=== PATIENT | male | born 1950 | race Caucasian/White ===

== ENCOUNTER 2017-04-30 02:33 | Inpatient (IN) | payer MEDICAID ==
[~2017-04-30] VITALS: Ht 175.3 cm; Wt 77.1 kg
--- NOTE | 2017-04-30 02:59 | Emergency Room Report ---
History of Present Illness General Chief Complaint: Chest Pain Source: Patient, Medical Record, EMS Present Illness HPI This is a 67-year-old male residing in shelter. He present with chief complaint of chest pain which was of breath. He has a history of cirrhosis and liver nodule concerning for neoplasm. He also had a CT confirming enlarged pituitary tumor and was arty seen by neurosurgery. He was just admitted to the hospital 2 days ago discharged back to shelter. He said that he had chest pain twice a month. Usually get better with breathing treatment. EMS gave him aspirin and nitroglycerin which is pain-free now. unless admission, he required thoracentesis for large right pleural effusion. Denies any other complaint. Patient is mildly confused. Allergies: Coded Allergies: No Known Allergies (Unverified , 04/30/17) Patient History Past Medical History: see triage record, old chart reviewed, HTN, CHF Past Surgical History: other Pertinent Family History: none Immunizations: other Reviewed Nursing Documentation: PMH: Agreed, PSxH: Agreed Review of Systems Eye: Denies: blurred vision, eye pain ENT: Denies: ear pain, nose congestion, throat swelling Respiratory: Denies: cough, shortness of breath Cardiovascular: Reports: chest pain, Denies: palpitations Gastrointestinal: Denies: abdominal pain, diarrhea, nausea, vomiting Musculoskeletal: Denies: back pain, joint pain Skin: Denies: rash Neurological: Denies: headache, numbness Endocrine: Denies: increased thirst, increased urine Hematologic/Lymphatic: Denies: easy bruising All Other Systems: negative except mentioned in HPI Physical Exam Vital Signs Date Time Temp Pulse Resp B/P Pulse Ox O2 Delivery O2 Flow Rate FiO2 04/30/17 02:34 98.2 74 19 117/75 93 Room Air vitals with mild hypoxia Sp02 EP Interpretation: reviewed, abnormal General Appearance: no apparent distress, alert, obese, Chronically Ill Head: normocephalic, atraumatic Eyes: bilateral eye EOMI, bilateral eye PERRL ENT: hearing grossly normal, normal pharynx Neck: full range of motion, supple, no meningismus Respiratory: chest non-tender, decreased breath sounds - Mostly on right Cardiovascular #1: regular rate, rhythm, no murmur Gastrointestinal: normal bowel sounds, non tender, no mass, no organomegaly, no bruit, non-distended Genitourinary: other - Aiken with reddish fluid Musculoskeletal: back normal, normal range of motion, swelling - 1+ Neurologic: alert Psychiatric: mood/affect normal Skin: warm/dry Medical Decision Making Diagnostic Impression: Primary Impression: Chest pain Qualified Codes: R07.9 - Chest pain, unspecified Additional Impression: Pleural effusion on right ER Course Patient presents with chest pain intermittent breath. He does have recurrent pleural effusion. Most likely malignant. First set of troponin negative. No evidence of PE or dissection or pneumonia. We'll get for further workup. He may need another thoracentesis. Lab Results Impression labs with elevated BNP EKG Diagnostic Results EKG Time: 02:59 Rate: normal Rhythm: NSR ST Segments: no acute changes Rhythm Strip Diag. Results Rhythm Strip Time: 02:59 EP Interpretation: yes Rate: 72 Rhythm: NSR Chest X-Ray Diagnostic Results Chest X-Ray Diagnostic Results : Chest X-Ray Ordered: Yes # of Views/Limited/Complete: 1 View Indication: Chest Pain EP Interpretation: Yes Interpretation: no pneumothorax, other - Large right pleural effusion Impression: Other - Right pleural effusion Interpreting ER Provider: Electronically signed by Mika Shell M.D. Last Vital Signs Date Time Temp Pulse Resp B/P Pulse Ox O2 Delivery O2 Flow Rate FiO2 04/30/17 02:34 98.2 74 19 117/75 93 Room Air Status: improved Disposition: ADMITTED INPATIENT Condition: Serious MIKA SHELL M.D. Apr 30, 2017 02:59
[2017-04-30 03:14] LABS: MEAN CORPUSCULAR HEMOGLOBIN 30.1 PG (27.0-31.0); MEAN CORPUSCULAR HGB CONC 31.6 G/DL (32.0-36.0); MEAN CORPUSCULAR VOLUME 95 FL (80-99); MEAN PLATELET VOLUME 7.1 FL (6.5-10.1); PLATELET COUNT 98 K/UL (150-450); RED BLOOD COUNT 4.59 M/UL (4.70-6.10); RED CELL DISTRIBUTION WIDTH 15.4 % (11.6-14.8); WHITE BLOOD COUNT 6.6 K/UL (4.8-10.8)
[2017-04-30 03:15] LABS: INR 1.3 (0.9-1.1); PROTHROMBIN TIME 13.4 SEC (9.30-11.50)
[2017-04-30] MEDS ORDERED: ACETAMINOPHEN500 M7 PO (03:30)
[2017-04-30] MEDS ORDERED: VENTOLIN HFA18 GM INH (03:30)
[2017-04-30] MEDS ORDERED: HALOPERIDOL1 MG ORAL (03:30)
[2017-04-30] MEDS ORDERED: FUROSEMIDE40 MG ORAL (03:30)
[2017-04-30] MEDS ORDERED: CLONIDINE HCL0.1 MG PO (03:30)
[2017-04-30] MEDS ORDERED: FAMOTIDINE20 MG ORAL (03:30)
[2017-04-30] MEDS ORDERED: LACTULOSE20 GM/301 ORAL ×2 (03:30→03:33)
[2017-04-30] MEDS ORDERED: LOPRESSOR25 M1 ORAL (03:33)
[2017-04-30] MEDS ORDERED: LOSARTAN POTAS100 MG ORAL (03:33)
[2017-04-30] MEDS ORDERED: LEVOTHYROXINE200 MCG IV (03:33)
[2017-04-30 03:35] LABS: ALANINE AMINOTRANSFERASE 101 U/L (3-41); ANION GAP 8 (5-15); ASPARTATE AMINO TRANSFERASE 138 U/L (5-40); CALCIUM 7.6 mg/dL (8.6-10.2); CARBON DIOXIDE 31 mEQ/L (20-30); CHLORIDE 93 mEQ/L (98-107); CREATININE 0.9 mg/dL (0.7-1.2); GLOMERULAR FILTRATION RATE > 60 mL/min (>60); HEMOLYSIS 7; POTASSIUM 4.3 mEQ/L (3.4-4.9); SODIUM 132 mEQ/L (135-145); TOTAL PROTEIN 6.3 g/dL (6.6-8.7)
[2017-04-30 03:37] LABS: TROPONIN I < 0.30 ng/mL (<=0.30)
[2017-04-30 03:46] LABS: CKMB 4.5 ng/mL (< 6.7)
[2017-04-30 04:40] VITALS: BP 118/70
[2017-04-30] MEDS ORDERED: LEVOTHYROXINE50 MCG ORAL (05:59)
[2017-04-30 08:15] VITALS: BP 136/81
[2017-04-30 12:13] VITALS: BP 115/72
[2017-04-30] MEDS ORDERED: Lactulose 20gm/30ml UDC ORAL SCH (13:45)
[2017-04-30] MEDS ORDERED: Albuterol 90mcg Inhaler 8gm INH PRN (14:00)
[2017-04-30] MEDS: Lactulose 20gm/30ml UDC ORAL SCH (14:33)
[2017-04-30] MEDS: Potassium Chloride 10 MEQ in D5 1/2NS 1,000 ML IV SCH (15:25)
--- NOTE | 2017-04-30 16:18 | Cardiology Report ---
APPROVED REPORT EKG Measurement Heart [id number] Sinus rhythm with 1st degree AV block Otherwise normal ECG
--- NOTE | 2017-04-30 17:17 | Infectious Diseases Prog Note ---
Assessment/Plan Problems: (1) HCAP (healthcare-associated pneumonia) Assessment & Plan: will start vancomycin and cefepime, send sputum for culture (2) Pleural effusion on right Assessment & Plan: recommend thoracentesis, and fluids to be sent for culture gram stain, fungal , AFB, and cytology (3) Chest pain Assessment & Plan: rule out ACS, recommend cardiac eval , troponin monitor Subjective Allergies: Coded Allergies: No Known Allergies (Unverified , 04/30/17) Objective Vital Signs Last 24 Hour Vital Signs Date Time Temp Pulse Resp B/P Pulse Ox O2 Delivery O2 Flow Rate FiO2 04/30/17 14:33 115/72 04/30/17 12:13 97.0 63 20 115/72 90 Nasal Cannula 3.0 04/30/17 12:00 69 04/30/17 08:15 97.0 68 19 136/81 Room Air 04/30/17 08:00 67 04/30/17 05:21 98.2 73 28 118/70 93 Nasal Cannula 5.0 04/30/17 04:40 98.2 73 28 118/70 93 Nasal Cannula 5.0 04/30/17 02:53 71 28 Nasal Cannula 5.0 04/30/17 02:34 98.2 74 19 117/75 93 Room Air Height (Feet): 5 Height (Inches): 9.00 Weight (Pounds): 150 Laboratory Tests Test 04/30/17 02:00 White Blood Count 6.6 K/UL (4.8-10.8) Red Blood Count 4.59 M/UL (4.70-6.10) L Hemoglobin 13.8 G/DL (14.2-18.0) L Hematocrit 43.7 % (42.0-52.0) Mean Corpuscular Volume 95 FL (80-99) Mean Corpuscular Hemoglobin 30.1 PG (27.0-31.0) Mean Corpuscular Hemoglobin Concent 31.6 G/DL (32.0-36.0) L Red Cell Distribution Width 15.4 % (11.6-14.8) H Platelet Count 98 K/UL (150-450) L Mean Platelet Volume 7.1 FL (6.5-10.1) Neutrophils (%) (Auto) % (45.0-75.0) Lymphocytes (%) (Auto) % (20.0-45.0) Monocytes (%) (Auto) % (1.0-10.0) Eosinophils (%) (Auto) % (0.0-3.0) Basophils (%) (Auto) % (0.0-2.0) Prothrombin Time 13.4 SEC (9.30-11.50) H Prothromb Time International Ratio 1.3 (0.9-1.1) H Activated Partial Thromboplast Time 27 SEC (23-33) Sodium Level 132 mEQ/L (135-145) L Potassium Level 4.3 mEQ/L (3.4-4.9) Chloride Level 93 mEQ/L (98-107) L Carbon Dioxide Level 31 mEQ/L (20-30) H Anion Gap 8 (5-15) Blood Urea Nitrogen 17 mg/dL (7-23) Creatinine 0.9 mg/dL (0.7-1.2) Estimat Glomerular Filtration Rate > 60 mL/min (>60) Glucose Level 103 mg/dL (74-106) Calcium Level 7.6 mg/dL (8.6-10.2) L Total Bilirubin 0.4 mg/dL (0.0-1.2) Aspartate Amino Transf (AST/SGOT) 138 U/L (5-40) H Alanine Aminotransferase (ALT/SGPT) 101 U/L (3-41) H Alkaline Phosphatase 159 U/L (40-129) H Total Creatine Kinase 92 U/L (38-174) Creatine Kinase MB 4.5 ng/mL (< 6.7) Creatine Kinase MB Relative Index 4.8 Troponin I < 0.30 ng/mL (<=0.30) Pro-B-Type Natriuretic Peptide 46 pg/mL (0-125) Total Protein 6.3 g/dL (6.6-8.7) L Albumin 3.2 g/dL (3.5-5.2) L Globulin 3.1 g/dL Albumin/Globulin Ratio 1.0 (1.0-2.7) Current Medications Medications (Trade) Dose Ordered Sig/Tj Route PRN Reason Start Time Stop Time Status Last Admin Dose Admin Albuterol Sulfate (Proventil MDI) 1 puff Q6H PRN INH Shortness of Breath 04/30/17 14:00 05/30/17 13:59 Clonidine HCl (Catapres) 0.1 mg Q12HR ORAL 04/30/17 14:00 05/30/17 13:59 04/30/17 14:33 Furosemide (Lasix) 40 mg TWICE A DAY ORAL 04/30/17 18:00 05/30/17 17:59 Haloperidol (Haldol) 1 mg EVERY 6 HOURS ORAL 04/30/17 18:00 05/30/17 17:59 UNV Lactulose (Cephulac) 40 gm DAILY ORAL 04/30/17 14:00 05/30/17 13:59 04/30/17 14:33 Levothyroxine Sodium (Synthroid) 50 mcg ACBREAKFAST ORAL 05/01/17 06:30 05/31/17 06:29 Losartan Potassium (Cozaar) 50 mg DAILY ORAL 05/01/17 09:00 05/31/17 08:59 Metoprolol Tartrate (Lopressor) 25 mg EVERY 12 HOURS ORAL 04/30/17 21:00 05/30/17 20:59 Morphine Sulfate (Morphine Sulfate) 0.5 mg Q4H PRN IV For Pain 04/30/17 16:30 05/07/17 16:29 Potassium Chloride/Dextrose/ Sodium Chloride (KCl/D5 0.45% NS) 1,005 ml @ 100 mls/hr Q10H3M IV 04/30/17 15:00 05/01/17 10:59 04/30/17 15:25 Ranitidine HCl 150 mg 150 mg TWICE A DAY ORAL 04/30/17 18:00 05/30/17 17:59 Edda Gil M.D. Apr 30, 2017 17:17
[2017-04-30] MEDS: Furosemide 40mg tab ORAL SCH (19:08)
[2017-04-30 19:55] VITALS: BP 140/76
[2017-04-30] MEDS ORDERED: Vancomycin 1250mg/D5W 250ml IVPB ONE ×2 (20:00→20:30)
--- NOTE | 2017-04-30 20:31 | History and Physical ---
History of Present Illness General Reason for Hospitalization: Chest Pain Present Illness HPI Coverage for [employer]. Allergies: Coded Allergies: No Known Allergies (Unverified , 04/30/17) Medication History Scheduled Albuterol Sulfate (Ventolin Hfa), 2 PUFFS INH EVERY 6 HOURS, (Reported) Famotidine (Famotidine), 20 MG ORAL TWICE A DAY, (Reported) Furosemide* (Lasix*), 40 MG ORAL TWICE A DAY, (Reported) Haloperidol* (Haldol*), 1 MG ORAL EVERY 6 HOURS, (Reported) Levothyroxine Sodium* (Levothyroxine Sodium*), 50 MCG ORAL DAILY, (Reported) Losartan Potassium (Losartan Potassium), 50 MG ORAL DAILY, (Reported) Metoprolol Tartrate (Metoprolol Tartrate), 25 MG ORAL EVERY 12 HOURS, (Reported) Miscellaneous Medications Clonidine Hcl (Clonidine Hcl), 0.1 MG PO, (Reported) Lactulose (Lactulose*), 60 ML ORAL, (Reported) Lactulose (Lactulose*), 60 ML ORAL, (Reported) Discontinued Medications Acetaminophen (Acetaminophen), 650 MG PO, (Reported) Discontinued Reason: MD discontinued med Levothyroxine Sodium* (Levothyroxine Sodium), 50 MCG IV DAILY, (Reported) Discontinued Reason: Prescription changed Patient History Healthcare decision maker Resuscitation status Full Code Advanced Directive on File Physical Exam Last 24 Hour Vital Signs Date Time Temp Pulse Resp B/P Pulse Ox O2 Delivery O2 Flow Rate FiO2 04/30/17 19:55 97.2 77 20 140/76 94 Nasal Cannula 2.0 04/30/17 16:00 68 04/30/17 14:33 115/72 04/30/17 12:13 97.0 63 20 115/72 90 Nasal Cannula 3.0 04/30/17 12:00 69 04/30/17 08:15 97.0 68 19 136/81 Room Air 04/30/17 08:00 67 04/30/17 05:21 98.2 73 28 118/70 93 Nasal Cannula 5.0 04/30/17 04:40 98.2 73 28 118/70 93 Nasal Cannula 5.0 04/30/17 02:53 71 28 Nasal Cannula 5.0 04/30/17 02:34 98.2 74 19 117/75 93 Room Air Intake and Output 04/29/17 04/30/17 19:00 07:00 Intake Total 0 ml Output Total 300 ml Balance -300 ml Intake Oral 0 ml Output Urine Total 300 ml Laboratory Tests Test 04/30/17 02:00 White Blood Count 6.6 K/UL (4.8-10.8) Red Blood Count 4.59 M/UL (4.70-6.10) L Hemoglobin 13.8 G/DL (14.2-18.0) L Hematocrit 43.7 % (42.0-52.0) Mean Corpuscular Volume 95 FL (80-99) Mean Corpuscular Hemoglobin 30.1 PG (27.0-31.0) Mean Corpuscular Hemoglobin Concent 31.6 G/DL (32.0-36.0) L Red Cell Distribution Width 15.4 % (11.6-14.8) H Platelet Count 98 K/UL (150-450) L Mean Platelet Volume 7.1 FL (6.5-10.1) Neutrophils (%) (Auto) % (45.0-75.0) Lymphocytes (%) (Auto) % (20.0-45.0) Monocytes (%) (Auto) % (1.0-10.0) Eosinophils (%) (Auto) % (0.0-3.0) Basophils (%) (Auto) % (0.0-2.0) Prothrombin Time 13.4 SEC (9.30-11.50) H Prothromb Time International Ratio 1.3 (0.9-1.1) H Activated Partial Thromboplast Time 27 SEC (23-33) Sodium Level 132 mEQ/L (135-145) L Potassium Level 4.3 mEQ/L (3.4-4.9) Chloride Level 93 mEQ/L (98-107) L Carbon Dioxide Level 31 mEQ/L (20-30) H Anion Gap 8 (5-15) Blood Urea Nitrogen 17 mg/dL (7-23) Creatinine 0.9 mg/dL (0.7-1.2) Estimat Glomerular Filtration Rate > 60 mL/min (>60) Glucose Level 103 mg/dL (74-106) Calcium Level 7.6 mg/dL (8.6-10.2) L Total Bilirubin 0.4 mg/dL (0.0-1.2) Aspartate Amino Transf (AST/SGOT) 138 U/L (5-40) H Alanine Aminotransferase (ALT/SGPT) 101 U/L (3-41) H Alkaline Phosphatase 159 U/L (40-129) H Total Creatine Kinase 92 U/L (38-174) Creatine Kinase MB 4.5 ng/mL (< 6.7) Creatine Kinase MB Relative Index 4.8 Troponin I < 0.30 ng/mL (<=0.30) Pro-B-Type Natriuretic Peptide 46 pg/mL (0-125) Total Protein 6.3 g/dL (6.6-8.7) L Albumin 3.2 g/dL (3.5-5.2) L Globulin 3.1 g/dL Albumin/Globulin Ratio 1.0 (1.0-2.7) Height (Feet): 5 Height (Inches): 9.00 Weight (Pounds): 150 Medications Current Medications Medications (Trade) Dose Ordered Sig/Tj Route PRN Reason Start Time Stop Time Status Last Admin Dose Admin Albuterol Sulfate (Proventil MDI) 1 puff Q6H PRN INH Shortness of Breath 04/30/17 14:00 05/30/17 13:59 Cefepime HCl 2 gm/ Dextrose 110 ml @ 220 mls/hr EVERY 12 HOURS IVPB 04/30/17 18:30 05/07/17 18:29 Clonidine HCl (Catapres) 0.1 mg Q12HR ORAL 04/30/17 14:00 05/30/17 13:59 04/30/17 14:33 Furosemide (Lasix) 40 mg TWICE A DAY ORAL 04/30/17 18:00 05/30/17 17:59 04/30/17 19:08 Haloperidol (Haldol) 1 mg EVERY 6 HOURS ORAL 04/30/17 18:00 05/30/17 17:59 UNV Lactulose (Cephulac) 40 gm DAILY ORAL 04/30/17 14:00 05/30/17 13:59 04/30/17 14:33 Levothyroxine Sodium (Synthroid) 50 mcg ACBREAKFAST ORAL 05/01/17 06:30 05/31/17 06:29 Losartan Potassium (Cozaar) 50 mg DAILY ORAL 05/01/17 09:00 05/31/17 08:59 Metoprolol Tartrate (Lopressor) 25 mg EVERY 12 HOURS ORAL 04/30/17 21:00 05/30/17 20:59 Morphine Sulfate (Morphine Sulfate) 0.5 mg Q4H PRN IV For Pain 04/30/17 16:30 05/07/17 16:29 Potassium Chloride/Dextrose/ Sodium Chloride (KCl/D5 0.45% NS) 1,005 ml @ 100 mls/hr Q10H3M IV 04/30/17 15:00 05/01/17 10:59 04/30/17 15:25 Ranitidine HCl 150 mg 150 mg TWICE A DAY ORAL 04/30/17 18:00 05/30/17 17:59 04/30/17 19:07 Vancomycin HCl 1 ea 1 ea DAILY PRN MISC Per rx protocol 04/30/17 17:45 05/30/17 17:44 Vancomycin HCl/ Dextrose 250 ml @ 166.667 mls/hr ONCE ONCE IVPB 04/30/17 20:00 04/30/17 21:29 Vancomycin HCl/ Dextrose (Vancomycin/D5W) 275 ml @ 183.708 mls/hr Q12HR@0800,2000 IVPB 05/01/17 08:00 05/06/17 07:59 Assessment/Plan Problem List: (1) Chest pain Assessment & Plan: Troponin noted. Now pain free. Cardiology consult. ICD Codes: R07.9 - Chest pain, unspecified SNOMED: 53643686 Qualifiers: Qualified Codes: R07.9 - Chest pain, unspecified (2) Cirrhosis Assessment & Plan: Has transaminitis - due to cirrhosis? Or other acute process ? GI eval. ICD Codes: K74.60 - Unspecified cirrhosis of liver SNOMED: 46367872 (3) Dysuria Assessment & Plan: In the setting of chronic Aiken for ?reason. UA ordered. ID follow-up. ICD Codes: R30.0 - Dysuria SNOMED: 67083534 (4) Pleural effusion on right Assessment & Plan: Chronic? Recurrent? Consider pulmonary eval. ICD Codes: J90 - Pleural effusion, not elsewhere classified SNOMED: 95881101 JANAK PINON Apr 30, 2017 20:31
[2017-04-30] MEDS: Cefepime HCl 2 GM in D5W 110 ML IVPB SCH (21:16)
[2017-04-30] MEDS: Metoprolol 25mg tab ORAL SCH (21:37)
[2017-05-01] VITALS (7 sets, daily range): BP systolic 96–151; BP diastolic 56–82
[2017-05-01 00:24] LABS: APPEARANCE,URINE CLEAR; KETONES,URINE NEGATIVE (NEGATIVE); LEUKOCYTE ESTERASE ,URINE 1+ (NEGATIVE); NITRITE,URINE NEGATIVE (NEGATIVE); PH,URINE 7 (4.5-8.0); PROTEIN,URINE 2+ (NEGATIVE); UROBILINOGEN,URINE NORMAL MG/DL (0.0-1.0)
[2017-05-01 00:36] LABS: RBC,URINE TNTC /HPF (0 - 0); WBC,URINE 0-2 /HPF (0 - 0)
[2017-05-01 00:37] LABS: BACTERIA,URINE FEW /HPF
[2017-05-01] MEDS: Potassium Chloride 10 MEQ in D5 1/2NS 1,000 ML IV SCH (01:03)
[2017-05-01] MEDS: Morphine Sulfate 2mg/ml Inj IV PRN (03:10)
--- NOTE | 2017-05-01 03:30 | Consultation ---
DATE OF CONSULTATION: INFECTIOUS DISEASE CONSULTATION REQUESTING PHYSICIAN: Edna Rivas M.D. REASON FOR CONSULTATION: Pleural effusion, possible pneumonia and recommendations for antibiotics treatment. HISTORY OF PRESENT ILLNESS: The patient is a 67-year-old halfway resident with history of liver cirrhosis and nodule was sent to [facility] for shortness of breath and chest pain. This patient also had a history of pituitary gland enlargement on recent CT scan and he was followed by Neurosurgery as an outpatient. The patient's chest pain got worse today, it is 9/10, chest pain normally gets better with breathing treatments, but no significant improvement today. So, he received aspirin and nitroglycerin via the paramedics and he was brought into the emergency room for further evaluation. The patient's chest x-ray showed large pleural effusion on the right with possible atelectasis and pneumonia. So, I was consulted by the primary provider for antibiotics treatment and further management. As of note, the patient is poor historian, could not provide good history. History was mainly obtained from the medical record. PAST MEDICAL HISTORY: Significant for hypertension, CHF, recurrent pleural effusion, liver cirrhosis and liver nodule and pituitary tumor. PAST SURGICAL HISTORY: Negative. MEDICATIONS: He is on clonidine, albuterol, morphine, ranitidine, haloperidol, Lasix, Lopressor, Synthroid and Cozaar. ALLERGIES: No known drug allergy. SOCIAL HISTORY: He is a halfway resident. No recent drugs, tobacco or alcohol. FAMILY HISTORY: Unable to obtain. PHYSICAL EXAMINATION: GENERAL: Elderly male, lying in bed, comfortable, awake, alert, not in distress. VITAL SIGNS: Temperature 97 degrees, pulse 63, respirations 20, blood pressure 115/72, and saturation 90% on three liters nasal cannula. HEENT: Normocephalic and atraumatic. Pupils reactive to light. Dry oral mucosa. NECK: Supple. No lymphadenopathy. CARDIOVASCULAR: Regular rate and rhythm. No murmur or gallop. LUNGS: He had diminished breathing sound on the right side with crackles. Normal breathing effort. No wheezes. ABDOMEN: Soft, nontender, and nondistended. Minimal ascites and hepatomegaly. EXTREMITIES: Trace edema and no cyanosis. LABORATORY AND DIAGNOSTIC DATA: Labs showed white count of 6.6, hemoglobin of 15.8, and platelet count of 98,000. BUN of 17 and creatinine 0.9. AST of 138 and ALT of 101. Imaging, chest x-ray showed right lower lobe atelectasis with right pleural effusion. ASSESSMENT AND RECOMMENDATION: 1. Healthcare acquired pneumonia. We will start vancomycin and Cefepime. Send sputum for culture. 2. Right pleural effusion. Recommend thoracentesis and fluid to be sent for culture Gram stain, fungal AFB and cytology. 3. Chest pain, rule out acute coronary syndrome. Recommend cardiac evaluation and troponin monitor. 4. Liver cirrhosis with nodule. Recommend Gastrointestinal consult, may need biopsy to rule out hepatocellular carcinoma. Edda Gil M.D. DR: DANIELITO JOB#: [id number] CC:
[2017-05-01] MEDS: Vancomycin 1gm/D5W 275ml IVPB SCH ×4 (07:41→20:07)
[2017-05-01] MEDS: Cefepime HCl 2 GM in D5W 110 ML IVPB SCH ×2 (08:46→21:27)
[2017-05-01] MEDS: Metoprolol 25mg tab ORAL SCH ×2 (08:46→21:30)
[2017-05-01] MEDS: Lactulose 20gm/30ml UDC ORAL SCH (08:46)
[2017-05-01] MEDS: Furosemide 40mg tab ORAL SCH ×2 (08:47→17:25)
[2017-05-01] MEDS: Losartan 50mg tab ORAL SCH (08:47)
--- NOTE | 2017-05-01 11:53 | GI Initial Consult Note ---
Shell,Yesi Stilloi N.P. 05/01/17 1153: History of Present Illness General Date patient seen: May 01, 2017 Time patient seen: 10:00 Reason for Hospitalization: Chest Pain Referring physician: BEVERLY BUSTOS Reason for Consultation: CIRRHOSIS Present Illness HPI This is a 67-year-old male residing in intermediate. He present with chief complaint of chest pain which was of breath. He has a history of cirrhosis and liver nodule concerning for neoplasm. He also had a CT confirming enlarged pituitary tumor and was arty seen by neurosurgery. He was just admitted to the hospital 2 days ago discharged back to intermediate. He said that he had chest pain twice a month. Usually get better with breathing treatment. EMS gave him aspirin and nitroglycerin which is pain-free now. unless admission, he required thoracentesis for large right pleural effusion. Denies any other complaint. Patient is mildly confused. GI Consult. HPI as noted above. GI consulted for history of cirrhosis and liver nodule. Pt seen on floor, awake A&Ox4 NAD with no active s/sx of N/V/D. He presents today with elevated LFTs. Unknown history of endoscopic procedures. Noted mild confusion, patient currently on lactulose. Home Meds Reported Medications Levothyroxine Sodium* (LEVOTHYROXINE SODIUM*) 50 Mcg Tablet, 50 MCG ORAL DAILY, TAB Take in the morning on an empty stomach, at least 30 minutes before food. 04/30/17 Metoprolol Tartrate (Metoprolol Tartrate) 25 Mg Tablet, 25 MG ORAL EVERY 12 HOURS, TAB 04/30/17 Losartan Potassium (LOSARTAN POTASSIUM) 100 Mg Tablet, 50 MG ORAL DAILY, TAB 04/30/17 Lactulose (LACTULOSE*) 20 Gm/30 Ml Solution, 60 ML ORAL, ML 0 Refills 04/30/17 Lactulose (LACTULOSE*) 20 Gm/30 Ml Solution, 60 ML ORAL, ML 0 Refills 04/30/17 Haloperidol* (HALDOL*) 1 Mg Tablet, 1 MG ORAL EVERY 6 HOURS, #20 TAB 0 Refills 04/30/17 Furosemide* (LASIX*) 40 Mg Tablet, 40 MG ORAL TWICE A DAY, TAB 0 Refills 04/30/17 Famotidine (FAMOTIDINE) 20 Mg Tablet, 20 MG ORAL TWICE A DAY, #60 TAB 0 Refills 8/6/17 Clonidine Hcl (CLONIDINE HCL) 0.1 Mg Tablet, 0.1 MG PO, TAB 04/30/17 Albuterol Sulfate (VENTOLIN HFA) 18 Gm Hfa.aer.ad, 2 PUFFS INH EVERY 6 HOURS, # 18 GM 0 Refills 04/30/17 Discontinued Reported Medications Levothyroxine Sodium* (LEVOTHYROXINE SODIUM) 200 Mcg Vial, 50 MCG IV DAILY, VIAL 04/30/17 Acetaminophen (ACETAMINOPHEN) 500 Mg Capsule, 650 MG PO, CAP 04/30/17 Med list reviewed/reconciled: Yes Allergies: Coded Allergies: No Known Allergies (Unverified , 04/30/17) Patient History Limited by: medical condition History Provided By: Patient, Medical Record PMH Narrative Past Medical History: see triage record, old chart reviewed, HTN, CHF Past Surgical History: other Pertinent Family History: none Immunizations: other Reviewed Nursing Documentation: PMH: Agreed, PSxH: Agreed Review of Systems All Other Systems: negative except mentioned in HPI Physical Exam Vital Signs Date Time Temp Pulse Resp B/P Pulse Ox O2 Delivery O2 Flow Rate FiO2 04/30/17 02:34 98.2 74 19 117/75 93 Room Air 04/30/17 02:53 5.0 05/01/17 03:08 28 Sp02 EP Interpretation: reviewed Labs Laboratory Tests Test 05/01/17 00:10 Urine Color Pale yellow Urine Appearance Clear Urine pH 7 (4.5-8.0) Urine Specific [place] 1.005 (1.005-1.035) Urine Protein 2+ (NEGATIVE) H Urine Glucose (UA) Negative (NEGATIVE) Urine Ketones Negative (NEGATIVE) Urine Occult Blood 5+ (NEGATIVE) H Urine Nitrite Negative (NEGATIVE) Urine Bilirubin Negative (NEGATIVE) Urine Urobilinogen Normal MG/DL (0.0-1.0) Urine Leukocyte Esterase 1+ (NEGATIVE) H Urine RBC Tntc /HPF (0 - 0) H Urine WBC 0-2 /HPF (0 - 0) Urine Squamous Epithelial Cells None /LPF (NONE/OCC) Urine Bacteria Few /HPF (NONE) General Appearance: well appearing, no apparent distress, alert Head: normocephalic EENT: normal ENT inspection Neck: full range of motion, supple Respiratory: normal breath sounds, no respiratory distress Cardiovascular: normal rate Gastrointestinal: soft Rectal: deferred Genitourinary: no CVA tenderness Neurologic: normal inspection, alert, responsive Psychiatric: normal inspection Skin: normal inspection, normal color, no rash Lymphatic: normal inspection, no adenopathy Current Medications Current Medications Medications (Trade) Dose Ordered Sig/Tj Route PRN Reason Start Time Stop Time Status Last Admin Dose Admin Albuterol Sulfate (Proventil MDI) 1 puff Q6H PRN INH Shortness of Breath 04/30/17 14:00 05/30/17 13:59 Cefepime HCl 2 gm/ Dextrose 110 ml @ 220 mls/hr EVERY 12 HOURS IVPB 04/30/17 18:30 05/07/17 18:29 05/01/17 08:46 Clonidine HCl (Catapres) 0.1 mg Q12HR ORAL 04/30/17 14:00 05/30/17 13:59 05/01/17 08:47 Furosemide (Lasix) 40 mg TWICE A DAY ORAL 04/30/17 18:00 05/30/17 17:59 05/01/17 08:47 Haloperidol (Haldol) 1 mg Q6H PRN ORAL AGITATION 04/30/17 18:00 05/30/17 17:59 Lactulose (Cephulac) 40 gm DAILY ORAL 04/30/17 14:00 05/30/17 13:59 05/01/17 08:46 Levothyroxine Sodium (Synthroid) 50 mcg ACBREAKFAST ORAL 05/01/17 06:30 05/31/17 06:29 05/01/17 06:05 Losartan Potassium (Cozaar) 50 mg DAILY ORAL 05/01/17 09:00 05/31/17 08:59 05/01/17 08:47 Metoprolol Tartrate (Lopressor) 25 mg EVERY 12 HOURS ORAL 04/30/17 21:00 05/30/17 20:59 05/01/17 08:46 Morphine Sulfate (Morphine Sulfate) 0.5 mg Q4H PRN IV For Pain 04/30/17 16:30 05/07/17 16:29 05/01/17 03:10 Ranitidine HCl (Zantac) 150 mg TWICE A DAY ORAL 04/30/17 18:00 05/30/17 17:59 05/01/17 08:47 Vancomycin HCl 1 ea 1 ea DAILY PRN MISC Per rx protocol 04/30/17 17:45 05/30/17 17:44 Vancomycin HCl/ Dextrose (Vancomycin/D5W) 275 ml @ 183.708 mls/hr Q12HR@0800,2000 IVPB 05/01/17 08:00 05/06/17 07:59 05/01/17 07:41 GI: Plan Problems: (1) Liver nodule (2) Cirrhosis Plan ordered abdominal U/S, ok to resume cardiac diet after amlabs >> ammonia, AFP, hepatitis panel cont lactulose, will consider Xifaxan H2B repeat LFTs fu labs Discussed with Dr. Preciado. Thank you for referring this patient, we will follow. AZAEL PRECIADO 05/03/17 1048: History of Present Illness General Reason for Hospitalization: Chest Pain Present Illness Home Meds Reported Medications Levothyroxine Sodium* (LEVOTHYROXINE SODIUM*) 50 Mcg Tablet, 50 MCG ORAL DAILY, TAB Take in the morning on an empty stomach, at least 30 minutes before food. 04/30/17 Metoprolol Tartrate (Metoprolol Tartrate) 25 Mg Tablet, 25 MG ORAL EVERY 12 HOURS, TAB 04/30/17 Losartan Potassium (LOSARTAN POTASSIUM) 100 Mg Tablet, 50 MG ORAL DAILY, TAB 04/30/17 Lactulose (LACTULOSE*) 20 Gm/30 Ml Solution, 60 ML ORAL, ML 0 Refills 04/30/17 Lactulose (LACTULOSE*) 20 Gm/30 Ml Solution, 60 ML ORAL, ML 0 Refills 04/30/17 Haloperidol* (HALDOL*) 1 Mg Tablet, 1 MG ORAL EVERY 6 HOURS, #20 TAB 0 Refills 04/30/17 Furosemide* (LASIX*) 40 Mg Tablet, 40 MG ORAL TWICE A DAY, TAB 0 Refills 04/30/17 Famotidine (FAMOTIDINE) 20 Mg Tablet, 20 MG ORAL TWICE A DAY, #60 TAB 0 Refills 04/30/17 Clonidine Hcl (CLONIDINE HCL) 0.1 Mg Tablet, 0.1 MG PO, TAB 04/30/17 Albuterol Sulfate (VENTOLIN HFA) 18 Gm Hfa.aer.ad, 2 PUFFS INH EVERY 6 HOURS, # 18 GM 0 Refills 04/30/17 Discontinued Reported Medications Levothyroxine Sodium* (LEVOTHYROXINE SODIUM) 200 Mcg Vial, 50 MCG IV DAILY, VIAL 8/6/17 Acetaminophen (ACETAMINOPHEN) 500 Mg Capsule, 650 MG PO, CAP 04/30/17 Allergies: Coded Allergies: No Known Allergies (Unverified , 04/30/17) GI: Plan Plan The patient was seen and examined at bedside and all new and available data was reviewed in the patients chart. I agree with the above findings, impression and plan. (Patient seen earlier today. Signature stamp does not reflect patient encounter time.). -[facility]zael [facility] N.P. May 01, 2017 11:53 AZAEL PRECIADO May 03, 2017 10:48
[2017-05-01] MEDS: Haloperidol 1mg tab ORAL PRN (12:15)
--- NOTE | 2017-05-01 15:12 | Cardiac Electrophysiology PN ---
Subjective Subjective [id number] Objective Last 24 Hour Vital Signs Date Time Temp Pulse Resp B/P Pulse Ox O2 Delivery O2 Flow Rate FiO2 05/01/17 12:56 72 05/01/17 12:00 97.9 77 22 139/82 88 Nasal Cannula 2.0 05/01/17 08:47 151/76 05/01/17 08:47 151/76 05/01/17 08:46 84 151/76 05/01/17 08:34 85 05/01/17 08:05 80 20 Nasal Cannula 2.0 28 05/01/17 08:00 99.0 81 20 151/76 80 Room Air 05/01/17 04:32 97.0 71 20 100/61 94 Nasal Cannula 2.0 05/01/17 04:00 69 05/01/17 03:40 97.0 05/01/17 03:08 70 20 Nasal Cannula 2.0 28 05/01/17 00:00 63 05/01/17 00:00 97.0 72 20 136/77 95 Nasal Cannula 2.0 04/30/17 21:37 77 140/76 04/30/17 21:37 140/76 04/30/17 20:00 74 04/30/17 19:55 97.2 77 20 140/76 94 Nasal Cannula 2.0 04/30/17 16:00 68 Intake and Output 04/30/17 05/01/17 19:00 07:00 Intake Total 860 ml Output Total 1500 ml 900 ml Balance -640 ml -900 ml Intake Oral 560 ml IV Total 300 ml Output Urine Total 1500 ml 900 ml Laboratory Tests Test 05/01/17 00:10 Urine Color Pale yellow Urine Appearance Clear Urine pH 7 (4.5-8.0) Urine Specific [place] 1.005 (1.005-1.035) Urine Protein 2+ (NEGATIVE) H Urine Glucose (UA) Negative (NEGATIVE) Urine Ketones Negative (NEGATIVE) Urine Occult Blood 5+ (NEGATIVE) H Urine Nitrite Negative (NEGATIVE) Urine Bilirubin Negative (NEGATIVE) Urine Urobilinogen Normal MG/DL (0.0-1.0) Urine Leukocyte Esterase 1+ (NEGATIVE) H Urine RBC Tntc /HPF (0 - 0) H Urine WBC 0-2 /HPF (0 - 0) Urine Squamous Epithelial Cells None /LPF (NONE/OCC) Urine Bacteria Few /HPF (NONE) Microbiology Date/Time Source Procedure Growth Status 04/30/17 05:06 Nasal Nares Received ANUEL PEMBERTON May 01, 2017 15:12
--- NOTE | 2017-05-01 15:50 | Infectious Diseases Prog Note ---
Assessment/Plan Problems: (1) HCAP (healthcare-associated pneumonia) Assessment & Plan: continue vancomycin and cefepime, await sputum culture (2) Pleural effusion on right Assessment & Plan: will order CT chest to rule out lung mass, recommend thoracentesis, and fluids to be sent for culture gram stain, fungal , AFB, and cytology (3) Chest pain Assessment & Plan: rule out ACS, recommend cardiac eval , troponin monitor Subjective Constitutional: Reports: no symptoms HEENT: Reports: no symptoms Respiratory: Reports: no symptoms Breasts: Reports: no symptoms Cardiovascular: Reports: no symptoms Gastrointestinal/Abdominal: Reports: no symptoms Genitourinary: Reports: no symptoms Neurologic: Reports: no symptoms Psychiatric: Reports: no symptoms Skin: Reports: no symptoms Endocrine: Reports: no symptoms Hematologic: Reports: no symptoms Allergies: Coded Allergies: No Known Allergies (Unverified , 04/30/17) Objective Vital Signs Last 24 Hour Vital Signs Date Time Temp Pulse Resp B/P Pulse Ox O2 Delivery O2 Flow Rate FiO2 05/01/17 12:56 72 05/01/17 12:00 97.9 77 22 139/82 88 Nasal Cannula 2.0 05/01/17 08:47 151/76 05/01/17 08:47 151/76 05/01/17 08:46 84 151/76 05/01/17 08:34 85 05/01/17 08:05 80 20 Nasal Cannula 2.0 28 05/01/17 08:00 99.0 81 20 151/76 80 Room Air 05/01/17 04:32 97.0 71 20 100/61 94 Nasal Cannula 2.0 05/01/17 04:00 69 05/01/17 03:40 97.0 05/01/17 03:08 70 20 Nasal Cannula 2.0 28 05/01/17 00:00 63 05/01/17 00:00 97.0 72 20 136/77 95 Nasal Cannula 2.0 04/30/17 21:37 77 140/76 04/30/17 21:37 140/76 04/30/17 20:00 74 04/30/17 19:55 97.2 77 20 140/76 94 Nasal Cannula 2.0 04/30/17 16:00 68 Height (Feet): 5 Height (Inches): 9.00 Weight (Pounds): 150 General Appearance: WD/WN, no acute distress HEENT: normocephalic, atraumatic, anicteric, mucous membranes moist Respiratory/Chest: chest wall non-tender, normal breath sounds, no respiratory distress, no accessory muscle use, decreased breath sounds, crackles/rales Cardiovascular: normal peripheral pulses, normal rate, regular rhythm, no gallop/murmur, no JVD Abdomen: normal bowel sounds, soft, non tender, no organomegaly, non distended , no mass Extremities: no cyanosis, no clubbing Skin: no rash, no lesions Neurologic/Psychiatric: alert Microbiology Date/Time Source Procedure Growth Status 04/30/17 05:06 Nasal Nares Received Laboratory Tests Test 05/01/17 00:10 Urine Color Pale yellow Urine Appearance Clear Urine pH 7 (4.5-8.0) Urine Specific [place] 1.005 (1.005-1.035) Urine Protein 2+ (NEGATIVE) H Urine Glucose (UA) Negative (NEGATIVE) Urine Ketones Negative (NEGATIVE) Urine Occult Blood 5+ (NEGATIVE) H Urine Nitrite Negative (NEGATIVE) Urine Bilirubin Negative (NEGATIVE) Urine Urobilinogen Normal MG/DL (0.0-1.0) Urine Leukocyte Esterase 1+ (NEGATIVE) H Urine RBC Tntc /HPF (0 - 0) H Urine WBC 0-2 /HPF (0 - 0) Urine Squamous Epithelial Cells None /LPF (NONE/OCC) Urine Bacteria Few /HPF (NONE) Current Medications Medications (Trade) Dose Ordered Sig/Tj Route PRN Reason Start Time Stop Time Status Last Admin Dose Admin Albuterol Sulfate (Proventil MDI) 1 puff Q6H PRN INH Shortness of Breath 04/30/17 14:00 05/30/17 13:59 Cefepime HCl 2 gm/ Dextrose 110 ml @ 220 mls/hr EVERY 12 HOURS IVPB 04/30/17 18:30 05/07/17 18:29 05/01/17 08:46 Clonidine HCl (Catapres) 0.1 mg Q12HR ORAL 04/30/17 14:00 05/30/17 13:59 05/01/17 08:47 Furosemide (Lasix) 40 mg TWICE A DAY ORAL 04/30/17 18:00 05/30/17 17:59 05/01/17 08:47 Haloperidol (Haldol) 1 mg Q6H PRN ORAL AGITATION 04/30/17 18:00 05/30/17 17:59 05/01/17 12:15 Lactulose (Cephulac) 40 gm DAILY ORAL 04/30/17 14:00 05/30/17 13:59 05/01/17 08:46 Levothyroxine Sodium (Synthroid) 50 mcg ACBREAKFAST ORAL 05/01/17 06:30 05/31/17 06:29 05/01/17 06:05 Losartan Potassium (Cozaar) 50 mg DAILY ORAL 05/01/17 09:00 05/31/17 08:59 05/01/17 08:47 Metoprolol Tartrate (Lopressor) 25 mg EVERY 12 HOURS ORAL 04/30/17 21:00 05/30/17 20:59 05/01/17 08:46 Morphine Sulfate (Morphine Sulfate) 0.5 mg Q4H PRN IV For Pain 04/30/17 16:30 05/07/17 16:29 05/01/17 03:10 Ranitidine HCl (Zantac) 150 mg TWICE A DAY ORAL 04/30/17 18:00 05/30/17 17:59 05/01/17 08:47 Vancomycin HCl 1 ea 1 ea DAILY PRN MISC Per rx protocol 04/30/17 17:45 05/30/17 17:44 Vancomycin HCl/ Dextrose (Vancomycin/D5W) 275 ml @ 183.708 mls/hr Q12HR@0800,2000 IVPB 05/01/17 08:00 05/06/17 07:59 05/01/17 07:41 Edda Gil M.D. May 01, 2017 15:50
[2017-05-01] MEDS ORDERED: NS 275ml ONE (16:47)
[2017-05-01] MEDS ORDERED: Tubing IV Secondary IV ONE (16:47)
--- NOTE | 2017-05-01 19:44 | Cardiology Progress Note ---
Assessment/Plan Assessment/Plan The patient is seen and examined, full consult will be dictated. Objective Last 24 Hour Vital Signs Date Time Temp Pulse Resp B/P Pulse Ox O2 Delivery O2 Flow Rate FiO2 05/01/17 16:15 62 05/01/17 16:00 97.7 60 18 96/56 87 Room Air 05/01/17 12:56 72 05/01/17 12:00 97.9 77 22 139/82 88 Nasal Cannula 2.0 05/01/17 08:47 151/76 05/01/17 08:47 151/76 05/01/17 08:46 84 151/76 05/01/17 08:34 85 05/01/17 08:05 80 20 Nasal Cannula 2.0 28 05/01/17 08:00 99.0 81 20 151/76 80 Room Air 05/01/17 04:32 97.0 71 20 100/61 94 Nasal Cannula 2.0 05/01/17 04:00 69 05/01/17 03:40 97.0 05/01/17 03:08 70 20 Nasal Cannula 2.0 28 05/01/17 00:00 63 05/01/17 00:00 97.0 72 20 136/77 95 Nasal Cannula 2.0 04/30/17 21:37 77 140/76 04/30/17 21:37 140/76 04/30/17 20:00 74 04/30/17 19:55 97.2 77 20 140/76 94 Nasal Cannula 2.0 Intake and Output 04/30/17 05/01/17 19:00 07:00 Intake Total 860 ml Output Total 1500 ml 900 ml Balance -640 ml -900 ml Intake Oral 560 ml IV Total 300 ml Output Urine Total 1500 ml 900 ml Laboratory Tests Test 05/01/17 00:10 Urine Color Pale yellow Urine Appearance Clear Urine pH 7 (4.5-8.0) Urine Specific [place] 1.005 (1.005-1.035) Urine Protein 2+ (NEGATIVE) H Urine Glucose (UA) Negative (NEGATIVE) Urine Ketones Negative (NEGATIVE) Urine Occult Blood 5+ (NEGATIVE) H Urine Nitrite Negative (NEGATIVE) Urine Bilirubin Negative (NEGATIVE) Urine Urobilinogen Normal MG/DL (0.0-1.0) Urine Leukocyte Esterase 1+ (NEGATIVE) H Urine RBC Tntc /HPF (0 - 0) H Urine WBC 0-2 /HPF (0 - 0) Urine Squamous Epithelial Cells None /LPF (NONE/OCC) Urine Bacteria Few /HPF (NONE) Microbiology Date/Time Source Procedure Growth Status 04/30/17 05:06 Nasal Nares Received ANULE MÉNDEZ May 01, 2017 19:44
--- NOTE | 2017-05-01 22:15 | Consultation ---
DATE OF CONSULTATION: 05/01/2017 CARDIOLOGY CONSULTATION CONSULTING PHYSICIAN: Mark Brown M.D. REFERRING PHYSICIAN: Edna Rivas M.D. REASON FOR CONSULTATION: Chest pain. HISTORY OF PRESENT ILLNESS: The patient is a 67-year-old gentleman history of hypertension, cirrhosis of the liver, was brought to the emergency room complaining of chest pain and shortness of breath. The patient had a CT scan which confirmed enlarged pituitary tumor and was also been evaluated by neurosurgery. The patient was admitted to the hospital two days ago and discharged back. The patient was brought in for chest pain, in the ER received nitroglycerin and aspirin. The patient noted to have a large right pleural refusion, underwent pleurocentesis. At the time of my evaluation, is feeling better. REVIEW OF SYSTEMS: Negative other than what is mentioned in the history of present illness. PAST MEDICAL HISTORY: As mentioned above and also includes hypothyroidism. FAMILY HISTORY: Noncontributory. MEDICATIONS: Are per reconciliation include Synthroid, metoprolol, losartan, lactulose, Haldol, Lasix. PHYSICAL EXAMINATION: VITAL SIGNS: Blood pressure 139/82, pulse 77, respirations 22, and is afebrile. HEAD AND NECK: Shows no JVD. LUNGS: Coarse rhonchi. CARDIOVASCULAR: Regular S1 and S2 with no gallop. ABDOMEN: Slightly distended. EXTREMITIES: A 2+ pitting edema. LABORATORY DATA: Show a white count of 6.6, hemoglobin 13.2, hematocrit 42.7, platelet count 98. Sodium 132, potassium 4.3, BUN of 17, and creatinine 0.9. Troponin is negative. INR is 1.3. His urinalysis shows too numerous to count RBC and 1+ leukocyte esterase. ASSESSMENT AND PLAN: 1. Chest pain likely due to patient's worsening pleural effusion for which he underwent thoracentesis. We will get an echocardiogram to rule for ejection fraction and wall motion abnormality. We will completely rule out myocardial infarction protocol. 2. Right pleural effusion likely secondary to healthcare-associated pneumonia, further evaluation by . 3. Liver cirrhosis with nodule, hepatocellular carcinoma. He has already been evaluated by Dr. Telles. Thank very much, Dr. Rivas, for allowing me to participate in the care of this patient. Please do not hesitate to contact me for any questions regarding my evaluation. Mark Brown M.D. DR: Emeterio JOB#: [id number] CC:
[2017-05-02] VITALS (7 sets, daily range): BP systolic 106–142; BP diastolic 65–89
--- NOTE | 2017-05-02 02:15 | Consultation ---
DATE OF CONSULTATION: 05/01/2017 HEMATOLOGY/ONCOLOGY CONSULTATION CONSULTING PHYSICIAN: Wes Johnston M.D. REQUESTING PHYSICIAN: Edna Rivas M.D. REASON FOR CONSULTATION: Evaluation of thrombocytopenia and potential liver cancer and history of CHF. HISTORY OF PRESENT ILLNESS: The patient is a pleasant 67[facility]year-[facility] with history of cirrhosis with liver nodule, at this time presented to [facility] with shortness of breath as well as chest pain, noted to have pituitary gland enlargement on recent CAT scan, has been followed by Neurosurgery as an outpatient. The patient's chest pain has gotten worse, it is 9/10. The patient is on breathing treatments. No significant improvement. The patient received aspirin as well as nitroglycerin, seen by paramedics. Chest x-ray showed large pleural effusion and noted to have thrombocytopenia and Hematology Service consulted. PAST MEDICAL HISTORY: Hypertension, CHF, pleural effusion, liver cirrhosis, and pituitary tumor. PAST SURGICAL HISTORY: None reported. MEDICATIONS: Clonidine . ALLERGIES: No known drug allergies. SOCIAL HISTORY: [facility] resident. No recent alcohol, tobacco, or illicit drug use. FAMILY HISTORY: Noncontributory. REVIEW OF SYSTEMS: Constitutional: No fever, chills, or night sweats. Skin: No rashes, lumps, or itching. HEENT: No headache, hearing, or vision changes. Breasts: No lumps, pain, or discharge. Pulmonary: No cough, sputum, or shortness of breath. Cardiovascular: No chest pain. Genitourinary: No dysuria, frequency, or urgency. Musculoskeletal: No joint swelling, muscle pain, or trauma. Some chest pain . PHYSICAL EXAMINATION: VITAL SIGNS: Blood pressure 110/73, respiratory rate 12, and O2 saturation 98% on 3 liters nasal cannula. GENERAL: No acute distress. PULMONARY: Decreased breath sounds. CARDIOVASCULAR: Regular rate. No S3 or S4. ABDOMEN: Soft, nontender, and nondistended. EXTREMITIES: No cyanosis, clubbing, or edema. LABORATORY DATA: WBC 6.6, hemoglobin 13.8, hematocrit 35, and platelet count 98,000. BUN of 17 and creatinine 0.9. ASSESSMENT AND PLAN: 1. Anemia secondary to chronic disease. Continue to closely monitor. 2. Thrombocytopenia, mostly related to underlying cirrhosis as well as sepsis. 3. Transaminitis, potentially secondary to underlying liver disease. 4. Liver nodule, biopsy. 5. Dysuria in the setting of chronic [place]. 6. Pleural effusion evaluation by Pulmonary team. 7. Coagulopathy, potentially secondary to underlying liver disease. Wes Johnston M.D. DR: Catrachito JOB#: [id number] CC:
[2017-05-02] MEDS: Vancomycin 1gm/D5W 275ml IVPB SCH ×2 (07:57)
[2017-05-02 08:20] LABS: MEAN CORPUSCULAR HEMOGLOBIN 31.7 PG (27.0-31.0); MEAN CORPUSCULAR HGB CONC 32.9 G/DL (32.0-36.0); MEAN CORPUSCULAR VOLUME 96 FL (80-99); MEAN PLATELET VOLUME 6.8 FL (6.5-10.1); PLATELET COUNT 83 K/UL (150-450); RED BLOOD COUNT 4.33 M/UL (4.70-6.10); RED CELL DISTRIBUTION WIDTH 15.6 % (11.6-14.8); WHITE BLOOD COUNT 7.8 K/UL (4.8-10.8)
[2017-05-02 08:32] LABS: ALANINE AMINOTRANSFERASE 120 U/L (3-41); ANION GAP 6 (5-15); ASPARTATE AMINO TRANSFERASE 147 U/L (5-40); CALCIUM 7.8 mg/dL (8.6-10.2); CARBON DIOXIDE 31 mEQ/L (20-30); CHLORIDE 93 mEQ/L (98-107); CREATININE 0.9 mg/dL (0.7-1.2); GLOMERULAR FILTRATION RATE > 60 mL/min (>60); HEMOLYSIS 5; POTASSIUM 4.6 mEQ/L (3.4-4.9); SODIUM 130 mEQ/L (135-145); TOTAL PROTEIN 6.2 g/dL (6.6-8.7)
[2017-05-02 08:33] LABS: TROPONIN I < 0.30 ng/mL (<=0.30)
[2017-05-02] MEDS: Losartan 50mg tab ORAL SCH (09:00)
[2017-05-02] MEDS: Metoprolol 25mg tab ORAL SCH ×2 (09:00→21:14)
--- NOTE | 2017-05-02 09:03 | Diagnostic Imaging Report ---
Indication:Elevated liver function tests Technique: Grayscale and duplex Doppler imaging of the abdomen performed. Comparison: None Findings: There is a trace amount of ascites present. The liver surface appears slightly nodular. Spleen is enlarged measuring 18 cm. No biliary ductal seen. The liver also demonstrates a coarsened echotexture. Gallbladder is unremarkable. Right pleural effusion noted. The pancreas and aorta are poorly seen. CBD is 5 mm. Impression: Suspicion of chronic liver disease/cirrhosis. Stigmata of portal hypertension including splenomegaly and trace ascites. Small right pleural effusion.
--- NOTE | 2017-05-02 09:03 | Diagnostic Imaging Report ---
Indication: CP Technique: XRAY CHEST 1 V Comparison:None Findings: The heart appears enlarged. There is an air-filled lucency overlying the heart. Opacification of the right mid and lower lung is noted. There is some prominent pulmonary vascularity in the right upper lobe. Blunting of the right costophrenic angle is present. Impression: Cardiomegaly. Air-filled lucency over the heart. This likely represents a hiatal hernia. However, lateral view or further evaluation suggested. Right pleural effusion. Volume loss or infiltrate in the right lower lobe.
--- NOTE | 2017-05-02 09:30 | History and Physical Report ---
DATE OF ADMISSION: 04/30/2017 The patient is originally the patient of 00:10 He asked me to cover the patient at [employer]. The patient is a poor historian, cannot get reliable history from him, 00:16 . HISTORY OF PRESENT ILLNESS: The patient is admitted for chest pain from the long-term, recurrent pleural effusion, complains of chest pain for the past few days that radiated to the left arm. The patient also has history of heartburn. Currently, denies any chest pain, denies any radiation. Denies any neuropathy. Denies any palpitations. Denies any shortness of breath or cough. Past Medical History: Significant for hypertension, cirrhosis, psychosis, hypothyroidism, hypertension, GERD, history of 00:57 and peptic ulcer disease, recurrent pleural effusion. He reports chronic pain syndrome. MEDICATIONS: Albuterol, clonidine, Pepcid, furosemide, Haldol, lactulose, Levoxyl, losartan, and metoprolol. ALLERGIES: No known allergies. SOCIAL HISTORY: He has history of smoking, history of alcohol abuse, and history of drug abuse. REVIEW OF SYSTEMS: HEENT: Denies headaches. Respiratory: Denies shortness of breath. Denies cough. Cardiovascular: Reports chest pain for three days that radiated to the left arm. Denies any palpitations. Gastrointestinal: He reports heartburn. Denies pain. Denies abdominal pain. Extremities: Denies pain in the lower extremities. Central Nervous System: Denies change in vision or speech pattern. Denies diplopia. PHYSICAL EXAMINATION: VITAL SIGNS: Temperature is 97.9 degrees, pulse is 77, and blood pressure 129/82. HEENT: PERRLA. NECK: Supple. No lymphadenopathy. CHEST: Clear to auscultation. CARDIOVASCULAR: Regular rate and rhythm. No murmurs or extra sound. GASTROINTESTINAL: Soft, nontender, and nondistended. No organomegaly. Positive bowel sounds. GENITOURINARY: He does have Aiken catheter. EXTREMITIES: No edema. NEUROLOGIC: Reflexes are equal on both sides. Oriented to name. LABORATORY DATA: WBC of 6.6, hemoglobin 13.8, and platelets of 98,000. Sodium 132, potassium 4.3, BUN of 17, and creatinine 0.9. Glucose of 103. AST of 138 and ALT of 101. Alkaline phosphatase 159. Total bilirubin 0.4. ASSESSMENT AND PLAN: Chest pain, has been admitted to rule out acute coronary syndrome. Cardiology has been consulted as well as the dental surgeon, Dr. Telles has been consulted as well for his cirrhosis and gastrointestinal problems. Once this is ruled out, I will discharge back to the nursing facility where he came from. Edna Rivas M.D. DR: LIBORIO JOB#: [id number] CC:
[2017-05-02 10:36] LABS: BAND NEUTROPHILS % (MANUAL) 1 % (0-8); BASOPHILS % (MANUAL) 3 % (0-2); EOSINOPHILS % (MANUAL) 6 % (0-3); LYMPHOCYTES % (MANUAL) 20 % (20-45); NEUTROPHILS % (MANUAL) 60 % (45-75); PLATELET ESTIMATE DECREASED; TOTAL CELLS COUNTED 100
[2017-05-02 10:37] LABS: PLATELET MORPHOLOGY NORMAL
[2017-05-02] MEDS: Lactulose 20gm/30ml UDC ORAL SCH (10:54)
[2017-05-02] MEDS: Cefepime HCl 2 GM in D5W 110 ML IVPB SCH ×2 (10:55→23:57)
[2017-05-02] MEDS: Furosemide 40mg tab ORAL SCH (10:55)
--- NOTE | 2017-05-02 12:36 | Diagnostic Imaging Report ---
Clinical Indication: Chest pain Technique: Spiral acquisitions obtained through the chest. No IV contrast utilized, per referring physician request. Multiplanar reconstructions generated. Total dose length product 1049 mGycm. CTDIvol(s) 28 mGy. Dose reduction achieved using automated exposure control Comparison: None Findings:There is a massive right pleural effusion, occupying is over 70% of the right hemithorax. There is resultant compressive atelectasis of the entire right lower lobe, as well as significant portions of the right middle and lower lobes. There is a large thoracic hernia that contains most of the stomach. This is probably a large paraesophageal hiatal hernia. This results in compressive atelectasis a significant portion of the medial left lower lobe. The left upper lobe is clear is The heart is mildly enlarged. No mediastinal or hilar mass or adenopathy demonstrated. No definite pericardial effusion. Unremarkable thyroid. No axillary or chest wall mass or adenopathy demonstrated. The bones are remarkable only for degenerative spondylosis changes. Limited views of the upper abdominal anatomy demonstrates mild hepatic atrophy with fairly extensive surface nodularity. There is a very subtle 2.6 cm low-attenuation lesion within segment one of the liver. There is marked edema of the mesenteric fat. The gallbladder is nondistended but the wall appears edematous. There is splenomegaly, with the spleen measuring at least 17 cm long axis dimension, incompletely included. Prominent lymph nodes are seen within the perigastric fat within the hernia. These appear to be discrete nodules rather than varices. There is trace free fluid around the liver Impression: Massive right pleural effusion, occupying well over 70% of the right hemithorax. This results in complete atelectasis of the right lower lobe, significant atelectasis of the portions of the right upper and middle lobes. Large thoracic hernia containing most of the stomach, probably a large paraesophageal hiatal hernia. Compressive atelectasis of some of the medial left lower lobe due to mass effect from the hiatal hernia borderline cardiomegaly Evidence of hepatic cirrhosis, with hepatic atrophy and surface nodularity. Also described on recent ultrasound, also previously reported Suspect 2.6 cm low-attenuation lesion within segment one of the liver. Neoplasm a possibility. Further workup with MRI or contrast CT is recommended Mildly thickwalled gallbladder, likely related to the above Trace ascites Splenomegaly, also previously reported Prominent perigastric lymph nodes, significance uncertain Edematous mesenteric fat Degenerative spondylosis incidentally noted The CT scanner at [facility] is accredited by the [employer] and the scans are performed using protocols designed to limit radiation exposure to as low as reasonably achievable to attain images of sufficient resolution adequate for diagnostic evaluation.
--- NOTE | 2017-05-02 14:33 | Consultation ---
Consult Note Consult Note asked to eval for low Na Assessment/Plan History of Brain tumor Was on Hospice at [facility] Admitted with chest pain Has pleural effusion right side Has shepard for urinary retention Has Pneumonia Has Transaminitis Cirrhosis / Splenomegaly / Liver mass 2+ Proteinuria HTN HypoThyroidism Plan: Adjust BP meds- Urine studies Down on Lasix dose- 2D echo results? Monitor lytes Per consultants KELLY MUÑIZ May 02, 2017 14:33
[2017-05-02] MEDS ORDERED: DuoNeb 0.5-3(2.5)mg/3ml neb HHN PRN (15:00)
--- NOTE | 2017-05-02 15:05 | GI Progress Note ---
Assessment/Plan Problems: (1) Liver nodule ICD Codes: K76.89 - Other specified diseases of liver SNOMED: 840238889 (2) Cirrhosis ICD Codes: K74.60 - Unspecified cirrhosis of liver SNOMED: 37842839 Status: stable Status Narrative Discussed with Dr. Telles. Assessment/Plan abdominal U/S >> Suspicion of chronic liver disease/cirrhosis. Stigmata of portal hypertension including splenomegaly and trace ascites. ammonia WNL >> cont lactulose EGD scheduled for tomorrow. - cardiac diet, NPO @ MN. - hold all blood thinners tonight. fu hepatitis panel fu AFP H2B monitor LFTs fu labs Subjective Gastrointestinal/Abdominal: Reports: no symptoms Subjective abdominal pain alot better Objective Last 24 Hour Vital Signs Date Time Temp Pulse Resp B/P Pulse Ox O2 Delivery O2 Flow Rate FiO2 05/02/17 12:08 62 05/02/17 12:00 97.0 61 22 131/80 99 Nasal Cannula 2.0 05/02/17 09:00 55 109/77 05/02/17 09:00 109/77 05/02/17 09:00 109/77 05/02/17 08:00 97.8 60 21 135/89 94 Nasal Cannula 2.0 05/02/17 07:38 60 05/02/17 06:30 68 18 Nasal Cannula 2.0 28 05/02/17 04:00 58 05/02/17 03:35 97.2 62 20 106/65 91 Nasal Cannula 2.0 05/02/17 00:10 96.4 72 20 122/68 90 Nasal Cannula 2.0 05/02/17 00:00 69 05/01/17 22:33 76 20 94 Nasal Cannula 2.0 28 05/01/17 22:27 74 20 94 Nasal Cannula 2.0 28 05/01/17 21:30 92 115/67 05/01/17 21:29 115/67 05/01/17 20:07 97.7 65 19 115/67 92 Nasal Cannula 2.0 05/01/17 20:00 61 05/01/17 19:00 74 20 Nasal Cannula 2.0 28 05/01/17 16:15 62 05/01/17 16:00 97.7 60 18 96/56 87 Room Air Intake and Output 05/01/17 05/02/17 19:00 07:00 Intake Total 785 ml Output Total 500 ml 1200 ml Balance 285 ml -1200 ml IV Total 785 ml Output Urine Total 500 ml 1200 ml # Bowel Movements 1 Laboratory Tests Test 05/02/17 07:35 White Blood Count 7.8 K/UL (4.8-10.8) Red Blood Count 4.33 M/UL (4.70-6.10) L Hemoglobin 13.7 G/DL (14.2-18.0) L Hematocrit 41.6 % (42.0-52.0) L Mean Corpuscular Volume 96 FL (80-99) Mean Corpuscular Hemoglobin 31.7 PG (27.0-31.0) H Mean Corpuscular Hemoglobin Concent 32.9 G/DL (32.0-36.0) Red Cell Distribution Width 15.6 % (11.6-14.8) H Platelet Count 83 K/UL (150-450) L Mean Platelet Volume 6.8 FL (6.5-10.1) Neutrophils (%) (Auto) % (45.0-75.0) Lymphocytes (%) (Auto) % (20.0-45.0) Monocytes (%) (Auto) % (1.0-10.0) Eosinophils (%) (Auto) % (0.0-3.0) Basophils (%) (Auto) % (0.0-2.0) Differential Total Cells Counted 100 Neutrophils % (Manual) 60 % (45-75) Lymphocytes % (Manual) 20 % (20-45) Monocytes % (Manual) 10 % (1-10) Eosinophils % (Manual) 6 % (0-3) H Basophils % (Manual) 3 % (0-2) H Band Neutrophils 1 % (0-8) Platelet Estimate Decreased L Platelet Morphology Normal Red Blood Cell Morphology Normal Sodium Level 130 mEQ/L (135-145) L Potassium Level 4.6 mEQ/L (3.4-4.9) Chloride Level 93 mEQ/L (98-107) L Carbon Dioxide Level 31 mEQ/L (20-30) H Anion Gap 6 (5-15) Blood Urea Nitrogen 16 mg/dL (7-23) Creatinine 0.9 mg/dL (0.7-1.2) Estimat Glomerular Filtration Rate > 60 mL/min (>60) Glucose Level 127 mg/dL (74-106) H Calcium Level 7.8 mg/dL (8.6-10.2) L Total Bilirubin 0.5 mg/dL (0.0-1.2) Aspartate Amino Transf (AST/SGOT) 147 U/L (5-40) H Alanine Aminotransferase (ALT/SGPT) 120 U/L (3-41) H Alkaline Phosphatase 125 U/L (40-129) Ammonia 45 umol/L (16-60) Troponin I < 0.30 ng/mL (<=0.30) Pro-B-Type Natriuretic Peptide 70 pg/mL (0-125) Total Protein 6.2 g/dL (6.6-8.7) L Albumin 3.1 g/dL (3.5-5.2) L Globulin 3.1 g/dL Albumin/Globulin Ratio 1.0 (1.0-2.7) Alpha Fetoprotein Pending Vancomycin Level Trough 9.4 ug/mL (5.0-12.0) Hepatitis A IgM Antibody Pending Hepatitis B Surface Antigen Pending Hepatitis B Core IgM Antibody Pending Hepatitis C Antibody Pending Height (Feet): 5 Height (Inches): 9.00 Weight (Pounds): 150 General Appearance: no apparent distress, alert Cardiovascular: normal rate Respiratory/Chest: normal breath sounds, no accessory muscle use Abdominal Exam: normal bowel sounds, non tender, soft, distended Extremities: normal range of motion Yesi Shell N.P. May 02, 2017 15:05
--- NOTE | 2017-05-02 15:20 | Consultation ---
History of Present Illness General Date patient seen: May 02, 2017 Time patient seen: 14:30 Chief Complaint: chest pain Referring physician: BEVERLY BUSTOS Reason for Consultation: R pleural effusion, SOB Present Illness HPI 67 y/old male presented initially with chest pain currently denies chest pain, dizziness, SR on tele CXR revealed R pleural effusion Follow up CT chest revealed massive R pleural effusion, occupying more than 70 % of the space causing complete atelectasis of the right lower lobe, patient reported SOB, no cough, no wheezing, no hemoptysis Patient with history of cirrhosis , CHF and recent R pleural effusion, s/p thoracentesis in February this year at [facility] patient with liver nodule on CT chest MRI brain in February 2017 revealed large pituitary adenoma, evidence of prior CVA and Left globe scleral banding Allergies: Coded Allergies: No Known Allergies (Unverified , 04/30/17) Medication History Scheduled Albuterol Sulfate (Ventolin Hfa), 2 PUFFS INH EVERY 6 HOURS, (Reported) Famotidine (Famotidine), 20 MG ORAL TWICE A DAY, (Reported) Furosemide* (Lasix*), 40 MG ORAL TWICE A DAY, (Reported) Haloperidol* (Haldol*), 1 MG ORAL EVERY 6 HOURS, (Reported) Levothyroxine Sodium* (Levothyroxine Sodium*), 50 MCG ORAL DAILY, (Reported) Losartan Potassium (Losartan Potassium), 50 MG ORAL DAILY, (Reported) Metoprolol Tartrate (Metoprolol Tartrate), 25 MG ORAL EVERY 12 HOURS, (Reported) Miscellaneous Medications Clonidine Hcl (Clonidine Hcl), 0.1 MG PO, (Reported) Lactulose (Lactulose*), 60 ML ORAL, (Reported) Lactulose (Lactulose*), 60 ML ORAL, (Reported) Discontinued Medications Acetaminophen (Acetaminophen), 650 MG PO, (Reported) Discontinued Reason: MD discontinued med Levothyroxine Sodium* (Levothyroxine Sodium), 50 MCG IV DAILY, (Reported) Discontinued Reason: Prescription changed Patient History Healthcare decision maker Resuscitation status Full Code Advanced Directive on File Past Medical/Surgical History Past Medical/Surgical History: (1) Hepatic encephalopathy (2) Hypothyroidism (3) HTN (hypertension) (4) Cirrhosis (5) Liver nodule Review of Systems Constitutional: Reports: weakness Eye: Reports: other - left eye surgery Respiratory: Reports: see HPI Cardiovascular: Reports: chest pain, see HPI Gastrointestinal: Reports: other - liver cirrhosis , see HPI Musculoskeletal: Reports: muscle pain Skin: Reports: change in color, dryness Psychiatric: Reports: no symptoms Neurological: Reports: no symptoms Endocrine: Reports: other - pituitary adenoma Hematologic/Lymphatic: Reports: anemia Physical Exam General Appearance: other - awake, responsive , in mild distress, edematous male Lines, tubes and drains: peripheral HEENT: normocephalic, atraumatic, other - left eye smaller than right Respiratory/Chest: decreased breath sounds - bilaterally, worse on the right Cardiovascular/Chest: normal rate, regular rhythm - ST with 1 st degree AV block on tele Abdomen: normal bowel sounds, non tender - mild distention , soft Extremities: pitting - +2 to +3 edema BLE Neurologic: abnormal gait, alert, responsive, other - moves all extremities Last 24 Hour Vital Signs Date Time Temp Pulse Resp B/P Pulse Ox O2 Delivery O2 Flow Rate FiO2 05/02/17 12:08 62 05/02/17 12:00 97.0 61 22 131/80 99 Nasal Cannula 2.0 05/02/17 09:00 55 109/77 05/02/17 09:00 109/77 05/02/17 09:00 109/77 05/02/17 08:00 97.8 60 21 135/89 94 Nasal Cannula 2.0 05/02/17 07:38 60 05/02/17 06:30 68 18 Nasal Cannula 2.0 05/02/17 04:00 58 05/02/17 03:35 97.2 62 20 106/65 91 Nasal Cannula 2.0 05/02/17 00:10 96.4 72 20 122/68 90 Nasal Cannula 2.0 05/02/17 00:00 69 05/01/17 22:33 76 20 94 Nasal Cannula 2.0 28 05/01/17 22:27 74 20 94 Nasal Cannula 2.0 05/01/17 21:30 92 115/67 05/01/17 21:29 115/67 05/01/17 20:07 97.7 65 19 115/67 92 Nasal Cannula 2.0 05/01/17 20:00 61 05/01/17 19:00 74 20 Nasal Cannula 2.0 28 05/01/17 16:15 62 05/01/17 16:00 97.7 60 18 96/56 87 Room Air Intake and Output 05/01/17 05/02/17 19:00 07:00 Intake Total 785 ml Output Total 500 ml 1200 ml Balance 285 ml -1200 ml IV Total 785 ml Output Urine Total 500 ml 1200 ml # Bowel Movements 1 Laboratory Tests Test 05/02/17 07:35 White Blood Count 7.8 K/UL (4.8-10.8) Red Blood Count 4.33 M/UL (4.70-6.10) L Hemoglobin 13.7 G/DL (14.2-18.0) L Hematocrit 41.6 % (42.0-52.0) L Mean Corpuscular Volume 96 FL (80-99) Mean Corpuscular Hemoglobin 31.7 PG (27.0-31.0) H Mean Corpuscular Hemoglobin Concent 32.9 G/DL (32.0-36.0) Red Cell Distribution Width 15.6 % (11.6-14.8) H Platelet Count 83 K/UL (150-450) L Mean Platelet Volume 6.8 FL (6.5-10.1) Neutrophils (%) (Auto) % (45.0-75.0) Lymphocytes (%) (Auto) % (20.0-45.0) Monocytes (%) (Auto) % (1.0-10.0) Eosinophils (%) (Auto) % (0.0-3.0) Basophils (%) (Auto) % (0.0-2.0) Differential Total Cells Counted 100 Neutrophils % (Manual) 60 % (45-75) Lymphocytes % (Manual) 20 % (20-45) Monocytes % (Manual) 10 % (1-10) Eosinophils % (Manual) 6 % (0-3) H Basophils % (Manual) 3 % (0-2) H Band Neutrophils 1 % (0-8) Platelet Estimate Decreased L Platelet Morphology Normal Red Blood Cell Morphology Normal Sodium Level 130 mEQ/L (135-145) L Potassium Level 4.6 mEQ/L (3.4-4.9) Chloride Level 93 mEQ/L (98-107) L Carbon Dioxide Level 31 mEQ/L (20-30) H Anion Gap 6 (5-15) Blood Urea Nitrogen 16 mg/dL (7-23) Creatinine 0.9 mg/dL (0.7-1.2) Estimat Glomerular Filtration Rate > 60 mL/min (>60) Glucose Level 127 mg/dL (74-106) H Calcium Level 7.8 mg/dL (8.6-10.2) L Total Bilirubin 0.5 mg/dL (0.0-1.2) Aspartate Amino Transf (AST/SGOT) 147 U/L (5-40) H Alanine Aminotransferase (ALT/SGPT) 120 U/L (3-41) H Alkaline Phosphatase 125 U/L (40-129) Ammonia 45 umol/L (16-60) Troponin I < 0.30 ng/mL (<=0.30) Pro-B-Type Natriuretic Peptide 70 pg/mL (0-125) Total Protein 6.2 g/dL (6.6-8.7) L Albumin 3.1 g/dL (3.5-5.2) L Globulin 3.1 g/dL Albumin/Globulin Ratio 1.0 (1.0-2.7) Alpha Fetoprotein Pending Vancomycin Level Trough 9.4 ug/mL (5.0-12.0) Hepatitis A IgM Antibody Pending Hepatitis B Surface Antigen Pending Hepatitis B Core IgM Antibody Pending Hepatitis C Antibody Pending Height (Feet): 5 Height (Inches): 9.00 Weight (Pounds): 150 Medications Current Medications Medications (Trade) Dose Ordered Sig/Tj Route PRN Reason Start Time Stop Time Status Last Admin Dose Admin Albuterol Sulfate (Proventil MDI) 1 puff Q6H PRN INH Shortness of Breath 04/30/17 14:00 05/30/17 13:59 05/01/17 22:31 Cefepime HCl 2 gm/ Dextrose 110 ml @ 220 mls/hr EVERY 12 HOURS IVPB 04/30/17 18:30 05/07/17 18:29 05/02/17 10:55 Docusate Sodium (Colace) 100 mg TWICE A DAY ORAL 05/02/17 18:00 06/01/17 17:59 UNV Ergocalciferol (Drisdol) 50,000 intlu QWEEK ORAL 05/02/17 14:45 06/01/17 14:44 UNV Furosemide 40 mg 40 mg DAILY ORAL 05/03/17 09:00 06/02/17 08:59 UNV Haloperidol (Haldol) 1 mg Q6H PRN ORAL AGITATION 04/30/17 18:00 05/30/17 17:59 05/01/17 12:15 Lactulose (Cephulac) 40 gm DAILY ORAL 04/30/17 14:00 05/30/17 13:59 05/02/17 10:54 Levothyroxine Sodium (Synthroid) 50 mcg ACBREAKFAST ORAL 05/01/17 06:30 05/31/17 06:29 05/02/17 06:03 Losartan Potassium (Cozaar) 50 mg DAILY ORAL 05/01/17 09:00 05/31/17 08:59 05/01/17 08:47 Metoprolol Tartrate (Lopressor) 25 mg EVERY 12 HOURS ORAL 04/30/17 21:00 05/30/17 20:59 05/01/17 21:30 Morphine Sulfate (Morphine Sulfate) 0.5 mg Q4H PRN IV For Pain 04/30/17 16:30 05/07/17 16:29 05/01/17 03:10 Ranitidine HCl (Zantac) 150 mg TWICE A DAY ORAL 04/30/17 18:00 05/30/17 17:59 05/02/17 10:54 Sodium Chloride (Hypertonic Saline) 250 ml @ 30 mls/hr ONCE ONCE IVPB 05/02/17 14:30 05/02/17 22:49 UNV Vancomycin HCl 1 ea 1 ea DAILY PRN MISC Per rx protocol 04/30/17 17:45 05/30/17 17:44 Vancomycin HCl/ Dextrose (Vancomycin/D5W) 275 ml @ 183.708 mls/hr Q12HR@0800,2000 IVPB 05/02/17 20:00 05/07/17 19:59 Assessment/Plan Assessment/Plan ASSESSMENT massive Right pleural effusion hx of recurrent pleural effusion s/p recent thoracentesis ( February 2017) acute respiratory distress 2 to large pleural effusion possible HCAP chest pain, likely due to R pleural effusions liver cirrhosis liver nodule, ? liver malignancy CHF with diastolic dysfunction ( no evidence of exacerbation0 hyponatremia ( possible due to liver disease and possibly SIADH from pituitary adenoma) transaminitis 2 to liver disease hx of hepatic encephalopathy HTN pituitary adenoma anemia of chronic disease thrombocytopenia - due to chronic liver disease coagulopathy - due to chronic liver disease PLAN OF CARE tele supplemental O2 to keep sat above 92% pulmonary toilet : HHN prn and CPT tid x 48 hrs thoracentesis R pleural effusion and send fluid for analysis , likely will be done tomorrow in am check INR-1.4; give vit K, check INR prior to tap CXR after tap empiric abx ID follows troponin x 2 negative ECG no ischemic changes, patient was ruled for acute [place] per protocol CP likely due to massive R pleural effusion ECHO with pEF and evidence of diastolic dysfunction no evidence of CHF exacerbation BP management with current regimen and optimize as needed diuresis with Lasix and Aldactone, monitor renal parameters, lytes nephro follows s/p 3 % NaCl, Na improving monitor LFT hepatitis panel abdominal US noted ammonia WNL, on low dose of Lactulose monitor HH, anemia of chronic disease low PLT, due to liver disease butcher scullion follows GI prophylaxis case discussed and evaluated by supervising physician Miki ([facility]),Marii CARCAMO May 02, 2017 15:20
--- NOTE | 2017-05-02 15:43 | Infectious Diseases Prog Note ---
Assessment/Plan Problems: (1) HCAP (healthcare-associated pneumonia) Assessment & Plan: continue vancomycin and cefepime, await sputum culture (2) Pleural effusion on right Assessment & Plan: with near complete right lung collapse on CT chest , recommend thoracentesis, and fluids to be sent for culture gram stain, fungal , AFB, and cytology (3) Chest pain Assessment & Plan: rule out ACS, recommend cardiac eval , troponin monitor Subjective Constitutional: Reports: no symptoms HEENT: Reports: no symptoms Respiratory: Reports: shortness of breath Breasts: Reports: no symptoms Cardiovascular: Reports: no symptoms Gastrointestinal/Abdominal: Reports: no symptoms Genitourinary: Reports: no symptoms Neurologic: Reports: no symptoms Psychiatric: Reports: no symptoms Skin: Reports: no symptoms Endocrine: Reports: no symptoms Hematologic: Reports: no symptoms Allergies: Coded Allergies: No Known Allergies (Unverified , 04/30/17) Objective Vital Signs Last 24 Hour Vital Signs Date Time Temp Pulse Resp B/P Pulse Ox O2 Delivery O2 Flow Rate FiO2 05/02/17 12:08 62 05/02/17 12:00 97.0 61 22 131/80 99 Nasal Cannula 2.0 05/02/17 09:00 55 109/77 05/02/17 09:00 109/77 05/02/17 09:00 109/77 05/02/17 08:00 97.8 60 21 135/89 94 Nasal Cannula 2.0 05/02/17 07:38 60 05/02/17 06:30 68 18 Nasal Cannula 2.0 05/02/17 04:00 58 05/02/17 03:35 97.2 62 20 106/65 91 Nasal Cannula 2.0 05/02/17 00:10 96.4 72 20 122/68 90 Nasal Cannula 2.0 05/02/17 00:00 69 05/01/17 22:33 76 20 94 Nasal Cannula 2.0 05/01/17 22:27 74 20 94 Nasal Cannula 2.0 05/01/17 21:30 92 115/67 05/01/17 21:29 115/67 05/01/17 20:07 97.7 65 19 115/67 92 Nasal Cannula 2.0 05/01/17 20:00 61 05/01/17 19:00 74 20 Nasal Cannula 2.0 28 05/01/17 16:15 62 05/01/17 16:00 97.7 60 18 96/56 87 Room Air Height (Feet): 5 Height (Inches): 9.00 Weight (Pounds): 150 General Appearance: WD/WN, no acute distress HEENT: normocephalic, atraumatic, anicteric, mucous membranes moist, PERRL Respiratory/Chest: no respiratory distress, no accessory muscle use, decreased breath sounds, crackles/rales Cardiovascular: normal peripheral pulses, normal rate, regular rhythm, no gallop/murmur, no JVD Abdomen: normal bowel sounds, soft, non tender, no organomegaly, non distended , no mass, no scars Extremities: no cyanosis, no clubbing Skin: no rash, no lesions, no ulcers Microbiology Date/Time Source Procedure Growth Status 04/30/17 23:00 Blood Blood Culture - Preliminary NO GROWTH AFTER 24 HOURS Resulted 04/30/17 05:06 Nasal Nares MRSA Culture - Final NO METHICILLIN RESISTANT STAPH AUREUS... Complete Laboratory Tests Test 05/02/17 07:35 White Blood Count 7.8 K/UL (4.8-10.8) Red Blood Count 4.33 M/UL (4.70-6.10) L Hemoglobin 13.7 G/DL (14.2-18.0) L Hematocrit 41.6 % (42.0-52.0) L Mean Corpuscular Volume 96 FL (80-99) Mean Corpuscular Hemoglobin 31.7 PG (27.0-31.0) H Mean Corpuscular Hemoglobin Concent 32.9 G/DL (32.0-36.0) Red Cell Distribution Width 15.6 % (11.6-14.8) H Platelet Count 83 K/UL (150-450) L Mean Platelet Volume 6.8 FL (6.5-10.1) Neutrophils (%) (Auto) % (45.0-75.0) Lymphocytes (%) (Auto) % (20.0-45.0) Monocytes (%) (Auto) % (1.0-10.0) Eosinophils (%) (Auto) % (0.0-3.0) Basophils (%) (Auto) % (0.0-2.0) Differential Total Cells Counted 100 Neutrophils % (Manual) 60 % (45-75) Lymphocytes % (Manual) 20 % (20-45) Monocytes % (Manual) 10 % (1-10) Eosinophils % (Manual) 6 % (0-3) H Basophils % (Manual) 3 % (0-2) H Band Neutrophils 1 % (0-8) Platelet Estimate Decreased L Platelet Morphology Normal Red Blood Cell Morphology Normal Sodium Level 130 mEQ/L (135-145) L Potassium Level 4.6 mEQ/L (3.4-4.9) Chloride Level 93 mEQ/L (98-107) L Carbon Dioxide Level 31 mEQ/L (20-30) H Anion Gap 6 (5-15) Blood Urea Nitrogen 16 mg/dL (7-23) Creatinine 0.9 mg/dL (0.7-1.2) Estimat Glomerular Filtration Rate > 60 mL/min (>60) Glucose Level 127 mg/dL (74-106) H Calcium Level 7.8 mg/dL (8.6-10.2) L Total Bilirubin 0.5 mg/dL (0.0-1.2) Aspartate Amino Transf (AST/SGOT) 147 U/L (5-40) H Alanine Aminotransferase (ALT/SGPT) 120 U/L (3-41) H Alkaline Phosphatase 125 U/L (40-129) Ammonia 45 umol/L (16-60) Troponin I < 0.30 ng/mL (<=0.30) Pro-B-Type Natriuretic Peptide 70 pg/mL (0-125) Total Protein 6.2 g/dL (6.6-8.7) L Albumin 3.1 g/dL (3.5-5.2) L Globulin 3.1 g/dL Albumin/Globulin Ratio 1.0 (1.0-2.7) Alpha Fetoprotein Pending Vancomycin Level Trough 9.4 ug/mL (5.0-12.0) Hepatitis A IgM Antibody Pending Hepatitis B Surface Antigen Pending Hepatitis B Core IgM Antibody Pending Hepatitis C Antibody Pending Current Medications Medications (Trade) Dose Ordered Sig/Tj Route PRN Reason Start Time Stop Time Status Last Admin Dose Admin Albuterol Sulfate (Proventil MDI) 1 puff Q6H PRN INH Shortness of Breath 04/30/17 14:00 05/30/17 13:59 05/01/17 22:31 Albuterol/ Ipratropium (DuoNeb 0.5-3(2.5)mg/3ml) 3 ml Q4H PRN HHN Shortness of Breath 05/02/17 15:00 05/07/17 14:59 Cefepime HCl 2 gm/ Dextrose 110 ml @ 220 mls/hr EVERY 12 HOURS IVPB 04/30/17 18:30 05/07/17 18:29 05/02/17 10:55 Docusate Sodium (Colace) 100 mg TWICE A DAY ORAL 05/02/17 18:00 06/01/17 17:59 Ergocalciferol (Drisdol) 50,000 intlu QWEEK ORAL 05/02/17 16:00 06/01/17 15:59 Furosemide 40 mg 40 mg DAILY ORAL 05/03/17 09:00 06/02/17 08:59 Haloperidol (Haldol) 1 mg Q6H PRN ORAL AGITATION 04/30/17 18:00 05/30/17 17:59 05/01/17 12:15 Lactulose (Cephulac) 40 gm DAILY ORAL 04/30/17 14:00 05/30/17 13:59 05/02/17 10:54 Levothyroxine Sodium (Synthroid) 50 mcg ACBREAKFAST ORAL 05/01/17 06:30 05/31/17 06:29 05/02/17 06:03 Losartan Potassium (Cozaar) 50 mg DAILY ORAL 05/01/17 09:00 05/31/17 08:59 05/01/17 08:47 Metoprolol Tartrate (Lopressor) 25 mg EVERY 12 HOURS ORAL 04/30/17 21:00 05/30/17 20:59 05/01/17 21:30 Morphine Sulfate (Morphine Sulfate) 0.5 mg Q4H PRN IV For Pain 04/30/17 16:30 05/07/17 16:29 05/01/17 03:10 Ranitidine HCl (Zantac) 150 mg TWICE A DAY ORAL 04/30/17 18:00 05/30/17 17:59 05/02/17 10:54 Sodium Chloride (Hypertonic Saline) 250 ml @ 30 mls/hr ONCE ONCE IV 05/02/17 15:45 05/03/17 00:04 Vancomycin HCl 1 ea 1 ea DAILY PRN MISC Per rx protocol 04/30/17 17:45 05/30/17 17:44 Vancomycin HCl/ Dextrose (Vancomycin/D5W) 275 ml @ 183.708 mls/hr Q8HR@0400,1200,2000 IVPB 05/02/17 20:00 05/07/17 19:59 Edda Gil M.D. May 02, 2017 15:43
[2017-05-02] MEDS ORDERED: NaCl 3% 500ml 250 ML IV ONE (15:45)
[2017-05-02 15:53] LABS: INR 1.4 (0.9-1.1); PROTHROMBIN TIME 14.2 SEC (9.30-11.50)
[2017-05-02] MEDS ORDERED: Vitamin D 50,000 units cap ORAL SCH (16:00)
--- NOTE | 2017-05-02 16:24 | Cardiology Report ---
APPROVED REPORT EXAM: Two-dimensional and M-mode echocardiogram with Doppler and color Doppler. INDICATION Congestive Heart Failure M-Mode DIMENSIONS IVSd1.5 (0.7-1.1cm)Left Atrium (MM)4.9 (1.6-4.0cm) LVDd5.3 (3.5-5.6cm)Aortic Root3.1 (2.0-3.7cm) PWd1.6 (0.7-1.1cm)Aortic Cusp Exc.2.0 (1.5-2.0cm) LVDs3.4 (2.5-4.0cm) PWs2.3 cm Technically difficult study due to poor acoustic windows. Study quality precludes accurate assessment of regional wall motion. Normal left ventricular chamber size, systolic function and wall motion. Left ventricular ejection fraction estimated to be 70-75%. Moderate left ventricular hypertrophy. Mild posterior pericardial fat or effusion. Mild right atrial enlargement by 2D. Moderate left atrial enlargement by 2D. Focal aortic valve sclerosis with adequate cusp excursion Thickened mitral valve leaflets with normal excursion. Mitral annulus and aortic root calcification. Pulmonic valve not well visualized. Normal tricuspid valve structure. IVC is normal in size with physiologic collapse. A color flow and spectral Doppler study was performed and revealed: No aortic regurgitation. No mitral regurgitation. Left ventricular diastolic dysfunction grade 1. Trace tricuspid regurgitation. Tricuspid systolic velocities suggests peak right ventricular systolic pressure of 19 mmHg
--- NOTE | 2017-05-02 16:49 | Cardiac Electrophysiology PN ---
Assessment/Plan Status Narrative Technically difficult study due to poor acoustic windows. Study quality precludes accurate assessment of regional wall motion. Normal left ventricular chamber size, systolic function and wall motion. Left ventricular ejection fraction estimated to be 70-75%. Moderate left ventricular hypertrophy. Mild posterior pericardial fat or effusion. Mild right atrial enlargement by 2D. Moderate left atrial enlargement by 2D. Focal aortic valve sclerosis with adequate cusp excursion Thickened mitral valve leaflets with normal excursion. Mitral annulus and aortic root calcification. Pulmonic valve not well visualized. Normal tricuspid valve structure. IVC is normal in size with physiologic collapse. A color flow and spectral Doppler study was performe Assessment/Plan 1. Chest pain likely due to patient's worsening pleural effusion for which he underwent thoracentesis. Echocardiogram= EF 70% 2. Right pleural effusion likely secondary to healthcare-associated pneumonia. Another thoracentesis tomorrow.LAsix decreased to 40 mg iv daily. 3. Liver cirrhosis with nodule, possible hepatocellular carcinoma.EGD tomorrow by Dr. Telles. 4. History of Brain tumor. Was on Hospice [facility] RN Subjective Subjective Legs still swollen. No chest pain or SOB. Objective Last 24 Hour Vital Signs Date Time Temp Pulse Resp B/P Pulse Ox O2 Delivery O2 Flow Rate FiO2 05/02/17 16:00 97.9 67 21 127/79 92 Room Air 05/02/17 12:08 62 05/02/17 12:00 97.0 61 22 131/80 99 Nasal Cannula 2.0 05/02/17 09:00 55 109/77 05/02/17 09:00 109/77 05/02/17 09:00 109/77 05/02/17 08:00 97.8 60 21 135/89 94 Nasal Cannula 2.0 05/02/17 07:38 60 05/02/17 06:30 68 18 Nasal Cannula 2.0 28 05/02/17 04:00 58 05/02/17 03:35 97.2 62 20 106/65 91 Nasal Cannula 2.0 05/02/17 00:10 96.4 72 20 122/68 90 Nasal Cannula 2.0 05/02/17 00:00 69 05/01/17 22:33 76 20 94 Nasal Cannula 2.0 05/01/17 22:27 74 20 94 Nasal Cannula 2.0 05/01/17 21:30 92 115/67 05/01/17 21:29 115/67 05/01/17 20:07 97.7 65 19 115/ 92 Nasal Cannula 2.0 05/01/17 20:00 61 05/01/17 19:00 74 20 Nasal Cannula 2.0 28 Intake and Output 05/01/17 05/02/17 19:00 07:00 Intake Total 785 ml Output Total 500 ml 1200 ml Balance 285 ml -1200 ml IV Total 785 ml Output Urine Total 500 ml 1200 ml # Bowel Movements 1 Laboratory Tests Test 05/02/17 07:35 05/02/17 15:25 White Blood Count 7.8 K/UL (4.8-10.8) Red Blood Count 4.33 M/UL (4.70-6.10) L Hemoglobin 13.7 G/DL (14.2-18.0) L Hematocrit 41.6 % (42.0-52.0) L Mean Corpuscular Volume 96 FL (80-99) Mean Corpuscular Hemoglobin 31.7 PG (27.0-31.0) H Mean Corpuscular Hemoglobin Concent 32.9 G/DL (32.0-36.0) Red Cell Distribution Width 15.6 % (11.6-14.8) H Platelet Count 83 K/UL (150-450) L Mean Platelet Volume 6.8 FL (6.5-10.1) Neutrophils (%) (Auto) % (45.0-75.0) Lymphocytes (%) (Auto) % (20.0-45.0) Monocytes (%) (Auto) % (1.0-10.0) Eosinophils (%) (Auto) % (0.0-3.0) Basophils (%) (Auto) % (0.0-2.0) Differential Total Cells Counted 100 Neutrophils % (Manual) 60 % (45-75) Lymphocytes % (Manual) 20 % (20-45) Monocytes % (Manual) 10 % (1-10) Eosinophils % (Manual) 6 % (0-3) H Basophils % (Manual) 3 % (0-2) H Band Neutrophils 1 % (0-8) Platelet Estimate Decreased L Platelet Morphology Normal Red Blood Cell Morphology Normal Sodium Level 130 mEQ/L (135-145) L Potassium Level 4.6 mEQ/L (3.4-4.9) Chloride Level 93 mEQ/L (98-107) L Carbon Dioxide Level 31 mEQ/L (20-30) H Anion Gap 6 (5-15) Blood Urea Nitrogen 16 mg/dL (7-23) Creatinine 0.9 mg/dL (0.7-1.2) Estimat Glomerular Filtration Rate > 60 mL/min (>60) Glucose Level 127 mg/dL (74-106) H Calcium Level 7.8 mg/dL (8.6-10.2) L Total Bilirubin 0.5 mg/dL (0.0-1.2) Aspartate Amino Transf (AST/SGOT) 147 U/L (5-40) H Alanine Aminotransferase (ALT/SGPT) 120 U/L (3-41) H Alkaline Phosphatase 125 U/L (40-129) Ammonia 45 umol/L (16-60) Troponin I < 0.30 ng/mL (<=0.30) Pro-B-Type Natriuretic Peptide 70 pg/mL (0-125) Total Protein 6.2 g/dL (6.6-8.7) L Albumin 3.1 g/dL (3.5-5.2) L Globulin 3.1 g/dL Albumin/Globulin Ratio 1.0 (1.0-2.7) Alpha Fetoprotein Pending Vancomycin Level Trough 9.4 ug/mL (5.0-12.0) Hepatitis A IgM Antibody Pending Hepatitis B Surface Antigen Pending Hepatitis B Core IgM Antibody Pending Hepatitis C Antibody Pending Prothrombin Time 14.2 SEC (9.30-11.50) H Prothromb Time International Ratio 1.4 (0.9-1.1) H Microbiology Date/Time Source Procedure Growth Status 04/30/17 23:00 Blood Blood Culture - Preliminary NO GROWTH AFTER 24 HOURS Resulted 04/30/17 05:06 Nasal Nares MRSA Culture - Final NO METHICILLIN RESISTANT STAPH AUREUS... Complete Objective HEAD AND NECK: Shows no JVD. LUNGS: Coarse rhonchi. CARDIOVASCULAR: Regular S1 and S2 with no gallop. ABDOMEN: Slightly distended. EXTREMITIES: A 2+ pitting edema. ANUEL PEMBERTON May 02, 2017 16:49
[2017-05-02] MEDS: Docusate 100mg cap ORAL SCH (17:18)
[2017-05-02] MEDS ORDERED: Phytonadione 5 MG in D5W 55 ML IVPB ONE (18:00)
--- NOTE | 2017-05-02 20:07 | General Progress Note ---
Assessment/Plan Problem List: (1) Chest pain ICD Codes: R07.9 - Chest pain, unspecified SNOMED: 83601596 Qualifiers: Qualified Codes: R07.9 - Chest pain, unspecified (2) Pleural effusion on right ICD Codes: J90 - Pleural effusion, not elsewhere classified SNOMED: 15464308 (3) Cirrhosis ICD Codes: K74.60 - Unspecified cirrhosis of liver SNOMED: 62762849 (4) Hepatic encephalopathy ICD Codes: K72.90 - Hepatic failure, unspecified without coma SNOMED: 59008862 (5) HTN (hypertension) ICD Codes: I10 - Essential (primary) hypertension SNOMED: 09495865 Status: progressing Assessment/Plan very large pleural effusion consulted pulmonary cirrhosis afebrile no chest pain today r/o acs Subjective Respiratory: Reports: shortness of breath Allergies: Coded Allergies: No Known Allergies (Unverified , 04/30/17) Objective Last 24 Hour Vital Signs Date Time Temp Pulse Resp B/P Pulse Ox O2 Delivery O2 Flow Rate FiO2 05/02/17 20:00 98.6 59 20 112/70 90 Nasal Cannula 2.0 05/02/17 16:00 64 05/02/17 16:00 97.9 67 21 127/79 92 Room Air 05/02/17 12:08 62 05/02/17 12:00 97.0 61 22 131/80 99 Nasal Cannula 2.0 05/02/17 09:00 55 109/77 05/02/17 09:00 109/77 05/02/17 09:00 109/77 05/02/17 08:00 97.8 60 21 135/89 94 Nasal Cannula 2.0 05/02/17 07:38 60 05/02/17 06:30 68 18 Nasal Cannula 2.0 28 05/02/17 04:00 58 05/02/17 03:35 97.2 62 20 106/65 91 Nasal Cannula 2.0 05/02/17 00:10 96.4 72 20 122/68 90 Nasal Cannula 2.0 05/02/17 00:00 69 05/01/17 22:33 76 20 94 Nasal Cannula 2.0 28 05/01/17 22:27 74 20 94 Nasal Cannula 2.0 28 05/01/17 21:30 92 115/67 05/01/17 21:29 115/67 Intake and Output 05/01/17 05/02/17 19:00 07:00 Intake Total 785 ml Output Total 500 ml 1200 ml Balance 285 ml -1200 ml IV Total 785 ml Output Urine Total 500 ml 1200 ml # Bowel Movements 1 Laboratory Tests 05/02/17 07:35: White Blood Count 7.8, Red Blood Count 4.33L, Hemoglobin 13.7L, Hematocrit 41.6L , Mean Corpuscular Volume 96, Mean Corpuscular Hemoglobin 31.7H, Mean Corpuscular Hemoglobin Concent 32.9, Red Cell Distribution Width 15.6H, Platelet Count 83L, Mean Platelet Volume 6.8, Neutrophils (%) (Auto) , Lymphocytes (%) (Auto) , Monocytes (%) (Auto) , Eosinophils (%) (Auto) , Basophils (%) (Auto) , Differential Total Cells Counted 100, Neutrophils % ( Manual) 60, Lymphocytes % (Manual) 20, Monocytes % (Manual) 10, Eosinophils % ( Manual) 6H, Basophils % (Manual) 3H, Band Neutrophils 1, Platelet Estimate DecreasedL, Platelet Morphology Normal, Red Blood Cell Morphology Normal, Sodium Level 130L, Potassium Level 4.6, Chloride Level 93L, Carbon Dioxide Level 31H, Anion Gap 6, Blood Urea Nitrogen 16, Creatinine 0.9, Estimat Glomerular Filtration Rate > 60, Glucose Level 127H, Calcium Level 7.8L, Total Bilirubin 0.5, Aspartate Amino Transf (AST/SGOT) 147H, Alanine Aminotransferase (ALT/SGPT) 120H, Alkaline Phosphatase 125, Ammonia 45, Troponin I < 0.30, Pro-B- Type Natriuretic Peptide 70, Total Protein 6.2L, Albumin 3.1L, Globulin 3.1, Albumin/Globulin Ratio 1.0, Alpha Fetoprotein [Pending], Vancomycin Level Trough 9.4, Hepatitis A IgM Antibody [Pending], Hepatitis B Surface Antigen [ Pending], Hepatitis B Core IgM Antibody [Pending], Hepatitis C Antibody [Pending ] 05/02/17 15:25: Prothrombin Time 14.2H, Prothromb Time International Ratio 1.4H 05/02/17 17:00: Urine Osmolality 574H Height (Feet): 5 Height (Inches): 9.00 Weight (Pounds): 150 Respiratory/Chest: crackles/rales, rhonchi - bilaterally Edna Rivas MD May 02, 2017 20:07
--- NOTE | 2017-05-02 20:07 | General Progress Note ---
Assessment/Plan Problem List: (1) Chest pain ICD Codes: R07.9 - Chest pain, unspecified SNOMED: 62448271 Qualifiers: Qualified Codes: R07.9 - Chest pain, unspecified (2) Pleural effusion on right ICD Codes: J90 - Pleural effusion, not elsewhere classified SNOMED: 53318025 (3) Cirrhosis ICD Codes: K74.60 - Unspecified cirrhosis of liver SNOMED: 34732119 (4) Hepatic encephalopathy ICD Codes: K72.90 - Hepatic failure, unspecified without coma SNOMED: 49621497 (5) HTN (hypertension) ICD Codes: I10 - Essential (primary) hypertension SNOMED: 72035154 Status: progressing Assessment/Plan very large pleural effusion consulted pulmonary cirrhosis afebrile no chest pain today r/o acs Subjective Respiratory: Reports: shortness of breath Allergies: Coded Allergies: No Known Allergies (Unverified , 04/30/17) Objective Last 24 Hour Vital Signs Date Time Temp Pulse Resp B/P Pulse Ox O2 Delivery O2 Flow Rate FiO2 05/02/17 20:00 98.6 59 20 112/70 90 Nasal Cannula 2.0 05/02/17 16:00 64 05/02/17 16:00 97.9 67 21 127/79 92 Room Air 05/02/17 12:08 62 05/02/17 12:00 97.0 61 22 131/80 99 Nasal Cannula 2.0 05/02/17 09:00 55 109/77 05/02/17 09:00 109/77 05/02/17 09:00 109/77 05/02/17 08:00 97.8 60 21 135/89 94 Nasal Cannula 2.0 05/02/17 07:38 60 05/02/17 06:30 68 18 Nasal Cannula 2.0 05/02/17 04:00 58 05/02/17 03:35 97.2 62 20 106/65 91 Nasal Cannula 2.0 05/02/17 00:10 96.4 72 20 122/68 90 Nasal Cannula 2.0 05/02/17 00:00 69 05/01/17 22:33 76 20 94 Nasal Cannula 2.0 28 05/01/17 22:27 74 20 94 Nasal Cannula 2.0 28 05/01/17 21:30 92 115/67 05/01/17 21:29 115/67 05/01/17 20:07 97.7 65 19 115/67 92 Nasal Cannula 2.0 Intake and Output 05/01/17 05/02/17 19:00 07:00 Intake Total 785 ml Output Total 500 ml 1200 ml Balance 285 ml -1200 ml IV Total 785 ml Output Urine Total 500 ml 1200 ml # Bowel Movements 1 Laboratory Tests 05/02/17 07:35: White Blood Count 7.8, Red Blood Count 4.33L, Hemoglobin 13.7L, Hematocrit 41.6L , Mean Corpuscular Volume 96, Mean Corpuscular Hemoglobin 31.7H, Mean Corpuscular Hemoglobin Concent 32.9, Red Cell Distribution Width 15.6H, Platelet Count 83L, Mean Platelet Volume 6.8, Neutrophils (%) (Auto) , Lymphocytes (%) (Auto) , Monocytes (%) (Auto) , Eosinophils (%) (Auto) , Basophils (%) (Auto) , Differential Total Cells Counted 100, Neutrophils % ( Manual) 60, Lymphocytes % (Manual) 20, Monocytes % (Manual) 10, Eosinophils % ( Manual) 6H, Basophils % (Manual) 3H, Band Neutrophils 1, Platelet Estimate DecreasedL, Platelet Morphology Normal, Red Blood Cell Morphology Normal, Sodium Level 130L, Potassium Level 4.6, Chloride Level 93L, Carbon Dioxide Level 31H, Anion Gap 6, Blood Urea Nitrogen 16, Creatinine 0.9, Estimat Glomerular Filtration Rate > 60, Glucose Level 127H, Calcium Level 7.8L, Total Bilirubin 0.5, Aspartate Amino Transf (AST/SGOT) 147H, Alanine Aminotransferase (ALT/SGPT) 120H, Alkaline Phosphatase 125, Ammonia 45, Troponin I < 0.30, Pro-B- Type Natriuretic Peptide 70, Total Protein 6.2L, Albumin 3.1L, Globulin 3.1, Albumin/Globulin Ratio 1.0, Alpha Fetoprotein [Pending], Vancomycin Level Trough 9.4, Hepatitis A IgM Antibody [Pending], Hepatitis B Surface Antigen [ Pending], Hepatitis B Core IgM Antibody [Pending], Hepatitis C Antibody [Pending ] 05/02/17 15:25: Prothrombin Time 14.2H, Prothromb Time International Ratio 1.4H 05/02/17 17:00: Urine Osmolality 574H Height (Feet): 5 Height (Inches): 9.00 Weight (Pounds): 150 Cardiovascular: regular rhythm Respiratory/Chest: crackles/rales Edna Rivas MD May 02, 2017 20:07
--- NOTE | 2017-05-02 20:08 | General Progress Note ---
Assessment/Plan Problem List: (1) Chest pain ICD Codes: R07.9 - Chest pain, unspecified SNOMED: 02885681 Qualifiers: Qualified Codes: R07.9 - Chest pain, unspecified (2) Pleural effusion on right ICD Codes: J90 - Pleural effusion, not elsewhere classified SNOMED: 76431680 (3) Cirrhosis ICD Codes: K74.60 - Unspecified cirrhosis of liver SNOMED: 07492568 (4) Hepatic encephalopathy ICD Codes: K72.90 - Hepatic failure, unspecified without coma SNOMED: 98703470 (5) HTN (hypertension) ICD Codes: I10 - Essential (primary) hypertension SNOMED: 01400729 Assessment/Plan no wheezing very large pleural effusion consulted pulmonary cirrhosis afebrile no chest pain today r/o acs Subjective Allergies: Coded Allergies: No Known Allergies (Unverified , 04/30/17) Objective Last 24 Hour Vital Signs Date Time Temp Pulse Resp B/P Pulse Ox O2 Delivery O2 Flow Rate FiO2 05/02/17 20:00 98.6 59 20 112/70 90 Nasal Cannula 2.0 05/02/17 16:00 64 05/02/17 16:00 97.9 67 21 127/79 92 Room Air 05/02/17 12:08 62 05/02/17 12:00 97.0 61 22 131/80 99 Nasal Cannula 2.0 05/02/17 09:00 55 109/77 05/02/17 09:00 109/77 05/02/17 09:00 109/77 05/02/17 08:00 97.8 60 21 135/89 94 Nasal Cannula 2.0 05/02/17 07:38 60 05/02/17 06:30 68 18 Nasal Cannula 2.0 05/02/17 04:00 58 05/02/17 03:35 97.2 62 20 106/65 91 Nasal Cannula 2.0 05/02/17 00:10 96.4 72 20 122/68 90 Nasal Cannula 2.0 05/02/17 00:00 69 05/01/17 22:33 76 20 94 Nasal Cannula 2.0 28 05/01/17 22:27 74 20 94 Nasal Cannula 2.0 28 05/01/17 21:30 92 115/67 05/01/17 21:29 115/67 Intake and Output 05/01/17 05/02/17 19:00 07:00 Intake Total 785 ml Output Total 500 ml 1200 ml Balance 285 ml -1200 ml IV Total 785 ml Output Urine Total 500 ml 1200 ml # Bowel Movements 1 Laboratory Tests 05/02/17 07:35: White Blood Count 7.8, Red Blood Count 4.33L, Hemoglobin 13.7L, Hematocrit 41.6L , Mean Corpuscular Volume 96, Mean Corpuscular Hemoglobin 31.7H, Mean Corpuscular Hemoglobin Concent 32.9, Red Cell Distribution Width 15.6H, Platelet Count 83L, Mean Platelet Volume 6.8, Neutrophils (%) (Auto) , Lymphocytes (%) (Auto) , Monocytes (%) (Auto) , Eosinophils (%) (Auto) , Basophils (%) (Auto) , Differential Total Cells Counted 100, Neutrophils % ( Manual) 60, Lymphocytes % (Manual) 20, Monocytes % (Manual) 10, Eosinophils % ( Manual) 6H, Basophils % (Manual) 3H, Band Neutrophils 1, Platelet Estimate DecreasedL, Platelet Morphology Normal, Red Blood Cell Morphology Normal, Sodium Level 130L, Potassium Level 4.6, Chloride Level 93L, Carbon Dioxide Level 31H, Anion Gap 6, Blood Urea Nitrogen 16, Creatinine 0.9, Estimat Glomerular Filtration Rate > 60, Glucose Level 127H, Calcium Level 7.8L, Total Bilirubin 0.5, Aspartate Amino Transf (AST/SGOT) 147H, Alanine Aminotransferase (ALT/SGPT) 120H, Alkaline Phosphatase 125, Ammonia 45, Troponin I < 0.30, Pro-B- Type Natriuretic Peptide 70, Total Protein 6.2L, Albumin 3.1L, Globulin 3.1, Albumin/Globulin Ratio 1.0, Alpha Fetoprotein [Pending], Vancomycin Level Trough 9.4, Hepatitis A IgM Antibody [Pending], Hepatitis B Surface Antigen [ Pending], Hepatitis B Core IgM Antibody [Pending], Hepatitis C Antibody [Pending ] 05/02/17 15:25: Prothrombin Time 14.2H, Prothromb Time International Ratio 1.4H 05/02/17 17:00: Urine Osmolality 574H Height (Feet): 5 Height (Inches): 9.00 Weight (Pounds): 150 Edna Rivas MD May 02, 2017 20:08
[2017-05-02] MEDS: Vancomycin 750mg/D5W 275ml IVPB SCH ×2 (21:54)
[2017-05-03] MEDS: Haloperidol 1mg tab ORAL PRN (01:31)
[2017-05-03 03:51] VITALS: BP 138/80
[2017-05-03] MEDS: Vancomycin 750mg/D5W 275ml IVPB SCH ×6 (04:55→20:50)
[2017-05-03 06:55] LABS: INR 1.3 (0.9-1.1); PROTHROMBIN TIME 13.6 SEC (9.30-11.50)
[2017-05-03 07:04] LABS: MEAN CORPUSCULAR HEMOGLOBIN 31.6 PG (27.0-31.0); MEAN CORPUSCULAR HGB CONC 32.9 G/DL (32.0-36.0); MEAN CORPUSCULAR VOLUME 96 FL (80-99); MEAN PLATELET VOLUME 6.3 FL (6.5-10.1); PLATELET COUNT 83 K/UL (150-450); RED BLOOD COUNT 4.16 M/UL (4.70-6.10); RED CELL DISTRIBUTION WIDTH 15.5 % (11.6-14.8)
[2017-05-03 07:14] LABS: HEMOGLOBIN A1C 4.8 % (< 6.0)
[2017-05-03 07:22] LABS: OSMOLALITY SERUM 282 mOsm/kg (297-317)
[2017-05-03 07:23] LABS: ALANINE AMINOTRANSFERASE 86 U/L (3-41); ALBUMIN/GLOBULIN RATIO 0.9 (1.0-2.7); ANION GAP 7 (5-15); ASPARTATE AMINO TRANSFERASE 83 U/L (5-40); CALCIUM 7.8 mg/dL (8.6-10.2); CARBON DIOXIDE 30 mEQ/L (20-30); CHLORIDE 98 mEQ/L (98-107); CHOLESTEROL 127 mg/dL (< 200); CREATININE 0.8 mg/dL (0.7-1.2); GLOMERULAR FILTRATION RATE > 60 mL/min (>60); HEMOLYSIS 4; LDL CHOLESTEROL (CALC.) 52 mg/dL (60-99); MAGNESIUM 1.8 mg/dL (1.7-2.5); PHOSPHORUS 3.7 mg/dL (2.5-4.8); POTASSIUM 4.6 mEQ/L (3.4-4.9); SODIUM 135 mEQ/L (135-145); TOTAL PROTEIN 6.1 g/dL (6.6-8.7); URIC ACID 4.8 mg/dL (3.0-7.5)
[2017-05-03 08:15] VITALS: BP 122/71
[2017-05-03 08:20] LABS: BAND NEUTROPHILS % (MANUAL) 0 % (0-8); BASOPHILS % (MANUAL) 0 % (0-2); EOSINOPHILS % (MANUAL) 6 % (0-3); LYMPHOCYTES % (MANUAL) 17 % (20-45); NEUTROPHILS % (MANUAL) 68 % (45-75); PLATELET ESTIMATE DECREASED; PLATELET MORPHOLOGY NORMAL; TOTAL CELLS COUNTED 100
[2017-05-03] MEDS: Furosemide 40mg tab ORAL SCH (08:43)
[2017-05-03] MEDS: Metoprolol 25mg tab ORAL SCH ×2 (08:44→22:15)
[2017-05-03] MEDS: Docusate 100mg cap ORAL SCH ×2 (08:44→17:16)
[2017-05-03] MEDS: Losartan 50mg tab ORAL SCH (08:45)
[2017-05-03] MEDS: Lactulose 20gm/30ml UDC ORAL SCH (08:45)
[2017-05-03] MEDS: Cefepime HCl 2 GM in D5W 110 ML IVPB SCH ×2 (09:25→22:38)
[2017-05-03] MEDS ORDERED: Metoclopramide 10mg/2ml Inj IVP PRN (09:30)
[2017-05-03] MEDS ORDERED: Erythromycin Inj 500 MG in NS 110 ML IVPB ONE (12:00)
--- NOTE | 2017-05-03 12:01 | Diagnostic Imaging Report ---
Indications: Pleural effusion Technique: Ultrasound used to localize optimal puncture site. Sterile prepping and draping right chest. Local anesthesia with 1% lidocaine. Under real-time ultrasound guidance, puncture pleural space using thoracentesis needle. Stylet removed. Catheter placed to vacuum bottle suction. Total 3900 milliliters of cloudy yellow fluid aspirated. Specimen was sent to the lab. Patient tolerated procedure well, without immediate complication. Findings: Followup sonography demonstrates complete resolution of pleural fluid. Impression: Successful ultrasound-guided thoracentesis, yielding 3900 milliliters of cloudy yellow fluid
[2017-05-03 12:57] LABS: APPEARANCE, BODY FLUID CLOUDY; BD FL SOURCE THORACENTESIS; BD FL VOLUME 25 mL
[2017-05-03 12:58] LABS: BODY FLUID NUCLEATED CELLS 67 /CUMM; BODY FLUID RBC 2911 /CUMM; MONONUCLEAR WBC 75 %; POLYMORPHONUCLEAR WBC 23 %
--- NOTE | 2017-05-03 13:31 | Pre-Procedure Note/Attestation ---
Pre-Procedure Note/Attestation Complete Prior to Procedure Planned Procedure: not applicable Procedure Narrative: egd Indications for Procedure Pre-Operative Diagnosis: gib Attestation I attest that I discussed the nature of the procedure; its benefits; risks and complications; and alternatives (and the risks and benefits of such alternatives ), prior to the procedure, with the patient (or the patient's legal branch sales and service representative). I attest that, if there was a reasonable possibility of needing a blood transfusion, the patient (or the patient's legal branch sales and service representative) was given the [facility] standardized written summary, pursuant to the Ermias Kristen Blood Safety Act ([place] Health and Safety Code # 1645, as amended). I attest that I re-evaluated the patient just prior to the surgery and that there has been no change in the patient's H&P, except as documented below: SAUNDRA PRECIADO May 03, 2017 13:31
--- NOTE | 2017-05-03 13:35 | General Progress Note ---
Assessment/Plan Status: stable Status Narrative Na 135 Assessment/Plan Status: History of Brain tumor Was on Hospice at [facility] Admitted with chest pain Has pleural effusion right side Has shepard for urinary retention Has Pneumonia Has Transaminitis Cirrhosis / Splenomegaly / Liver mass 2+ Proteinuria HTN HypoThyroidism Plan: Adjust BP meds- Urine studies Down on Lasix dose- 2D echo results? Monitor lytes Per consultants Stable Subjective ROS Limited/Unobtainable: No Allergies: Coded Allergies: No Known Allergies (Unverified , 04/30/17) Objective Last 24 Hour Vital Signs Date Time Temp Pulse Resp B/P Pulse Ox O2 Delivery O2 Flow Rate FiO2 05/03/17 08:45 122/71 05/03/17 08:44 63 122/71 05/03/17 08:15 90.1 63 15 122/71 89 05/03/17 07:23 93 Nasal Cannula 2.0 28 05/03/17 07:23 Nasal Cannula 2.0 28 05/03/17 07:23 71 18 Nasal Cannula 2.0 28 05/03/17 04:00 58 05/03/17 03:51 98.2 57 20 138/80 94 Nasal Cannula 05/03/17 00:00 63 05/02/17 23:44 98.5 60 21 142/80 95 Room Air 05/02/17 21:14 67 134/76 05/02/17 20:00 73 05/02/17 20:00 98.6 59 20 112/70 90 Nasal Cannula 2.0 05/02/17 19:30 92 Nasal Cannula 2.0 28 05/02/17 19:30 Nasal Cannula 2.0 28 05/02/17 19:30 60 20 Nasal Cannula 2.0 28 05/02/17 16:00 64 05/02/17 16:00 97.9 67 21 127/79 92 Room Air Intake and Output 05/02/17 05/03/17 19:00 07:00 Intake Total 885 ml 943.5 ml Output Total 700 ml 800 ml Balance 185 ml 143.5 ml Intake Oral 500 ml IV Total 385 ml 943.5 ml Output Urine Total 700 ml 800 ml # Bowel Movements 4 Laboratory Tests 05/02/17 15:25: Prothrombin Time 14.2H, Prothromb Time International Ratio 1.4H 05/02/17 17:00: Urine Osmolality 574H 05/03/17 06:00: Prothrombin Time 13.6H, Prothromb Time International Ratio 1.3H, White Blood Count 7.0, Red Blood Count 4.16L, Hemoglobin 13.2L, Hematocrit 40.0L, Mean Corpuscular Volume 96, Mean Corpuscular Hemoglobin 31.6H, Mean Corpuscular Hemoglobin Concent 32.9, Red Cell Distribution Width 15.5H, Platelet Count 83L, Mean Platelet Volume 6.3L, Neutrophils (%) (Auto) , Lymphocytes (%) (Auto) , Monocytes (%) (Auto) , Eosinophils (%) (Auto) , Basophils (%) (Auto) , Differential Total Cells Counted 100, Neutrophils % (Manual) 68, Lymphocytes % ( Manual) 17L, Monocytes % (Manual) 9, Eosinophils % (Manual) 6H, Basophils % ( Manual) 0, Band Neutrophils 0, Platelet Estimate DecreasedL, Platelet Morphology Normal, Red Blood Cell Morphology Normal, Activated Partial Thromboplast Time 30, Sodium Level 135, Potassium Level 4.6, Chloride Level 98, Carbon Dioxide Level 30, Anion Gap 7, Blood Urea Nitrogen 15, Creatinine 0.8, Estimat Glomerular Filtration Rate > 60, Glucose Level 102, Hemoglobin A1c 4.8, Osmolality 282L, Uric Acid 4.8, Calcium Level 7.8L, Phosphorus Level 3.7, Magnesium Level 1.8, Total Bilirubin 0.6, Gamma Glutamyl Transpeptidase 43, Aspartate Amino Transf (AST/SGOT) 83H, Alanine Aminotransferase (ALT/SGPT) 86H, Alkaline Phosphatase 100, C-Reactive Protein, Quantitative 3.0H, Pro-B-Type Natriuretic Peptide 66, Total Protein 6.1L, Albumin 2.9L, Globulin 3.2, Albumin/ Globulin Ratio 0.9L, Triglycerides Level 51, Cholesterol Level 127, LDL Cholesterol 52L, HDL Cholesterol 65H, Cholesterol/HDL Ratio 2.0L, Vitamin B12 Level 576, Folate [Pending], Thyroid Stimulating Hormone (TSH) 2.390 05/03/17 10:50: Body Fluid Source [Pending], Body Fluid Volume [Pending], Body Fluid Appearance Cloudy, Body Fluid pH 8.0, Body Fluid RBC 2911, Body Fluid Total Nucleated Cells 67, Body Fluid Polynuclear WBCs (%) 23, Body Fluid Mononuclear WBCs (%) 75 , Body Fluid Mesothelial Cells (%) 2, Body Fluid Glucose [Pending], Body Fluid Total Protein [Pending], Body Fluid Lactate Dehydrogenase [Pending] Height (Feet): 5 Height (Inches): 9.00 Weight (Pounds): 150 General Appearance: no apparent distress Objective PE not changed KELLY MUÑIZ May 03, 2017 13:35
--- NOTE | 2017-05-03 13:39 | Pulmonology Progress Note ---
Assessment/Plan Problems: (1) Pleural effusion on right (2) Hepatic encephalopathy (3) Cirrhosis (4) Dysuria (5) HTN (hypertension) Assessment/Plan titrate fio2 to sat of 92% paracentesis f/u liver mass, rule out malignancy. Subjective ROS Limited/Unobtainable: No Interval Events: had thoracentesis, 3.9 liters removed Constitutional: Reports: no symptoms HEENT: Repors: no symptoms Allergies: Coded Allergies: No Known Allergies (Unverified , 04/30/17) Objective Last 24 Hour Vital Signs Date Time Temp Pulse Resp B/P Pulse Ox O2 Delivery O2 Flow Rate FiO2 05/03/17 08:45 122/71 05/03/17 08:44 63 122/71 05/03/17 08:15 90.1 63 15 122/71 89 05/03/17 07:23 93 Nasal Cannula 2.0 05/03/17 07:23 Nasal Cannula 2.0 28 05/03/17 07:23 71 18 Nasal Cannula 2.0 05/03/17 04:00 58 05/03/17 03:51 98.2 57 20 138/80 94 Nasal Cannula 05/03/17 00:00 63 05/02/17 23:44 98.5 60 21 142/80 95 Room Air 05/02/17 21:14 67 134/76 05/02/17 20:00 73 05/02/17 20:00 98.6 59 20 112/70 90 Nasal Cannula 2.0 05/02/17 19:30 92 Nasal Cannula 2.0 05/02/17 19:30 Nasal Cannula 2.0 28 05/02/17 19:30 60 20 Nasal Cannula 2.0 28 05/02/17 16:00 64 05/02/17 16:00 97.9 67 21 127/79 92 Room Air Intake and Output 05/02/17 05/03/17 19:00 07:00 Intake Total 885 ml 943.5 ml Output Total 700 ml 800 ml Balance 185 ml 143.5 ml Intake Oral 500 ml IV Total 385 ml 943.5 ml Output Urine Total 700 ml 800 ml # Bowel Movements 4 General Appearance: WD/WN, cachetic HEENT: normocephalic, anicteric Respiratory/Chest: chest wall non-tender, lungs clear Cardiovascular: normal peripheral pulses, normal rate Abdomen: normal bowel sounds, soft, non tender Genitourinary: normal external genitalia Extremities: no cyanosis Skin: no rash Neurologic/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: 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 II-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 grossly normal Microbiology Date/Time Source Procedure Growth Status 04/30/17 23:00 Blood Blood Culture - Preliminary NO GROWTH AFTER 48 HOURS Resulted Laboratory Tests 05/02/17 15:25: Prothrombin Time 14.2H, Prothromb Time International Ratio 1.4H 05/02/17 17:00: Urine Osmolality 574H 05/03/17 06:00: Prothrombin Time 13.6H, Prothromb Time International Ratio 1.3H, White Blood Count 7.0, Red Blood Count 4.16L, Hemoglobin 13.2L, Hematocrit 40.0L, Mean Corpuscular Volume 96, Mean Corpuscular Hemoglobin 31.6H, Mean Corpuscular Hemoglobin Concent 32.9, Red Cell Distribution Width 15.5H, Platelet Count 83L, Mean Platelet Volume 6.3L, Neutrophils (%) (Auto) , Lymphocytes (%) (Auto) , Monocytes (%) (Auto) , Eosinophils (%) (Auto) , Basophils (%) (Auto) , Differential Total Cells Counted 100, Neutrophils % (Manual) 68, Lymphocytes % ( Manual) 17L, Monocytes % (Manual) 9, Eosinophils % (Manual) 6H, Basophils % ( Manual) 0, Band Neutrophils 0, Platelet Estimate DecreasedL, Platelet Morphology Normal, Red Blood Cell Morphology Normal, Activated Partial Thromboplast Time 30, Sodium Level 135, Potassium Level 4.6, Chloride Level 98, Carbon Dioxide Level 30, Anion Gap 7, Blood Urea Nitrogen 15, Creatinine 0.8, Estimat Glomerular Filtration Rate > 60, Glucose Level 102, Hemoglobin A1c 4.8, Osmolality 282L, Uric Acid 4.8, Calcium Level 7.8L, Phosphorus Level 3.7, Magnesium Level 1.8, Total Bilirubin 0.6, Gamma Glutamyl Transpeptidase 43, Aspartate Amino Transf (AST/SGOT) 83H, Alanine Aminotransferase (ALT/SGPT) 86H, Alkaline Phosphatase 100, C-Reactive Protein, Quantitative 3.0H, Pro-B-Type Natriuretic Peptide 66, Total Protein 6.1L, Albumin 2.9L, Globulin 3.2, Albumin/ Globulin Ratio 0.9L, Triglycerides Level 51, Cholesterol Level 127, LDL Cholesterol 52L, HDL Cholesterol 65H, Cholesterol/HDL Ratio 2.0L, Vitamin B12 Level 576, Folate [Pending], Thyroid Stimulating Hormone (TSH) 2.390 05/03/17 10:50: Body Fluid Source [Pending], Body Fluid Volume [Pending], Body Fluid Appearance Cloudy, Body Fluid pH 8.0, Body Fluid RBC 2911, Body Fluid Total Nucleated Cells 67, Body Fluid Polynuclear WBCs (%) 23, Body Fluid Mononuclear WBCs (%) 75 , Body Fluid Mesothelial Cells (%) 2, Body Fluid Glucose [Pending], Body Fluid Total Protein [Pending], Body Fluid Lactate Dehydrogenase [Pending] Current Medications Medications (Trade) Dose Ordered Sig/Tj Route PRN Reason Start Time Stop Time Status Last Admin Dose Admin Albuterol Sulfate (Proventil MDI) 1 puff Q6H PRN INH Shortness of Breath 04/30/17 14:00 05/30/17 13:59 05/01/17 22:31 Albuterol/ Ipratropium (DuoNeb 0.5-3(2.5)mg/3ml) 3 ml Q4H PRN HHN Shortness of Breath 05/02/17 15:00 05/07/17 14:59 Cefepime HCl 2 gm/ Dextrose 110 ml @ 220 mls/hr EVERY 12 HOURS IVPB 04/30/17 18:30 05/07/17 18:29 05/03/17 09:25 Docusate Sodium (Colace) 100 mg TWICE A DAY ORAL 05/02/17 18:00 06/01/17 17:59 05/03/17 08:44 Ergocalciferol (Drisdol) 50,000 intlu QWEEK ORAL 05/02/17 16:00 06/01/17 15:59 05/02/17 21:55 Furosemide (Lasix) 40 mg DAILY ORAL 05/03/17 09:00 06/02/17 08:59 05/03/17 08:43 Haloperidol (Haldol) 1 mg Q6H PRN ORAL AGITATION 04/30/17 18:00 05/30/17 17:59 05/03/17 01:31 Lactulose (Cephulac) 40 gm DAILY ORAL 04/30/17 14:00 05/30/17 13:59 05/03/17 08:45 Levothyroxine Sodium (Synthroid) 50 mcg ACBREAKFAST ORAL 05/01/17 06:30 05/31/17 06:29 05/03/17 06:30 Losartan Potassium (Cozaar) 50 mg DAILY ORAL 05/01/17 09:00 05/31/17 08:59 05/03/17 08:45 Metoclopramide HCl (Reglan) 10 mg Q8H PRN IVP Nausea & Vomiting 05/03/17 09:30 06/02/17 09:29 Metoprolol Tartrate (Lopressor) 25 mg EVERY 12 HOURS ORAL 04/30/17 21:00 05/30/17 20:59 05/03/17 08:44 Morphine Sulfate (Morphine Sulfate) 0.5 mg Q4H PRN IV For Pain 04/30/17 16:30 05/07/17 16:29 05/01/17 03:10 Ranitidine HCl (Zantac) 150 mg TWICE A DAY ORAL 04/30/17 18:00 05/30/17 17:59 05/03/17 08:43 Vancomycin HCl 1 ea 1 ea DAILY PRN MISC Per rx protocol 04/30/17 17:45 05/30/17 17:44 Vancomycin HCl/ Dextrose (Vancomycin/D5W) 275 ml @ 183.708 mls/hr Q8HR@0400,1200,2000 IVPB 05/02/17 20:00 05/07/17 19:59 05/03/17 13:15 PRAVEEN DAVIS May 03, 2017 13:39
[2017-05-03] MEDS ORDERED: Erythromycin Inj 500 MG in NS 110 ML IVPB SCH (14:00)
[2017-05-03 14:14] VITALS: BP 106/71
--- NOTE | 2017-05-03 14:18 | General Progress Note ---
Assessment/Plan Problem List: (1) HTN (hypertension) ICD Codes: I10 - Essential (primary) hypertension SNOMED: 18484686 (2) Hypothyroidism ICD Codes: E03.9 - Hypothyroidism, unspecified SNOMED: 39623020 (3) Liver nodule ICD Codes: K76.89 - Other specified diseases of liver SNOMED: 169389620 (4) Cirrhosis ICD Codes: K74.60 - Unspecified cirrhosis of liver SNOMED: 37195098 (5) Pleural effusion on right ICD Codes: J90 - Pleural effusion, not elsewhere classified SNOMED: 42649133 Status Narrative EGD was canceled patient was hypothermic and shivering resume diet plan EGd when patient is more stable Subjective ROS Limited/Unobtainable: No Allergies: Coded Allergies: No Known Allergies (Unverified , 04/30/17) Subjective confused Objective Last 24 Hour Vital Signs Date Time Temp Pulse Resp B/P Pulse Ox O2 Delivery O2 Flow Rate FiO2 05/03/17 14:14 98.6 52 13 106/71 77 Room Air 05/03/17 08:45 122/71 05/03/17 08:44 63 122/71 05/03/17 08:15 90.1 63 15 122/71 89 05/03/17 07:23 93 Nasal Cannula 2.0 05/03/17 07:23 Nasal Cannula 2.0 28 05/03/17 07:23 71 18 Nasal Cannula 2.0 28 05/03/17 04:00 58 05/03/17 03:51 98.2 57 20 138/80 94 Nasal Cannula 05/03/17 00:00 63 05/02/17 23:44 98.5 60 21 142/80 95 Room Air 05/02/17 21:14 67 134/76 05/02/17 20:00 73 05/02/17 20:00 98.6 59 20 112/70 90 Nasal Cannula 2.0 05/02/17 19:30 92 Nasal Cannula 2.0 28 05/02/17 19:30 Nasal Cannula 2.0 28 05/02/17 19:30 60 20 Nasal Cannula 2.0 28 05/02/17 16:00 64 05/02/17 16:00 97.9 67 21 127/79 92 Room Air Intake and Output 05/02/17 05/03/17 19:00 07:00 Intake Total 885 ml 943.5 ml Output Total 700 ml 800 ml Balance 185 ml 143.5 ml Intake Oral 500 ml IV Total 385 ml 943.5 ml Output Urine Total 700 ml 800 ml # Bowel Movements 4 Laboratory Tests 05/02/17 15:25: Prothrombin Time 14.2H, Prothromb Time International Ratio 1.4H 05/02/17 17:00: Urine Osmolality 574H 05/03/17 06:00: Prothrombin Time 13.6H, Prothromb Time International Ratio 1.3H, White Blood Count 7.0, Red Blood Count 4.16L, Hemoglobin 13.2L, Hematocrit 40.0L, Mean Corpuscular Volume 96, Mean Corpuscular Hemoglobin 31.6H, Mean Corpuscular Hemoglobin Concent 32.9, Red Cell Distribution Width 15.5H, Platelet Count 83L, Mean Platelet Volume 6.3L, Neutrophils (%) (Auto) , Lymphocytes (%) (Auto) , Monocytes (%) (Auto) , Eosinophils (%) (Auto) , Basophils (%) (Auto) , Differential Total Cells Counted 100, Neutrophils % (Manual) 68, Lymphocytes % ( Manual) 17L, Monocytes % (Manual) 9, Eosinophils % (Manual) 6H, Basophils % ( Manual) 0, Band Neutrophils 0, Platelet Estimate DecreasedL, Platelet Morphology Normal, Red Blood Cell Morphology Normal, Activated Partial Thromboplast Time 30, Sodium Level 135, Potassium Level 4.6, Chloride Level 98, Carbon Dioxide Level 30, Anion Gap 7, Blood Urea Nitrogen 15, Creatinine 0.8, Estimat Glomerular Filtration Rate > 60, Glucose Level 102, Hemoglobin A1c 4.8, Osmolality 282L, Uric Acid 4.8, Calcium Level 7.8L, Phosphorus Level 3.7, Magnesium Level 1.8, Total Bilirubin 0.6, Gamma Glutamyl Transpeptidase 43, Aspartate Amino Transf (AST/SGOT) 83H, Alanine Aminotransferase (ALT/SGPT) 86H, Alkaline Phosphatase 100, C-Reactive Protein, Quantitative 3.0H, Pro-B-Type Natriuretic Peptide 66, Total Protein 6.1L, Albumin 2.9L, Globulin 3.2, Albumin/ Globulin Ratio 0.9L, Triglycerides Level 51, Cholesterol Level 127, LDL Cholesterol 52L, HDL Cholesterol 65H, Cholesterol/HDL Ratio 2.0L, Vitamin B12 Level 576, Folate [Pending], Thyroid Stimulating Hormone (TSH) 2.390 05/03/17 10:50: Body Fluid Source [Pending], Body Fluid Volume [Pending], Body Fluid Appearance Cloudy, Body Fluid pH 8.0, Body Fluid RBC 2911, Body Fluid Total Nucleated Cells 67, Body Fluid Polynuclear WBCs (%) 23, Body Fluid Mononuclear WBCs (%) 75 , Body Fluid Mesothelial Cells (%) 2, Body Fluid Glucose [Pending], Body Fluid Total Protein [Pending], Body Fluid Lactate Dehydrogenase [Pending] Height (Feet): 5 Height (Inches): 9.00 Weight (Pounds): 150 General Appearance: lethargic, confused EENT: normal ENT inspection Neck: supple Cardiovascular: normal rate Respiratory/Chest: decreased breath sounds Abdomen: normal bowel sounds, non tender, soft Extremities: non-tender SAUNDRA PRECIADO May 03, 2017 14:18
--- NOTE | 2017-05-03 14:28 | General Progress Note ---
Assessment/Plan Problem List: (1) Chest pain ICD Codes: R07.9 - Chest pain, unspecified SNOMED: 66251009 Qualifiers: Qualified Codes: R07.9 - Chest pain, unspecified (2) Pleural effusion on right ICD Codes: J90 - Pleural effusion, not elsewhere classified SNOMED: 45742482 (3) Cirrhosis ICD Codes: K74.60 - Unspecified cirrhosis of liver SNOMED: 20901838 (4) Hepatic encephalopathy ICD Codes: K72.90 - Hepatic failure, unspecified without coma SNOMED: 22138706 (5) HTN (hypertension) ICD Codes: I10 - Essential (primary) hypertension SNOMED: 02203436 Status: progressing Assessment/Plan no wheezing very large pleural effusion thoracocentesis per pulmonary on oxygen cirrhosis obs Subjective ROS Limited/Unobtainable: Yes Constitutional: Reports: no symptoms Allergies: Coded Allergies: No Known Allergies (Unverified , 04/30/17) Objective Last 24 Hour Vital Signs Date Time Temp Pulse Resp B/P Pulse Ox O2 Delivery O2 Flow Rate FiO2 05/03/17 14:14 98.6 52 13 106/71 77 Room Air 05/03/17 08:45 122/71 05/03/17 08:44 63 122/71 05/03/17 08:15 90.1 63 15 122/71 89 05/03/17 07:23 93 Nasal Cannula 2.0 05/03/17 07:23 Nasal Cannula 2.0 28 05/03/17 07:23 71 18 Nasal Cannula 2.0 05/03/17 04:00 58 05/03/17 03:51 98.2 57 20 138/80 94 Nasal Cannula 05/03/17 00:00 63 05/02/17 23:44 98.5 60 21 142/80 95 Room Air 05/02/17 21:14 67 134/76 05/02/17 20:00 73 05/02/17 20:00 98.6 59 20 112/70 90 Nasal Cannula 2.0 05/02/17 19:30 92 Nasal Cannula 2.0 28 05/02/17 19:30 Nasal Cannula 2.0 28 05/02/17 19:30 60 20 Nasal Cannula 2.0 28 05/02/17 16:00 64 05/02/17 16:00 97.9 67 21 127/79 92 Room Air Intake and Output 05/02/17 05/03/17 19:00 07:00 Intake Total 885 ml 943.5 ml Output Total 700 ml 800 ml Balance 185 ml 143.5 ml Intake Oral 500 ml IV Total 385 ml 943.5 ml Output Urine Total 700 ml 800 ml # Bowel Movements 4 Laboratory Tests 05/02/17 15:25: Prothrombin Time 14.2H, Prothromb Time International Ratio 1.4H 05/02/17 17:00: Urine Osmolality 574H 05/03/17 06:00: Prothrombin Time 13.6H, Prothromb Time International Ratio 1.3H, White Blood Count 7.0, Red Blood Count 4.16L, Hemoglobin 13.2L, Hematocrit 40.0L, Mean Corpuscular Volume 96, Mean Corpuscular Hemoglobin 31.6H, Mean Corpuscular Hemoglobin Concent 32.9, Red Cell Distribution Width 15.5H, Platelet Count 83L, Mean Platelet Volume 6.3L, Neutrophils (%) (Auto) , Lymphocytes (%) (Auto) , Monocytes (%) (Auto) , Eosinophils (%) (Auto) , Basophils (%) (Auto) , Differential Total Cells Counted 100, Neutrophils % (Manual) 68, Lymphocytes % ( Manual) 17L, Monocytes % (Manual) 9, Eosinophils % (Manual) 6H, Basophils % ( Manual) 0, Band Neutrophils 0, Platelet Estimate DecreasedL, Platelet Morphology Normal, Red Blood Cell Morphology Normal, Activated Partial Thromboplast Time 30, Sodium Level 135, Potassium Level 4.6, Chloride Level 98, Carbon Dioxide Level 30, Anion Gap 7, Blood Urea Nitrogen 15, Creatinine 0.8, Estimat Glomerular Filtration Rate > 60, Glucose Level 102, Hemoglobin A1c 4.8, Osmolality 282L, Uric Acid 4.8, Calcium Level 7.8L, Phosphorus Level 3.7, Magnesium Level 1.8, Total Bilirubin 0.6, Gamma Glutamyl Transpeptidase 43, Aspartate Amino Transf (AST/SGOT) 83H, Alanine Aminotransferase (ALT/SGPT) 86H, Alkaline Phosphatase 100, C-Reactive Protein, Quantitative 3.0H, Pro-B-Type Natriuretic Peptide 66, Total Protein 6.1L, Albumin 2.9L, Globulin 3.2, Albumin/ Globulin Ratio 0.9L, Triglycerides Level 51, Cholesterol Level 127, LDL Cholesterol 52L, HDL Cholesterol 65H, Cholesterol/HDL Ratio 2.0L, Vitamin B12 Level 576, Folate [Pending], Thyroid Stimulating Hormone (TSH) 2.390 05/03/17 10:50: Body Fluid Source [Pending], Body Fluid Volume [Pending], Body Fluid Appearance Cloudy, Body Fluid pH 8.0, Body Fluid RBC 2911, Body Fluid Total Nucleated Cells 67, Body Fluid Polynuclear WBCs (%) 23, Body Fluid Mononuclear WBCs (%) 75 , Body Fluid Mesothelial Cells (%) 2, Body Fluid Glucose [Pending], Body Fluid Total Protein [Pending], Body Fluid Lactate Dehydrogenase [Pending] Height (Feet): 5 Height (Inches): 9.00 Weight (Pounds): 150 General Appearance: confused Neck: supple Cardiovascular: normal rate Respiratory/Chest: lungs clear Edna Rivas MD May 03, 2017 14:28
--- NOTE | 2017-05-03 14:31 | Anethesia Preoperative Eval ---
Anesthesia Pre-op PMH/ROS General Date of Evaluation: May 03, 2017 Time of Evaluation: 14:15 Anesthesiologist: donny ASA Score: ASA 4 Mallampati Score Class I : Soft palate, uvula, fauces, pillars visible Class II: Soft palate, uvula, fauces visible Class III: Soft palate, base of uvula visible Class IV: Only hard plate visible Mallampati Classification: Class III Surgeon: ye Surgical Procedure: egd Anesthesia History: none Family History: no anesthesia problems Allergies: Coded Allergies: No Known Allergies (Unverified , 04/30/17) Medications: see eMAR Past Medical History Cardiovascular: Reports: HTN Gastrointestinal/Genitourinary: Reports: GERD Neurologic/Psychiatric: Reports: dementia Endocrine: Reports: hypothyroidism, other - cirrhosis, encephalopathy Hematology/Immune: Reports: anemia, other - dysuria, hematuria Anesthesia Pre-op Phys. Exam Physician Exam Last Vital Signs Date Time Temp Pulse Resp B/P Pulse Ox O2 Delivery O2 Flow Rate FiO2 05/03/17 14:14 98.6 52 13 106/71 77 Room Air 05/03/17 07:23 2.0 28 Constitutional: NAD Neurologic: CN 2-12 intact, other - dementia Respiratory: other - diminished at bases Gastrointestinal: S/NT/ND Airway Exam Mallampati Score: Class III MO: limited ROM: limited Teeth: missing Dentures: no lower, no upper Anesthesia Pre-op A/P Labs Hematology Test 05/03/17 06:00 White Blood Count 7.0 K/UL (4.8-10.8) Red Blood Count 4.16 M/UL (4.70-6.10) L Hemoglobin 13.2 G/DL (14.2-18.0) L Hematocrit 40.0 % (42.0-52.0) L Mean Corpuscular Volume 96 FL (80-99) Mean Corpuscular Hemoglobin 31.6 PG (27.0-31.0) H Mean Corpuscular Hemoglobin Concent 32.9 G/DL (32.0-36.0) Red Cell Distribution Width 15.5 % (11.6-14.8) H Platelet Count 83 K/UL (150-450) L Mean Platelet Volume 6.3 FL (6.5-10.1) L Neutrophils (%) (Auto) % (45.0-75.0) Lymphocytes (%) (Auto) % (20.0-45.0) Monocytes (%) (Auto) % (1.0-10.0) Eosinophils (%) (Auto) % (0.0-3.0) Basophils (%) (Auto) % (0.0-2.0) Differential Total Cells Counted 100 Neutrophils % (Manual) 68 % (45-75) Lymphocytes % (Manual) 17 % (20-45) L Monocytes % (Manual) 9 % (1-10) Eosinophils % (Manual) 6 % (0-3) H Basophils % (Manual) 0 % (0-2) Band Neutrophils 0 % (0-8) Platelet Estimate Decreased L Platelet Morphology Normal Red Blood Cell Morphology Normal Coagulation Test 05/02/17 15:25 05/03/17 06:00 Prothrombin Time 14.2 SEC (9.30-11.50) H 13.6 SEC (9.30-11.50) H Prothromb Time International Ratio 1.4 (0.9-1.1) H 1.3 (0.9-1.1) H Activated Partial Thromboplast Time 30 SEC (23-33) Chemistry Test 05/03/17 06:00 Sodium Level 135 mEQ/L (135-145) Potassium Level 4.6 mEQ/L (3.4-4.9) Chloride Level 98 mEQ/L (98-107) Carbon Dioxide Level 30 mEQ/L (20-30) Anion Gap 7 (5-15) Blood Urea Nitrogen 15 mg/dL (7-23) Creatinine 0.8 mg/dL (0.7-1.2) Estimat Glomerular Filtration Rate > 60 mL/min (>60) Glucose Level 102 mg/dL (74-106) Hemoglobin A1c 4.8 % (< 6.0) Osmolality 282 mOsm/kg (297-317) L Uric Acid 4.8 mg/dL (3.0-7.5) Calcium Level 7.8 mg/dL (8.6-10.2) L Phosphorus Level 3.7 mg/dL (2.5-4.8) Magnesium Level 1.8 mg/dL (1.7-2.5) Total Bilirubin 0.6 mg/dL (0.0-1.2) Gamma Glutamyl Transpeptidase 43 U/L (8-61) Aspartate Amino Transf (AST/SGOT) 83 U/L (5-40) H Alanine Aminotransferase (ALT/SGPT) 86 U/L (3-41) H Alkaline Phosphatase 100 U/L (40-129) C-Reactive Protein, Quantitative 3.0 mg/dL (< 0.5) H Pro-B-Type Natriuretic Peptide 66 pg/mL (0-125) Total Protein 6.1 g/dL (6.6-8.7) L Albumin 2.9 g/dL (3.5-5.2) L Globulin 3.2 g/dL Albumin/Globulin Ratio 0.9 (1.0-2.7) L Triglycerides Level 51 mg/dL (< 150) Cholesterol Level 127 mg/dL (< 200) LDL Cholesterol 52 mg/dL (60-99) L HDL Cholesterol 65 mg/dL (> 60) H Cholesterol/HDL Ratio 2.0 (3.3-4.4) L Vitamin B12 Level 576 pg/mL (211-946) Folate Pending Thyroid Stimulating Hormone (TSH) 2.390 uIU/mL (0.300-4.500) Studies Pre-op Studies: EKG Risk Assessment & Plan Plan: mac, but pt ate full breakfast this am 7 am. pt shivering in OR table, O2 sat 90 % on FM. Case canceled after discused with surgeon Status Change Before Surgery: No Pre-Antibiotics Given Within 1 Hr of Incision: Ria Manzo CRNA May 03, 2017 14:31
--- NOTE | 2017-05-03 15:15 | Cardiac Electrophysiology PN ---
Assessment/Plan Status Narrative Technically difficult study due to poor acoustic windows. Study quality precludes accurate assessment of regional wall motion. Normal left ventricular chamber size, systolic function and wall motion. Left ventricular ejection fraction estimated to be 70-75%. Moderate left ventricular hypertrophy. Mild posterior pericardial fat or effusion. Mild right atrial enlargement by 2D. Moderate left atrial enlargement by 2D. Focal aortic valve sclerosis with adequate cusp excursion Thickened mitral valve leaflets with normal excursion. Mitral annulus and aortic root calcification. Pulmonic valve not well visualized. Normal tricuspid valve structure. IVC is normal in size with physiologic collapse. A color flow and spectral Doppler study was performe Assessment/Plan 1. Chest pain due to Right sided pleural effusion for which he underwent thoracentesis, most recent 05/03/17. Echocardiogram= EF 70% 2. Right pleural effusion likely secondary to healthcare-associated pneumonia. On Lasix 40 mg iv daily. 3. Liver cirrhosis with nodule, possible hepatocellular carcinoma.EGD postponed by Dr. Telles . 4. History of Brain tumor. Was on Hospice at [facility]. Now full code. [place] RN Subjective Subjective HAd 3.6 liter Right thoracentesis today. PEG cancelled today as he was having shivers in GI lab.Now feeling better. Objective Last 24 Hour Vital Signs Date Time Temp Pulse Resp B/P Pulse Ox O2 Delivery O2 Flow Rate FiO2 05/03/17 14:14 98.6 52 13 106/71 77 Room Air 05/03/17 08:45 122/71 05/03/17 08:44 63 122/71 05/03/17 08:15 90.1 63 15 122/71 89 05/03/17 07:23 93 Nasal Cannula 2.0 05/03/17 07:23 Nasal Cannula 2.0 28 05/03/17 07:23 71 18 Nasal Cannula 2.0 05/03/17 04:00 58 05/03/17 03:51 98.2 57 20 138/80 94 Nasal Cannula 05/03/17 00:00 63 05/02/17 23:44 98.5 60 21 142/80 95 Room Air 05/02/17 21:14 67 134/76 05/02/17 20:00 73 05/02/17 20:00 98.6 59 20 112/70 90 Nasal Cannula 2.0 05/02/17 19:30 92 Nasal Cannula 2.0 05/02/17 19:30 Nasal Cannula 2.0 28 05/02/17 19:30 60 20 Nasal Cannula 2.0 28 05/02/17 16:00 64 05/02/17 16:00 97.9 67 21 127/79 92 Room Air Intake and Output 05/02/17 05/03/17 19:00 07:00 Intake Total 885 ml 943.5 ml Output Total 700 ml 800 ml Balance 185 ml 143.5 ml Intake Oral 500 ml IV Total 385 ml 943.5 ml Output Urine Total 700 ml 800 ml # Bowel Movements 4 Laboratory Tests Test 05/02/17 15:25 05/02/17 17:00 05/03/17 06:00 05/03/17 10:50 Prothrombin Time 14.2 SEC (9.30-11.50) H 13.6 SEC (9.30-11.50) H Prothromb Time International Ratio 1.4 (0.9-1.1) H 1.3 (0.9-1.1) H Urine Osmolality 574 mOsm/kg (429-449) H White Blood Count 7.0 K/UL (4.8-10.8) Red Blood Count 4.16 M/UL (4.70-6.10) L Hemoglobin 13.2 G/DL (14.2-18.0) L Hematocrit 40.0 % (42.0-52.0) L Mean Corpuscular Volume 96 FL (80-99) Mean Corpuscular Hemoglobin 31.6 PG (27.0-31.0) H Mean Corpuscular Hemoglobin Concent 32.9 G/DL (32.0-36.0) Red Cell Distribution Width 15.5 % (11.6-14.8) H Platelet Count 83 K/UL (150-450) L Mean Platelet Volume 6.3 FL (6.5-10.1) L Neutrophils (%) (Auto) % (45.0-75.0) Lymphocytes (%) (Auto) % (20.0-45.0) Monocytes (%) (Auto) % (1.0-10.0) Eosinophils (%) (Auto) % (0.0-3.0) Basophils (%) (Auto) % (0.0-2.0) Differential Total Cells Counted 100 Neutrophils % (Manual) 68 % (45-75) Lymphocytes % (Manual) 17 % (20-45) L Monocytes % (Manual) 9 % (1-10) Eosinophils % (Manual) 6 % (0-3) H Basophils % (Manual) 0 % (0-2) Band Neutrophils 0 % (0-8) Platelet Estimate Decreased L Platelet Morphology Normal Red Blood Cell Morphology Normal Activated Partial Thromboplast Time 30 SEC (23-33) Sodium Level 135 mEQ/L (135-145) Potassium Level 4.6 mEQ/L (3.4-4.9) Chloride Level 98 mEQ/L (98-107) Carbon Dioxide Level 30 mEQ/L (20-30) Anion Gap 7 (5-15) Blood Urea Nitrogen 15 mg/dL (7-23) Creatinine 0.8 mg/dL (0.7-1.2) Estimat Glomerular Filtration Rate > 60 mL/min (>60) Glucose Level 102 mg/dL (74-106) Hemoglobin A1c 4.8 % (< 6.0) Osmolality 282 mOsm/kg (297-317) L Uric Acid 4.8 mg/dL (3.0-7.5) Calcium Level 7.8 mg/dL (8.6-10.2) L Phosphorus Level 3.7 mg/dL (2.5-4.8) Magnesium Level 1.8 mg/dL (1.7-2.5) Total Bilirubin 0.6 mg/dL (0.0-1.2) Gamma Glutamyl Transpeptidase 43 U/L (8-61) Aspartate Amino Transf (AST/SGOT) 83 U/L (5-40) H Alanine Aminotransferase (ALT/SGPT) 86 U/L (3-41) H Alkaline Phosphatase 100 U/L (40-129) C-Reactive Protein, Quantitative 3.0 mg/dL (< 0.5) H Pro-B-Type Natriuretic Peptide 66 pg/mL (0-125) Total Protein 6.1 g/dL (6.6-8.7) L Albumin 2.9 g/dL (3.5-5.2) L Globulin 3.2 g/dL Albumin/Globulin Ratio 0.9 (1.0-2.7) L Triglycerides Level 51 mg/dL (< 150) Cholesterol Level 127 mg/dL (< 200) LDL Cholesterol 52 mg/dL (60-99) L HDL Cholesterol 65 mg/dL (> 60) H Cholesterol/HDL Ratio 2.0 (3.3-4.4) L Vitamin B12 Level 576 pg/mL (211-946) Folate Pending Thyroid Stimulating Hormone (TSH) 2.390 uIU/mL (0.300-4.500) Body Fluid Source Pending Body Fluid Volume Pending Body Fluid Appearance Cloudy Body Fluid pH 8.0 Body Fluid RBC 2911 /CUMM Body Fluid Total Nucleated Cells 67 /CUMM Body Fluid Polynuclear WBCs (%) 23 % Body Fluid Mononuclear WBCs (%) 75 % Body Fluid Mesothelial Cells (%) 2 % Body Fluid Glucose Pending Body Fluid Total Protein Pending Body Fluid Lactate Dehydrogenase Pending Microbiology Date/Time Source Procedure Growth Status 04/30/17 23:00 Blood Blood Culture - Preliminary NO GROWTH AFTER 48 HOURS Resulted Objective HEAD AND NECK: Shows no JVD. LUNGS: Decreased breath sounds R>L CARDIOVASCULAR: Regular S1 and S2 with no gallop. ABDOMEN: Slightly distended. EXTREMITIES: A 2+ pitting edema. ANUEL PEMBERTON May 03, 2017 15:15
--- NOTE | 2017-05-03 15:33 | Diagnostic Imaging Report ---
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 It courses through segment one of the liver and is completely surrounded by hepatic parenchyma. This intrahepatic parenchymal portion of the inferior vena cava accounts for the finding observed on recent chest CT. The inferior vena cava exits the hepatic parenchyma at the level of the hepatic venous confluence. There is a 5 mm focus of high T2 signal is seen in segment 6. No other focal hepatic lesions are demonstrated. The liver demonstrates diffuse surface nodularity, consistent with known history of cirrhotic change. No focal enhancing liver lesion is demonstrated. The gallbladder, bile ducts, pancreas are unremarkable. The spleen is enlarged, measuring 19 cm long axis dimension. A small amount of ascites fluid is seen surrounding the spleen The right kidney demonstrates a tiny lower pole cyst. The adrenals are unremarkable. The left kidney is unremarkable. There are bilateral pleural effusions. There is a large hiatal hernia, incompletely imaged but previously described on earlier chest CT. 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 No further workup is necessary for this Findings compatible with hepatic cirrhosis, also previously described Trace ascites, also previously described Bilateral pleural effusions. On the right is much smaller than on earlier exams; patient has undergone interim thoracentesis Right lung consolidation. Possibly indicates reexpansion pulmonary edema secondary to the above procedure Large hiatal hernia, also previously reported on chest CT Splenomegaly, most likely related to portal hypertension Incidental finding right lower pole renal cyst
--- NOTE | 2017-05-03 15:44 | Infectious Diseases Prog Note ---
Assessment/Plan Problems: (1) HCAP (healthcare-associated pneumonia) Assessment & Plan: confirmed on CT chest , with productive cough , continue vancomycin and cefepime, await sputum culture (2) Pleural effusion on right Assessment & Plan: rule out empyema, with near complete right lung collapse on CT chest , on wide spectrum antibiotics , S/P large fluids removal with thoracentesis. fluids to be sent for culture gram stain, fungal , AFB, and cytology (3) Chest pain Assessment & Plan: resolved, follow up with cardiology Subjective Constitutional: Reports: no symptoms HEENT: Reports: no symptoms Respiratory: Reports: productive cough Breasts: Reports: no symptoms Cardiovascular: Reports: no symptoms Gastrointestinal/Abdominal: Reports: no symptoms Genitourinary: Reports: no symptoms Neurologic: Reports: no symptoms Psychiatric: Reports: no symptoms Skin: Reports: no symptoms Endocrine: Reports: no symptoms Hematologic: Reports: no symptoms Allergies: Coded Allergies: No Known Allergies (Unverified , 04/30/17) Objective Vital Signs Last 24 Hour Vital Signs Date Time Temp Pulse Resp B/P Pulse Ox O2 Delivery O2 Flow Rate FiO2 05/03/17 14:14 98.6 52 13 106/71 77 Room Air 05/03/17 08:45 122/71 05/03/17 08:44 63 122/71 05/03/17 08:15 90.1 63 15 122/71 89 05/03/17 07:23 93 Nasal Cannula 2.0 05/03/17 07:23 Nasal Cannula 2.0 28 05/03/17 07:23 71 18 Nasal Cannula 2.0 05/03/17 04:00 58 05/03/17 03:51 98.2 57 20 138/80 94 Nasal Cannula 05/03/17 00:00 63 05/02/17 23:44 98.5 60 21 142/80 95 Room Air 05/02/17 21:14 67 134/76 05/02/17 20:00 73 05/02/17 20:00 98.6 59 20 112/70 90 Nasal Cannula 2.0 05/02/17 19:30 92 Nasal Cannula 2.0 05/02/17 19:30 Nasal Cannula 2.0 28 05/02/17 19:30 60 20 Nasal Cannula 2.0 28 05/02/17 16:00 64 05/02/17 16:00 97.9 67 21 127/79 92 Room Air Height (Feet): 5 Height (Inches): 9.00 Weight (Pounds): 150 General Appearance: WD/WN, no acute distress HEENT: normocephalic, atraumatic, anicteric, mucous membranes moist, supple, no JVD Respiratory/Chest: normal breath sounds, no respiratory distress, no accessory muscle use, decreased breath sounds, crackles/rales Cardiovascular: normal peripheral pulses, normal rate, regular rhythm, no gallop/murmur, no JVD Abdomen: normal bowel sounds, soft, non tender, no organomegaly, non distended , no mass, no scars Extremities: no cyanosis, no clubbing Skin: no rash, no lesions Microbiology Date/Time Source Procedure Growth Status 04/30/17 23:00 Blood Blood Culture - Preliminary NO GROWTH AFTER 48 HOURS Resulted Laboratory Tests Test 05/02/17 17:00 05/03/17 06:00 05/03/17 10:50 Urine Osmolality 574 mOsm/kg (429-449) H White Blood Count 7.0 K/UL (4.8-10.8) Red Blood Count 4.16 M/UL (4.70-6.10) L Hemoglobin 13.2 G/DL (14.2-18.0) L Hematocrit 40.0 % (42.0-52.0) L Mean Corpuscular Volume 96 FL (80-99) Mean Corpuscular Hemoglobin 31.6 PG (27.0-31.0) H Mean Corpuscular Hemoglobin Concent 32.9 G/DL (32.0-36.0) Red Cell Distribution Width 15.5 % (11.6-14.8) H Platelet Count 83 K/UL (150-450) L Mean Platelet Volume 6.3 FL (6.5-10.1) L Neutrophils (%) (Auto) % (45.0-75.0) Lymphocytes (%) (Auto) % (20.0-45.0) Monocytes (%) (Auto) % (1.0-10.0) Eosinophils (%) (Auto) % (0.0-3.0) Basophils (%) (Auto) % (0.0-2.0) Differential Total Cells Counted 100 Neutrophils % (Manual) 68 % (45-75) Lymphocytes % (Manual) 17 % (20-45) L Monocytes % (Manual) 9 % (1-10) Eosinophils % (Manual) 6 % (0-3) H Basophils % (Manual) 0 % (0-2) Band Neutrophils 0 % (0-8) Platelet Estimate Decreased L Platelet Morphology Normal Red Blood Cell Morphology Normal Prothrombin Time 13.6 SEC (9.30-11.50) H Prothromb Time International Ratio 1.3 (0.9-1.1) H Activated Partial Thromboplast Time 30 SEC (23-33) Sodium Level 135 mEQ/L (135-145) Potassium Level 4.6 mEQ/L (3.4-4.9) Chloride Level 98 mEQ/L (98-107) Carbon Dioxide Level 30 mEQ/L (20-30) Anion Gap 7 (5-15) Blood Urea Nitrogen 15 mg/dL (7-23) Creatinine 0.8 mg/dL (0.7-1.2) Estimat Glomerular Filtration Rate > 60 mL/min (>60) Glucose Level 102 mg/dL (74-106) Hemoglobin A1c 4.8 % (< 6.0) Osmolality 282 mOsm/kg (297-317) L Uric Acid 4.8 mg/dL (3.0-7.5) Calcium Level 7.8 mg/dL (8.6-10.2) L Phosphorus Level 3.7 mg/dL (2.5-4.8) Magnesium Level 1.8 mg/dL (1.7-2.5) Total Bilirubin 0.6 mg/dL (0.0-1.2) Gamma Glutamyl Transpeptidase 43 U/L (8-61) Aspartate Amino Transf (AST/SGOT) 83 U/L (5-40) H Alanine Aminotransferase (ALT/SGPT) 86 U/L (3-41) H Alkaline Phosphatase 100 U/L (40-129) C-Reactive Protein, Quantitative 3.0 mg/dL (< 0.5) H Pro-B-Type Natriuretic Peptide 66 pg/mL (0-125) Total Protein 6.1 g/dL (6.6-8.7) L Albumin 2.9 g/dL (3.5-5.2) L Globulin 3.2 g/dL Albumin/Globulin Ratio 0.9 (1.0-2.7) L Triglycerides Level 51 mg/dL (< 150) Cholesterol Level 127 mg/dL (< 200) LDL Cholesterol 52 mg/dL (60-99) L HDL Cholesterol 65 mg/dL (> 60) H Cholesterol/HDL Ratio 2.0 (3.3-4.4) L Vitamin B12 Level 576 pg/mL (211-946) Folate Pending Thyroid Stimulating Hormone (TSH) 2.390 uIU/mL (0.300-4.500) Body Fluid Source Pending Body Fluid Volume Pending Body Fluid Appearance Cloudy Body Fluid pH 8.0 Body Fluid RBC 2911 /CUMM Body Fluid Total Nucleated Cells 67 /CUMM Body Fluid Polynuclear WBCs (%) 23 % Body Fluid Mononuclear WBCs (%) 75 % Body Fluid Mesothelial Cells (%) 2 % Body Fluid Glucose Pending Body Fluid Total Protein Pending Body Fluid Lactate Dehydrogenase Pending Current Medications Medications (Trade) Dose Ordered Sig/Tj Route PRN Reason Start Time Stop Time Status Last Admin Dose Admin Albuterol Sulfate (Proventil MDI) 1 puff Q6H PRN INH Shortness of Breath 04/30/17 14:00 05/30/17 13:59 05/01/17 22:31 Albuterol/ Ipratropium (DuoNeb 0.5-3(2.5)mg/3ml) 3 ml Q4H PRN HHN Shortness of Breath 05/02/17 15:00 05/07/17 14:59 Cefepime HCl 2 gm/ Dextrose 110 ml @ 220 mls/hr EVERY 12 HOURS IVPB 04/30/17 18:30 05/07/17 18:29 05/03/17 09:25 Docusate Sodium (Colace) 100 mg TWICE A DAY ORAL 05/02/17 18:00 06/01/17 17:59 05/03/17 08:44 Ergocalciferol (Drisdol) 50,000 intlu QWEEK ORAL 05/02/17 16:00 06/01/17 15:59 05/02/17 21:55 Furosemide (Lasix) 40 mg DAILY ORAL 05/03/17 09:00 06/02/17 08:59 05/03/17 08:43 Haloperidol (Haldol) 1 mg Q6H PRN ORAL AGITATION 04/30/17 18:00 05/30/17 17:59 05/03/17 01:31 Lactulose (Cephulac) 40 gm DAILY ORAL 04/30/17 14:00 05/30/17 13:59 05/03/17 08:45 Levothyroxine Sodium (Synthroid) 50 mcg ACBREAKFAST ORAL 05/01/17 06:30 05/31/17 06:29 05/03/17 06:30 Losartan Potassium (Cozaar) 50 mg DAILY ORAL 05/01/17 09:00 05/31/17 08:59 05/03/17 08:45 Metoprolol Tartrate (Lopressor) 25 mg EVERY 12 HOURS ORAL 04/30/17 21:00 05/30/17 20:59 05/03/17 08:44 Morphine Sulfate (Morphine Sulfate) 0.5 mg Q4H PRN IV For Pain 04/30/17 16:30 05/07/17 16:29 05/01/17 03:10 Ranitidine HCl (Zantac) 150 mg TWICE A DAY ORAL 04/30/17 18:00 05/30/17 17:59 05/03/17 08:43 Vancomycin HCl 1 ea 1 ea DAILY PRN MISC Per rx protocol 04/30/17 17:45 05/30/17 17:44 Vancomycin HCl/ Dextrose (Vancomycin/D5W) 275 ml @ 183.708 mls/hr Q8HR@0400,1200,2000 IVPB 05/02/17 20:00 05/07/17 19:59 05/03/17 13:15 Edda Gil M.D. May 03, 2017 15:44
[2017-05-03 16:00] VITALS: BP 159/82
[2017-05-03] MEDS: Morphine Sulfate 2mg/ml Inj IV PRN ×2 (18:59→23:14)
--- NOTE | 2017-05-03 19:50 | General Progress Note ---
Assessment/Plan Assessment/Plan 1. Anemia secondary to chronic disease. Continue to closely monitor. --> transfuse as needed --> hgb goal above 7.5 2. Thrombocytopenia, mostly related to underlying cirrhosis as well as sepsis. 3. Transaminitis, potentially secondary to underlying liver disease. 4. Liver nodule, biopsy. 5. Dysuria in the setting of chronic Aiken catheter. 6. Pleural effusion evaluation by Pulmonary team. 7. Coagulopathy, potentially secondary to underlying liver disease. 8. Health care associated pneumonia --> on abx per ID Subjective Date patient seen: May 02, 2017 Constitutional: Reports: no symptoms HEENT: Reports: no symptoms Cardiovascular: Reports: no symptoms Respiratory: Reports: no symptoms Gastrointestinal/Abdominal: Reports: no symptoms Genitourinary: Reports: no symptoms Neurologic/Psychiatric: Reports: no symptoms Endocrine: Reports: no symptoms Hematologic/Lymphatic: Reports: anemia Allergies: Coded Allergies: No Known Allergies (Unverified , 04/30/17) Subjective less pain today Objective Last 24 Hour Vital Signs Date Time Temp Pulse Resp B/P Pulse Ox O2 Delivery O2 Flow Rate FiO2 05/03/17 16:00 97.0 68 19 159/82 87 Simple Mask 6.0 05/03/17 16:00 65 05/03/17 14:14 98.6 52 13 106/71 77 Room Air 05/03/17 12:00 51 05/03/17 08:45 122/71 05/03/17 08:44 63 122/71 05/03/17 08:15 90.1 63 15 122/71 89 05/03/17 08:00 55 05/03/17 07:23 93 Nasal Cannula 2.0 28 05/03/17 07:23 Nasal Cannula 2.0 28 05/03/17 07:23 71 18 Nasal Cannula 2.0 28 05/03/17 04:00 58 05/03/17 03:51 98.2 57 20 138/80 94 Nasal Cannula 05/03/17 00:00 63 05/02/17 23:44 98.5 60 21 142/80 95 Room Air 05/02/17 21:14 67 134/76 05/02/17 20:00 73 05/02/17 20:00 98.6 59 20 112/70 90 Nasal Cannula 2.0 Intake and Output 05/02/17 05/03/17 19:00 07:00 Intake Total 885 ml 943.5 ml Output Total 700 ml 800 ml Balance 185 ml 143.5 ml Intake Oral 500 ml IV Total 385 ml 943.5 ml Output Urine Total 700 ml 800 ml # Bowel Movements 4 Laboratory Tests 05/03/17 06:00: White Blood Count 7.0, Red Blood Count 4.16L, Hemoglobin 13.2L, Hematocrit 40.0L , Mean Corpuscular Volume 96, Mean Corpuscular Hemoglobin 31.6H, Mean Corpuscular Hemoglobin Concent 32.9, Red Cell Distribution Width 15.5H, Platelet Count 83L, Mean Platelet Volume 6.3L, Neutrophils (%) (Auto) , Lymphocytes (%) (Auto) , Monocytes (%) (Auto) , Eosinophils (%) (Auto) , Basophils (%) (Auto) , Differential Total Cells Counted 100, Neutrophils % ( Manual) 68, Lymphocytes % (Manual) 17L, Monocytes % (Manual) 9, Eosinophils % ( Manual) 6H, Basophils % (Manual) 0, Band Neutrophils 0, Platelet Estimate DecreasedL, Platelet Morphology Normal, Red Blood Cell Morphology Normal, Prothrombin Time 13.6H, Prothromb Time International Ratio 1.3H, Activated Partial Thromboplast Time 30, Sodium Level 135, Potassium Level 4.6, Chloride Level 98, Carbon Dioxide Level 30, Anion Gap 7, Blood Urea Nitrogen 15, Creatinine 0.8, Estimat Glomerular Filtration Rate > 60, Glucose Level 102, Hemoglobin A1c 4.8, Osmolality 282L, Uric Acid 4.8, Calcium Level 7.8L, Phosphorus Level 3.7, Magnesium Level 1.8, Total Bilirubin 0.6, Gamma Glutamyl Transpeptidase 43, Aspartate Amino Transf (AST/SGOT) 83H, Alanine Aminotransferase (ALT/SGPT) 86H, Alkaline Phosphatase 100, C-Reactive Protein, Quantitative 3.0H, Pro-B-Type Natriuretic Peptide 66, Total Protein 6.1L, Albumin 2.9L, Globulin 3.2, Albumin/Globulin Ratio 0.9L, Triglycerides Level 51 , Cholesterol Level 127, LDL Cholesterol 52L, HDL Cholesterol 65H, Cholesterol/ HDL Ratio 2.0L, Vitamin B12 Level 576, Folate [Pending], Thyroid Stimulating Hormone (TSH) 2.390 05/03/17 10:50: Body Fluid Source [Pending], Body Fluid Volume [Pending], Body Fluid Appearance Cloudy, Body Fluid pH 8.0, Body Fluid RBC 2911, Body Fluid Total Nucleated Cells 67, Body Fluid Polynuclear WBCs (%) 23, Body Fluid Mononuclear WBCs (%) 75 , Body Fluid Mesothelial Cells (%) 2, Body Fluid Glucose [Pending], Body Fluid Total Protein [Pending], Body Fluid Lactate Dehydrogenase [Pending] Height (Feet): 5 Height (Inches): 9.00 Weight (Pounds): 150 General Appearance: no apparent distress EENT: normal ENT inspection Neck: normal alignment Cardiovascular: normal rate Respiratory/Chest: lungs clear Abdomen: non tender Edema: no edema noted Pedal (L), no edema noted Pedal (R) Neurologic: academic director II-XII grossly normal Wes Johnston May 03, 2017 19:50
[2017-05-03 20:00] VITALS: BP 114/65
[2017-05-03] MEDS ORDERED: Tubing IV Secondary IV ONE (21:47)
--- NOTE | 2017-05-03 21:57 | General Progress Note ---
Assessment/Plan Assessment/Plan 1. Anemia secondary to chronic disease. Continue to closely monitor. --> transfuse as needed --> hgb goal above 7.5 2. Thrombocytopenia, mostly related to underlying cirrhosis as well as sepsis. 3. Transaminitis, potentially secondary to underlying liver disease. 4. Liver nodule, biopsy. --> egd attempted today but cancelled due to hypothermia 5. Dysuria in the setting of chronic Aiken catheter. 6. Pleural effusion evaluation by Pulmonary team. 7. Coagulopathy, potentially secondary to underlying liver disease. 8. Health care associated pneumonia --> on abx per ID Subjective Constitutional: Reports: no symptoms HEENT: Reports: no symptoms Cardiovascular: Reports: no symptoms Respiratory: Reports: no symptoms Gastrointestinal/Abdominal: Reports: no symptoms Genitourinary: Reports: no symptoms Neurologic/Psychiatric: Reports: no symptoms Endocrine: Reports: no symptoms Hematologic/Lymphatic: Reports: anemia Allergies: Coded Allergies: No Known Allergies (Unverified , 04/30/17) Subjective egd attempted, patient was shivering Objective Last 24 Hour Vital Signs Date Time Temp Pulse Resp B/P Pulse Ox O2 Delivery O2 Flow Rate FiO2 05/03/17 20:21 Nasal Cannula 2.0 28 05/03/17 20:20 96 Nasal Cannula 2.0 28 05/03/17 20:20 68 18 Nasal Cannula 2.0 28 05/03/17 20:00 97.9 83 18 114/65 90 Simple Mask 6.0 05/03/17 16:00 97.0 68 19 159/82 87 Simple Mask 6.0 05/03/17 16:00 65 05/03/17 14:14 98.6 52 13 106/71 77 Room Air 05/03/17 12:00 51 05/03/17 08:45 122/71 05/03/17 08:44 63 122/71 05/03/17 08:15 90.1 63 15 122/71 89 05/03/17 08:00 55 05/03/17 07:23 93 Nasal Cannula 2.0 05/03/17 07:23 Nasal Cannula 2.0 28 05/03/17 07:23 71 18 Nasal Cannula 2.0 05/03/17 04:00 58 05/03/17 03:51 98.2 57 20 138/80 94 Nasal Cannula 05/03/17 00:00 63 05/02/17 23:44 98.5 60 21 142/80 95 Room Air Intake and Output 05/02/17 05/03/17 19:00 07:00 Intake Total 885 ml 943.5 ml Output Total 700 ml 800 ml Balance 185 ml 143.5 ml Intake Oral 500 ml IV Total 385 ml 943.5 ml Output Urine Total 700 ml 800 ml # Bowel Movements 4 Laboratory Tests 05/03/17 06:00: White Blood Count 7.0, Red Blood Count 4.16L, Hemoglobin 13.2L, Hematocrit 40.0L , Mean Corpuscular Volume 96, Mean Corpuscular Hemoglobin 31.6H, Mean Corpuscular Hemoglobin Concent 32.9, Red Cell Distribution Width 15.5H, Platelet Count 83L, Mean Platelet Volume 6.3L, Neutrophils (%) (Auto) , Lymphocytes (%) (Auto) , Monocytes (%) (Auto) , Eosinophils (%) (Auto) , Basophils (%) (Auto) , Differential Total Cells Counted 100, Neutrophils % ( Manual) 68, Lymphocytes % (Manual) 17L, Monocytes % (Manual) 9, Eosinophils % ( Manual) 6H, Basophils % (Manual) 0, Band Neutrophils 0, Platelet Estimate DecreasedL, Platelet Morphology Normal, Red Blood Cell Morphology Normal, Prothrombin Time 13.6H, Prothromb Time International Ratio 1.3H, Activated Partial Thromboplast Time 30, Sodium Level 135, Potassium Level 4.6, Chloride Level 98, Carbon Dioxide Level 30, Anion Gap 7, Blood Urea Nitrogen 15, Creatinine 0.8, Estimat Glomerular Filtration Rate > 60, Glucose Level 102, Hemoglobin A1c 4.8, Osmolality 282L, Uric Acid 4.8, Calcium Level 7.8L, Phosphorus Level 3.7, Magnesium Level 1.8, Total Bilirubin 0.6, Gamma Glutamyl Transpeptidase 43, Aspartate Amino Transf (AST/SGOT) 83H, Alanine Aminotransferase (ALT/SGPT) 86H, Alkaline Phosphatase 100, C-Reactive Protein, Quantitative 3.0H, Pro-B-Type Natriuretic Peptide 66, Total Protein 6.1L, Albumin 2.9L, Globulin 3.2, Albumin/Globulin Ratio 0.9L, Triglycerides Level 51 , Cholesterol Level 127, LDL Cholesterol 52L, HDL Cholesterol 65H, Cholesterol/ HDL Ratio 2.0L, Vitamin B12 Level 576, Folate [Pending], Thyroid Stimulating Hormone (TSH) 2.390 05/03/17 10:50: Body Fluid Source [Pending], Body Fluid Volume [Pending], Body Fluid Appearance Cloudy, Body Fluid pH 8.0, Body Fluid RBC 2911, Body Fluid Total Nucleated Cells 67, Body Fluid Polynuclear WBCs (%) 23, Body Fluid Mononuclear WBCs (%) 75 , Body Fluid Mesothelial Cells (%) 2, Body Fluid Glucose [Pending], Body Fluid Total Protein [Pending], Body Fluid Lactate Dehydrogenase [Pending] 05/03/17 20:00: Vancomycin Level Trough 11.7 Height (Feet): 5 Height (Inches): 9.00 Weight (Pounds): 150 General Appearance: no apparent distress EENT: normal ENT inspection Neck: supple Cardiovascular: normal rate Extremities: no calf tenderness Edema: no edema noted Pedal (L), no edema noted Pedal (R) Skin: normal pigmentation Wes Johnston May 03, 2017 21:57
[2017-05-04] VITALS: BP 140/80
[2017-05-04] MEDS: Morphine Sulfate 2mg/ml Inj IV PRN ×4 (03:51→22:48)
[2017-05-04 04:00] VITALS: BP 124/68
[2017-05-04] MEDS: Vancomycin 1gm in Dextrose 275ml IVPB SCH ×2 (04:06→12:05)
[2017-05-04 08:45] VITALS: BP 128/56
--- NOTE | 2017-05-04 08:48 | Cardiac Electrophysiology PN ---
Assessment/Plan Status Narrative Technically difficult study due to poor acoustic windows. Study quality precludes accurate assessment of regional wall motion. Normal left ventricular chamber size, systolic function and wall motion. Left ventricular ejection fraction estimated to be 70-75%. Moderate left ventricular hypertrophy. Mild posterior pericardial fat or effusion. Mild right atrial enlargement by 2D. Moderate left atrial enlargement by 2D. Focal aortic valve sclerosis with adequate cusp excursion Thickened mitral valve leaflets with normal excursion. Mitral annulus and aortic root calcification. Pulmonic valve not well visualized. Normal tricuspid valve structure. IVC is normal in size with physiologic collapse. A color flow and spectral Doppler study was performe Assessment/Plan 1. Chest pain due to Right sided pleural effusion for which he underwent thoracentesis 05/03/17. EF 70% 2. Right pleural effusion likely secondary to healthcare-associated pneumonia. S /P Thoracentesis. On Lasix 40 mg iv daily. 3. Liver cirrhosis with nodule, possible hepatocellular carcinoma.EGD postponed by Dr. Telles . 4. History of Brain tumor. Was on Hospice at [facility]. Now full code. 5. Anemia of chronic disease. [place] RN Subjective Subjective Feeling better after 3.6 liter Right thoracentesis yesterday. PEG cancelled as he was having shivers in GI lab.Now feeling better.On 2 liter Nasal cannula. Objective Last 24 Hour Vital Signs Date Time Temp Pulse Resp B/P Pulse Ox O2 Delivery O2 Flow Rate FiO2 05/04/17 04:00 97.7 107 18 124/68 14 Nasal Cannula 2.0 28 05/04/17 04:00 58 05/04/17 00:00 97.7 69 18 140/80 91 Nasal Cannula 2.0 28 05/04/17 00:00 63 05/03/17 22:15 75 126/72 05/03/17 20:21 Nasal Cannula 2.0 28 05/03/17 20:20 96 Nasal Cannula 2.0 28 05/03/17 20:20 68 18 Nasal Cannula 2.0 28 05/03/17 20:00 88 05/03/17 20:00 97.9 83 18 114/65 90 Simple Mask 6.0 28 05/03/17 16:00 97.0 68 19 159/82 87 Simple Mask 6.0 05/03/17 16:00 65 05/03/17 14:14 98.6 52 13 106/71 77 Room Air 05/03/17 12:00 51 05/03/17 08:45 122/71 05/03/17 08:44 63 122/71 Intake and Output 05/03/17 05/04/17 19:00 07:00 Intake Total 660.000 ml Output Total 800 ml Balance -140.000 ml IV Total 660.000 ml Output Urine Total 800 ml # Bowel Movements 2 Laboratory Tests Test 05/03/17 10:50 05/03/17 20:00 Body Fluid Source Pending Body Fluid Volume Pending Body Fluid Appearance Cloudy Body Fluid pH 8.0 Body Fluid RBC 2911 /CUMM Body Fluid Total Nucleated Cells 67 /CUMM Body Fluid Polynuclear WBCs (%) 23 % Body Fluid Mononuclear WBCs (%) 75 % Body Fluid Mesothelial Cells (%) 2 % Body Fluid Glucose Pending Body Fluid Total Protein Pending Body Fluid Lactate Dehydrogenase Pending Vancomycin Level Trough 11.7 ug/mL (5.0-12.0) Objective HEAD AND NECK: Shows no JVD. LUNGS: Decreased breath sounds CARDIOVASCULAR: Regular S1 and S2 with no gallop. ABDOMEN: Slightly distended. EXTREMITIES: 1+ pitting edema. ANUEL PEMBERTON May 04, 2017 08:48
[2017-05-04] MEDS: Metoprolol 25mg tab ORAL SCH ×2 (09:00→21:18)
[2017-05-04 09:03] LABS: COMMENT,BODY FLUID PATHOLOGIST COMMENT
[2017-05-04] MEDS: Lactulose 20gm/30ml UDC ORAL SCH (09:04)
[2017-05-04] MEDS: Furosemide 40mg tab ORAL SCH (09:04)
[2017-05-04] MEDS: Docusate 100mg cap ORAL SCH ×2 (09:04→18:15)
[2017-05-04] MEDS: Losartan 50mg tab ORAL SCH (09:14)
[2017-05-04] MEDS: Cefepime HCl 2 GM in D5W 110 ML IVPB SCH ×2 (09:21→21:18)
[2017-05-04] MEDS ORDERED: D5NS 1,000 ML IV SCH (09:30)
[2017-05-04 10:06] LABS: MEAN CORPUSCULAR HEMOGLOBIN 32.1 PG (27.0-31.0); MEAN CORPUSCULAR VOLUME 94 FL (80-99); MEAN PLATELET VOLUME 7.1 FL (6.5-10.1); PLATELET COUNT 84 K/UL (150-450); RED BLOOD COUNT 4.22 M/UL (4.70-6.10); RED CELL DISTRIBUTION WIDTH 15.2 % (11.6-14.8); WHITE BLOOD COUNT 8.5 K/UL (4.8-10.8)
[2017-05-04 10:11] LABS: INR 1.3 (0.9-1.1); PROTHROMBIN TIME 13.9 SEC (9.30-11.50)
[2017-05-04 10:18] LABS: ALANINE AMINOTRANSFERASE 62 U/L (3-41); ALBUMIN/GLOBULIN RATIO 0.9 (1.0-2.7); ANION GAP 7 (5-15); ASPARTATE AMINO TRANSFERASE 56 U/L (5-40); CALCIUM 7.7 mg/dL (8.6-10.2); CARBON DIOXIDE 27 mEQ/L (20-30); CHLORIDE 94 mEQ/L (98-107); CREATININE 0.7 mg/dL (0.7-1.2); GLOMERULAR FILTRATION RATE > 60 mL/min (>60); HEMOLYSIS 6; POTASSIUM 4.6 mEQ/L (3.4-4.9); SODIUM 128 mEQ/L (135-145); TOTAL PROTEIN 5.9 g/dL (6.6-8.7)
[2017-05-04 10:28] LABS: ANISOCYTOSIS 1+; BAND NEUTROPHILS % (MANUAL) 0 % (0-8); BASOPHILS % (MANUAL) 0 % (0-2); EOSINOPHILS % (MANUAL) 4 % (0-3); LYMPHOCYTES % (MANUAL) 35 % (20-45); NEUTROPHILS % (MANUAL) 56 % (45-75); PLATELET ESTIMATE DECREASED; PLATELET MORPHOLOGY NORMAL; TOTAL CELLS COUNTED 100
--- NOTE | 2017-05-04 10:53 | Diagnostic Imaging Report ---
Indication: Headache. The patient has a pituitary/sella mass Technique: Contiguous 5 mm thick transaxial imaging of the head obtained in a Siemens Sensation [address] scanner before and after intravenous administration of non-ionic contrast. Coronal and sagittal 2-D reconstructions obtained. Soft tissue and bone windows generated. Automatic exposure control utilized. Total Dose length Product (DLP): [address] Dose Index Volume (CTDIvol): 70.38 x2, 0.15, 16.5, 132.03 mGy Comparison: none Findings: There is a enhancing mass within the sella turcica extending into the suprasellar cistern measuring 3.7 x 3.1 x 4.3 CM in AP, transverse, craniocaudal dimensions respectively. The mass is solid and probably represents a pituitary adenoma. There is compression of the optic chiasm which is not well visualized on this examination. Is there is massive enlargement of the sella. There is lateral splaying of the opacified internal carotid arteries which appear grossly patent as do the visualized, major portions of the anterior circulation. There is no definite hydrocephalus as the lateral ventricles appear relatively normal in caliber. There is a generalized atrophy the brain noted. There is no mass effect or edema within the brain. There is no evidence of acute hemorrhage. Paranasal sinuses are essentially clear. There is a small fluid retention cyst in the left anterior ethmoid region measuring 1 cm. Impression: 2.7 x 3.1 x 4.3 cm sellar/suprasellar mass likely pituitary adenoma. Compression of the optic chiasm is expected though the optic chiasm itself is not well-visualized. MRI sella with gadolinium, which is recommended for further evaluation. Mild generalized atrophy the brain The CT scanner at [facility] is accredited by the [employer] and the scans are performed using dose optimization techniques as appropriate to a performed exam including Automatic Exposure control.
--- NOTE | 2017-05-04 11:06 | General Progress Note ---
Assessment/Plan Status: unchanged Status Narrative Na 128 Assessment/Plan Status: History of Brain tumor Was on Hospice at [facility] Admitted with chest pain Has pleural effusion right side Has shepard for urinary retention Has Pneumonia Has Transaminitis Cirrhosis / Splenomegaly / Liver mass 2+ Proteinuria HTN HypoThyroidism Plan: Stop Lasix for now Adjust BP meds- D5NS now while NPO Urine studies 2D echo results? Ejfx 70% Monitor lytes Per consultants Stable Subjective ROS Limited/Unobtainable: No Constitutional: Reports: malaise Allergies: Coded Allergies: No Known Allergies (Unverified , 04/30/17) Objective Last 24 Hour Vital Signs Date Time Temp Pulse Resp B/P Pulse Ox O2 Delivery O2 Flow Rate FiO2 05/04/17 09:20 Nasal Cannula 2.0 28 05/04/17 09:14 109/64 05/04/17 08:45 98.1 57 20 128/56 90 Room Air 05/04/17 08:20 54 18 Nasal Cannula 2.0 28 05/04/17 08:20 93 Nasal Cannula 2.0 28 05/04/17 08:00 53 05/04/17 04:00 97.7 107 18 124/68 14 Nasal Cannula 2.0 28 05/04/17 04:00 58 05/04/17 00:00 97.7 69 18 140/80 91 Nasal Cannula 2.0 28 05/04/17 00:00 63 05/03/17 22:15 75 126/72 05/03/17 20:21 Nasal Cannula 2.0 28 05/03/17 20:20 96 Nasal Cannula 2.0 28 05/03/17 20:20 68 18 Nasal Cannula 2.0 28 05/03/17 20:00 88 05/03/17 20:00 97.9 83 18 114/65 90 Simple Mask 6.0 28 05/03/17 16:00 97.0 68 19 159/82 87 Simple Mask 6.0 05/03/17 16:00 65 05/03/17 14:14 98.6 52 13 106/71 77 Room Air 05/03/17 12:00 51 Intake and Output 05/03/17 05/04/17 19:00 07:00 Intake Total 660.000 ml Output Total 800 ml Balance -140.000 ml IV Total 660.000 ml Output Urine Total 800 ml # Bowel Movements 2 Laboratory Tests 05/03/17 20:00: Vancomycin Level Trough 11.7 05/04/17 09:30: White Blood Count 8.5, Red Blood Count 4.22L, Hemoglobin 13.6L, Hematocrit 39.9L , Mean Corpuscular Volume 94, Mean Corpuscular Hemoglobin 32.1H, Mean Corpuscular Hemoglobin Concent 34.0, Red Cell Distribution Width 15.2H, Platelet Count 84L, Mean Platelet Volume 7.1, Neutrophils (%) (Auto) , Lymphocytes (%) (Auto) , Monocytes (%) (Auto) , Eosinophils (%) (Auto) , Basophils (%) (Auto) , Differential Total Cells Counted 100, Neutrophils % ( Manual) 56, Lymphocytes % (Manual) 35, Monocytes % (Manual) 5, Eosinophils % ( Manual) 4H, Basophils % (Manual) 0, Band Neutrophils 0, Platelet Estimate DecreasedL, Platelet Morphology Normal, Anisocytosis 1+, Prothrombin Time 13.9H , Prothromb Time International Ratio 1.3H, Activated Partial Thromboplast Time 30, Sodium Level 128L, Potassium Level 4.6, Chloride Level 94L, Carbon Dioxide Level 27, Anion Gap 7, Blood Urea Nitrogen 13, Creatinine 0.7, Estimat Glomerular Filtration Rate > 60, Glucose Level 73L, Calcium Level 7.7L, Total Bilirubin 1.0, Aspartate Amino Transf (AST/SGOT) 56H, Alanine Aminotransferase ( ALT/SGPT) 62H, Alkaline Phosphatase 82, Total Protein 5.9L, Albumin 2.9L, Globulin 3.0, Albumin/Globulin Ratio 0.9L Height (Feet): 5 Height (Inches): 9.00 Weight (Pounds): 170 General Appearance: no apparent distress, lethargic Cardiovascular: bradycardia Respiratory/Chest: decreased breath sounds Abdomen: distended Objective PE not changed KELLY MUÑIZ May 04, 2017 11:06
[2017-05-04 11:55] VITALS: BP 121/57
--- NOTE | 2017-05-04 12:13 | Pulmonology Progress Note ---
Assessment/Plan Problems: (1) Pleural effusion on right (2) Hepatic encephalopathy (3) Cirrhosis (4) Dysuria (5) HTN (hypertension) Assessment/Plan titrate fio2 to sat of 92% paracentesis can not done, trace fluid f/u liver mass, rule out malignancy. alpha feto protein increased Subjective ROS Limited/Unobtainable: No Constitutional: Reports: no symptoms HEENT: Repors: no symptoms Respiratory: Reports: no symptoms Allergies: Coded Allergies: No Known Allergies (Unverified , 04/30/17) Objective Last 24 Hour Vital Signs Date Time Temp Pulse Resp B/P Pulse Ox O2 Delivery O2 Flow Rate FiO2 05/04/17 11:55 98.7 55 19 121/57 100 Room Air 05/04/17 09:20 Nasal Cannula 2.0 28 05/04/17 09:14 109/64 05/04/17 08:45 98.1 57 20 128/56 90 Room Air 05/04/17 08:20 54 18 Nasal Cannula 2.0 28 05/04/17 08:20 93 Nasal Cannula 2.0 28 05/04/17 08:00 53 05/04/17 04:00 97.7 107 18 124/68 14 Nasal Cannula 2.0 28 05/04/17 04:00 58 05/04/17 00:00 97.7 69 18 140/80 91 Nasal Cannula 2.0 28 05/04/17 00:00 63 05/03/17 22:15 75 126/72 05/03/17 20:21 Nasal Cannula 2.0 28 05/03/17 20:20 96 Nasal Cannula 2.0 28 05/03/17 20:20 68 18 Nasal Cannula 2.0 28 05/03/17 20:00 88 05/03/17 20:00 97.9 83 18 114/65 90 Simple Mask 6.0 28 05/03/17 16:00 97.0 68 19 159/82 87 Simple Mask 6.0 05/03/17 16:00 65 05/03/17 14:14 98.6 52 13 106/71 77 Room Air Intake and Output 05/03/17 05/04/17 19:00 07:00 Intake Total 660.000 ml Output Total 800 ml Balance -140.000 ml IV Total 660.000 ml Output Urine Total 800 ml # Bowel Movements 2 General Appearance: no acute distress HEENT: normocephalic Cardiovascular: normal peripheral pulses, normal rate Abdomen: normal bowel sounds, soft, non tender Extremities: other - edema Laboratory Tests 05/03/17 20:00: Vancomycin Level Trough 11.7 05/04/17 09:30: White Blood Count 8.5, Red Blood Count 4.22L, Hemoglobin 13.6L, Hematocrit 39.9L , Mean Corpuscular Volume 94, Mean Corpuscular Hemoglobin 32.1H, Mean Corpuscular Hemoglobin Concent 34.0, Red Cell Distribution Width 15.2H, Platelet Count 84L, Mean Platelet Volume 7.1, Neutrophils (%) (Auto) , Lymphocytes (%) (Auto) , Monocytes (%) (Auto) , Eosinophils (%) (Auto) , Basophils (%) (Auto) , Differential Total Cells Counted 100, Neutrophils % ( Manual) 56, Lymphocytes % (Manual) 35, Monocytes % (Manual) 5, Eosinophils % ( Manual) 4H, Basophils % (Manual) 0, Band Neutrophils 0, Platelet Estimate DecreasedL, Platelet Morphology Normal, Anisocytosis 1+, Prothrombin Time 13.9H , Prothromb Time International Ratio 1.3H, Activated Partial Thromboplast Time 30, Sodium Level 128L, Potassium Level 4.6, Chloride Level 94L, Carbon Dioxide Level 27, Anion Gap 7, Blood Urea Nitrogen 13, Creatinine 0.7, Estimat Glomerular Filtration Rate > 60, Glucose Level 73L, Calcium Level 7.7L, Total Bilirubin 1.0, Aspartate Amino Transf (AST/SGOT) 56H, Alanine Aminotransferase ( ALT/SGPT) 62H, Alkaline Phosphatase 82, Total Protein 5.9L, Albumin 2.9L, Globulin 3.0, Albumin/Globulin Ratio 0.9L Current Medications Medications (Trade) Dose Ordered Sig/Tj Route PRN Reason Start Time Stop Time Status Last Admin Dose Admin Albuterol Sulfate (Proventil MDI) 1 puff Q6H PRN INH Shortness of Breath 04/30/17 14:00 05/30/17 13:59 05/01/17 22:31 Albuterol/ Ipratropium 3 ml 3 ml Q4H PRN HHN Shortness of Breath 05/02/17 15:00 05/07/17 14:59 Cefepime HCl/ Dextrose (Maxipime/D5W) 110 ml @ 220 mls/hr EVERY 12 HOURS IVPB 04/30/17 18:30 05/07/17 18:29 05/04/17 09:21 Docusate Sodium (Colace) 100 mg TWICE A DAY ORAL 05/02/17 18:00 06/01/17 17:59 05/04/17 09:04 Ergocalciferol (Drisdol) 50,000 intlu QWEEK ORAL 05/02/17 16:00 06/01/17 15:59 05/02/17 21:55 Haloperidol (Haldol) 1 mg Q6H PRN ORAL AGITATION 04/30/17 18:00 05/30/17 17:59 05/03/17 01:31 Lactulose (Cephulac) 40 gm DAILY ORAL 04/30/17 14:00 05/30/17 13:59 05/04/17 09:04 Levothyroxine Sodium (Synthroid) 50 mcg ACBREAKFAST ORAL 05/01/17 06:30 05/31/17 06:29 05/04/17 06:29 Losartan Potassium (Cozaar) 50 mg DAILY ORAL 05/01/17 09:00 05/31/17 08:59 05/04/17 09:14 Metoprolol Tartrate (Lopressor) 25 mg EVERY 12 HOURS ORAL 04/30/17 21:00 05/30/17 20:59 05/03/17 22:15 Morphine Sulfate (Morphine Sulfate) 0.5 mg Q4H PRN IV For Pain 04/30/17 16:30 05/07/17 16:29 05/04/17 08:06 Phenazopyridine HCl (Pyridium) 100 mg BID ORAL 05/04/17 18:00 06/03/17 17:59 Ranitidine HCl (Zantac) 150 mg TWICE A DAY ORAL 04/30/17 18:00 05/30/17 17:59 05/04/17 09:05 Vancomycin HCl 1 ea 1 ea DAILY PRN MISC Per rx protocol 04/30/17 17:45 05/30/17 17:44 Vancomycin HCl/ Dextrose (Vancomycin/D5W) 275 ml @ 183.708 mls/hr Q8HR@0400,1200,2000 IVPB 05/04/17 04:00 05/09/17 03:59 05/04/17 12:05 PRAVEEN DAVIS May 04, 2017 12:13
--- NOTE | 2017-05-04 13:16 | Consultation ---
DATE OF CONSULTATION: 05/04/2017 CONSULTING PHYSICIAN: Ihsan Stearns M.D. I was asked by Dr. Rivas to see the patient with dysuria and indwelling Aiken catheter. The patient was seen on 05/04/[address] Rivas. REFERRING PHYSICIAN: Edna Rivas M.D. REASON FOR CONSULTATION: Dysuria, retained Aiken catheter. HISTORY OF PRESENT ILLNESS: The patient is a 67-year-old detention resident, history of cirrhosis, liver nodule is currently admitted to [place] with indwelling Aiken catheter and complains of dysuria. No other symptoms. PAST MEDICAL HISTORY: History of hypertension, congestive heart failure, pleural effusion, liver cirrhosis, and pituitary tumor. PAST SURGICAL HISTORY: Not reported. MEDICATIONS: Clonidine. ALLERGIES: No known allergies. SOCIAL HISTORY: residential resident. FAMILY HISTORY: Noncontributory. REVIEW OF SYSTEMS: The patient is a poor historian and is difficult to collect review of symptoms from the chart. He does not have any fever and chills. No night sweats. PHYSICAL EXAMINATION: VITAL SIGNS: Blood pressure is 120/80, respiratory rate is 18, and O2 saturation 95% on 3 liters. GENERAL: No acute distress. ABDOMEN: Soft, nontender, and nondistended. Aiken catheter in place. No evidence of discharge. LABORATORY DATA: WBC 6.6, hematocrit is 35. Creatinine is 0.9. ASSESSMENT AND PLAN: The patient has an indwelling Aiken catheter. I recommended to exchange the Aiken catheter to new catheter and irrigates his bladder with normal saline. He also will be started on Pyridium 100 milligrams twice a day I will follow this patient with you. Ihsan Stearns M.D. DR: CHANG JOB#: [id number] CC:
--- NOTE | 2017-05-04 13:28 | Neurology Progress Note ---
Interim History Interim History ROS Limited/Unobtainable: No Objective Physical Exam Last Vital Signs Date Time Temp Pulse Resp B/P Pulse Ox O2 Delivery O2 Flow Rate FiO2 05/04/17 11:55 98.7 55 19 121/57 100 Room Air 05/04/17 09:20 2.0 28 Laboratory Tests Test 05/03/17 20:00 05/04/17 09:30 Vancomycin Level Trough 11.7 ug/mL (5.0-12.0) White Blood Count 8.5 K/UL (4.8-10.8) Red Blood Count 4.22 M/UL (4.70-6.10) L Hemoglobin 13.6 G/DL (14.2-18.0) L Hematocrit 39.9 % (42.0-52.0) L Mean Corpuscular Volume 94 FL (80-99) Mean Corpuscular Hemoglobin 32.1 PG (27.0-31.0) H Mean Corpuscular Hemoglobin Concent 34.0 G/DL (32.0-36.0) Red Cell Distribution Width 15.2 % (11.6-14.8) H Platelet Count 84 K/UL (150-450) L Mean Platelet Volume 7.1 FL (6.5-10.1) Neutrophils (%) (Auto) % (45.0-75.0) Lymphocytes (%) (Auto) % (20.0-45.0) Monocytes (%) (Auto) % (1.0-10.0) Eosinophils (%) (Auto) % (0.0-3.0) Basophils (%) (Auto) % (0.0-2.0) Differential Total Cells Counted 100 Neutrophils % (Manual) 56 % (45-75) Lymphocytes % (Manual) 35 % (20-45) Monocytes % (Manual) 5 % (1-10) Eosinophils % (Manual) 4 % (0-3) H Basophils % (Manual) 0 % (0-2) Band Neutrophils 0 % (0-8) Platelet Estimate Decreased L Platelet Morphology Normal Anisocytosis 1+ Prothrombin Time 13.9 SEC (9.30-11.50) H Prothromb Time International Ratio 1.3 (0.9-1.1) H Activated Partial Thromboplast Time 30 SEC (23-33) Sodium Level 128 mEQ/L (135-145) L Potassium Level 4.6 mEQ/L (3.4-4.9) Chloride Level 94 mEQ/L (98-107) L Carbon Dioxide Level 27 mEQ/L (20-30) Anion Gap 7 (5-15) Blood Urea Nitrogen 13 mg/dL (7-23) Creatinine 0.7 mg/dL (0.7-1.2) Estimat Glomerular Filtration Rate > 60 mL/min (>60) Glucose Level 73 mg/dL (74-106) L Calcium Level 7.7 mg/dL (8.6-10.2) L Total Bilirubin 1.0 mg/dL (0.0-1.2) Aspartate Amino Transf (AST/SGOT) 56 U/L (5-40) H Alanine Aminotransferase (ALT/SGPT) 62 U/L (3-41) H Alkaline Phosphatase 82 U/L (40-129) Total Protein 5.9 g/dL (6.6-8.7) L Albumin 2.9 g/dL (3.5-5.2) L Globulin 3.0 g/dL Albumin/Globulin Ratio 0.9 (1.0-2.7) L Impression/Recommendations Problems: (1) large pituitary mass, probably macroadenoma, with mass effect (2) s/p multiple lacunar strokes (3) HTN (hypertension) (4) Hypothyroidism (5) Cirrhosis (6) HCAP (healthcare-associated pneumonia) Status: unchanged Recommendations # [id number] NESS JOINER May 04, 2017 13:28
--- NOTE | 2017-05-04 13:40 | GI Progress Note ---
Assessment/Plan Problems: (1) Liver nodule ICD Codes: K76.89 - Other specified diseases of liver SNOMED: 939958937 (2) Cirrhosis ICD Codes: K74.60 - Unspecified cirrhosis of liver SNOMED: [id number] Status: stable, unchanged Status Narrative Discussed with Dr. Telles. Assessment/Plan abdominal U/S >> Suspicion of chronic liver disease/cirrhosis. Stigmata of portal hypertension including splenomegaly and trace ascites. ammonia WNL >> cont lactulose MRI reviewed > unremarkable hepatitis panel >> negative AFP elevation >> 11.3 s/p paracentesis with ~ 4L yield. ok for DC per GI standpoint >> recommend outpatient EGD to evaluate portal HTN stable H&H, prn transfusions H2B monitor LFTs fu labs Subjective Gastrointestinal/Abdominal: Reports: no symptoms Subjective abdominal pain alot better Objective Last 24 Hour Vital Signs Date Time Temp Pulse Resp B/P Pulse Ox O2 Delivery O2 Flow Rate FiO2 05/04/17 11:55 98.7 55 19 121/57 100 Room Air 05/04/17 09:20 Nasal Cannula 2.0 28 05/04/17 09:14 109/64 05/04/17 08:45 98.1 57 20 128/56 90 Room Air 05/04/17 08:20 54 18 Nasal Cannula 2.0 28 05/04/17 08:20 93 Nasal Cannula 2.0 28 05/04/17 08:00 53 05/04/17 04:00 97.7 107 18 124/68 14 Nasal Cannula 2.0 28 05/04/17 04:00 58 05/04/17 00:00 97.7 69 18 140/80 91 Nasal Cannula 2.0 28 05/04/17 00:00 63 05/03/17 22:15 75 126/72 05/03/17 20:21 Nasal Cannula 2.0 28 05/03/17 20:20 96 Nasal Cannula 2.0 28 05/03/17 20:20 68 18 Nasal Cannula 2.0 28 05/03/17 20:00 88 05/03/17 20:00 97.9 83 18 114/65 90 Simple Mask 6.0 28 05/03/17 16:00 97.0 68 19 159/82 87 Simple Mask 6.0 05/03/17 16:00 65 05/03/17 14:14 98.6 52 13 106/71 77 Room Air Intake and Output 05/03/17 05/04/17 19:00 07:00 Intake Total 660.000 ml Output Total 800 ml Balance -140.000 ml IV Total 660.000 ml Output Urine Total 800 ml # Bowel Movements 2 Laboratory Tests Test 05/03/17 20:00 05/04/17 09:30 Vancomycin Level Trough 11.7 ug/mL (5.0-12.0) White Blood Count 8.5 K/UL (4.8-10.8) Red Blood Count 4.22 M/UL (4.70-6.10) L Hemoglobin 13.6 G/DL (14.2-18.0) L Hematocrit 39.9 % (42.0-52.0) L Mean Corpuscular Volume 94 FL (80-99) Mean Corpuscular Hemoglobin 32.1 PG (27.0-31.0) H Mean Corpuscular Hemoglobin Concent 34.0 G/DL (32.0-36.0) Red Cell Distribution Width 15.2 % (11.6-14.8) H Platelet Count 84 K/UL (150-450) L Mean Platelet Volume 7.1 FL (6.5-10.1) Neutrophils (%) (Auto) % (45.0-75.0) Lymphocytes (%) (Auto) % (20.0-45.0) Monocytes (%) (Auto) % (1.0-10.0) Eosinophils (%) (Auto) % (0.0-3.0) Basophils (%) (Auto) % (0.0-2.0) Differential Total Cells Counted 100 Neutrophils % (Manual) 56 % (45-75) Lymphocytes % (Manual) 35 % (20-45) Monocytes % (Manual) 5 % (1-10) Eosinophils % (Manual) 4 % (0-3) H Basophils % (Manual) 0 % (0-2) Band Neutrophils 0 % (0-8) Platelet Estimate Decreased L Platelet Morphology Normal Anisocytosis 1+ Prothrombin Time 13.9 SEC (9.30-11.50) H Prothromb Time International Ratio 1.3 (0.9-1.1) H Activated Partial Thromboplast Time 30 SEC (23-33) Sodium Level 128 mEQ/L (135-145) L Potassium Level 4.6 mEQ/L (3.4-4.9) Chloride Level 94 mEQ/L (98-107) L Carbon Dioxide Level 27 mEQ/L (20-30) Anion Gap 7 (5-15) Blood Urea Nitrogen 13 mg/dL (7-23) Creatinine 0.7 mg/dL (0.7-1.2) Estimat Glomerular Filtration Rate > 60 mL/min (>60) Glucose Level 73 mg/dL (74-106) L Calcium Level 7.7 mg/dL (8.6-10.2) L Total Bilirubin 1.0 mg/dL (0.0-1.2) Aspartate Amino Transf (AST/SGOT) 56 U/L (5-40) H Alanine Aminotransferase (ALT/SGPT) 62 U/L (3-41) H Alkaline Phosphatase 82 U/L (40-129) Total Protein 5.9 g/dL (6.6-8.7) L Albumin 2.9 g/dL (3.5-5.2) L Globulin 3.0 g/dL Albumin/Globulin Ratio 0.9 (1.0-2.7) L Height (Feet): 5 Height (Inches): 9.00 Weight (Pounds): 170 General Appearance: alert Cardiovascular: normal rate Respiratory/Chest: normal breath sounds, no respiratory distress Abdominal Exam: normal bowel sounds, non tender, soft Extremities: normal range of motion Yesi Shell N.P. May 04, 2017 13:40
[2017-05-04] MEDS ORDERED: NaCl 3% 500ml 250 ML IV ONE ×3 (14:00→18:00)
--- NOTE | 2017-05-04 15:01 | General Progress Note ---
Assessment/Plan Assessment/Plan 1. Large pituitary mass, with mass effect, have reviewed the [facility] medical EMR and reviewed neurosurgery records, have also discussed with niece on phone on 05/04/17. He has multiple co-morbidities and neurosurgery there recommended initially a transph[facility]oidal [facility], however given that he did not improve during his stay they then recommended hospice given multiple co-morbids and no surgical intervention. he does not have stage IV disease. Requires likely snf placement as per Dr. 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 Anemia secondary to chronic disease. Continue to closely monitor. --> transfuse as needed --> hgb goal above 8 3. Thrombocytopenia, mostly related to underlying cirrhosis as well as sepsis. 4. Transaminitis, potentially secondary to underlying liver disease. 5. Liver nodule --> being followed by GI 6. Dysuria in the setting of chronic Aiken catheter. --> will receive new Aiken 7. Pleural effusion evaluation by Pulmonary team. --> s/p paracenteses 8. Coagulopathy, potentially secondary to underlying liver disease. 9. Health care associated pneumonia --> on abx per ID Subjective Constitutional: Reports: no symptoms HEENT: Reports: no symptoms Cardiovascular: Reports: no symptoms Respiratory: Reports: no symptoms Gastrointestinal/Abdominal: Reports: no symptoms Genitourinary: Reports: no symptoms Neurologic/Psychiatric: Reports: no symptoms Endocrine: Reports: no symptoms Hematologic/Lymphatic: Reports: anemia Allergies: Coded Allergies: No Known Allergies (Unverified , 04/30/17) Subjective s/p head ct Objective Last 24 Hour Vital Signs Date Time Temp Pulse Resp B/P Pulse Ox O2 Delivery O2 Flow Rate FiO2 05/04/17 11:55 98.7 55 19 121/57 100 Room Air 05/04/17 09:20 Nasal Cannula 2.0 05/04/17 09:14 109/64 05/04/17 08:45 98.1 57 20 128/56 90 Room Air 05/04/17 08:20 54 18 Nasal Cannula 2.0 28 05/04/17 08:20 93 Nasal Cannula 2.0 28 05/04/17 08:00 53 05/04/17 04:00 97.7 107 18 124/68 14 Nasal Cannula 2.0 28 05/04/17 04:00 58 05/04/17 00:00 97.7 69 18 140/80 91 Nasal Cannula 2.0 28 05/04/17 00:00 63 05/03/17 22:15 75 126/72 05/03/17 20:21 Nasal Cannula 2.0 28 05/03/17 20:20 96 Nasal Cannula 2.0 28 05/03/17 20:20 68 18 Nasal Cannula 2.0 28 05/03/17 20:00 88 05/03/17 20:00 97.9 83 18 114/65 90 Simple Mask 6.0 28 05/03/17 16:00 97.0 68 19 159/82 87 Simple Mask 6.0 05/03/17 16:00 65 Intake and Output 05/03/17 05/04/17 19:00 07:00 Intake Total 660.000 ml Output Total 800 ml Balance -140.000 ml IV Total 660.000 ml Output Urine Total 800 ml # Bowel Movements 2 Laboratory Tests 05/03/17 20:00: Vancomycin Level Trough 11.7 05/04/17 09:30: White Blood Count 8.5, Red Blood Count 4.22L, Hemoglobin 13.6L, Hematocrit 39.9L , Mean Corpuscular Volume 94, Mean Corpuscular Hemoglobin 32.1H, Mean Corpuscular Hemoglobin Concent 34.0, Red Cell Distribution Width 15.2H, Platelet Count 84L, Mean Platelet Volume 7.1, Neutrophils (%) (Auto) , Lymphocytes (%) (Auto) , Monocytes (%) (Auto) , Eosinophils (%) (Auto) , Basophils (%) (Auto) , Differential Total Cells Counted 100, Neutrophils % ( Manual) 56, Lymphocytes % (Manual) 35, Monocytes % (Manual) 5, Eosinophils % ( Manual) 4H, Basophils % (Manual) 0, Band Neutrophils 0, Platelet Estimate DecreasedL, Platelet Morphology Normal, Anisocytosis 1+, Prothrombin Time 13.9H , Prothromb Time International Ratio 1.3H, Activated Partial Thromboplast Time 30, Sodium Level 128L, Potassium Level 4.6, Chloride Level 94L, Carbon Dioxide Level 27, Anion Gap 7, Blood Urea Nitrogen 13, Creatinine 0.7, Estimat Glomerular Filtration Rate > 60, Glucose Level 73L, Calcium Level 7.7L, Total Bilirubin 1.0, Aspartate Amino Transf (AST/SGOT) 56H, Alanine Aminotransferase ( ALT/SGPT) 62H, Alkaline Phosphatase 82, Total Protein 5.9L, Albumin 2.9L, Globulin 3.0, Albumin/Globulin Ratio 0.9L, Prolactin [Pending] Height (Feet): 5 Height (Inches): 9.00 Weight (Pounds): 170 General Appearance: no apparent distress EENT: normal ENT inspection Neck: non-tender Cardiovascular: normal peripheral pulses Abdomen: normal bowel sounds Extremities: non-tender Edema: no edema noted Pedal (L), no edema noted Pedal (R) Wes Johnston May 04, 2017 15:01
[2017-05-04 16:00] VITALS: BP 134/78
--- NOTE | 2017-05-04 16:19 | Infectious Diseases Prog Note ---
Assessment/Plan Problems: (1) HCAP (healthcare-associated pneumonia) Assessment & Plan: confirmed on CT chest , with productive cough , continue vancomycin and cefepime, await sputum culture (2) Pleural effusion on right Assessment & Plan: rule out empyema, with near complete right lung collapse on CT chest , on wide spectrum antibiotics , S/P large fluids removal with thoracentesis. await fluids culture gram stain, fungal , AFB. cytology is negative for malignancy (3) Chest pain Assessment & Plan: resolved, follow up with cardiology (4) large pituitary mass, probably macroadenoma, with mass effect Assessment & Plan: recommend MRI of the brain, and referal to neurosurgery Subjective Constitutional: Reports: no symptoms HEENT: Reports: no symptoms Respiratory: Reports: productive cough Breasts: Reports: no symptoms Cardiovascular: Reports: no symptoms Gastrointestinal/Abdominal: Reports: no symptoms Genitourinary: Reports: no symptoms Neurologic: Reports: no symptoms Psychiatric: Reports: no symptoms Skin: Reports: no symptoms Endocrine: Reports: no symptoms Allergies: Coded Allergies: No Known Allergies (Unverified , 04/30/17) Objective Vital Signs Last 24 Hour Vital Signs Date Time Temp Pulse Resp B/P Pulse Ox O2 Delivery O2 Flow Rate FiO2 05/04/17 16:00 97.7 63 18 134/78 96 Nasal Cannula 2.0 05/04/17 11:55 98.7 55 19 121/57 100 Room Air 05/04/17 09:20 Nasal Cannula 2.0 28 05/04/17 09:14 109/64 05/04/17 08:45 98.1 57 20 128/56 90 Room Air 05/04/17 08:20 54 18 Nasal Cannula 2.0 05/04/17 08:20 93 Nasal Cannula 2.0 05/04/17 08:00 53 05/04/17 04:00 97.7 107 18 124/68 14 Nasal Cannula 2.0 28 05/04/17 04:00 58 05/04/17 00:00 97.7 69 18 140/80 91 Nasal Cannula 2.0 05/04/17 00:00 63 05/03/17 22:15 75 126/72 05/03/17 20:21 Nasal Cannula 2.0 28 05/03/17 20:20 96 Nasal Cannula 2.0 05/03/17 20:20 68 18 Nasal Cannula 2.0 28 05/03/17 20:00 88 05/03/17 20:00 97.9 83 18 114/65 90 Simple Mask 6.0 28 Height (Feet): 5 Height (Inches): 9.00 Weight (Pounds): 170 General Appearance: WD/WN, no acute distress HEENT: normocephalic, atraumatic, anicteric, pharynx normal, supple, no JVD Respiratory/Chest: chest wall non-tender, normal breath sounds, no respiratory distress, no accessory muscle use, decreased breath sounds, crackles/rales Cardiovascular: normal peripheral pulses, normal rate, regular rhythm, no gallop/murmur, no JVD Abdomen: soft, non tender, no organomegaly, no scars, absent bowel sounds, distended Extremities: no cyanosis, no clubbing Skin: no rash, no lesions, no ulcers Neurologic/Psychiatric: alert, oriented x 3 Laboratory Tests Test 05/03/17 20:00 05/04/17 09:30 Vancomycin Level Trough 11.7 ug/mL (5.0-12.0) White Blood Count 8.5 K/UL (4.8-10.8) Red Blood Count 4.22 M/UL (4.70-6.10) L Hemoglobin 13.6 G/DL (14.2-18.0) L Hematocrit 39.9 % (42.0-52.0) L Mean Corpuscular Volume 94 FL (80-99) Mean Corpuscular Hemoglobin 32.1 PG (27.0-31.0) H Mean Corpuscular Hemoglobin Concent 34.0 G/DL (32.0-36.0) Red Cell Distribution Width 15.2 % (11.6-14.8) H Platelet Count 84 K/UL (150-450) L Mean Platelet Volume 7.1 FL (6.5-10.1) Neutrophils (%) (Auto) % (45.0-75.0) Lymphocytes (%) (Auto) % (20.0-45.0) Monocytes (%) (Auto) % (1.0-10.0) Eosinophils (%) (Auto) % (0.0-3.0) Basophils (%) (Auto) % (0.0-2.0) Differential Total Cells Counted 100 Neutrophils % (Manual) 56 % (45-75) Lymphocytes % (Manual) 35 % (20-45) Monocytes % (Manual) 5 % (1-10) Eosinophils % (Manual) 4 % (0-3) H Basophils % (Manual) 0 % (0-2) Band Neutrophils 0 % (0-8) Platelet Estimate Decreased L Platelet Morphology Normal Anisocytosis 1+ Prothrombin Time 13.9 SEC (9.30-11.50) H Prothromb Time International Ratio 1.3 (0.9-1.1) H Activated Partial Thromboplast Time 30 SEC (23-33) Sodium Level 128 mEQ/L (135-145) L Potassium Level 4.6 mEQ/L (3.4-4.9) Chloride Level 94 mEQ/L (98-107) L Carbon Dioxide Level 27 mEQ/L (20-30) Anion Gap 7 (5-15) Blood Urea Nitrogen 13 mg/dL (7-23) Creatinine 0.7 mg/dL (0.7-1.2) Estimat Glomerular Filtration Rate > 60 mL/min (>60) Glucose Level 73 mg/dL (74-106) L Calcium Level 7.7 mg/dL (8.6-10.2) L Total Bilirubin 1.0 mg/dL (0.0-1.2) Aspartate Amino Transf (AST/SGOT) 56 U/L (5-40) H Alanine Aminotransferase (ALT/SGPT) 62 U/L (3-41) H Alkaline Phosphatase 82 U/L (40-129) Total Protein 5.9 g/dL (6.6-8.7) L Albumin 2.9 g/dL (3.5-5.2) L Globulin 3.0 g/dL Albumin/Globulin Ratio 0.9 (1.0-2.7) L Prolactin Pending Current Medications Medications (Trade) Dose Ordered Sig/Tj Route PRN Reason Start Time Stop Time Status Last Admin Dose Admin Albuterol Sulfate (Proventil MDI) 1 puff Q6H PRN INH Shortness of Breath 04/30/17 14:00 05/30/17 13:59 05/01/17 22:31 Albuterol/ Ipratropium 3 ml 3 ml Q4H PRN HHN Shortness of Breath 05/02/17 15:00 05/07/17 14:59 Cefepime HCl/ Dextrose (Maxipime/D5W) 110 ml @ 220 mls/hr EVERY 12 HOURS IVPB 04/30/17 18:30 05/07/17 18:29 05/04/17 09:21 Docusate Sodium (Colace) 100 mg TWICE A DAY ORAL 05/02/17 18:00 06/01/17 17:59 05/04/17 09:04 Ergocalciferol (Drisdol) 50,000 intlu QWEEK ORAL 05/02/17 16:00 06/01/17 15:59 05/02/17 21:55 Haloperidol (Haldol) 1 mg Q6H PRN ORAL AGITATION 04/30/17 18:00 05/30/17 17:59 05/03/17 01:31 Lactulose (Cephulac) 40 gm DAILY ORAL 04/30/17 14:00 05/30/17 13:59 05/04/17 09:04 Levothyroxine Sodium (Synthroid) 50 mcg ACBREAKFAST ORAL 05/01/17 06:30 05/31/17 06:29 05/04/17 06:29 Losartan Potassium (Cozaar) 50 mg DAILY ORAL 05/01/17 09:00 05/31/17 08:59 05/04/17 09:14 Metoprolol Tartrate (Lopressor) 25 mg EVERY 12 HOURS ORAL 04/30/17 21:00 05/30/17 20:59 05/03/17 22:15 Morphine Sulfate (Morphine Sulfate) 0.5 mg Q4H PRN IV For Pain 04/30/17 16:30 05/07/17 16:29 05/04/17 08:06 Phenazopyridine HCl 100 mg 100 mg BID ORAL 05/04/17 18:00 06/03/17 17:59 Ranitidine HCl (Zantac) 150 mg TWICE A DAY ORAL 04/30/17 18:00 05/30/17 17:59 05/04/17 09:05 Sodium Chloride (Hypertonic Saline) 250 ml @ 30 mls/hr ONCE ONCE IV 05/04/17 18:00 05/05/17 02:19 Vancomycin HCl 1 ea 1 ea DAILY PRN MISC Per rx protocol 04/30/17 17:45 05/30/17 17:44 Vancomycin HCl/ Dextrose (Vancomycin/D5W) 275 ml @ 183.708 mls/hr Q8HR@0400,1200,1999 IVPB 05/04/17 04:00 05/09/17 03:59 05/04/17 12:05 Edda Gil M.D. May 04, 2017 16:19
[2017-05-04] MEDS ORDERED: DuoNeb 0.5-3(2.5)mg/3ml neb HHN PRN (19:00)
[2017-05-04 20:00] VITALS: BP 131/75
[2017-05-04] MEDS: Vancomycin 1 GM in D5W 275 ML IVPB SCH (20:13)
--- NOTE | 2017-05-04 21:01 | Consultation ---
DATE OF CONSULTATION: 05/04/2017 NEUROLOGICAL CONSULTATION REQUESTING PHYSICIAN: Edna Rivas M.D. HISTORY OF PRESENT ILLNESS: This 67-year-old man, resident of rehabilitation facility, seen in neurological consultation to evaluate the presence of changes in mental status and recently diagnosed large brain mass lesion. Available records from [facility] indicate that the patient presented in February 2017 with worsening of confusion, being extremely poor historian. His encephalopathy was attributed to hepatic failure. In addition, he was diagnosed with a presence of suprasellar mass. 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 There is no hydrocephalus noted. This expansion of sella turcica, there is old lacunar infarct on the right thalamus, and left cerebellum, status post left lobe scleral banding. CT angiogram of the brain with and without contrast, no evidence of aneurysm or vascular malformation noted. The patient was seen by Neurosurgery and recommendations was made to proceed with tumor resection to be performed in a tertiary center. Currently, due to significant amount of medical issues, this was postponed. The patient presented with acute respiratory failure, recurrent pleural effusion, liver cirrhosis, carrying "poor prognosis", but also evidence of hypothyroid and adrenal insufficiency, severe deconditioning, and DVT. His mental status changes are improved with the use of lactulose. Surgical treatment of pituitary adenoma postponed due to "lack of support, being homeless, and other comorbidities, which made him a very poor candidate for surgery". With this, he was recommended to be at hospice for hospice care. Current admission related to pleural effusion and pneumonia. He was complaining of chest pain with a chest x-ray on admission, large pleural effusion on the right with possible atelectasis and pneumonia. The patient described as being very poor historian. Hematology assessment revealed presence of anemia, thrombocytopenia, as well as transaminitis, dysuria, and coagulopathy. The patient's diagnostic studies included abdominal MRI revealing findings compatible with hepatic cirrhosis, trace of ascites, bilateral pleural effusion, right lung consolidation, possibly reexpansion of pulmonary edema, large hiatal hernia, splenomegaly, most likely due to portal . Thoracocentesis was performed, yielding 3900 mL of cloudy yellow fluid. Laboratory studies included included anemia and thrombocytopenia. Coagulopathy with INR 1.3. Chemistry panel with abnormal liver function, elevated AST 83, ALT of 86. Ammonia level was 45. Low albumin 3.1, but elevated alpha-fetoprotein 11.3. Urinalysis, RBC too numerous to count and 1+ leukocyte esterase. The patient placed on IV fluids and antibiotics. He is treated with antibiotics to cover underlying infection and possible empyema. Due to the presence of a massive brain tumor, prompted neurological consultation. In addition, according to medical staff, the patient remained intermittently confused, disoriented, and drowsy. Currently, he is somewhat sedated due to recent injected morphine sulfate for pain management. PAST MEDICAL HISTORY: History of hypothyroidism, hypertension, liver cirrhosis, history of large pituitary adenoma with mass effect, and pulmonary insufficiency. MEDICATIONS: The patient's treatment prior to admission included famotidine, clonidine, albuterol, furosemide, Haldol p.r.n., lactulose, levothyroxine, losartan, and metoprolol. ALLERGIES: None reported. SOCIAL HISTORY: Reportedly homeless but now at the rehabilitation facility. There is no evidence for alcohol or drug abuse. FAMILY HISTORY: Unavailable. REVIEW OF SYSTEMS: The patient is lethargic, briefly arousable, indicating that he had some burning sensation on urinating. He denied headache. No visual abnormalities, but admitted also abdominal pain and distention. PHYSICAL EXAMINATION: GENERAL: The patient is well developed, somewhat obese appearing sleeping man, appears to be in no acute distress. VITAL SIGNS: Now stable. Heart rate of 55, blood pressure 121/57, afebrile, oxygen per nasal cannula. HEENT: Head, normocephalic. There is no evidence of trauma. Eyes, ears, and throat are clear. NECK: Supple. No meningeal signs. MUSCULOSKELETAL: Venostasis of both lower extremities. There is 2+ pitting edema both ankles. Peripheral pulses 1+ symmetric. No deformities noted. MENTAL STATUS: The patient is lethargic, briefly arousable on vigorous stimulation, appears to be confused, but remained never fully awake. He was able to follow few simple commands. CRANIAL NERVE II: Pupils 3 mm responding to light and accommodation. Extraocular movement full range. Fundi unable to test. Visual loera appears normal. CRANIAL NERVE V: Normal corneal responses. CRANIAL NERVE VII: Drooped left nasolabial fold. CRANIAL NERVE VIII: Normal hearing. CRANIAL NERVES IX THROUGH XII: Tongue is in midline. MOTOR EXAMINATION: Diffuse rigidity, but able to lift arms against the gravity very briefly. He was not cooperative with his both lower extremities, although was able to move toes up and down bilaterally. Deep tendon reflexes depressed with absent biceps, triceps, brachioradialis, knee and ankle jerks. Plantar responses mute. SENSORY EXAMINATION: Withdrawing to pin stimulation both upper and lower extremities. Gait not tested, but reported able to ambulate with assistance. IMPRESSION: 1. Large pituitary adenoma with mass effect. 2. 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 3. Pleural effusion status post thoracentesis. 4. Pneumonia. 5. Liver cirrhosis with nodule, rule out hepatocellular carcinoma. 6. Chronic anemia. 7. Thrombocytopenia and mild coagulopathy. RECOMMENDATION: 1. The patient has obtundation due to underlying metabolic derangement combined with opiates. 2. Ammonia reported as normal. 3. The patient has a pituitary adenoma with no radiological evidence of malignancy. 4. Endocrine assessment to be obtained, get a prolactin level, FSH, and GH. 5. The patient apparently is not a good surgical candidate due to multiple comorbidities. 6. Eventually if somatically stable, the issue of surgical treatment should be revisited. Discussed with the family and/or legal guardian. 7. We will follow with you. Thank you for allowing me to see this interesting patient in neurological consultation. Keenan Fuentes M.D. DR: EFFIE JOB#: [id number] CC:
--- NOTE | 2017-05-04 22:20 | General Progress Note ---
Assessment/Plan Problem List: (1) Chest pain ICD Codes: R07.9 - Chest pain, unspecified SNOMED: 00586739 Qualifiers: Qualified Codes: R07.9 - Chest pain, unspecified (2) Pleural effusion on right ICD Codes: J90 - Pleural effusion, not elsewhere classified SNOMED: 10622370 (3) Cirrhosis ICD Codes: K74.60 - Unspecified cirrhosis of liver SNOMED: 81968265 (4) Hepatic encephalopathy ICD Codes: K72.90 - Hepatic failure, unspecified without coma SNOMED: 85485764 (5) HTN (hypertension) ICD Codes: I10 - Essential (primary) hypertension SNOMED: 82793686 Status: progressing Assessment/Plan no dyspnea no bleeding no cp bph consulted neuro very large pleural effusion thoracocentesis per pulmonary on oxygen cirrhosis Subjective ROS Limited/Unobtainable: Yes Constitutional: Reports: no symptoms Allergies: Coded Allergies: No Known Allergies (Unverified , 04/30/17) Objective Last 24 Hour Vital Signs Date Time Temp Pulse Resp B/P Pulse Ox O2 Delivery O2 Flow Rate FiO2 05/04/17 21:18 61 131/77 05/04/17 20:02 95 Nasal Cannula 2.0 28 05/04/17 20:02 Nasal Cannula 2.0 28 05/04/17 20:02 62 18 Nasal Cannula 2.0 28 05/04/17 20:00 97.5 59 20 131/75 97 Nasal Cannula 2.0 05/04/17 18:50 97.7 05/04/17 16:00 97.7 63 18 134/78 96 Nasal Cannula 2.0 05/04/17 11:55 98.7 55 19 121/57 100 Room Air 05/04/17 09:20 Nasal Cannula 2.0 28 05/04/17 09:14 109/64 05/04/17 08:45 98.1 57 20 128/56 90 Room Air 05/04/17 08:20 54 18 Nasal Cannula 2.0 28 05/04/17 08:20 93 Nasal Cannula 2.0 28 05/04/17 08:00 53 05/04/17 04:00 97.7 107 18 124/68 14 Nasal Cannula 2.0 28 05/04/17 04:00 58 05/04/17 00:00 97.7 69 18 140/80 91 Nasal Cannula 2.0 28 05/04/17 00:00 63 Intake and Output 05/03/17 05/04/17 19:00 07:00 Intake Total 660.000 ml Output Total 800 ml Balance -140.000 ml IV Total 660.000 ml Output Urine Total 800 ml # Bowel Movements 2 Laboratory Tests 05/04/17 09:30: White Blood Count 8.5, Red Blood Count 4.22L, Hemoglobin 13.6L, Hematocrit 39.9L , Mean Corpuscular Volume 94, Mean Corpuscular Hemoglobin 32.1H, Mean Corpuscular Hemoglobin Concent 34.0, Red Cell Distribution Width 15.2H, Platelet Count 84L, Mean Platelet Volume 7.1, Neutrophils (%) (Auto) , Lymphocytes (%) (Auto) , Monocytes (%) (Auto) , Eosinophils (%) (Auto) , Basophils (%) (Auto) , Differential Total Cells Counted 100, Neutrophils % ( Manual) 56, Lymphocytes % (Manual) 35, Monocytes % (Manual) 5, Eosinophils % ( Manual) 4H, Basophils % (Manual) 0, Band Neutrophils 0, Platelet Estimate DecreasedL, Platelet Morphology Normal, Anisocytosis 1+, Prothrombin Time 13.9H , Prothromb Time International Ratio 1.3H, Activated Partial Thromboplast Time 30, Sodium Level 128L, Potassium Level 4.6, Chloride Level 94L, Carbon Dioxide Level 27, Anion Gap 7, Blood Urea Nitrogen 13, Creatinine 0.7, Estimat Glomerular Filtration Rate > 60, Glucose Level 73L, Calcium Level 7.7L, Total Bilirubin 1.0, Aspartate Amino Transf (AST/SGOT) 56H, Alanine Aminotransferase ( ALT/SGPT) 62H, Alkaline Phosphatase 82, Total Protein 5.9L, Albumin 2.9L, Globulin 3.0, Albumin/Globulin Ratio 0.9L, Prolactin [Pending] Height (Feet): 5 Height (Inches): 9.00 Weight (Pounds): 170 General Appearance: alert Cardiovascular: normal rate Respiratory/Chest: lungs clear Abdomen: soft Edna Rivas MD May 04, 2017 22:20
[2017-05-05] VITALS (7 sets, daily range): BP systolic 109–136; BP diastolic 67–90
[2017-05-05 00:11] LABS: PROTEIN, BODY FLUID 1.3 g/dL (.)
[2017-05-05] MEDS: Morphine Sulfate 2mg/ml Inj IV PRN ×3 (02:50→20:25)
[2017-05-05] MEDS: Vancomycin 1 GM in D5W 275 ML IVPB SCH ×3 (03:10→20:12)
[2017-05-05 07:25] LABS: MEAN CORPUSCULAR HEMOGLOBIN 30.6 PG (27.0-31.0); MEAN CORPUSCULAR VOLUME 96 FL (80-99); MEAN PLATELET VOLUME 6.7 FL (6.5-10.1); PLATELET COUNT 93 K/UL (150-450); RED BLOOD COUNT 4.25 M/UL (4.70-6.10); RED CELL DISTRIBUTION WIDTH 15.2 % (11.6-14.8); WHITE BLOOD COUNT 7.2 K/UL (4.8-10.8)
[2017-05-05 07:46] LABS: ALANINE AMINOTRANSFERASE 53 U/L (3-41); ALBUMIN/GLOBULIN RATIO 0.8 (1.0-2.7); ANION GAP 7 (5-15); ASPARTATE AMINO TRANSFERASE 50 U/L (5-40); CALCIUM 8.1 mg/dL (8.6-10.2); CARBON DIOXIDE 29 mEQ/L (20-30); CHLORIDE 94 mEQ/L (98-107); CREATININE 0.8 mg/dL (0.7-1.2); GLOMERULAR FILTRATION RATE > 60 mL/min (>60); HEMOLYSIS 12; MAGNESIUM 1.8 mg/dL (1.7-2.5); PHOSPHORUS 3.4 mg/dL (2.5-4.8); POTASSIUM 4.6 mEQ/L (3.4-4.9); SODIUM 130 mEQ/L (135-145); TOTAL PROTEIN 6.3 g/dL (6.6-8.7); URIC ACID 3.8 mg/dL (3.0-7.5)
[2017-05-05 08:28] LABS: ANISOCYTOSIS 1+; BAND NEUTROPHILS % (MANUAL) 0 % (0-8); BASOPHILS % (MANUAL) 0 % (0-2); EOSINOPHILS % (MANUAL) 2 % (0-3); LYMPHOCYTES % (MANUAL) 25 % (20-45); NEUTROPHILS % (MANUAL) 65 % (45-75); PLATELET ESTIMATE DECREASED; PLATELET MORPHOLOGY NORMAL; TOTAL CELLS COUNTED 100
[2017-05-05] MEDS: Docusate 100mg cap ORAL SCH ×2 (08:37→18:15)
[2017-05-05] MEDS: Lactulose 20gm/30ml UDC ORAL SCH (08:37)
[2017-05-05] MEDS: Cefepime HCl 2 GM in D5W 110 ML IVPB SCH ×2 (08:39→22:05)
[2017-05-05] MEDS: Metoprolol 25mg tab ORAL SCH ×2 (09:00→21:00)
[2017-05-05] MEDS ORDERED: Tubing IV Secondary IV ONE ×2 (09:04→10:36)
[2017-05-05] MEDS ORDERED: NS 275ml ONE ×2 (09:04→10:36)
--- NOTE | 2017-05-05 09:42 | General Progress Note ---
Assessment/Plan Status: stable Status Narrative Na 130 Assessment/Plan Status: History of Brain tumor Was on Hospice at [facility] Admitted with chest pain Has pleural effusion right side Has shepard for urinary retention Has Pneumonia Has Transaminitis Cirrhosis / Splenomegaly / Liver mass 2+ Proteinuria HTN HypoThyroidism Plan: Stop Lasix for now Adjust BP meds- D5NS now while NPO Urine studies 2D echo results? Ejfx 70% Monitor lytes Per consultants Stable Subjective ROS Limited/Unobtainable: No Allergies: Coded Allergies: No Known Allergies (Unverified , 04/30/17) Objective Last 24 Hour Vital Signs Date Time Temp Pulse Resp B/P Pulse Ox O2 Delivery O2 Flow Rate FiO2 05/05/17 08:50 Room Air 21 05/05/17 08:00 97.0 58 18 109/67 94 Room Air 05/05/17 04:00 97.7 61 20 136/90 91 Nasal Cannula 2.0 05/05/17 00:00 97.5 56 20 119/81 98 Nasal Cannula 2.0 05/04/17 21:18 61 131/77 05/04/17 20:02 95 Nasal Cannula 2.0 28 05/04/17 20:02 Nasal Cannula 2.0 28 05/04/17 20:02 62 18 Nasal Cannula 2.0 28 05/04/17 20:00 97.5 59 20 131/75 97 Nasal Cannula 2.0 05/04/17 18:50 97.7 05/04/17 16:00 97.7 63 18 134/78 96 Nasal Cannula 2.0 05/04/17 11:55 98.7 55 19 121/57 100 Room Air Intake and Output 05/04/17 05/05/17 19:00 07:00 Intake Total 440 ml 1484.832 ml Output Total 500 ml Balance 440 ml 984.832 ml Intake Oral 120 ml 350 ml IV Total 320 ml 1134.832 ml Output Urine Total 500 ml # Bowel Movements 3 Laboratory Tests 05/05/17 06:00: White Blood Count 7.2, Red Blood Count 4.25L, Hemoglobin 13.0L, Hematocrit 40.6L , Mean Corpuscular Volume 96, Mean Corpuscular Hemoglobin 30.6, Mean Corpuscular Hemoglobin Concent 32.0, Red Cell Distribution Width 15.2H, Platelet Count 93L, Mean Platelet Volume 6.7, Neutrophils (%) (Auto) , Lymphocytes (%) (Auto) , Monocytes (%) (Auto) , Eosinophils (%) (Auto) , Basophils (%) (Auto) , Differential Total Cells Counted 100, Neutrophils % ( Manual) 65, Lymphocytes % (Manual) 25, Monocytes % (Manual) 8, Eosinophils % ( Manual) 2, Basophils % (Manual) 0, Band Neutrophils 0, Platelet Estimate DecreasedL, Platelet Morphology Normal, Anisocytosis 1+, Sodium Level 130L, Potassium Level 4.6, Chloride Level 94L, Carbon Dioxide Level 29, Anion Gap 7, Blood Urea Nitrogen 11, Creatinine 0.8, Estimat Glomerular Filtration Rate > 60 , Glucose Level 72L, Uric Acid 3.8, Calcium Level 8.1L, Phosphorus Level 3.4, Magnesium Level 1.8, Total Bilirubin 0.8, Aspartate Amino Transf (AST/SGOT) 50H , Alanine Aminotransferase (ALT/SGPT) 53H, Alkaline Phosphatase 88, Total Protein 6.3L, Albumin 2.9L, Globulin 3.4, Albumin/Globulin Ratio 0.8L Height (Feet): 5 Height (Inches): 9.00 Weight (Pounds): 170 General Appearance: no apparent distress Objective PE not changed KELLY MUÑIZ May 05, 2017 09:42
[2017-05-05 09:59] LABS: BD FL SOURCE THORACENTESIS; BD FL VOLUME 25 mL; LDH, BODY FLUID 90 U/L
[2017-05-05] MEDS ORDERED: Sterile Water Irrig 1000ml IRRIG ONE (10:36)
[2017-05-05] MEDS ORDERED: D5NS 1000ml IV ONE (10:36)
--- NOTE | 2017-05-05 10:49 | GI Progress Note ---
Assessment/Plan Problems: (1) Liver nodule ICD Codes: K76.89 - Other specified diseases of liver SNOMED: 744148291 (2) Cirrhosis ICD Codes: K74.60 - Unspecified cirrhosis of liver SNOMED: 02846759 Status: stable Status Narrative Discussed with Dr. Telles. Assessment/Plan abdominal U/S >> Suspicion of chronic liver disease/cirrhosis. Stigmata of portal hypertension including splenomegaly and trace ascites. ammonia WNL >> cont lactulose MRI reviewed > unremarkable hepatitis panel >> negative AFP elevation >> 11.3 s/p paracentesis with ~ 4L yield. ok for DC per GI standpoint >> recommend outpatient EGD to evaluate portal HTN stable H&H, prn transfusions H2B monitor LFTs fu labs Subjective Subjective limited abdominal pain improved Objective Last 24 Hour Vital Signs Date Time Temp Pulse Resp B/P Pulse Ox O2 Delivery O2 Flow Rate FiO2 05/05/17 09:47 94 Room Air 05/05/17 09:46 53 20 Room Air 05/05/17 08:50 Room Air 21 05/05/17 08:00 97.0 58 18 109/67 94 Room Air 05/05/17 04:00 97.7 61 20 136/90 91 Nasal Cannula 2.0 05/05/17 00:00 97.5 56 20 119/81 98 Nasal Cannula 2.0 05/04/17 21:18 61 131/77 05/04/17 20:02 95 Nasal Cannula 2.0 28 05/04/17 20:02 Nasal Cannula 2.0 28 05/04/17 20:02 62 18 Nasal Cannula 2.0 28 05/04/17 20:00 97.5 59 20 131/75 97 Nasal Cannula 2.0 05/04/17 18:50 97.7 05/04/17 16:00 97.7 63 18 134/78 96 Nasal Cannula 2.0 05/04/17 11:55 98.7 55 19 121/57 100 Room Air Intake and Output 05/04/17 05/05/17 19:00 07:00 Intake Total 440 ml 1484.832 ml Output Total 500 ml Balance 440 ml 984.832 ml Intake Oral 120 ml 350 ml IV Total 320 ml 1134.832 ml Output Urine Total 500 ml # Bowel Movements 3 Laboratory Tests Test 05/05/17 06:00 White Blood Count 7.2 K/UL (4.8-10.8) Red Blood Count 4.25 M/UL (4.70-6.10) L Hemoglobin 13.0 G/DL (14.2-18.0) L Hematocrit 40.6 % (42.0-52.0) L Mean Corpuscular Volume 96 FL (80-99) Mean Corpuscular Hemoglobin 30.6 PG (27.0-31.0) Mean Corpuscular Hemoglobin Concent 32.0 G/DL (32.0-36.0) Red Cell Distribution Width 15.2 % (11.6-14.8) H Platelet Count 93 K/UL (150-450) L Mean Platelet Volume 6.7 FL (6.5-10.1) Neutrophils (%) (Auto) % (45.0-75.0) Lymphocytes (%) (Auto) % (20.0-45.0) Monocytes (%) (Auto) % (1.0-10.0) Eosinophils (%) (Auto) % (0.0-3.0) Basophils (%) (Auto) % (0.0-2.0) Differential Total Cells Counted 100 Neutrophils % (Manual) 65 % (45-75) Lymphocytes % (Manual) 25 % (20-45) Monocytes % (Manual) 8 % (1-10) Eosinophils % (Manual) 2 % (0-3) Basophils % (Manual) 0 % (0-2) Band Neutrophils 0 % (0-8) Platelet Estimate Decreased L Platelet Morphology Normal Anisocytosis 1+ Sodium Level 130 mEQ/L (135-145) L Potassium Level 4.6 mEQ/L (3.4-4.9) Chloride Level 94 mEQ/L (98-107) L Carbon Dioxide Level 29 mEQ/L (20-30) Anion Gap 7 (5-15) Blood Urea Nitrogen 11 mg/dL (7-23) Creatinine 0.8 mg/dL (0.7-1.2) Estimat Glomerular Filtration Rate > 60 mL/min (>60) Glucose Level 72 mg/dL (74-106) L Uric Acid 3.8 mg/dL (3.0-7.5) Calcium Level 8.1 mg/dL (8.6-10.2) L Phosphorus Level 3.4 mg/dL (2.5-4.8) Magnesium Level 1.8 mg/dL (1.7-2.5) Total Bilirubin 0.8 mg/dL (0.0-1.2) Aspartate Amino Transf (AST/SGOT) 50 U/L (5-40) H Alanine Aminotransferase (ALT/SGPT) 53 U/L (3-41) H Alkaline Phosphatase 88 U/L (40-129) Total Protein 6.3 g/dL (6.6-8.7) L Albumin 2.9 g/dL (3.5-5.2) L Globulin 3.4 g/dL Albumin/Globulin Ratio 0.8 (1.0-2.7) L Height (Feet): 5 Height (Inches): 9.00 Weight (Pounds): 170 General Appearance: no apparent distress, alert Cardiovascular: normal rate Respiratory/Chest: normal breath sounds, no respiratory distress Abdominal Exam: normal bowel sounds, non tender, soft Extremities: normal range of motion Yesi Shell N.P. May 05, 2017 10:49
[2017-05-05] MEDS: Losartan 50mg tab ORAL SCH (11:01)
--- NOTE | 2017-05-05 11:19 | General Progress Note ---
Assessment/Plan Assessment/Plan 1. Large pituitary mass, with mass effect, have reviewed the [facility] medical EMR and reviewed neurosurgery records, have also discussed with niece on phone on 05/04/17. He has multiple co-morbidities and neurosurgery there recommended initially a [facility], however given that he did not improve during his stay they then recommended hospice given multiple co-morbids and no surgical intervention. he does not have stage IV disease. Requires likely snf placement as per Dr. Rivas 2. Anemia secondary to chronic disease. Continue to closely monitor. --> transfuse as needed --> hgb goal above 8 3. Thrombocytopenia, mostly related to underlying cirrhosis as well as sepsis. 4. Transaminitis, potentially secondary to underlying liver disease. 5. Liver nodule --> being followed by GI 6. Dysuria in the setting of chronic Aiken catheter. --> will receive new Aiken 7. Pleural effusion evaluation by Pulmonary team. --> s/p paracenteses 8. Coagulopathy, potentially secondary to underlying liver disease. 9. Health care associated pneumonia --> on abx per ID Subjective Constitutional: Reports: no symptoms HEENT: Reports: no symptoms Cardiovascular: Reports: no symptoms Respiratory: Reports: no symptoms Gastrointestinal/Abdominal: Reports: no symptoms Genitourinary: Reports: no symptoms Neurologic/Psychiatric: Reports: no symptoms Endocrine: Reports: no symptoms Hematologic/Lymphatic: Reports: anemia Allergies: Coded Allergies: No Known Allergies (Unverified , 04/30/17) Subjective awaits placement Objective Last 24 Hour Vital Signs Date Time Temp Pulse Resp B/P Pulse Ox O2 Delivery O2 Flow Rate FiO2 05/05/17 11:01 127/71 05/05/17 09:47 94 Room Air 05/05/17 09:46 53 20 Room Air 05/05/17 08:50 Room Air 21 05/05/17 08:00 97.0 58 18 109/67 94 Room Air 05/05/17 04:00 97.7 61 20 136/90 91 Nasal Cannula 2.0 05/05/17 00:00 97.5 56 20 119/81 98 Nasal Cannula 2.0 05/04/17 21:18 61 131/77 05/04/17 20:02 95 Nasal Cannula 2.0 28 05/04/17 20:02 Nasal Cannula 2.0 28 05/04/17 20:02 62 18 Nasal Cannula 2.0 28 05/04/17 20:00 97.5 59 20 131/75 97 Nasal Cannula 2.0 05/04/17 18:50 97.7 05/04/17 16:00 97.7 63 18 134/78 96 Nasal Cannula 2.0 05/04/17 11:55 98.7 55 19 121/57 100 Room Air Intake and Output 05/04/17 05/05/17 19:00 07:00 Intake Total 440 ml 1484.832 ml Output Total 500 ml Balance 440 ml 984.832 ml Intake Oral 120 ml 350 ml IV Total 320 ml 1134.832 ml Output Urine Total 500 ml # Bowel Movements 3 Laboratory Tests 05/05/17 06:00: White Blood Count 7.2, Red Blood Count 4.25L, Hemoglobin 13.0L, Hematocrit 40.6L , Mean Corpuscular Volume 96, Mean Corpuscular Hemoglobin 30.6, Mean Corpuscular Hemoglobin Concent 32.0, Red Cell Distribution Width 15.2H, Platelet Count 93L, Mean Platelet Volume 6.7, Neutrophils (%) (Auto) , Lymphocytes (%) (Auto) , Monocytes (%) (Auto) , Eosinophils (%) (Auto) , Basophils (%) (Auto) , Differential Total Cells Counted 100, Neutrophils % ( Manual) 65, Lymphocytes % (Manual) 25, Monocytes % (Manual) 8, Eosinophils % ( Manual) 2, Basophils % (Manual) 0, Band Neutrophils 0, Platelet Estimate DecreasedL, Platelet Morphology Normal, Anisocytosis 1+, Sodium Level 130L, Potassium Level 4.6, Chloride Level 94L, Carbon Dioxide Level 29, Anion Gap 7, Blood Urea Nitrogen 11, Creatinine 0.8, Estimat Glomerular Filtration Rate > 60 , Glucose Level 72L, Uric Acid 3.8, Calcium Level 8.1L, Phosphorus Level 3.4, Magnesium Level 1.8, Total Bilirubin 0.8, Aspartate Amino Transf (AST/SGOT) 50H , Alanine Aminotransferase (ALT/SGPT) 53H, Alkaline Phosphatase 88, Total Protein 6.3L, Albumin 2.9L, Globulin 3.4, Albumin/Globulin Ratio 0.8L Height (Feet): 5 Height (Inches): 9.00 Weight (Pounds): 170 General Appearance: no apparent distress EENT: PERRL/EOMI Neck: normal alignment Cardiovascular: normal rate Respiratory/Chest: lungs clear Abdomen: non tender Extremities: normal range of motion Edema: no edema noted Pedal (L), no edema noted Pedal (R) 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
--- NOTE | 2017-05-05 15:06 | Infectious Diseases Prog Note ---
Assessment/Plan Problems: (1) HCAP (healthcare-associated pneumonia) Assessment & Plan: with productive cough improved, , S/P vancomycin and cefepime for 7 days, will stop antibiotics , sputum culture was not collected (2) Pleural effusion on right Assessment & Plan: rule out empyema, with near complete right lung collapse on CT chest , S/P large fluids removal with thoracentesis. await fluids culture gram stain, fungal , AFB. 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 hold lactulose (6) s/p multiple lacunar strokes Assessment & Plan: neurology is following (7) Cirrhosis Assessment & Plan: compensated, GI is following (8) Hepatic encephalopathy Subjective ROS Limited/Unobtainable: Yes Allergies: Coded Allergies: No Known Allergies (Unverified , 04/30/17) Subjective he was lethargic and altered, sedated , dosen't follow commands Objective Vital Signs Last 24 Hour Vital Signs Date Time Temp Pulse Resp B/P Pulse Ox O2 Delivery O2 Flow Rate FiO2 05/05/17 12:00 98.0 64 18 115/69 97 Room Air 05/05/17 11:01 127/71 05/05/17 09:47 94 Room Air 05/05/17 09:46 53 20 Room Air 05/05/17 08:50 Room Air 21 05/05/17 08:00 97.0 58 18 109/67 94 Room Air 05/05/17 04:00 97.7 61 20 136/90 91 Nasal Cannula 2.0 05/05/17 00:00 97.5 56 20 119/81 98 Nasal Cannula 2.0 05/04/17 21:18 61 131/77 05/04/17 20:02 95 Nasal Cannula 2.0 28 05/04/17 20:02 Nasal Cannula 2.0 28 05/04/17 20:02 62 18 Nasal Cannula 2.0 28 05/04/17 20:00 97.5 59 20 131/75 97 Nasal Cannula 2.0 05/04/17 18:50 97.7 05/04/17 16:00 97.7 63 18 134/78 96 Nasal Cannula 2.0 Height (Feet): 5 Height (Inches): 9.00 Weight (Pounds): 170 General Appearance: WD/WN, no acute distress HEENT: normocephalic, atraumatic, anicteric, mucous membranes moist Respiratory/Chest: chest wall non-tender, lungs clear, normal breath sounds, no respiratory distress, no accessory muscle use Cardiovascular: normal peripheral pulses, normal rate, regular rhythm, no gallop/murmur, no JVD Abdomen: normal bowel sounds, soft, non tender, no mass, no scars, hypoactive bowel sounds, distended Extremities: no cyanosis, no clubbing, other - edema, purpuric hemorrhage Skin: no rash, other - purpura on both legs Neurologic/Psychiatric: responsive, depressed affect Laboratory Tests Test 05/05/17 06:00 White Blood Count 7.2 K/UL (4.8-10.8) Red Blood Count 4.25 M/UL (4.70-6.10) L Hemoglobin 13.0 G/DL (14.2-18.0) L Hematocrit 40.6 % (42.0-52.0) L Mean Corpuscular Volume 96 FL (80-99) Mean Corpuscular Hemoglobin 30.6 PG (27.0-31.0) Mean Corpuscular Hemoglobin Concent 32.0 G/DL (32.0-36.0) Red Cell Distribution Width 15.2 % (11.6-14.8) H Platelet Count 93 K/UL (150-450) L Mean Platelet Volume 6.7 FL (6.5-10.1) Neutrophils (%) (Auto) % (45.0-75.0) Lymphocytes (%) (Auto) % (20.0-45.0) Monocytes (%) (Auto) % (1.0-10.0) Eosinophils (%) (Auto) % (0.0-3.0) Basophils (%) (Auto) % (0.0-2.0) Differential Total Cells Counted 100 Neutrophils % (Manual) 65 % (45-75) Lymphocytes % (Manual) 25 % (20-45) Monocytes % (Manual) 8 % (1-10) Eosinophils % (Manual) 2 % (0-3) Basophils % (Manual) 0 % (0-2) Band Neutrophils 0 % (0-8) Platelet Estimate Decreased L Platelet Morphology Normal Anisocytosis 1+ Sodium Level 130 mEQ/L (135-145) L Potassium Level 4.6 mEQ/L (3.4-4.9) Chloride Level 94 mEQ/L (98-107) L Carbon Dioxide Level 29 mEQ/L (20-30) Anion Gap 7 (5-15) Blood Urea Nitrogen 11 mg/dL (7-23) Creatinine 0.8 mg/dL (0.7-1.2) Estimat Glomerular Filtration Rate > 60 mL/min (>60) Glucose Level 72 mg/dL (74-106) L Uric Acid 3.8 mg/dL (3.0-7.5) Calcium Level 8.1 mg/dL (8.6-10.2) L Phosphorus Level 3.4 mg/dL (2.5-4.8) Magnesium Level 1.8 mg/dL (1.7-2.5) Total Bilirubin 0.8 mg/dL (0.0-1.2) Aspartate Amino Transf (AST/SGOT) 50 U/L (5-40) H Alanine Aminotransferase (ALT/SGPT) 53 U/L (3-41) H Alkaline Phosphatase 88 U/L (40-129) Total Protein 6.3 g/dL (6.6-8.7) L Albumin 2.9 g/dL (3.5-5.2) L Globulin 3.4 g/dL Albumin/Globulin Ratio 0.8 (1.0-2.7) L Current Medications Medications (Trade) Dose Ordered Sig/Tj Route PRN Reason Start Time Stop Time Status Last Admin Dose Admin Albuterol Sulfate (Proventil MDI) 1 puff Q6H PRN INH Shortness of Breath 05/04/17 20:00 06/03/17 19:59 Albuterol/ Ipratropium (DuoNeb 0.5-3(2.5)mg/3ml) 3 ml Q4H PRN HHN Shortness of Breath 05/04/17 19:00 05/09/17 18:59 Cefepime HCl 2 gm/ Dextrose 110 ml @ 220 mls/hr EVERY 12 HOURS IVPB 05/04/17 21:00 05/06/17 20:59 05/05/17 08:39 Docusate Sodium (Colace) 100 mg TWICE A DAY ORAL 05/04/17 18:00 06/03/17 17:59 05/05/17 08:37 Ergocalciferol (Drisdol) 50,000 intlu QWEEK ORAL 05/09/17 16:00 06/08/17 15:59 Haloperidol (Haldol) 1 mg Q6H PRN ORAL AGITATION 05/04/17 18:00 06/03/17 17:59 Lactulose (Cephulac) 40 gm DAILY ORAL 05/05/17 09:00 06/04/17 08:59 05/05/17 08:37 Levothyroxine Sodium (Synthroid) 50 mcg ACBREAKFAST ORAL 05/05/17 06:30 06/04/17 06:29 05/05/17 06:15 Losartan Potassium (Cozaar) 50 mg DAILY ORAL 05/05/17 09:00 06/04/17 08:59 05/05/17 11:01 Metoprolol Tartrate (Lopressor) 12.5 mg EVERY 12 HOURS ORAL 05/05/17 21:00 06/04/17 20:59 Morphine Sulfate (Morphine Sulfate) 0.5 mg Q4H PRN IV For Pain 4-10 05/04/17 17:00 05/11/17 16:59 05/05/17 09:03 Phenazopyridine HCl (Pyridium) 100 mg BID ORAL 05/04/17 18:00 05/11/17 17:59 05/05/17 08:37 Ranitidine HCl (Zantac) 150 mg TWICE A DAY ORAL 05/04/17 18:00 06/03/17 17:59 05/05/17 08:36 Vancomycin HCl (Vanco rx to dose) 1 ea DAILY PRN MISC Per rx protocol 05/04/17 17:00 06/03/17 16:59 Vancomycin HCl/ Dextrose (Vancomycin/D5W) 275 ml @ 183.708 mls/hr Q8HR@0400,1200,2000 IVPB 05/04/17 20:00 05/09/17 19:59 05/05/17 13:12 Edda Gil M.D. May 05, 2017 15:06
--- NOTE | 2017-05-05 15:18 | Cardiac Electrophysiology PN ---
Assessment/Plan Status Narrative Technically difficult study due to poor acoustic windows. Study quality precludes accurate assessment of regional wall motion. Normal left ventricular chamber size, systolic function and wall motion. Left ventricular ejection fraction estimated to be 70-75%. Moderate left ventricular hypertrophy. Mild posterior pericardial fat or effusion. Mild right atrial enlargement by 2D. Moderate left atrial enlargement by 2D. Focal aortic valve sclerosis with adequate cusp excursion Thickened mitral valve leaflets with normal excursion. Mitral annulus and aortic root calcification. Pulmonic valve not well visualized. Normal tricuspid valve structure. IVC is normal in size with physiologic collapse. A color flow and spectral Doppler study was performe Assessment/Plan 1. Chest pain due to Right sided pleural effusion for which he underwent thoracentesis 05/03/17. EF 70% 2. Right pleural effusion likely secondary to healthcare-associated pneumonia. S /P Thoracentesis. On Lasix 40 mg iv daily. 3. Liver cirrhosis with nodule, possible hepatocellular carcinoma.EGD as out patient per Dr. Telles . 4. History of Brain tumor. Was on Hospice at [facility]. Now full code.Follow up Dr Mckeon. 5. Anemia of chronic disease. [place] RN Subjective Subjective Feeling better after 3.6 liter Right thoracentesis 05/03/17. Has diarrhea.On 2 liter Nasal cannula. Objective Last 24 Hour Vital Signs Date Time Temp Pulse Resp B/P Pulse Ox O2 Delivery O2 Flow Rate FiO2 05/05/17 12:00 98.0 64 18 115/69 97 Room Air 05/05/17 11:01 127/71 05/05/17 09:47 94 Room Air 05/05/17 09:46 53 20 Room Air 05/05/17 08:50 Room Air 21 05/05/17 08:00 97.0 58 18 109/67 94 Room Air 05/05/17 04:00 97.7 61 20 136/90 91 Nasal Cannula 2.0 05/05/17 00:00 97.5 56 20 119/81 98 Nasal Cannula 2.0 05/04/17 21:18 61 131/77 05/04/17 20:02 95 Nasal Cannula 2.0 28 05/04/17 20:02 Nasal Cannula 2.0 28 05/04/17 20:02 62 18 Nasal Cannula 2.0 28 05/04/17 20:00 97.5 59 20 131/75 97 Nasal Cannula 2.0 05/04/17 18:50 97.7 05/04/17 16:00 97.7 63 18 134/78 96 Nasal Cannula 2.0 Intake and Output 05/04/17 05/05/17 19:00 07:00 Intake Total 440 ml 1484.832 ml Output Total 500 ml Balance 440 ml 984.832 ml Intake Oral 120 ml 350 ml IV Total 320 ml 1134.832 ml Output Urine Total 500 ml # Bowel Movements 3 Laboratory Tests Test 05/05/17 06:00 White Blood Count 7.2 K/UL (4.8-10.8) Red Blood Count 4.25 M/UL (4.70-6.10) L Hemoglobin 13.0 G/DL (14.2-18.0) L Hematocrit 40.6 % (42.0-52.0) L Mean Corpuscular Volume 96 FL (80-99) Mean Corpuscular Hemoglobin 30.6 PG (27.0-31.0) Mean Corpuscular Hemoglobin Concent 32.0 G/DL (32.0-36.0) Red Cell Distribution Width 15.2 % (11.6-14.8) H Platelet Count 93 K/UL (150-450) L Mean Platelet Volume 6.7 FL (6.5-10.1) Neutrophils (%) (Auto) % (45.0-75.0) Lymphocytes (%) (Auto) % (20.0-45.0) Monocytes (%) (Auto) % (1.0-10.0) Eosinophils (%) (Auto) % (0.0-3.0) Basophils (%) (Auto) % (0.0-2.0) Differential Total Cells Counted 100 Neutrophils % (Manual) 65 % (45-75) Lymphocytes % (Manual) 25 % (20-45) Monocytes % (Manual) 8 % (1-10) Eosinophils % (Manual) 2 % (0-3) Basophils % (Manual) 0 % (0-2) Band Neutrophils 0 % (0-8) Platelet Estimate Decreased L Platelet Morphology Normal Anisocytosis 1+ Sodium Level 130 mEQ/L (135-145) L Potassium Level 4.6 mEQ/L (3.4-4.9) Chloride Level 94 mEQ/L (98-107) L Carbon Dioxide Level 29 mEQ/L (20-30) Anion Gap 7 (5-15) Blood Urea Nitrogen 11 mg/dL (7-23) Creatinine 0.8 mg/dL (0.7-1.2) Estimat Glomerular Filtration Rate > 60 mL/min (>60) Glucose Level 72 mg/dL (74-106) L Uric Acid 3.8 mg/dL (3.0-7.5) Calcium Level 8.1 mg/dL (8.6-10.2) L Phosphorus Level 3.4 mg/dL (2.5-4.8) Magnesium Level 1.8 mg/dL (1.7-2.5) Total Bilirubin 0.8 mg/dL (0.0-1.2) Aspartate Amino Transf (AST/SGOT) 50 U/L (5-40) H Alanine Aminotransferase (ALT/SGPT) 53 U/L (3-41) H Alkaline Phosphatase 88 U/L (40-129) Total Protein 6.3 g/dL (6.6-8.7) L Albumin 2.9 g/dL (3.5-5.2) L Globulin 3.4 g/dL Albumin/Globulin Ratio 0.8 (1.0-2.7) L Objective HEAD AND NECK: Shows no JVD. LUNGS: Decreased breath sounds CARDIOVASCULAR: Regular S1 and S2 with no gallop. ABDOMEN: Slightly distended. EXTREMITIES: 1+ pitting edema. ANUEL PEMBERTON May 05, 2017 15:18
--- NOTE | 2017-05-05 15:25 | Pulmonology Progress Note ---
Assessment/Plan Problems: (1) Pleural effusion on right (2) Hepatic encephalopathy (3) Cirrhosis (4) Dysuria (5) HTN (hypertension) Assessment/Plan titrate fio2 to sat of 92% f/u liver mass, rule out malignancy. alpha feto protein increased consider comfort care and end of life care. ( anything else is futile) Subjective ROS Limited/Unobtainable: No Constitutional: Reports: no symptoms HEENT: Repors: no symptoms Respiratory: Reports: no symptoms Allergies: Coded Allergies: No Known Allergies (Unverified , 04/30/17) Objective Last 24 Hour Vital Signs Date Time Temp Pulse Resp B/P Pulse Ox O2 Delivery O2 Flow Rate FiO2 05/05/17 12:00 98.0 64 18 115/69 97 Room Air 05/05/17 11:01 127/71 05/05/17 09:47 94 Room Air 05/05/17 09:46 53 20 Room Air 05/05/17 08:50 Room Air 21 05/05/17 08:00 97.0 58 18 109/67 94 Room Air 05/05/17 04:00 97.7 61 20 136/90 91 Nasal Cannula 2.0 05/05/17 00:00 97.5 56 20 119/81 98 Nasal Cannula 2.0 05/04/17 21:18 61 131/77 05/04/17 20:02 95 Nasal Cannula 2.0 28 05/04/17 20:02 Nasal Cannula 2.0 28 05/04/17 20:02 62 18 Nasal Cannula 2.0 28 05/04/17 20:00 97.5 59 20 131/75 97 Nasal Cannula 2.0 05/04/17 18:50 97.7 05/04/17 16:00 97.7 63 18 134/78 96 Nasal Cannula 2.0 Intake and Output 05/04/17 05/05/17 19:00 07:00 Intake Total 440 ml 1484.832 ml Output Total 500 ml Balance 440 ml 984.832 ml Intake Oral 120 ml 350 ml IV Total 320 ml 1134.832 ml Output Urine Total 500 ml # Bowel Movements 3 General Appearance: WD/WN HEENT: normocephalic Respiratory/Chest: chest wall non-tender, lungs clear Cardiovascular: normal peripheral pulses, normal rate Abdomen: normal bowel sounds, no organomegaly Genitourinary: normal external genitalia Extremities: no clubbing Skin: no ulcers Neurologic/Psychiatric: 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 case 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 II-XII grossly normal Lymphatic: no neck adenopathy Laboratory Tests 05/05/17 06:00: White Blood Count 7.2, Red Blood Count 4.25L, Hemoglobin 13.0L, Hematocrit 40.6L , Mean Corpuscular Volume 96, Mean Corpuscular Hemoglobin 30.6, Mean Corpuscular Hemoglobin Concent 32.0, Red Cell Distribution Width 15.2H, Platelet Count 93L, Mean Platelet Volume 6.7, Neutrophils (%) (Auto) , Lymphocytes (%) (Auto) , Monocytes (%) (Auto) , Eosinophils (%) (Auto) , Basophils (%) (Auto) , Differential Total Cells Counted 100, Neutrophils % ( Manual) 65, Lymphocytes % (Manual) 25, Monocytes % (Manual) 8, Eosinophils % ( Manual) 2, Basophils % (Manual) 0, Band Neutrophils 0, Platelet Estimate DecreasedL, Platelet Morphology Normal, Anisocytosis 1+, Sodium Level 130L, Potassium Level 4.6, Chloride Level 94L, Carbon Dioxide Level 29, Anion Gap 7, Blood Urea Nitrogen 11, Creatinine 0.8, Estimat Glomerular Filtration Rate > 60 , Glucose Level 72L, Uric Acid 3.8, Calcium Level 8.1L, Phosphorus Level 3.4, Magnesium Level 1.8, Total Bilirubin 0.8, Aspartate Amino Transf (AST/SGOT) 50H , Alanine Aminotransferase (ALT/SGPT) 53H, Alkaline Phosphatase 88, Total Protein 6.3L, Albumin 2.9L, Globulin 3.4, Albumin/Globulin Ratio 0.8L Current Medications Medications (Trade) Dose Ordered Sig/Tj Route PRN Reason Start Time Stop Time Status Last Admin Dose Admin Albuterol Sulfate (Proventil MDI) 1 puff Q6H PRN INH Shortness of Breath 05/04/17 20:00 06/03/17 19:59 Albuterol/ Ipratropium (DuoNeb 0.5-3(2.5)mg/3ml) 3 ml Q4H PRN HHN Shortness of Breath 05/04/17 19:00 05/09/17 18:59 Cefepime HCl 2 gm/ Dextrose 110 ml @ 220 mls/hr EVERY 12 HOURS IVPB 05/04/17 21:00 05/06/17 20:59 05/05/17 08:39 Docusate Sodium (Colace) 100 mg TWICE A DAY ORAL 05/04/17 18:00 06/03/17 17:59 05/05/17 08:37 Ergocalciferol (Drisdol) 50,000 intlu QWEEK ORAL 05/09/17 16:00 06/08/17 15:59 Haloperidol (Haldol) 1 mg Q6H PRN ORAL AGITATION 05/04/17 18:00 06/03/17 17:59 Lactulose (Cephulac) 40 gm DAILY ORAL 05/05/17 09:00 06/04/17 08:59 05/05/17 08:37 Levothyroxine Sodium (Synthroid) 50 mcg ACBREAKFAST ORAL 05/05/17 06:30 06/04/17 06:29 05/05/17 06:15 Losartan Potassium (Cozaar) 50 mg DAILY ORAL 05/05/17 09:00 06/04/17 08:59 05/05/17 11:01 Metoprolol Tartrate (Lopressor) 12.5 mg EVERY 12 HOURS ORAL 05/05/17 21:00 06/04/17 20:59 Morphine Sulfate (Morphine Sulfate) 0.5 mg Q4H PRN IV For Pain 4-10 05/04/17 17:00 05/11/17 16:59 05/05/17 09:03 Phenazopyridine HCl (Pyridium) 100 mg BID ORAL 05/04/17 18:00 05/11/17 17:59 05/05/17 08:37 Ranitidine HCl (Zantac) 150 mg TWICE A DAY ORAL 05/04/17 18:00 06/03/17 17:59 05/05/17 08:36 Vancomycin HCl (Vanco rx to dose) 1 ea DAILY PRN MISC Per rx protocol 05/04/17 17:00 06/03/17 16:59 Vancomycin HCl/ Dextrose (Vancomycin/D5W) 275 ml @ 183.708 mls/hr Q8HR@0400,1200,2000 IVPB 05/04/17 20:00 05/09/17 19:59 05/05/17 13:12 PRAVEEN DAVIS May 05, 2017 15:25
--- NOTE | 2017-05-05 21:03 | General Progress Note ---
Assessment/Plan Problem List: (1) Chest pain ICD Codes: R07.9 - Chest pain, unspecified SNOMED: 98354235 Qualifiers: Qualified Codes: R07.9 - Chest pain, unspecified (2) Pleural effusion on right ICD Codes: J90 - Pleural effusion, not elsewhere classified SNOMED: 85601829 (3) Cirrhosis ICD Codes: K74.60 - Unspecified cirrhosis of liver SNOMED: 14045521 (4) Hepatic encephalopathy ICD Codes: K72.90 - Hepatic failure, unspecified without coma SNOMED: 49523573 (5) HTN (hypertension) ICD Codes: I10 - Essential (primary) hypertension SNOMED: 40436790 Status: progressing Assessment/Plan s/p thoracocentesis afebrile bph shepard reviwed chart and labs clinically imprving cirrhosis Subjective ROS Limited/Unobtainable: Yes Allergies: Coded Allergies: No Known Allergies (Unverified , 04/30/17) Objective Last 24 Hour Vital Signs Date Time Temp Pulse Resp B/P Pulse Ox O2 Delivery O2 Flow Rate FiO2 05/05/17 20:56 98.3 05/05/17 20:00 97.7 72 18 128/79 98 Room Air 05/05/17 19:10 95 Room Air 05/05/17 19:10 Room Air 21 05/05/17 19:10 62 20 Room Air 05/05/17 16:00 98.3 79 20 135/82 97 Room Air 05/05/17 12:00 98.0 64 18 115/69 97 Room Air 05/05/17 11:01 127/71 05/05/17 09:47 94 Room Air 05/05/17 09:46 53 20 Room Air 05/05/17 08:50 Room Air 21 05/05/17 08:00 97.0 58 18 109/67 94 Room Air 05/05/17 04:00 97.7 61 20 136/90 91 Nasal Cannula 2.0 05/05/17 00:00 97.5 56 20 119/81 98 Nasal Cannula 2.0 05/04/17 21:18 61 131/77 Intake and Output 05/04/17 05/05/17 19:00 07:00 Intake Total 440 ml 1484.832 ml Output Total 500 ml Balance 440 ml 984.832 ml Intake Oral 120 ml 350 ml IV Total 320 ml 1134.832 ml Output Urine Total 500 ml # Bowel Movements 3 Laboratory Tests 05/05/17 06:00: White Blood Count 7.2, Red Blood Count 4.25L, Hemoglobin 13.0L, Hematocrit 40.6L , Mean Corpuscular Volume 96, Mean Corpuscular Hemoglobin 30.6, Mean Corpuscular Hemoglobin Concent 32.0, Red Cell Distribution Width 15.2H, Platelet Count 93L, Mean Platelet Volume 6.7, Neutrophils (%) (Auto) , Lymphocytes (%) (Auto) , Monocytes (%) (Auto) , Eosinophils (%) (Auto) , Basophils (%) (Auto) , Differential Total Cells Counted 100, Neutrophils % ( Manual) 65, Lymphocytes % (Manual) 25, Monocytes % (Manual) 8, Eosinophils % ( Manual) 2, Basophils % (Manual) 0, Band Neutrophils 0, Platelet Estimate DecreasedL, Platelet Morphology Normal, Anisocytosis 1+, Sodium Level 130L, Potassium Level 4.6, Chloride Level 94L, Carbon Dioxide Level 29, Anion Gap 7, Blood Urea Nitrogen 11, Creatinine 0.8, Estimat Glomerular Filtration Rate > 60 , Glucose Level 72L, Uric Acid 3.8, Calcium Level 8.1L, Phosphorus Level 3.4, Magnesium Level 1.8, Total Bilirubin 0.8, Aspartate Amino Transf (AST/SGOT) 50H , Alanine Aminotransferase (ALT/SGPT) 53H, Alkaline Phosphatase 88, Total Protein 6.3L, Albumin 2.9L, Globulin 3.4, Albumin/Globulin Ratio 0.8L Height (Feet): 5 Height (Inches): 9.00 Weight (Pounds): 170 Neck: Edna Levy MD May 05, 2017 21:03
[2017-05-06] MEDS: Morphine Sulfate 2mg/ml Inj IV PRN (00:31)
[2017-05-06] MEDS: Vancomycin 1 GM in D5W 275 ML IVPB SCH (03:21)
[2017-05-06 04:00] VITALS: BP 125/88
[2017-05-06 07:16] LABS: MEAN CORPUSCULAR HEMOGLOBIN 31.4 PG (27.0-31.0); MEAN CORPUSCULAR HGB CONC 33.3 G/DL (32.0-36.0); MEAN CORPUSCULAR VOLUME 94 FL (80-99); MEAN PLATELET VOLUME 5.9 FL (6.5-10.1); PLATELET COUNT 87 K/UL (150-450); RED BLOOD COUNT 3.92 M/UL (4.70-6.10); RED CELL DISTRIBUTION WIDTH 14.7 % (11.6-14.8); WHITE BLOOD COUNT 6.9 K/UL (4.8-10.8)
[2017-05-06 07:38] LABS: ALBUMIN/GLOBULIN RATIO 0.8 (1.0-2.7); CALCIUM 7.9 mg/dL (8.6-10.2); CREATININE 1.3 mg/dL (0.7-1.2); GLOMERULAR FILTRATION RATE 55.1 mL/min (>60); POTASSIUM 4.5 mEQ/L (3.4-4.9); TOTAL PROTEIN 5.8 g/dL (6.6-8.7)
[2017-05-06 08:00] VITALS: BP 128/81
[2017-05-06] MEDS: Lactulose 20gm/30ml UDC ORAL SCH ×2 (09:00→09:25)
[2017-05-06] MEDS: Docusate 100mg cap ORAL SCH ×2 (09:25→18:13)
[2017-05-06] MEDS: Losartan 50mg tab ORAL SCH (09:26)
[2017-05-06] MEDS: Metoprolol 25mg tab ORAL SCH ×2 (09:26→21:10)
[2017-05-06 10:33] LABS: BAND NEUTROPHILS % (MANUAL) 2 % (0-8); BASOPHILS % (MANUAL) 0 % (0-2); EOSINOPHILS % (MANUAL) 2 % (0-3); HYPOCHROMASIA 1+; LYMPHOCYTES % (MANUAL) 29 % (20-45); NEUTROPHILS % (MANUAL) 61 % (45-75); PLATELET ESTIMATE DECREASED; PLATELET MORPHOLOGY NORMAL; TOTAL CELLS COUNTED 100
[2017-05-06] MEDS: Cefepime HCl 2 GM in D5W 110 ML IVPB SCH (10:35)
--- NOTE | 2017-05-06 10:40 | General Progress Note ---
Assessment/Plan Status Narrative cr jump to 1.3 Assessment/Plan Status: History of Brain tumor Was on Hospice at [facility] [place] Admitted with chest pain Has pleural effusion right side Has shepard for urinary retention Has Pneumonia Has Transaminitis Cirrhosis / Splenomegaly / Liver mass 2+ Proteinuria HTN HypoThyroidism Plan: DC Daphney , check level- urine studies- repeat Adjust BP meds- 2D echo results? Ejfx 70% Monitor lytes Per consultants Subjective ROS Limited/Unobtainable: No Constitutional: Reports: malaise Allergies: Coded Allergies: No Known Allergies (Unverified , 04/30/17) Objective Last 24 Hour Vital Signs Date Time Temp Pulse Resp B/P Pulse Ox O2 Delivery O2 Flow Rate FiO2 05/06/17 09:26 59 128/81 05/06/17 09:26 128/81 05/06/17 08:00 97.7 59 18 128/81 92 Room Air 05/06/17 04:00 97.7 19 125/88 95 Nasal Cannula 2.0 05/06/17 01:04 97.7 05/05/17 23:35 97.7 68 17 115/69 91 Room Air 05/05/17 20:00 97.7 72 18 128/79 98 Room Air 05/05/17 19:10 95 Room Air 05/05/17 19:10 Room Air 21 05/05/17 19:10 62 20 Room Air 05/05/17 16:00 98.3 79 20 135/82 97 Room Air 05/05/17 12:00 98.0 64 18 115/69 97 Room Air 05/05/17 11:01 127/71 Intake and Output 05/05/17 05/06/17 19:00 07:00 Intake Total 2077.416 ml 1410.000 ml Output Total 800 ml 1350 ml Balance 1277.416 ml 60.000 ml Intake Oral 1600 ml 750 ml IV Total 477.416 ml 660.000 ml Output Urine Total 800 ml 1350 ml # Voids 100 # Bowel Movements 6 2 Laboratory Tests 05/06/17 04:45: White Blood Count 6.9, Red Blood Count 3.92L, Hemoglobin 12.3L, Hematocrit 36.9L , Mean Corpuscular Volume 94, Mean Corpuscular Hemoglobin 31.4H, Mean Corpuscular Hemoglobin Concent 33.3, Red Cell Distribution Width 14.7, Platelet Count 87L, Mean Platelet Volume 5.9L, Neutrophils (%) (Auto) , Lymphocytes (%) ( Auto) , Monocytes (%) (Auto) , Eosinophils (%) (Auto) , Basophils (%) (Auto) , Differential Total Cells Counted 100, Neutrophils % (Manual) 61, Lymphocytes % ( Manual) 29, Monocytes % (Manual) 6, Eosinophils % (Manual) 2, Basophils % ( Manual) 0, Band Neutrophils 2, Platelet Estimate DecreasedL, Platelet Morphology Normal, Hypochromasia 1+, Sodium Level 128L, Potassium Level 4.5, Chloride Level 93L, Carbon Dioxide Level 25, Anion Gap 10, Blood Urea Nitrogen 17, Creatinine 1.3#H, Estimat Glomerular Filtration Rate 55.1, Glucose Level 86 , Calcium Level 7.9L, Total Bilirubin 0.7, Aspartate Amino Transf (AST/SGOT) 42H , Alanine Aminotransferase (ALT/SGPT) 42H, Alkaline Phosphatase 98, Total Protein 5.8L, Albumin 2.7L, Globulin 3.1, Albumin/Globulin Ratio 0.8L Height (Feet): 5 Height (Inches): 9.00 Weight (Pounds): 170 General Appearance: no apparent distress Cardiovascular: normal rate Respiratory/Chest: decreased breath sounds Abdomen: distended Objective PE not changed KELLY MUÑIZ May 06, 2017 10:40
[2017-05-06 12:00] VITALS: BP 124/71
--- NOTE | 2017-05-06 12:38 | General Progress Note ---
Assessment/Plan Problem List: (1) Chest pain ICD Codes: R07.9 - Chest pain, unspecified SNOMED: 43555205 Qualifiers: Qualified Codes: R07.9 - Chest pain, unspecified (2) Pleural effusion on right ICD Codes: J90 - Pleural effusion, not elsewhere classified SNOMED: 66986954 (3) Cirrhosis ICD Codes: K74.60 - Unspecified cirrhosis of liver SNOMED: 80150290 (4) Hepatic encephalopathy ICD Codes: K72.90 - Hepatic failure, unspecified without coma SNOMED: 41447753 (5) HTN (hypertension) ICD Codes: I10 - Essential (primary) hypertension SNOMED: 49400319 Status: progressing Assessment/Plan s/p thoracocentesis afebrile massive pleural effusion htn no chest pain no sob afebrile cirrhosis Subjective ROS Limited/Unobtainable: Yes Constitutional: Reports: no symptoms Allergies: Coded Allergies: No Known Allergies (Unverified , 04/30/17) Objective Last 24 Hour Vital Signs Date Time Temp Pulse Resp B/P Pulse Ox O2 Delivery O2 Flow Rate FiO2 05/06/17 12:00 97.3 52 20 124/71 93 Nasal Cannula 2.0 05/06/17 10:45 61 17 Nasal Cannula 2.0 05/06/17 10:42 Nasal Cannula 2.0 05/06/17 09:50 95 Nasal Cannula 2.0 05/06/17 09:26 59 128/81 05/06/17 09:26 128/81 05/06/17 08:00 97.7 59 18 128/81 92 Room Air 05/06/17 04:00 97.7 19 125/88 95 Nasal Cannula 2.0 05/06/17 01:04 97.7 05/05/17 23:35 97.7 68 17 115/69 91 Room Air 05/05/17 20:00 97.7 72 18 128/79 98 Room Air 05/05/17 19:10 95 Room Air 05/05/17 19:10 Room Air 21 05/05/17 19:10 62 20 Room Air 05/05/17 16:00 98.3 79 20 135/82 97 Room Air Intake and Output 05/05/17 05/06/17 19:00 07:00 Intake Total 2077.416 ml 1410.000 ml Output Total 800 ml 1350 ml Balance 1277.416 ml 60.000 ml Intake Oral 1600 ml 750 ml IV Total 477.416 ml 660.000 ml Output Urine Total 800 ml 1350 ml # Voids 100 # Bowel Movements 6 2 Laboratory Tests 05/06/17 04:45: White Blood Count 6.9, Red Blood Count 3.92L, Hemoglobin 12.3L, Hematocrit 36.9L , Mean Corpuscular Volume 94, Mean Corpuscular Hemoglobin 31.4H, Mean Corpuscular Hemoglobin Concent 33.3, Red Cell Distribution Width 14.7, Platelet Count 87L, Mean Platelet Volume 5.9L, Neutrophils (%) (Auto) , Lymphocytes (%) ( Auto) , Monocytes (%) (Auto) , Eosinophils (%) (Auto) , Basophils (%) (Auto) , Differential Total Cells Counted 100, Neutrophils % (Manual) 61, Lymphocytes % ( Manual) 29, Monocytes % (Manual) 6, Eosinophils % (Manual) 2, Basophils % ( Manual) 0, Band Neutrophils 2, Platelet Estimate DecreasedL, Platelet Morphology Normal, Hypochromasia 1+, Sodium Level 128L, Potassium Level 4.5, Chloride Level 93L, Carbon Dioxide Level 25, Anion Gap 10, Blood Urea Nitrogen 17, Creatinine 1.3#H, Estimat Glomerular Filtration Rate 55.1, Glucose Level 86 , Calcium Level 7.9L, Total Bilirubin 0.7, Aspartate Amino Transf (AST/SGOT) 42H , Alanine Aminotransferase (ALT/SGPT) 42H, Alkaline Phosphatase 98, Total Protein 5.8L, Albumin 2.7L, Globulin 3.1, Albumin/Globulin Ratio 0.8L 05/06/17 10:40: Random Vancomycin Level 43.8 05/06/17 10:45: Urine Osmolality 149L, Urine Random Sodium 16 Height (Feet): 5 Height (Inches): 9.00 Weight (Pounds): 170 EENT: PERRL/EOMI Neck: supple Cardiovascular: normal rate Respiratory/Chest: lungs clear Abdomen: soft Edna Rivas MD May 06, 2017 12:38
--- NOTE | 2017-05-06 14:32 | Cardiac Electrophysiology PN ---
Assessment/Plan Status Narrative Technically difficult study due to poor acoustic windows. Study quality precludes accurate assessment of regional wall motion. Normal left ventricular chamber size, systolic function and wall motion. Left ventricular ejection fraction estimated to be 70-75%. Moderate left ventricular hypertrophy. Mild posterior pericardial fat or effusion. Mild right atrial enlargement by 2D. Moderate left atrial enlargement by 2D. Focal aortic valve sclerosis with adequate cusp excursion Thickened mitral valve leaflets with normal excursion. Mitral annulus and aortic root calcification. Pulmonic valve not well visualized. Normal tricuspid valve structure. IVC is normal in size with physiologic collapse. A color flow and spectral Doppler study was performe Assessment/Plan 1. Chest pain due to Right sided pleural effusion, s/p thoracentesis 05/03/17. EF 70% 2. Right pleural effusion likely secondary to healthcare-associated pneumonia. S /P Thoracentesis. 3. HTN on Lopressor 25 bid. 4. Liver cirrhosis with nodule, possible hepatocellular carcinoma. EGD as out patient per Dr. Telles . 5. ? History of Brain tumor. Was on Hospice at [facility]. Now full code.Follow up Dr Mckeon. 6. Anemia of chronic disease. DW RN Subjective Subjective On toilet. On Lactulose. Aiken is blood tinged. No chest pain or SOB. Objective Last 24 Hour Vital Signs Date Time Temp Pulse Resp B/P Pulse Ox O2 Delivery O2 Flow Rate FiO2 05/06/17 12:00 97.3 52 20 124/71 93 Nasal Cannula 2.0 05/06/17 10:45 61 17 Nasal Cannula 2.0 05/06/17 10:42 Nasal Cannula 2.0 05/06/17 09:50 95 Nasal Cannula 2.0 05/06/17 09:26 59 128/81 05/06/17 09:26 128/81 05/06/17 08:00 97.7 59 18 128/81 92 Room Air 05/06/17 04:00 97.7 19 125/88 95 Nasal Cannula 2.0 05/06/17 01:04 97.7 05/05/17 23:35 97.7 68 17 115/69 91 Room Air 05/05/17 20:00 97.7 72 18 128/79 98 Room Air 05/05/17 19:10 95 Room Air 05/05/17 19:10 Room Air 21 05/05/17 19:10 62 20 Room Air 05/05/17 16:00 98.3 79 20 135/82 97 Room Air Intake and Output 05/05/17 05/06/17 19:00 07:00 Intake Total 2077.416 ml 1410.000 ml Output Total 800 ml 1350 ml Balance 1277.416 ml 60.000 ml Intake Oral 1600 ml 750 ml IV Total 477.416 ml 660.000 ml Output Urine Total 800 ml 1350 ml # Voids 100 # Bowel Movements 6 2 Laboratory Tests Test 05/06/17 04:45 05/06/17 10:40 05/06/17 10:45 White Blood Count 6.9 K/UL (4.8-10.8) Red Blood Count 3.92 M/UL (4.70-6.10) L Hemoglobin 12.3 G/DL (14.2-18.0) L Hematocrit 36.9 % (42.0-52.0) L Mean Corpuscular Volume 94 FL (80-99) Mean Corpuscular Hemoglobin 31.4 PG (27.0-31.0) H Mean Corpuscular Hemoglobin Concent 33.3 G/DL (32.0-36.0) Red Cell Distribution Width 14.7 % (11.6-14.8) Platelet Count 87 K/UL (150-450) L Mean Platelet Volume 5.9 FL (6.5-10.1) L Neutrophils (%) (Auto) % (45.0-75.0) Lymphocytes (%) (Auto) % (20.0-45.0) Monocytes (%) (Auto) % (1.0-10.0) Eosinophils (%) (Auto) % (0.0-3.0) Basophils (%) (Auto) % (0.0-2.0) Differential Total Cells Counted 100 Neutrophils % (Manual) 61 % (45-75) Lymphocytes % (Manual) 29 % (20-45) Monocytes % (Manual) 6 % (1-10) Eosinophils % (Manual) 2 % (0-3) Basophils % (Manual) 0 % (0-2) Band Neutrophils 2 % (0-8) Platelet Estimate Decreased L Platelet Morphology Normal Hypochromasia 1+ Sodium Level 128 mEQ/L (135-145) L Potassium Level 4.5 mEQ/L (3.4-4.9) Chloride Level 93 mEQ/L (98-107) L Carbon Dioxide Level 25 mEQ/L (20-30) Anion Gap 10 (5-15) Blood Urea Nitrogen 17 mg/dL (7-23) Creatinine 1.3 mg/dL (0.7-1.2) #H Estimat Glomerular Filtration Rate 55.1 mL/min (>60) Glucose Level 86 mg/dL (74-106) Calcium Level 7.9 mg/dL (8.6-10.2) L Total Bilirubin 0.7 mg/dL (0.0-1.2) Aspartate Amino Transf (AST/SGOT) 42 U/L (5-40) H Alanine Aminotransferase (ALT/SGPT) 42 U/L (3-41) H Alkaline Phosphatase 98 U/L (40-129) Total Protein 5.8 g/dL (6.6-8.7) L Albumin 2.7 g/dL (3.5-5.2) L Globulin 3.1 g/dL Albumin/Globulin Ratio 0.8 (1.0-2.7) L Random Vancomycin Level 43.8 ug/mL Urine Osmolality 149 mOsm/kg (429-449) L Urine Random Sodium 16 mmol/L Objective HEAD AND NECK: Shows no JVD. LUNGS: Decreased breath sounds CARDIOVASCULAR: Regular S1 and S2 with no gallop. ABDOMEN: Slightly distended. EXTREMITIES: 1+ pitting edema. ANUEL PEMBERTON May 06, 2017 14:32
--- NOTE | 2017-05-06 15:38 | Infectious Diseases Prog Note ---
Assessment/Plan Problems: (1) HCAP (healthcare-associated pneumonia) Assessment & Plan: with productive cough improved, , S/P vancomycin and cefepime for 7 days, monitor off antibiotics (2) Pleural effusion on right Assessment & Plan: with near complete right lung collapse on CT chest , S/P large fluids removal with thoracentesis. await fluids culture gram stain, fungal , AFB. 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 hold lactulose (6) s/p multiple lacunar strokes Assessment & Plan: neurology is following (7) Cirrhosis Assessment & Plan: compensated, GI is following (8) Hepatic encephalopathy Assessment & Plan: on lactulose , monitor ammonia level Subjective Constitutional: Reports: no symptoms HEENT: Reports: no symptoms Respiratory: Reports: dry cough Breasts: Reports: no symptoms Cardiovascular: Reports: no symptoms Gastrointestinal/Abdominal: Reports: no symptoms Genitourinary: Reports: no symptoms Neurologic: Reports: weakness Psychiatric: Reports: no symptoms Skin: Reports: no symptoms Endocrine: Reports: no symptoms Allergies: Coded Allergies: No Known Allergies (Unverified , 04/30/17) Subjective he was lethargic and altered, sedated , dosen't follow commands Objective Vital Signs Last 24 Hour Vital Signs Date Time Temp Pulse Resp B/P Pulse Ox O2 Delivery O2 Flow Rate FiO2 05/06/17 12:00 97.3 52 20 124/71 93 Nasal Cannula 2.0 05/06/17 10:45 61 17 Nasal Cannula 2.0 05/06/17 10:42 Nasal Cannula 2.0 05/06/17 09:50 95 Nasal Cannula 2.0 05/06/17 09:26 59 128/81 05/06/17 09:26 128/81 05/06/17 08:00 97.7 59 18 128/81 92 Room Air 05/06/17 04:00 97.7 19 125/88 95 Nasal Cannula 2.0 05/06/17 01:04 97.7 05/05/17 23:35 97.7 68 17 115/69 91 Room Air 05/05/17 20:00 97.7 72 18 128/79 98 Room Air 05/05/17 19:10 95 Room Air 05/05/17 19:10 Room Air 21 05/05/17 19:10 62 20 Room Air 05/05/17 16:00 98.3 79 20 135/82 97 Room Air Height (Feet): 5 Height (Inches): 9.00 Weight (Pounds): 170 General Appearance: WD/WN, no acute distress HEENT: normocephalic, atraumatic, anicteric, mucous membranes moist, supple Respiratory/Chest: chest wall non-tender, no respiratory distress, no accessory muscle use, decreased breath sounds, crackles/rales Cardiovascular: normal peripheral pulses, normal rate, regular rhythm, no gallop/murmur, no JVD Abdomen: normal bowel sounds, soft, non tender, no organomegaly, non distended , no mass, no scars Extremities: no cyanosis, no clubbing Skin: no rash, no lesions Neurologic/Psychiatric: alert, oriented x 3 Laboratory Tests Test 05/06/17 04:45 05/06/17 10:40 05/06/17 10:45 White Blood Count 6.9 K/UL (4.8-10.8) Red Blood Count 3.92 M/UL (4.70-6.10) L Hemoglobin 12.3 G/DL (14.2-18.0) L Hematocrit 36.9 % (42.0-52.0) L Mean Corpuscular Volume 94 FL (80-99) Mean Corpuscular Hemoglobin 31.4 PG (27.0-31.0) H Mean Corpuscular Hemoglobin Concent 33.3 G/DL (32.0-36.0) Red Cell Distribution Width 14.7 % (11.6-14.8) Platelet Count 87 K/UL (150-450) L Mean Platelet Volume 5.9 FL (6.5-10.1) L Neutrophils (%) (Auto) % (45.0-75.0) Lymphocytes (%) (Auto) % (20.0-45.0) Monocytes (%) (Auto) % (1.0-10.0) Eosinophils (%) (Auto) % (0.0-3.0) Basophils (%) (Auto) % (0.0-2.0) Differential Total Cells Counted 100 Neutrophils % (Manual) 61 % (45-75) Lymphocytes % (Manual) 29 % (20-45) Monocytes % (Manual) 6 % (1-10) Eosinophils % (Manual) 2 % (0-3) Basophils % (Manual) 0 % (0-2) Band Neutrophils 2 % (0-8) Platelet Estimate Decreased L Platelet Morphology Normal Hypochromasia 1+ Sodium Level 128 mEQ/L (135-145) L Potassium Level 4.5 mEQ/L (3.4-4.9) Chloride Level 93 mEQ/L (98-107) L Carbon Dioxide Level 25 mEQ/L (20-30) Anion Gap 10 (5-15) Blood Urea Nitrogen 17 mg/dL (7-23) Creatinine 1.3 mg/dL (0.7-1.2) #H Estimat Glomerular Filtration Rate 55.1 mL/min (>60) Glucose Level 86 mg/dL (74-106) Calcium Level 7.9 mg/dL (8.6-10.2) L Total Bilirubin 0.7 mg/dL (0.0-1.2) Aspartate Amino Transf (AST/SGOT) 42 U/L (5-40) H Alanine Aminotransferase (ALT/SGPT) 42 U/L (3-41) H Alkaline Phosphatase 98 U/L (40-129) Total Protein 5.8 g/dL (6.6-8.7) L Albumin 2.7 g/dL (3.5-5.2) L Globulin 3.1 g/dL Albumin/Globulin Ratio 0.8 (1.0-2.7) L Random Vancomycin Level 43.8 ug/mL Urine Osmolality 149 mOsm/kg (429-449) L Urine Random Sodium 16 mmol/L Current Medications Medications (Trade) Dose Ordered Sig/Tj Route PRN Reason Start Time Stop Time Status Last Admin Dose Admin Albuterol Sulfate (Proventil MDI) 1 puff Q6H PRN INH Shortness of Breath 05/04/17 20:00 06/03/17 19:59 Albuterol/ Ipratropium (DuoNeb 0.5-3(2.5)mg/3ml) 3 ml Q4H PRN HHN Shortness of Breath 05/04/17 19:00 05/09/17 18:59 Docusate Sodium (Colace) 100 mg TWICE A DAY ORAL 05/04/17 18:00 06/03/17 17:59 05/06/17 09:25 Ergocalciferol (Drisdol) 50,000 intlu QWEEK ORAL 05/09/17 16:00 06/08/17 15:59 Haloperidol (Haldol) 1 mg Q6H PRN ORAL AGITATION 05/04/17 18:00 06/03/17 17:59 Lactulose (Cephulac) 40 gm DAILY ORAL 05/05/17 09:00 06/04/17 08:59 05/05/17 08:37 Levothyroxine Sodium (Synthroid) 50 mcg ACBREAKFAST ORAL 05/05/17 06:30 06/04/17 06:29 05/05/17 06:15 Metoprolol Tartrate (Lopressor) 12.5 mg EVERY 12 HOURS ORAL 05/05/17 21:00 06/04/17 20:59 05/06/17 09:26 Morphine Sulfate (Morphine Sulfate) 0.5 mg Q4H PRN IV For Pain 4-10 05/04/17 17:00 05/11/17 16:59 05/06/17 00:31 Phenazopyridine HCl (Pyridium) 100 mg BID ORAL 05/04/17 18:00 05/11/17 17:59 05/06/17 09:26 Ranitidine HCl (Zantac) 150 mg TWICE A DAY ORAL 05/04/17 18:00 06/03/17 17:59 05/06/17 09:27 Edda Gil M.D. May 06, 2017 15:38
--- NOTE | 2017-05-06 15:58 | Pulmonology Progress Note ---
Assessment/Plan Problems: (1) Pleural effusion on right (2) Hepatic encephalopathy (3) Cirrhosis (4) Dysuria (5) HTN (hypertension) Assessment/Plan titrate fio2 to sat of 92% f/u liver mass, rule out malignancy. alpha feto protein increased consider comfort care and end of life care. ( anything else is futile) Subjective ROS Limited/Unobtainable: No Constitutional: Reports: no symptoms HEENT: Repors: no symptoms Respiratory: Reports: no symptoms Allergies: Coded Allergies: No Known Allergies (Unverified , 04/30/17) Objective Last 24 Hour Vital Signs Date Time Temp Pulse Resp B/P Pulse Ox O2 Delivery O2 Flow Rate FiO2 05/06/17 12:00 97.3 52 20 124/71 93 Nasal Cannula 2.0 05/06/17 10:45 61 17 Nasal Cannula 2.0 05/06/17 10:42 Nasal Cannula 2.0 05/06/17 09:50 95 Nasal Cannula 2.0 05/06/17 09:26 59 128/81 05/06/17 09:26 128/81 05/06/17 08:00 97.7 59 18 128/81 92 Room Air 05/06/17 04:00 97.7 19 125/88 95 Nasal Cannula 2.0 05/06/17 01:04 97.7 05/05/17 23:35 97.7 68 17 115/69 91 Room Air 05/05/17 20:00 97.7 72 18 128/79 98 Room Air 05/05/17 19:10 95 Room Air 05/05/17 19:10 Room Air 21 05/05/17 19:10 62 20 Room Air 05/05/17 16:00 98.3 79 20 135/82 97 Room Air Intake and Output 05/05/17 05/06/17 19:00 07:00 Intake Total 2077.416 ml 1410.000 ml Output Total 800 ml 1350 ml Balance 1277.416 ml 60.000 ml Intake Oral 1600 ml 750 ml IV Total 477.416 ml 660.000 ml Output Urine Total 800 ml 1350 ml # Voids 100 # Bowel Movements 6 2 Objective General Appearance: WD/WN HEENT: normocephalic, atraumatic Respiratory/Chest: chest wall non-tender, lungs clear Breasts: no masses Cardiovascular: normal peripheral pulses, normal rate Abdomen: normal bowel sounds, soft, non tender Genitourinary: normal external genitalia Extremities: no cyanosis, +edema Skin: no rash Lymphatic: no groin adenopathy Laboratory Tests 05/06/17 04:45: White Blood Count 6.9, Red Blood Count 3.92L, Hemoglobin 12.3L, Hematocrit 36.9L , Mean Corpuscular Volume 94, Mean Corpuscular Hemoglobin 31.4H, Mean Corpuscular Hemoglobin Concent 33.3, Red Cell Distribution Width 14.7, Platelet Count 87L, Mean Platelet Volume 5.9L, Neutrophils (%) (Auto) , Lymphocytes (%) ( Auto) , Monocytes (%) (Auto) , Eosinophils (%) (Auto) , Basophils (%) (Auto) , Differential Total Cells Counted 100, Neutrophils % (Manual) 61, Lymphocytes % ( Manual) 29, Monocytes % (Manual) 6, Eosinophils % (Manual) 2, Basophils % ( Manual) 0, Band Neutrophils 2, Platelet Estimate DecreasedL, Platelet Morphology Normal, Hypochromasia 1+, Sodium Level 128L, Potassium Level 4.5, Chloride Level 93L, Carbon Dioxide Level 25, Anion Gap 10, Blood Urea Nitrogen 17, Creatinine 1.3#H, Estimat Glomerular Filtration Rate 55.1, Glucose Level 86 , Calcium Level 7.9L, Total Bilirubin 0.7, Aspartate Amino Transf (AST/SGOT) 42H , Alanine Aminotransferase (ALT/SGPT) 42H, Alkaline Phosphatase 98, Total Protein 5.8L, Albumin 2.7L, Globulin 3.1, Albumin/Globulin Ratio 0.8L 05/06/17 10:40: Random Vancomycin Level 43.8 05/06/17 10:45: Urine Osmolality 149L, Urine Random Sodium 16 Current Medications Medications (Trade) Dose Ordered Sig/Tj Route PRN Reason Start Time Stop Time Status Last Admin Dose Admin Albuterol Sulfate (Proventil MDI) 1 puff Q6H PRN INH Shortness of Breath 05/04/17 20:00 06/03/17 19:59 Albuterol/ Ipratropium (DuoNeb 0.5-3(2.5)mg/3ml) 3 ml Q4H PRN HHN Shortness of Breath 05/04/17 19:00 05/09/17 18:59 Docusate Sodium (Colace) 100 mg TWICE A DAY ORAL 05/04/17 18:00 06/03/17 17:59 05/06/17 09:25 Ergocalciferol (Drisdol) 50,000 intlu QWEEK ORAL 05/09/17 16:00 06/08/17 15:59 Haloperidol (Haldol) 1 mg Q6H PRN ORAL AGITATION 05/04/17 18:00 06/03/17 17:59 Lactulose (Cephulac) 40 gm DAILY ORAL 05/05/17 09:00 06/04/17 08:59 05/05/17 08:37 Levothyroxine Sodium (Synthroid) 50 mcg ACBREAKFAST ORAL 05/05/17 06:30 06/04/17 06:29 05/05/17 06:15 Metoprolol Tartrate (Lopressor) 12.5 mg EVERY 12 HOURS ORAL 05/05/17 21:00 06/04/17 20:59 05/06/17 09:26 Morphine Sulfate (Morphine Sulfate) 0.5 mg Q4H PRN IV For Pain 4-10 05/04/17 17:00 05/11/17 16:59 05/06/17 00:31 Phenazopyridine HCl (Pyridium) 100 mg BID ORAL 05/04/17 18:00 05/11/17 17:59 05/06/17 09:26 Ranitidine HCl (Zantac) 150 mg TWICE A DAY ORAL 05/04/17 18:00 06/03/17 17:59 05/06/17 09:27 PRAVEEN DAVIS May 06, 2017 15:58
[2017-05-06 16:00] VITALS: BP 124/71
[2017-05-06] MEDS ORDERED: NS 275ml ONE (16:58)
[2017-05-06] MEDS ORDERED: D5 1/2NS 1000ml IV ONE (16:58)
[2017-05-06] MEDS ORDERED: Tubing IV Secondary IV ONE (16:58)
[2017-05-06 20:00] VITALS: BP 142/85
[2017-05-06] MEDS: Haloperidol 1mg tab ORAL PRN (23:39)
[2017-05-07] VITALS: BP 131/65
[2017-05-07 04:00] VITALS: BP 109/61
[2017-05-07 07:10] LABS: MEAN CORPUSCULAR HEMOGLOBIN 30.8 PG (27.0-31.0); MEAN CORPUSCULAR HGB CONC 32.5 G/DL (32.0-36.0); MEAN CORPUSCULAR VOLUME 95 FL (80-99); MEAN PLATELET VOLUME 6.6 FL (6.5-10.1); PLATELET COUNT 91 K/UL (150-450); RED BLOOD COUNT 4.04 M/UL (4.70-6.10); RED CELL DISTRIBUTION WIDTH 14.6 % (11.6-14.8); WHITE BLOOD COUNT 5.8 K/UL (4.8-10.8)
[2017-05-07 07:28] LABS: URIC ACID 4.4 mg/dL (3.0-7.5)
[2017-05-07 07:38] LABS: ALBUMIN/GLOBULIN RATIO 0.8 (1.0-2.7); CALCIUM 8.1 mg/dL (8.6-10.2); CREATININE 1.4 mg/dL (0.7-1.2); CRP QUANT 2.1 mg/dL (< 0.5); GLOMERULAR FILTRATION RATE 50.5 mL/min (>60); MAGNESIUM 1.9 mg/dL (1.7-2.5); PHOSPHORUS 4.4 mg/dL (2.5-4.8); TOTAL PROTEIN 5.7 g/dL (6.6-8.7)
[2017-05-07 08:00] VITALS: BP 116/71
[2017-05-07] MEDS: Lactulose 20gm/30ml UDC ORAL SCH (08:29)
[2017-05-07] MEDS: Metoprolol 25mg tab ORAL SCH ×2 (08:30→20:47)
[2017-05-07] MEDS: Docusate 100mg cap ORAL SCH ×2 (08:30→17:06)
[2017-05-07] MEDS: Morphine Sulfate 2mg/ml Inj IV PRN ×2 (08:34→17:29)
--- NOTE | 2017-05-07 09:14 | General Progress Note ---
Assessment/Plan Problem List: (1) Chest pain ICD Codes: R07.9 - Chest pain, unspecified SNOMED: 66163287 Qualifiers: Qualified Codes: R07.9 - Chest pain, unspecified (2) Pleural effusion on right ICD Codes: J90 - Pleural effusion, not elsewhere classified SNOMED: 88141196 (3) Cirrhosis ICD Codes: K74.60 - Unspecified cirrhosis of liver SNOMED: 18248179 (4) Hepatic encephalopathy ICD Codes: K72.90 - Hepatic failure, unspecified without coma SNOMED: 46447437 (5) HTN (hypertension) ICD Codes: I10 - Essential (primary) hypertension SNOMED: 34159621 Status: progressing Assessment/Plan s/p thoracocentesis afebrile massive pleural effusion htn reviewed chart and labs no wheezing no bleeding etoh abuse afebrile cirrhosis Subjective ROS Limited/Unobtainable: Yes Allergies: Coded Allergies: No Known Allergies (Unverified , 04/30/17) Objective Last 24 Hour Vital Signs Date Time Temp Pulse Resp B/P Pulse Ox O2 Delivery O2 Flow Rate FiO2 05/07/17 08:30 70 116/71 05/07/17 08:00 97.4 70 20 116/71 98 Room Air 05/07/17 04:00 97.0 71 20 109/61 94 Room Air 05/07/17 00:00 97.6 66 20 131/65 95 Nasal Cannula 2.0 05/06/17 21:10 55 142/85 05/06/17 20:00 97.1 55 20 142/85 95 Nasal Cannula 2.0 05/06/17 19:52 93 Nasal Cannula 3.0 32 05/06/17 19:52 Nasal Cannula 3.0 32 05/06/17 19:52 60 20 Nasal Cannula 3.0 05/06/17 16:00 97.5 50 20 124/71 92 Room Air 05/06/17 12:00 97.3 52 20 124/71 93 Nasal Cannula 2.0 05/06/17 10:45 61 17 Nasal Cannula 2.0 05/06/17 10:42 Nasal Cannula 2.0 05/06/17 09:50 95 Nasal Cannula 2.0 05/06/17 09:26 59 128/81 05/06/17 09:26 128/81 Intake and Output 05/06/17 05/07/17 19:00 07:00 Intake Total 800 ml 350 ml Output Total 1100 ml 400 ml Balance -300 ml -50 ml Intake Oral 800 ml 350 ml Output Urine Total 1100 ml 400 ml Laboratory Tests 05/06/17 10:40: Random Vancomycin Level 43.8 05/06/17 10:45: Urine Osmolality 149L, Urine Random Sodium 16 05/07/17 06:15: White Blood Count 5.8, Red Blood Count 4.04L, Hemoglobin 12.4L, Hematocrit 38.2L , Mean Corpuscular Volume 95, Mean Corpuscular Hemoglobin 30.8, Mean Corpuscular Hemoglobin Concent 32.5, Red Cell Distribution Width 14.6, Platelet Count 91L, Mean Platelet Volume 6.6, Neutrophils (%) (Auto) , Lymphocytes (%) ( Auto) , Monocytes (%) (Auto) , Eosinophils (%) (Auto) , Basophils (%) (Auto) , Neutrophils % (Manual) [Pending], Lymphocytes % (Manual) [Pending], Platelet Estimate [Pending], Platelet Morphology [Pending], Sodium Level 131L, Potassium Level 5.0H, Chloride Level 97L, Carbon Dioxide Level 26, Anion Gap 8, Blood Urea Nitrogen 20, Creatinine 1.4H, Estimat Glomerular Filtration Rate 50.5, Glucose Level 79, Osmolality [Pending], Uric Acid 4.4, Calcium Level 8.1L, Phosphorus Level 4.4, Magnesium Level 1.9, Total Bilirubin 0.6, Aspartate Amino Transf (AST/SGOT) 38, Alanine Aminotransferase (ALT/SGPT) 35, Alkaline Phosphatase 94, C-Reactive Protein, Quantitative 2.1H, Pro-B-Type Natriuretic Peptide 156H, Total Protein 5.7L, Albumin 2.6L, Globulin 3.1, Albumin/Globulin Ratio 0.8L Height (Feet): 5 Height (Inches): 9.00 Weight (Pounds): 170 EENT: PERRL/EOMI Neck: supple Cardiovascular: normal rate Respiratory/Chest: lungs clear Abdomen: soft Edna Rivas MD May 07, 2017 09:14
[2017-05-07 09:17] LABS: BAND NEUTROPHILS % (MANUAL) 2 % (0-8); BASOPHILS % (MANUAL) 1 % (0-2); EOSINOPHILS % (MANUAL) 9 % (0-3); LYMPHOCYTES % (MANUAL) 27 % (20-45); NEUTROPHILS % (MANUAL) 53 % (45-75); TOTAL CELLS COUNTED 100
[2017-05-07 09:18] LABS: ANISOCYTOSIS 1+; PLATELET ESTIMATE DECREASED; PLATELET MORPHOLOGY NORMAL
--- NOTE | 2017-05-07 10:50 | General Progress Note ---
Assessment/Plan Status Narrative Cr rising- Vanco level 05/06 was over 40 Assessment/Plan Status: Acute Renal failure- High Vanco level History of Brain tumor Was on Hospice at [facility] Admitted with chest pain Has pleural effusion right side Has shepard for urinary retention Has Pneumonia Has Transaminitis Cirrhosis / Splenomegaly / Liver mass 2+ Proteinuria HTN HypoThyroidism Plan: Off Vanco , check level- Daily urine studies- repeat Adjust BP meds- 2D echo results? Ejfx 70% Monitor lytes Per consultants Subjective ROS Limited/Unobtainable: No Constitutional: Reports: malaise Allergies: Coded Allergies: No Known Allergies (Unverified , 04/30/17) Objective Last 24 Hour Vital Signs Date Time Temp Pulse Resp B/P Pulse Ox O2 Delivery O2 Flow Rate FiO2 05/07/17 08:30 70 116/71 05/07/17 08:00 97.4 70 20 116/71 98 Room Air 05/07/17 04:00 97.0 71 20 109/61 94 Room Air 05/07/17 00:00 97.6 66 20 131/65 95 Nasal Cannula 2.0 05/06/17 21:10 55 142/85 05/06/17 20:00 97.1 55 20 142/85 95 Nasal Cannula 2.0 05/06/17 19:52 93 Nasal Cannula 3.0 32 05/06/17 19:52 Nasal Cannula 3.0 32 05/06/17 19:52 60 20 Nasal Cannula 3.0 05/06/17 16:00 97.5 50 20 124/71 92 Room Air 05/06/17 12:00 97.3 52 20 124/71 93 Nasal Cannula 2.0 Intake and Output 05/06/17 05/07/17 19:00 07:00 Intake Total 800 ml 350 ml Output Total 1100 ml 400 ml Balance -300 ml -50 ml Intake Oral 800 ml 350 ml Output Urine Total 1100 ml 400 ml Laboratory Tests 05/07/17 06:15: White Blood Count 5.8, Red Blood Count 4.04L, Hemoglobin 12.4L, Hematocrit 38.2L , Mean Corpuscular Volume 95, Mean Corpuscular Hemoglobin 30.8, Mean Corpuscular Hemoglobin Concent 32.5, Red Cell Distribution Width 14.6, Platelet Count 91L, Mean Platelet Volume 6.6, Neutrophils (%) (Auto) , Lymphocytes (%) ( Auto) , Monocytes (%) (Auto) , Eosinophils (%) (Auto) , Basophils (%) (Auto) , Differential Total Cells Counted 100, Neutrophils % (Manual) 53, Lymphocytes % ( Manual) 27, Monocytes % (Manual) 8, Eosinophils % (Manual) 9H, Basophils % ( Manual) 1, Band Neutrophils 2, Platelet Estimate DecreasedL, Platelet Morphology Normal, Anisocytosis 1+, Sodium Level 131L, Potassium Level 5.0H, Chloride Level 97L, Carbon Dioxide Level 26, Anion Gap 8, Blood Urea Nitrogen 20 , Creatinine 1.4H, Estimat Glomerular Filtration Rate 50.5, Glucose Level 79, Osmolality 281L, Uric Acid 4.4, Calcium Level 8.1L, Phosphorus Level 4.4, Magnesium Level 1.9, Total Bilirubin 0.6, Aspartate Amino Transf (AST/SGOT) 38, Alanine Aminotransferase (ALT/SGPT) 35, Alkaline Phosphatase 94, C-Reactive Protein, Quantitative 2.1H, Pro-B-Type Natriuretic Peptide 156H, Total Protein 5.7L, Albumin 2.6L, Globulin 3.1, Albumin/Globulin Ratio 0.8L Height (Feet): 5 Height (Inches): 9.00 Weight (Pounds): 170 General Appearance: no apparent distress Objective PE not changed KELLY MUÑIZ May 07, 2017 10:50
[2017-05-07 12:35] VITALS: BP 106/63
--- NOTE | 2017-05-07 12:44 | General Progress Note ---
Assessment/Plan Assessment/Plan 1. Large pituitary mass, with mass effect, have reviewed the [facility] medical EMR and reviewed neurosurgery records, have also discussed with niece on phone on 05/04/17. He has multiple co-morbidities and neurosurgery there recommended initially a [facility], however given that he did not improve during his stay they then recommended hospice given multiple co-morbids and no surgical intervention. he does not have stage IV disease. Requires likely snf placement as per Dr. Rivas. 2. Anemia secondary to chronic disease. Continue to closely monitor. --> transfuse as needed --> hgb goal above 8 3. Thrombocytopenia, mostly related to underlying cirrhosis as well as sepsis. 4. Transaminitis, potentially secondary to underlying liver disease. 5. Liver nodule --> being followed by GI 6. Dysuria in the setting of chronic Shepard catheter. --> will receive new Shepard 7. Pleural effusion evaluation by Pulmonary team. --> s/p paracenteses 8. Coagulopathy, potentially secondary to underlying liver disease. 9. Health care associated pneumonia --> on abx per ID Subjective Date patient seen: May 06, 2017 Constitutional: Reports: no symptoms HEENT: Reports: no symptoms Cardiovascular: Reports: no symptoms Respiratory: Reports: no symptoms Gastrointestinal/Abdominal: Reports: no symptoms Genitourinary: Reports: no symptoms Neurologic/Psychiatric: Reports: no symptoms Endocrine: Reports: no symptoms Hematologic/Lymphatic: Reports: anemia Allergies: Coded Allergies: No Known Allergies (Unverified , 04/30/17) Subjective afebrile, blood in urine, pain at shepard site Objective Last 24 Hour Vital Signs Date Time Temp Pulse Resp B/P Pulse Ox O2 Delivery O2 Flow Rate FiO2 05/07/17 12:35 98.5 59 20 106/63 98 Room Air 05/07/17 08:30 70 116/71 05/07/17 08:00 97.4 70 20 116/71 98 Room Air 05/07/17 04:00 97.0 71 20 109/61 94 Room Air 05/07/17 00:00 97.6 66 20 131/65 95 Nasal Cannula 2.0 05/06/17 21:10 55 142/85 05/06/17 20:00 97.1 55 20 142/85 95 Nasal Cannula 2.0 05/06/17 19:52 93 Nasal Cannula 3.0 32 05/06/17 19:52 Nasal Cannula 3.0 32 05/06/17 19:52 60 20 Nasal Cannula 3.0 05/06/17 16:00 97.5 50 20 124/71 92 Room Air Intake and Output 05/06/17 05/07/17 19:00 07:00 Intake Total 800 ml 350 ml Output Total 1100 ml 400 ml Balance -300 ml -50 ml Intake Oral 800 ml 350 ml Output Urine Total 1100 ml 400 ml Laboratory Tests 05/07/17 06:15: White Blood Count 5.8, Red Blood Count 4.04L, Hemoglobin 12.4L, Hematocrit 38.2L , Mean Corpuscular Volume 95, Mean Corpuscular Hemoglobin 30.8, Mean Corpuscular Hemoglobin Concent 32.5, Red Cell Distribution Width 14.6, Platelet Count 91L, Mean Platelet Volume 6.6, Neutrophils (%) (Auto) , Lymphocytes (%) ( Auto) , Monocytes (%) (Auto) , Eosinophils (%) (Auto) , Basophils (%) (Auto) , Differential Total Cells Counted 100, Neutrophils % (Manual) 53, Lymphocytes % ( Manual) 27, Monocytes % (Manual) 8, Eosinophils % (Manual) 9H, Basophils % ( Manual) 1, Band Neutrophils 2, Platelet Estimate DecreasedL, Platelet Morphology Normal, Anisocytosis 1+, Sodium Level 131L, Potassium Level 5.0H, Chloride Level 97L, Carbon Dioxide Level 26, Anion Gap 8, Blood Urea Nitrogen 20 , Creatinine 1.4H, Estimat Glomerular Filtration Rate 50.5, Glucose Level 79, Osmolality 281L, Uric Acid 4.4, Calcium Level 8.1L, Phosphorus Level 4.4, Magnesium Level 1.9, Total Bilirubin 0.6, Aspartate Amino Transf (AST/SGOT) 38, Alanine Aminotransferase (ALT/SGPT) 35, Alkaline Phosphatase 94, C-Reactive Protein, Quantitative 2.1H, Pro-B-Type Natriuretic Peptide 156H, Total Protein 5.7L, Albumin 2.6L, Globulin 3.1, Albumin/Globulin Ratio 0.8L 05/07/17 10:45: Random Vancomycin Level 17.3 Height (Feet): 5 Height (Inches): 9.00 Weight (Pounds): 170 General Appearance: no apparent distress EENT: PERRL/EOMI Neck: normal alignment Cardiovascular: normal rate Abdomen: non tender Edema: 2+ Arm (R), 2+ Leg (L), 2+ Leg (R), 2+ Pedal (L) Edema: moderate edema Neurologic: alert Wes Johnston May 07, 2017 12:44
--- NOTE | 2017-05-07 12:48 | Cardiac Electrophysiology PN ---
Assessment/Plan Status Narrative Technically difficult study due to poor acoustic windows. Study quality precludes accurate assessment of regional wall motion. Normal left ventricular chamber size, systolic function and wall motion. Left ventricular ejection fraction estimated to be 70-75%. Moderate left ventricular hypertrophy. Mild posterior pericardial fat or effusion. Mild right atrial enlargement by 2D. Moderate left atrial enlargement by 2D. Focal aortic valve sclerosis with adequate cusp excursion Thickened mitral valve leaflets with normal excursion. Mitral annulus and aortic root calcification. Pulmonic valve not well visualized. Normal tricuspid valve structure. IVC is normal in size with physiologic collapse. A color flow and spectral Doppler study was performe Assessment/Plan 1. Chest pain due to Right sided pleural effusion, s/p thoracentesis 05/03/17. EF 70%. Better now. 2. Right pleural effusion likely secondary to healthcare-associated pneumonia. S /P Thoracentesis. 3. HTN on Lopressor 25 bid. 4. Liver cirrhosis with nodule, possible hepatocellular carcinoma. EGD as out patient by Dr. Telles . 5. Large pituitary mass, with mass effect. He has multiple co-morbidities and neurosurgery at [facility] recommended initially a [facility]- sp[facility] at a [facility], however given that he did not improve during his stay they then recommended hospice given multiple co-morbids and no surgical intervention. Follow up Dr Mckeon. 6. Anemia of chronic disease. [place] RN Subjective Subjective No chest pain or SOB.Sitting in chair having lunch. No events overnight. Objective Last 24 Hour Vital Signs Date Time Temp Pulse Resp B/P Pulse Ox O2 Delivery O2 Flow Rate FiO2 05/07/17 12:35 98.5 59 20 106/63 98 Room Air 05/07/17 08:30 70 116/71 05/07/17 08:00 97.4 70 20 116/71 98 Room Air 05/07/17 04:00 97.0 71 20 109/61 94 Room Air 05/07/17 00:00 97.6 66 20 131/65 95 Nasal Cannula 2.0 05/06/17 21:10 55 142/85 05/06/17 20:00 97.1 55 20 142/85 95 Nasal Cannula 2.0 05/06/17 19:52 93 Nasal Cannula 3.0 32 05/06/17 19:52 Nasal Cannula 3.0 32 05/06/17 19:52 60 20 Nasal Cannula 3.0 05/06/17 16:00 97.5 50 20 124/71 92 Room Air Intake and Output 05/06/17 05/07/17 19:00 07:00 Intake Total 800 ml 350 ml Output Total 1100 ml 400 ml Balance -300 ml -50 ml Intake Oral 800 ml 350 ml Output Urine Total 1100 ml 400 ml Laboratory Tests Test 05/07/17 06:15 05/07/17 10:45 White Blood Count 5.8 K/UL (4.8-10.8) Red Blood Count 4.04 M/UL (4.70-6.10) L Hemoglobin 12.4 G/DL (14.2-18.0) L Hematocrit 38.2 % (42.0-52.0) L Mean Corpuscular Volume 95 FL (80-99) Mean Corpuscular Hemoglobin 30.8 PG (27.0-31.0) Mean Corpuscular Hemoglobin Concent 32.5 G/DL (32.0-36.0) Red Cell Distribution Width 14.6 % (11.6-14.8) Platelet Count 91 K/UL (150-450) L Mean Platelet Volume 6.6 FL (6.5-10.1) Neutrophils (%) (Auto) % (45.0-75.0) Lymphocytes (%) (Auto) % (20.0-45.0) Monocytes (%) (Auto) % (1.0-10.0) Eosinophils (%) (Auto) % (0.0-3.0) Basophils (%) (Auto) % (0.0-2.0) Differential Total Cells Counted 100 Neutrophils % (Manual) 53 % (45-75) Lymphocytes % (Manual) 27 % (20-45) Monocytes % (Manual) 8 % (1-10) Eosinophils % (Manual) 9 % (0-3) H Basophils % (Manual) 1 % (0-2) Band Neutrophils 2 % (0-8) Platelet Estimate Decreased L Platelet Morphology Normal Anisocytosis 1+ Sodium Level 131 mEQ/L (135-145) L Potassium Level 5.0 mEQ/L (3.4-4.9) H Chloride Level 97 mEQ/L (98-107) L Carbon Dioxide Level 26 mEQ/L (20-30) Anion Gap 8 (5-15) Blood Urea Nitrogen 20 mg/dL (7-23) Creatinine 1.4 mg/dL (0.7-1.2) H Estimat Glomerular Filtration Rate 50.5 mL/min (>60) Glucose Level 79 mg/dL (74-106) Osmolality 281 mOsm/kg (297-317) L Uric Acid 4.4 mg/dL (3.0-7.5) Calcium Level 8.1 mg/dL (8.6-10.2) L Phosphorus Level 4.4 mg/dL (2.5-4.8) Magnesium Level 1.9 mg/dL (1.7-2.5) Total Bilirubin 0.6 mg/dL (0.0-1.2) Aspartate Amino Transf (AST/SGOT) 38 U/L (5-40) Alanine Aminotransferase (ALT/SGPT) 35 U/L (3-41) Alkaline Phosphatase 94 U/L (40-129) C-Reactive Protein, Quantitative 2.1 mg/dL (< 0.5) H Pro-B-Type Natriuretic Peptide 156 pg/mL (0-125) H Total Protein 5.7 g/dL (6.6-8.7) L Albumin 2.6 g/dL (3.5-5.2) L Globulin 3.1 g/dL Albumin/Globulin Ratio 0.8 (1.0-2.7) L Random Vancomycin Level 17.3 ug/mL Objective HEAD AND NECK: Shows no JVD. LUNGS: Decreased breath sounds CARDIOVASCULAR: Regular S1 and S2 with no gallop. ABDOMEN: Slightly distended. EXTREMITIES: 2+ pitting edema. ANUEL PEMBERTON May 07, 2017 12:48
--- NOTE | 2017-05-07 12:54 | Pulmonology Progress Note ---
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 alpha feto protein increased consider comfort care and end of life care. ( anything else is futile) Subjective ROS Limited/Unobtainable: Yes Interval Events: somnolent Allergies: Coded Allergies: No Known Allergies (Unverified , 04/30/17) Objective Last 24 Hour Vital Signs Date Time Temp Pulse Resp B/P Pulse Ox O2 Delivery O2 Flow Rate FiO2 05/07/17 12:35 98.5 59 20 106/63 98 Room Air 05/07/17 08:30 70 116/71 05/07/17 08:00 97.4 70 20 116/71 98 Room Air 05/07/17 04:00 97.0 71 20 109/61 94 Room Air 05/07/17 00:00 97.6 66 20 131/65 95 Nasal Cannula 2.0 05/06/17 21:10 55 142/85 05/06/17 20:00 97.1 55 20 142/85 95 Nasal Cannula 2.0 05/06/17 19:52 93 Nasal Cannula 3.0 32 05/06/17 19:52 Nasal Cannula 3.0 32 05/06/17 19:52 60 20 Nasal Cannula 3.0 05/06/17 16:00 97.5 50 20 124/71 92 Room Air Intake and Output 05/06/17 05/07/17 19:00 07:00 Intake Total 800 ml 350 ml Output Total 1100 ml 400 ml Balance -300 ml -50 ml Intake Oral 800 ml 350 ml Output Urine Total 1100 ml 400 ml Objective General Appearance: WD/WN HEENT: normocephalic, atraumatic Respiratory/Chest: chest wall non-tender, lungs clear Breasts: no masses Cardiovascular: normal peripheral pulses, normal rate Abdomen: normal bowel sounds, soft, non tender Genitourinary: normal external genitalia Extremities: no cyanosis, +edema Skin: no rash Lymphatic: no groin adenopathy Laboratory Tests 05/07/17 06:15: White Blood Count 5.8, Red Blood Count 4.04L, Hemoglobin 12.4L, Hematocrit 38.2L , Mean Corpuscular Volume 95, Mean Corpuscular Hemoglobin 30.8, Mean Corpuscular Hemoglobin Concent 32.5, Red Cell Distribution Width 14.6, Platelet Count 91L, Mean Platelet Volume 6.6, Neutrophils (%) (Auto) , Lymphocytes (%) ( Auto) , Monocytes (%) (Auto) , Eosinophils (%) (Auto) , Basophils (%) (Auto) , Differential Total Cells Counted 100, Neutrophils % (Manual) 53, Lymphocytes % ( Manual) 27, Monocytes % (Manual) 8, Eosinophils % (Manual) 9H, Basophils % ( Manual) 1, Band Neutrophils 2, Platelet Estimate DecreasedL, Platelet Morphology Normal, Anisocytosis 1+, Sodium Level 131L, Potassium Level 5.0H, Chloride Level 97L, Carbon Dioxide Level 26, Anion Gap 8, Blood Urea Nitrogen 20 , Creatinine 1.4H, Estimat Glomerular Filtration Rate 50.5, Glucose Level 79, Osmolality 281L, Uric Acid 4.4, Calcium Level 8.1L, Phosphorus Level 4.4, Magnesium Level 1.9, Total Bilirubin 0.6, Aspartate Amino Transf (AST/SGOT) 38, Alanine Aminotransferase (ALT/SGPT) 35, Alkaline Phosphatase 94, C-Reactive Protein, Quantitative 2.1H, Pro-B-Type Natriuretic Peptide 156H, Total Protein 5.7L, Albumin 2.6L, Globulin 3.1, Albumin/Globulin Ratio 0.8L 05/07/17 10:45: Random Vancomycin Level 17.3 Current Medications Medications (Trade) Dose Ordered Sig/Tj Route PRN Reason Start Time Stop Time Status Last Admin Dose Admin Albuterol Sulfate (Proventil MDI) 1 puff Q6H PRN INH Shortness of Breath 05/04/17 20:00 06/03/17 19:59 Albuterol/ Ipratropium (DuoNeb 0.5-3(2.5)mg/3ml) 3 ml Q4H PRN HHN Shortness of Breath 05/04/17 19:00 05/09/17 18:59 Docusate Sodium (Colace) 100 mg TWICE A DAY ORAL 05/04/17 18:00 06/03/17 17:59 05/07/17 08:30 Ergocalciferol (Drisdol) 50,000 intlu QWEEK ORAL 05/09/17 16:00 06/08/17 15:59 Haloperidol (Haldol) 1 mg Q6H PRN ORAL AGITATION 05/04/17 18:00 06/03/17 17:59 05/06/17 23:39 Lactulose (Cephulac) 40 gm DAILY ORAL 05/05/17 09:00 06/04/17 08:59 05/05/17 08:37 Levothyroxine Sodium (Synthroid) 50 mcg ACBREAKFAST ORAL 05/05/17 06:30 06/04/17 06:29 05/07/17 06:24 Metoprolol Tartrate (Lopressor) 12.5 mg EVERY 12 HOURS ORAL 05/05/17 21:00 06/04/17 20:59 05/07/17 08:30 Morphine Sulfate (Morphine Sulfate) 0.5 mg Q4H PRN IV For Pain 4-10 05/04/17 17:00 05/11/17 16:59 05/07/17 08:34 Phenazopyridine HCl (Pyridium) 100 mg BID ORAL 05/04/17 18:00 05/11/17 17:59 05/07/17 08:30 Ranitidine HCl (Zantac) 150 mg TWICE A DAY ORAL 05/04/17 18:00 06/03/17 17:59 05/07/17 08:30 PRAVEEN DAVIS May 07, 2017 12:53
--- NOTE | 2017-05-07 15:51 | General Progress Note ---
Assessment/Plan Assessment/Plan 1. Large pituitary mass, with mass effect, have reviewed the [facility] medical EMR and reviewed neurosurgery records, have also discussed with niece on phone on 05/04/17. He has multiple co-morbidities and neurosurgery there recommended initially a [facility], however given that he did not improve during his stay they then recommended hospice given multiple co-morbids and no surgical intervention. he does not have stage IV disease. Requires likely snf placement as per Dr. Rivas. 2. Anemia secondary to chronic disease. Continue to closely monitor. --> transfuse as needed, currently counts are stable --> hgb goal above 8 3. Thrombocytopenia, mostly related to underlying cirrhosis as well as sepsis. 4. Transaminitis, potentially secondary to underlying liver disease. 5. Liver nodule --> being followed by GI 6. Dysuria in the setting of chronic [place] catheter. --> will receive new [place] 7. Pleural effusion evaluation by Pulmonary team. --> s/p paracenteses 8. Coagulopathy, potentially secondary to underlying liver disease. 9. Health care associated pneumonia --> on abx per ID Subjective Constitutional: Reports: no symptoms HEENT: Reports: no symptoms Cardiovascular: Reports: no symptoms Respiratory: Reports: no symptoms Gastrointestinal/Abdominal: Reports: no symptoms Genitourinary: Reports: no symptoms Neurologic/Psychiatric: Reports: no symptoms Endocrine: Reports: no symptoms Hematologic/Lymphatic: Reports: anemia Allergies: Coded Allergies: No Known Allergies (Unverified , 04/30/17) Subjective NAD Objective Last 24 Hour Vital Signs Date Time Temp Pulse Resp B/P Pulse Ox O2 Delivery O2 Flow Rate FiO2 05/07/17 12:35 98.5 59 20 106/63 98 Room Air 05/07/17 08:30 70 116/71 05/07/17 08:00 97.4 70 20 116/71 98 Room Air 05/07/17 06:58 96 Nasal Cannula 3.0 05/07/17 06:58 Nasal Cannula 3.0 05/07/17 06:58 58 20 Nasal Cannula 3.0 05/07/17 04:00 97.0 71 20 109/61 94 Room Air 05/07/17 00:00 97.6 66 20 131/65 95 Nasal Cannula 2.0 05/06/17 21:10 55 142/85 05/06/17 20:00 97.1 55 20 142/85 95 Nasal Cannula 2.0 05/06/17 19:52 93 Nasal Cannula 3.0 32 05/06/17 19:52 Nasal Cannula 3.0 32 05/06/17 19:52 60 20 Nasal Cannula 3.0 05/06/17 16:00 97.5 50 20 124/71 92 Room Air Intake and Output 05/06/17 05/07/17 19:00 07:00 Intake Total 800 ml 350 ml Output Total 1100 ml 400 ml Balance -300 ml -50 ml Intake Oral 800 ml 350 ml Output Urine Total 1100 ml 400 ml Laboratory Tests 05/07/17 06:15: White Blood Count 5.8, Red Blood Count 4.04L, Hemoglobin 12.4L, Hematocrit 38.2L , Mean Corpuscular Volume 95, Mean Corpuscular Hemoglobin 30.8, Mean Corpuscular Hemoglobin Concent 32.5, Red Cell Distribution Width 14.6, Platelet Count 91L, Mean Platelet Volume 6.6, Neutrophils (%) (Auto) , Lymphocytes (%) ( Auto) , Monocytes (%) (Auto) , Eosinophils (%) (Auto) , Basophils (%) (Auto) , Differential Total Cells Counted 100, Neutrophils % (Manual) 53, Lymphocytes % ( Manual) 27, Monocytes % (Manual) 8, Eosinophils % (Manual) 9H, Basophils % ( Manual) 1, Band Neutrophils 2, Platelet Estimate DecreasedL, Platelet Morphology Normal, Anisocytosis 1+, Sodium Level 131L, Potassium Level 5.0H, Chloride Level 97L, Carbon Dioxide Level 26, Anion Gap 8, Blood Urea Nitrogen 20 , Creatinine 1.4H, Estimat Glomerular Filtration Rate 50.5, Glucose Level 79, Osmolality 281L, Uric Acid 4.4, Calcium Level 8.1L, Phosphorus Level 4.4, Magnesium Level 1.9, Total Bilirubin 0.6, Aspartate Amino Transf (AST/SGOT) 38, Alanine Aminotransferase (ALT/SGPT) 35, Alkaline Phosphatase 94, C-Reactive Protein, Quantitative 2.1H, Pro-B-Type Natriuretic Peptide 156H, Total Protein 5.7L, Albumin 2.6L, Globulin 3.1, Albumin/Globulin Ratio 0.8L 05/07/17 10:45: Random Vancomycin Level 17.3 Height (Feet): 5 Height (Inches): 9.00 Weight (Pounds): 170 General Appearance: no apparent distress EENT: PERRL/EOMI Neck: normal alignment Edema: no edema noted Pedal (L), no edema noted Pedal (R) Neurologic: no motor/sensory deficits Skin: warm/dry Wes Johnston May 07, 2017 15:51
[2017-05-07 16:00] VITALS: BP 128/70
[2017-05-07 20:00] VITALS: BP 128/66
--- NOTE | 2017-05-07 22:09 | Infectious Diseases Prog Note ---
Assessment/Plan Problems: (1) HCAP (healthcare-associated pneumonia) Assessment & Plan: with productive cough improved, , S/P vancomycin and cefepime for 7 days, monitor off antibiotics (2) Pleural effusion on right Assessment & Plan: with near complete right lung collapse on CT chest , S/P large fluids removal with thoracentesis. await fluids culture gram stain, fungal , AFB. 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 hold lactulose (5) s/p multiple lacunar strokes Assessment & Plan: neurology is following (6) Cirrhosis Assessment & Plan: compensated, GI is following (7) Hepatic encephalopathy Assessment & Plan: on lactulose , monitor ammonia level Subjective Constitutional: Reports: anorexia, fatigue Gastrointestinal/Abdominal: Reports: diarrhea Neurologic: Reports: confusion, weakness Allergies: Coded Allergies: No Known Allergies (Unverified , 04/30/17) All Systems: reviewed and negative except above Subjective he was lethargic and altered, sedated , dosen't follow commands Objective Vital Signs Last 24 Hour Vital Signs Date Time Temp Pulse Resp B/P Pulse Ox O2 Delivery O2 Flow Rate FiO2 05/07/17 20:47 54 128/66 05/07/17 19:22 97 Nasal Cannula 3.0 05/07/17 19:22 61 18 Nasal Cannula 3.0 05/07/17 19:22 Nasal Cannula 3.0 05/07/17 16:00 97.2 63 20 128/70 95 Room Air 05/07/17 12:35 98.5 59 20 106/63 98 Room Air 05/07/17 08:30 70 116/71 05/07/17 08:00 97.4 70 20 116/71 98 Room Air 05/07/17 06:58 96 Nasal Cannula 3.0 05/07/17 06:58 Nasal Cannula 3.0 05/07/17 06:58 58 20 Nasal Cannula 3.0 05/07/17 04:00 97.0 71 20 109/61 94 Room Air 05/07/17 00:00 97.6 66 20 131/65 95 Nasal Cannula 2.0 Height (Feet): 5 Height (Inches): 9.00 Weight (Pounds): 170 General Appearance: WD/WN, no acute distress HEENT: normocephalic, atraumatic, anicteric, mucous membranes moist, PERRL Respiratory/Chest: chest wall non-tender, no respiratory distress, no accessory muscle use, decreased breath sounds, crackles/rales Cardiovascular: normal peripheral pulses, normal rate, regular rhythm, no gallop/murmur, no JVD Abdomen: normal bowel sounds, soft, non tender, no organomegaly, non distended , no mass, no scars Extremities: no cyanosis, no clubbing, other - edema Skin: no rash, no lesions, no ulcers Laboratory Tests Test 05/07/17 06:15 05/07/17 10:45 White Blood Count 5.8 K/UL (4.8-10.8) Red Blood Count 4.04 M/UL (4.70-6.10) L Hemoglobin 12.4 G/DL (14.2-18.0) L Hematocrit 38.2 % (42.0-52.0) L Mean Corpuscular Volume 95 FL (80-99) Mean Corpuscular Hemoglobin 30.8 PG (27.0-31.0) Mean Corpuscular Hemoglobin Concent 32.5 G/DL (32.0-36.0) Red Cell Distribution Width 14.6 % (11.6-14.8) Platelet Count 91 K/UL (150-450) L Mean Platelet Volume 6.6 FL (6.5-10.1) Neutrophils (%) (Auto) % (45.0-75.0) Lymphocytes (%) (Auto) % (20.0-45.0) Monocytes (%) (Auto) % (1.0-10.0) Eosinophils (%) (Auto) % (0.0-3.0) Basophils (%) (Auto) % (0.0-2.0) Differential Total Cells Counted 100 Neutrophils % (Manual) 53 % (45-75) Lymphocytes % (Manual) 27 % (20-45) Monocytes % (Manual) 8 % (1-10) Eosinophils % (Manual) 9 % (0-3) H Basophils % (Manual) 1 % (0-2) Band Neutrophils 2 % (0-8) Platelet Estimate Decreased L Platelet Morphology Normal Anisocytosis 1+ Sodium Level 131 mEQ/L (135-145) L Potassium Level 5.0 mEQ/L (3.4-4.9) H Chloride Level 97 mEQ/L (98-107) L Carbon Dioxide Level 26 mEQ/L (20-30) Anion Gap 8 (5-15) Blood Urea Nitrogen 20 mg/dL (7-23) Creatinine 1.4 mg/dL (0.7-1.2) H Estimat Glomerular Filtration Rate 50.5 mL/min (>60) Glucose Level 79 mg/dL (74-106) Osmolality 281 mOsm/kg (297-317) L Uric Acid 4.4 mg/dL (3.0-7.5) Calcium Level 8.1 mg/dL (8.6-10.2) L Phosphorus Level 4.4 mg/dL (2.5-4.8) Magnesium Level 1.9 mg/dL (1.7-2.5) Total Bilirubin 0.6 mg/dL (0.0-1.2) Aspartate Amino Transf (AST/SGOT) 38 U/L (5-40) Alanine Aminotransferase (ALT/SGPT) 35 U/L (3-41) Alkaline Phosphatase 94 U/L (40-129) C-Reactive Protein, Quantitative 2.1 mg/dL (< 0.5) H Pro-B-Type Natriuretic Peptide 156 pg/mL (0-125) H Total Protein 5.7 g/dL (6.6-8.7) L Albumin 2.6 g/dL (3.5-5.2) L Globulin 3.1 g/dL Albumin/Globulin Ratio 0.8 (1.0-2.7) L Random Vancomycin Level 17.3 ug/mL Current Medications Medications (Trade) Dose Ordered Sig/Tj Route PRN Reason Start Time Stop Time Status Last Admin Dose Admin Albuterol Sulfate (Proventil MDI) 1 puff Q6H PRN INH Shortness of Breath 05/04/17 20:00 06/03/17 19:59 Albuterol/ Ipratropium (DuoNeb 0.5-3(2.5)mg/3ml) 3 ml Q4H PRN HHN Shortness of Breath 05/04/17 19:00 05/09/17 18:59 Docusate Sodium (Colace) 100 mg TWICE A DAY ORAL 05/04/17 18:00 06/03/17 17:59 05/07/17 08:30 Ergocalciferol (Drisdol) 50,000 intlu QWEEK ORAL 05/09/17 16:00 06/08/17 15:59 Haloperidol (Haldol) 1 mg Q6H PRN ORAL AGITATION 05/04/17 18:00 06/03/17 17:59 05/06/17 23:39 Lactulose (Cephulac) 40 gm DAILY ORAL 05/05/17 09:00 06/04/17 08:59 05/05/17 08:37 Levothyroxine Sodium (Synthroid) 50 mcg ACBREAKFAST ORAL 05/05/17 06:30 06/04/17 06:29 05/07/17 06:24 Metoprolol Tartrate (Lopressor) 12.5 mg EVERY 12 HOURS ORAL 05/05/17 21:00 06/04/17 20:59 05/07/17 08:30 Morphine Sulfate (Morphine Sulfate) 0.5 mg Q4H PRN IV For Pain 4-10 05/04/17 17:00 05/11/17 16:59 05/07/17 17:29 Phenazopyridine HCl (Pyridium) 100 mg BID ORAL 05/04/17 18:00 05/11/17 17:59 05/07/17 17:28 Ranitidine HCl (Zantac) 150 mg TWICE A DAY ORAL 05/04/17 18:00 06/03/17 17:59 05/07/17 17:28 Edda Gil M.D. May 07, 2017 22:09
[2017-05-08] VITALS: BP 136/77
[2017-05-08 04:00] VITALS: BP 134/72
[2017-05-08 07:06] LABS: MEAN CORPUSCULAR HEMOGLOBIN 31.8 PG (27.0-31.0); MEAN CORPUSCULAR HGB CONC 33.3 G/DL (32.0-36.0); MEAN CORPUSCULAR VOLUME 95 FL (80-99); MEAN PLATELET VOLUME 6.6 FL (6.5-10.1); PLATELET COUNT 98 K/UL (150-450); RED BLOOD COUNT 4.25 M/UL (4.70-6.10); RED CELL DISTRIBUTION WIDTH 14.8 % (11.6-14.8); WHITE BLOOD COUNT 4.9 K/UL (4.8-10.8)
[2017-05-08 07:23] LABS: ALBUMIN/GLOBULIN RATIO 0.8 (1.0-2.7); CALCIUM 8.4 mg/dL (8.6-10.2); CREATININE 1.5 mg/dL (0.7-1.2); CRP QUANT 1.5 mg/dL (< 0.5); GLOMERULAR FILTRATION RATE 46.7 mL/min (>60); MAGNESIUM 1.9 mg/dL (1.7-2.5); POTASSIUM 4.7 mEQ/L (3.4-4.9); TOTAL PROTEIN 6.2 g/dL (6.6-8.7); URIC ACID 4.6 mg/dL (3.0-7.5)
[2017-05-08 08:00] VITALS: BP 128/80
[2017-05-08] MEDS: Lactulose 20gm/30ml UDC ORAL SCH (09:00)
[2017-05-08] MEDS: Docusate 100mg cap ORAL SCH ×2 (09:00→17:52)
[2017-05-08] MEDS: Metoprolol 25mg tab ORAL SCH ×2 (09:28→21:53)
[2017-05-08 09:44] LABS: EOSINOPHILS % (MANUAL) 8 % (0-3); LYMPHOCYTES % (MANUAL) 24 % (20-45); NEUTROPHILS % (MANUAL) 58 % (45-75); PLATELET MORPHOLOGY NORMAL; TOTAL CELLS COUNTED 100
[2017-05-08 09:45] LABS: BAND NEUTROPHILS % (MANUAL) 0 % (0-8); BASOPHILS % (MANUAL) 0 % (0-2); PLATELET ESTIMATE DECREASED
[2017-05-08 09:48] LABS: ANISOCYTOSIS OCCASIONAL
--- NOTE | 2017-05-08 10:14 | GI Progress Note ---
Assessment/Plan Problems: (1) Liver nodule ICD Codes: K76.89 - Other specified diseases of liver SNOMED: 482503209 (2) Cirrhosis ICD Codes: K74.60 - Unspecified cirrhosis of liver SNOMED: 23483589 Status: stable Status Narrative Discussed with Dr. Telles. Assessment/Plan abdominal U/S >> Suspicion of chronic liver disease/cirrhosis. Stigmata of portal hypertension including splenomegaly and trace ascites. ammonia WNL >> cont lactulose MRI reviewed > unremarkable hepatitis panel >> negative AFP elevation >> 11.3 s/p paracentesis with ~ 4L yield. ok for DC per GI standpoint >> outpatient GI procedures stable H&H, prn transfusions H2B monitor LFTs fu labs Subjective Subjective limited no symptoms Objective Last 24 Hour Vital Signs Date Time Temp Pulse Resp B/P Pulse Ox O2 Delivery O2 Flow Rate FiO2 05/08/17 09:28 66 128/80 05/08/17 08:12 Nasal Cannula 3.0 32 05/08/17 08:12 94 Nasal Cannula 3.0 05/08/17 08:11 66 18 Nasal Cannula 3.0 05/08/17 08:00 97.6 68 17 128/80 93 Room Air 05/08/17 04:00 97.9 65 17 134/72 96 Room Air 05/08/17 00:00 98.0 64 18 136/77 95 Room Air 05/07/17 20:47 54 128/66 05/07/17 20:00 97.8 54 18 128/66 95 Room Air 05/07/17 19:22 97 Nasal Cannula 3.0 05/07/17 19:22 61 18 Nasal Cannula 3.0 05/07/17 19:22 Nasal Cannula 3.0 05/07/17 16:00 97.2 63 20 128/70 95 Room Air 05/07/17 12:35 98.5 59 20 106/63 98 Room Air Intake and Output 05/07/17 05/08/17 19:00 07:00 Intake Total 900 ml 960 ml Output Total 400 ml 450 ml Balance 500 ml 510 ml Intake Oral 900 ml 960 ml Output Urine Total 400 ml 450 ml # Bowel Movements 2 Laboratory Tests Test 05/07/17 10:45 05/08/17 05:05 Random Vancomycin Level 17.3 ug/mL 11.9 ug/mL White Blood Count 4.9 K/UL (4.8-10.8) Red Blood Count 4.25 M/UL (4.70-6.10) L Hemoglobin 13.5 G/DL (14.2-18.0) L Hematocrit 40.5 % (42.0-52.0) L Mean Corpuscular Volume 95 FL (80-99) Mean Corpuscular Hemoglobin 31.8 PG (27.0-31.0) H Mean Corpuscular Hemoglobin Concent 33.3 G/DL (32.0-36.0) Red Cell Distribution Width 14.8 % (11.6-14.8) Platelet Count 98 K/UL (150-450) L Mean Platelet Volume 6.6 FL (6.5-10.1) Neutrophils (%) (Auto) % (45.0-75.0) Lymphocytes (%) (Auto) % (20.0-45.0) Monocytes (%) (Auto) % (1.0-10.0) Eosinophils (%) (Auto) % (0.0-3.0) Basophils (%) (Auto) % (0.0-2.0) Differential Total Cells Counted 100 Neutrophils % (Manual) 58 % (45-75) Lymphocytes % (Manual) 24 % (20-45) Monocytes % (Manual) 10 % (1-10) Eosinophils % (Manual) 8 % (0-3) H Basophils % (Manual) 0 % (0-2) Band Neutrophils 0 % (0-8) Platelet Estimate Decreased L Platelet Morphology Normal Anisocytosis Occasional Microcytosis Sodium Level 130 mEQ/L (135-145) L Potassium Level 4.7 mEQ/L (3.4-4.9) Chloride Level 97 mEQ/L (98-107) L Carbon Dioxide Level 23 mEQ/L (20-30) Anion Gap 10 (5-15) Blood Urea Nitrogen 24 mg/dL (7-23) H Creatinine 1.5 mg/dL (0.7-1.2) H Estimat Glomerular Filtration Rate 46.7 mL/min (>60) Glucose Level 72 mg/dL (74-106) L Uric Acid 4.6 mg/dL (3.0-7.5) Calcium Level 8.4 mg/dL (8.6-10.2) L Phosphorus Level 4.0 mg/dL (2.5-4.8) Magnesium Level 1.9 mg/dL (1.7-2.5) Total Bilirubin 0.4 mg/dL (0.0-1.2) Aspartate Amino Transf (AST/SGOT) 40 U/L (5-40) Alanine Aminotransferase (ALT/SGPT) 34 U/L (3-41) Alkaline Phosphatase 108 U/L (40-129) C-Reactive Protein, Quantitative 1.5 mg/dL (< 0.5) H Pro-B-Type Natriuretic Peptide 78 pg/mL (0-125) Total Protein 6.2 g/dL (6.6-8.7) L Albumin 2.8 g/dL (3.5-5.2) L Globulin 3.4 g/dL Albumin/Globulin Ratio 0.8 (1.0-2.7) L Height (Feet): 5 Height (Inches): 9.00 Weight (Pounds): 170 General Appearance: no apparent distress, alert Cardiovascular: normal rate Respiratory/Chest: normal breath sounds, no respiratory distress Abdominal Exam: normal bowel sounds, non tender, soft Extremities: normal range of motion Yesi Shell N.P. May 08, 2017 10:14
--- NOTE | 2017-05-08 11:06 | General Progress Note ---
Assessment/Plan Status: stable Status Narrative Na 130- Cr 1.5 Assessment/Plan Status: Acute Renal failure- High Vanco level, now lowering History of Brain tumor Was on Hospice at [facility] Admitted with chest pain Has pleural effusion right side Has shepard for urinary retention Has Pneumonia Has Transaminitis Cirrhosis / Splenomegaly / Liver mass 2+ Proteinuria HTN HypoThyroidism Plan: Off Vanco , check level- Daily urine studies- repeat shows low U Na Adjust BP meds- 2D echo results? Ejfx 70% Monitor lytes trial 3% 250 cc Per consultants Subjective ROS Limited/Unobtainable: No Constitutional: Reports: malaise Allergies: Coded Allergies: No Known Allergies (Unverified , 04/30/17) Objective Last 24 Hour Vital Signs Date Time Temp Pulse Resp B/P Pulse Ox O2 Delivery O2 Flow Rate FiO2 05/08/17 09:28 66 128/80 05/08/17 08:12 Nasal Cannula 3.0 32 05/08/17 08:12 94 Nasal Cannula 3.0 05/08/17 08:11 66 18 Nasal Cannula 3.0 05/08/17 08:00 97.6 68 17 128/80 93 Room Air 05/08/17 04:00 97.9 65 17 134/72 96 Room Air 05/08/17 00:00 98.0 64 18 136/77 95 Room Air 05/07/17 20:47 54 128/66 05/07/17 20:00 97.8 54 18 128/66 95 Room Air 05/07/17 19:22 97 Nasal Cannula 3.0 05/07/17 19:22 61 18 Nasal Cannula 3.0 05/07/17 19:22 Nasal Cannula 3.0 05/07/17 16:00 97.2 63 20 128/70 95 Room Air 05/07/17 12:35 98.5 59 20 106/63 98 Room Air Intake and Output 05/07/17 05/08/17 19:00 07:00 Intake Total 900 ml 960 ml Output Total 400 ml 450 ml Balance 500 ml 510 ml Intake Oral 900 ml 960 ml Output Urine Total 400 ml 450 ml # Bowel Movements 2 Laboratory Tests 05/08/17 05:05: White Blood Count 4.9, Red Blood Count 4.25L, Hemoglobin 13.5L, Hematocrit 40.5L , Mean Corpuscular Volume 95, Mean Corpuscular Hemoglobin 31.8H, Mean Corpuscular Hemoglobin Concent 33.3, Red Cell Distribution Width 14.8, Platelet Count 98L, Mean Platelet Volume 6.6, Neutrophils (%) (Auto) , Lymphocytes (%) ( Auto) , Monocytes (%) (Auto) , Eosinophils (%) (Auto) , Basophils (%) (Auto) , Differential Total Cells Counted 100, Neutrophils % (Manual) 58, Lymphocytes % ( Manual) 24, Monocytes % (Manual) 10, Eosinophils % (Manual) 8H, Basophils % ( Manual) 0, Band Neutrophils 0, Platelet Estimate DecreasedL, Platelet Morphology Normal, Anisocytosis Occasional, Microcytosis , Sodium Level 130L, Potassium Level 4.7, Chloride Level 97L, Carbon Dioxide Level 23, Anion Gap 10, Blood Urea Nitrogen 24H, Creatinine 1.5H, Estimat Glomerular Filtration Rate 46.7, Glucose Level 72L, Uric Acid 4.6, Calcium Level 8.4L, Phosphorus Level 4.0 , Magnesium Level 1.9, Total Bilirubin 0.4, Aspartate Amino Transf (AST/SGOT) 40 , Alanine Aminotransferase (ALT/SGPT) 34, Alkaline Phosphatase 108, C-Reactive Protein, Quantitative 1.5H, Pro-B-Type Natriuretic Peptide 78, Total Protein 6.2L, Albumin 2.8L, Globulin 3.4, Albumin/Globulin Ratio 0.8L, Random Vancomycin Level 11.9 Height (Feet): 5 Height (Inches): 9.00 Weight (Pounds): 170 General Appearance: no apparent distress Cardiovascular: regular rhythm Respiratory/Chest: decreased breath sounds Abdomen: distended Objective PE not changed KELLY MUÑIZ May 08, 2017 11:06
[2017-05-08] MEDS ORDERED: NaCl 3% 500ml 250 ML IV ONE (12:00)
--- NOTE | 2017-05-08 12:09 | Pulmonology Progress Note ---
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, with mass effect (5) HTN (hypertension) (6) Dysuria (7) Cirrhosis Assessment/Plan symptomatic treatmet titrate fio2 to sat of 92% inoperable brain tumor alpha feto protein increased Subjective ROS Limited/Unobtainable: No Interval Events: eating well Allergies: Coded Allergies: No Known Allergies (Unverified , 04/30/17) Objective Last 24 Hour Vital Signs Date Time Temp Pulse Resp B/P Pulse Ox O2 Delivery O2 Flow Rate FiO2 05/08/17 09:28 66 128/80 05/08/17 08:12 Nasal Cannula 3.0 32 05/08/17 08:12 94 Nasal Cannula 3.0 05/08/17 08:11 66 18 Nasal Cannula 3.0 05/08/17 08:00 97.6 68 17 128/80 93 Room Air 05/08/17 04:00 97.9 65 17 134/72 96 Room Air 05/08/17 00:00 98.0 64 18 136/77 95 Room Air 05/07/17 20:47 54 128/66 05/07/17 20:00 97.8 54 18 128/66 95 Room Air 05/07/17 19:22 97 Nasal Cannula 3.0 05/07/17 19:22 61 18 Nasal Cannula 3.0 05/07/17 19:22 Nasal Cannula 3.0 05/07/17 16:00 97.2 63 20 128/70 95 Room Air 05/07/17 12:35 98.5 59 20 106/63 98 Room Air Intake and Output 05/07/17 05/08/17 19:00 07:00 Intake Total 900 ml 960 ml Output Total 400 ml 450 ml Balance 500 ml 510 ml Intake Oral 900 ml 960 ml Output Urine Total 400 ml 450 ml # Bowel Movements 2 Objective General Appearance: WD/WN HEENT: normocephalic, atraumatic Respiratory/Chest: chest wall non-tender, lungs clear Breasts: no masses Cardiovascular: normal peripheral pulses, normal rate Abdomen: normal bowel sounds, soft, non tender Genitourinary: normal external genitalia Extremities: no cyanosis, +edema Skin: no rash Lymphatic: no groin adenopathy Laboratory Tests 05/08/17 05:05: White Blood Count 4.9, Red Blood Count 4.25L, Hemoglobin 13.5L, Hematocrit 40.5L , Mean Corpuscular Volume 95, Mean Corpuscular Hemoglobin 31.8H, Mean Corpuscular Hemoglobin Concent 33.3, Red Cell Distribution Width 14.8, Platelet Count 98L, Mean Platelet Volume 6.6, Neutrophils (%) (Auto) , Lymphocytes (%) ( Auto) , Monocytes (%) (Auto) , Eosinophils (%) (Auto) , Basophils (%) (Auto) , Differential Total Cells Counted 100, Neutrophils % (Manual) 58, Lymphocytes % ( Manual) 24, Monocytes % (Manual) 10, Eosinophils % (Manual) 8H, Basophils % ( Manual) 0, Band Neutrophils 0, Platelet Estimate DecreasedL, Platelet Morphology Normal, Anisocytosis Occasional, Microcytosis , Sodium Level 130L, Potassium Level 4.7, Chloride Level 97L, Carbon Dioxide Level 23, Anion Gap 10, Blood Urea Nitrogen 24H, Creatinine 1.5H, Estimat Glomerular Filtration Rate 46.7, Glucose Level 72L, Uric Acid 4.6, Calcium Level 8.4L, Phosphorus Level 4.0 , Magnesium Level 1.9, Total Bilirubin 0.4, Aspartate Amino Transf (AST/SGOT) 40 , Alanine Aminotransferase (ALT/SGPT) 34, Alkaline Phosphatase 108, C-Reactive Protein, Quantitative 1.5H, Pro-B-Type Natriuretic Peptide 78, Total Protein 6.2L, Albumin 2.8L, Globulin 3.4, Albumin/Globulin Ratio 0.8L, Random Vancomycin Level 11.9 Current Medications Medications (Trade) Dose Ordered Sig/Tj Route PRN Reason Start Time Stop Time Status Last Admin Dose Admin Albuterol Sulfate (Proventil MDI) 1 puff Q6H PRN INH Shortness of Breath 05/04/17 20:00 06/03/17 19:59 Albuterol/ Ipratropium (DuoNeb 0.5-3(2.5)mg/3ml) 3 ml Q4H PRN HHN Shortness of Breath 05/04/17 19:00 05/09/17 18:59 Docusate Sodium (Colace) 100 mg TWICE A DAY ORAL 05/04/17 18:00 06/03/17 17:59 05/07/17 08:30 Ergocalciferol (Drisdol) 50,000 intlu QWEEK ORAL 05/09/17 16:00 06/08/17 15:59 Haloperidol (Haldol) 1 mg Q6H PRN ORAL AGITATION 05/04/17 18:00 06/03/17 17:59 05/06/17 23:39 Lactulose (Cephulac) 40 gm DAILY ORAL 05/05/17 09:00 06/04/17 08:59 05/05/17 08:37 Levothyroxine Sodium (Synthroid) 50 mcg ACBREAKFAST ORAL 05/05/17 06:30 06/04/17 06:29 05/08/17 06:21 Metoprolol Tartrate 12.5 mg 12.5 mg EVERY 12 HOURS ORAL 05/05/17 21:00 06/04/17 20:59 05/08/17 09:28 Morphine Sulfate (Morphine Sulfate) 0.5 mg Q4H PRN IV For Pain 4-10 05/04/17 17:00 05/11/17 16:59 05/07/17 17:29 Phenazopyridine HCl (Pyridium) 100 mg BID ORAL 05/04/17 18:00 05/11/17 17:59 05/08/17 09:28 Ranitidine HCl (Zantac) 150 mg TWICE A DAY ORAL 05/04/17 18:00 06/03/17 17:59 05/08/17 09:28 Sodium Chloride (Hypertonic Saline) 250 ml @ 30 mls/hr ONCE ONCE IV 05/08/17 12:00 05/08/17 20:19 PRAVEEN DAVIS May 08, 2017 12:09
--- NOTE | 2017-05-08 12:23 | Diagnostic Imaging Report ---
APPROVED REPORT CPT Code: 81576 Present Symptoms Lower Extremity Edema: Bilateral Shortness of breath BILATERAL: Imaging reveals a patent deep venous system bilaterally. There is no evidence of thrombus within the femoral, popliteal or tibial segments. The greater saphenous veins are also within normal limits. Doppler indicates normal spontaneous flow within these segments.
--- NOTE | 2017-05-08 15:16 | Infectious Diseases Prog Note ---
Assessment/Plan Problems: (1) HCAP (healthcare-associated pneumonia) Assessment & Plan: with productive cough improved, , S/P vancomycin and cefepime for 7 days, monitor off antibiotics (2) Pleural effusion on right Assessment & Plan: with near complete right lung collapse on CT chest , S/P large fluids removal with thoracentesis. await fluids culture gram stain, fungal , AFB. 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 hold lactulose (5) s/p multiple lacunar strokes Assessment & Plan: , continue PT/OT , neurology is following (6) Cirrhosis Assessment & Plan: with liver mass and elevated alpha feto protein , suspect HCC, has poor prognosis , GI is following (7) Hepatic encephalopathy Assessment & Plan: on lactulose , monitor ammonia level Subjective Constitutional: Reports: no symptoms HEENT: Reports: no symptoms Respiratory: Reports: dry cough Breasts: Reports: no symptoms Cardiovascular: Reports: no symptoms Gastrointestinal/Abdominal: Reports: no symptoms Genitourinary: Reports: no symptoms Neurologic: Reports: confusion, weakness Psychiatric: Reports: depression Skin: Reports: no symptoms Endocrine: Reports: no symptoms Hematologic: Reports: no symptoms Musculoskeletal: Reports: no symptoms Allergies: Coded Allergies: No Known Allergies (Unverified , 04/30/17) Subjective he was lethargic and altered, sedated , dosen't follow commands Objective Vital Signs Last 24 Hour Vital Signs Date Time Temp Pulse Resp B/P Pulse Ox O2 Delivery O2 Flow Rate FiO2 05/08/17 09:28 66 128/80 05/08/17 08:12 Nasal Cannula 3.0 32 05/08/17 08:12 94 Nasal Cannula 3.0 05/08/17 08:11 66 18 Nasal Cannula 3.0 05/08/17 08:00 97.6 68 17 128/80 93 Room Air 05/08/17 04:00 97.9 65 17 134/72 96 Room Air 05/08/17 00:00 98.0 64 18 136/77 95 Room Air 05/07/17 20:47 54 128/66 05/07/17 20:00 97.8 54 18 128/66 95 Room Air 05/07/17 19:22 97 Nasal Cannula 3.0 05/07/17 19:22 61 18 Nasal Cannula 3.0 05/07/17 19:22 Nasal Cannula 3.0 05/07/17 16:00 97.2 63 20 128/70 95 Room Air Height (Feet): 5 Height (Inches): 9.00 Weight (Pounds): 170 General Appearance: WD/WN, no acute distress HEENT: normocephalic, atraumatic, anicteric, mucous membranes moist Respiratory/Chest: normal breath sounds, no respiratory distress, no accessory muscle use, decreased breath sounds, crackles/rales Cardiovascular: normal peripheral pulses, normal rate, regular rhythm, no gallop/murmur, no JVD Abdomen: normal bowel sounds, soft, non tender, no organomegaly, non distended , no mass, no scars Extremities: no cyanosis, no clubbing Skin: no rash, no lesions Neurologic/Psychiatric: alert, responsive Laboratory Tests Test 05/08/17 05:05 White Blood Count 4.9 K/UL (4.8-10.8) Red Blood Count 4.25 M/UL (4.70-6.10) L Hemoglobin 13.5 G/DL (14.2-18.0) L Hematocrit 40.5 % (42.0-52.0) L Mean Corpuscular Volume 95 FL (80-99) Mean Corpuscular Hemoglobin 31.8 PG (27.0-31.0) H Mean Corpuscular Hemoglobin Concent 33.3 G/DL (32.0-36.0) Red Cell Distribution Width 14.8 % (11.6-14.8) Platelet Count 98 K/UL (150-450) L Mean Platelet Volume 6.6 FL (6.5-10.1) Neutrophils (%) (Auto) % (45.0-75.0) Lymphocytes (%) (Auto) % (20.0-45.0) Monocytes (%) (Auto) % (1.0-10.0) Eosinophils (%) (Auto) % (0.0-3.0) Basophils (%) (Auto) % (0.0-2.0) Differential Total Cells Counted 100 Neutrophils % (Manual) 58 % (45-75) Lymphocytes % (Manual) 24 % (20-45) Monocytes % (Manual) 10 % (1-10) Eosinophils % (Manual) 8 % (0-3) H Basophils % (Manual) 0 % (0-2) Band Neutrophils 0 % (0-8) Platelet Estimate Decreased L Platelet Morphology Normal Anisocytosis Occasional Microcytosis Sodium Level 130 mEQ/L (135-145) L Potassium Level 4.7 mEQ/L (3.4-4.9) Chloride Level 97 mEQ/L (98-107) L Carbon Dioxide Level 23 mEQ/L (20-30) Anion Gap 10 (5-15) Blood Urea Nitrogen 24 mg/dL (7-23) H Creatinine 1.5 mg/dL (0.7-1.2) H Estimat Glomerular Filtration Rate 46.7 mL/min (>60) Glucose Level 72 mg/dL (74-106) L Uric Acid 4.6 mg/dL (3.0-7.5) Calcium Level 8.4 mg/dL (8.6-10.2) L Phosphorus Level 4.0 mg/dL (2.5-4.8) Magnesium Level 1.9 mg/dL (1.7-2.5) Total Bilirubin 0.4 mg/dL (0.0-1.2) Aspartate Amino Transf (AST/SGOT) 40 U/L (5-40) Alanine Aminotransferase (ALT/SGPT) 34 U/L (3-41) Alkaline Phosphatase 108 U/L (40-129) C-Reactive Protein, Quantitative 1.5 mg/dL (< 0.5) H Pro-B-Type Natriuretic Peptide 78 pg/mL (0-125) Total Protein 6.2 g/dL (6.6-8.7) L Albumin 2.8 g/dL (3.5-5.2) L Globulin 3.4 g/dL Albumin/Globulin Ratio 0.8 (1.0-2.7) L Random Vancomycin Level 11.9 ug/mL Current Medications Medications (Trade) Dose Ordered Sig/Tj Route PRN Reason Start Time Stop Time Status Last Admin Dose Admin Albuterol Sulfate (Proventil MDI) 1 puff Q6H PRN INH Shortness of Breath 05/04/17 20:00 06/03/17 19:59 Albuterol/ Ipratropium (DuoNeb 0.5-3(2.5)mg/3ml) 3 ml Q4H PRN HHN Shortness of Breath 05/04/17 19:00 05/09/17 18:59 Docusate Sodium (Colace) 100 mg TWICE A DAY ORAL 05/04/17 18:00 06/03/17 17:59 05/07/17 08:30 Ergocalciferol (Drisdol) 50,000 intlu QWEEK ORAL 05/09/17 16:00 06/08/17 15:59 Haloperidol (Haldol) 1 mg Q6H PRN ORAL AGITATION 05/04/17 18:00 06/03/17 17:59 05/06/17 23:39 Lactulose (Cephulac) 40 gm DAILY ORAL 05/05/17 09:00 06/04/17 08:59 05/05/17 08:37 Levothyroxine Sodium (Synthroid) 50 mcg ACBREAKFAST ORAL 05/05/17 06:30 06/04/17 06:29 05/08/17 06:21 Metoprolol Tartrate 12.5 mg 12.5 mg EVERY 12 HOURS ORAL 05/05/17 21:00 06/04/17 20:59 05/08/17 09:28 Morphine Sulfate (Morphine Sulfate) 0.5 mg Q4H PRN IV For Pain 4-10 05/04/17 17:00 05/11/17 16:59 05/07/17 17:29 Phenazopyridine HCl (Pyridium) 100 mg BID ORAL 05/04/17 18:00 05/11/17 17:59 05/08/17 09:28 Ranitidine HCl (Zantac) 150 mg TWICE A DAY ORAL 05/04/17 18:00 06/03/17 17:59 05/08/17 09:28 Sodium Chloride (Hypertonic Saline) 250 ml @ 30 mls/hr ONCE ONCE IV 05/08/17 12:00 05/08/17 20:19 Edda Gil M.D. May 08, 2017 15:16
--- NOTE | 2017-05-08 17:38 | Cardiac Electrophysiology PN ---
Assessment/Plan Status Narrative Technically difficult study due to poor acoustic windows. Study quality precludes accurate assessment of regional wall motion. Normal left ventricular chamber size, systolic function and wall motion. Left ventricular ejection fraction estimated to be 70-75%. Moderate left ventricular hypertrophy. Mild posterior pericardial fat or effusion. Mild right atrial enlargement by 2D. Moderate left atrial enlargement by 2D. Focal aortic valve sclerosis with adequate cusp excursion Thickened mitral valve leaflets with normal excursion. Mitral annulus and aortic root calcification. Pulmonic valve not well visualized. Normal tricuspid valve structure. IVC is normal in size with physiologic collapse. A color flow and spectral Doppler study was performe Assessment/Plan 1. Chest pain due to Right sided pleural effusion, s/p thoracentesis 05/03/17. EF 70%. Better 2. Right pleural effusion likely secondary to healthcare-associated pneumonia. S /P Thoracentesis. 3. HTN on Lopressor 25 bid. 4. Liver cirrhosis and possible hepatocellular carcinoma. EGD as out patient by Dr. Telles . 5. Large pituitary mass, with mass effect. He has multiple co-morbidities and neurosurgery at [facility] recommended initially a [facility] at a [facility], however given that he did not improve during his stay they then recommended hospice given multiple co-morbids and no surgical intervention. Follow up Dr Mckeon. 6. Anemia of chronic disease. [place] RN Subjective Subjective No chest pain or SOB.Sitting in chair having dinner. Alert in NAD Objective Last 24 Hour Vital Signs Date Time Temp Pulse Resp B/P Pulse Ox O2 Delivery O2 Flow Rate FiO2 05/08/17 09:28 66 128/80 05/08/17 08:12 Nasal Cannula 3.0 32 05/08/17 08:12 94 Nasal Cannula 3.0 05/08/17 08:11 66 18 Nasal Cannula 3.0 05/08/17 08:00 97.6 68 17 128/80 93 Room Air 05/08/17 04:00 97.9 65 17 134/72 96 Room Air 05/08/17 00:00 98.0 64 18 136/77 95 Room Air 05/07/17 20:47 54 128/66 05/07/17 20:00 97.8 54 18 128/66 95 Room Air 05/07/17 19:22 97 Nasal Cannula 3.0 05/07/17 19:22 61 18 Nasal Cannula 3.0 05/07/17 19:22 Nasal Cannula 3.0 Intake and Output 05/07/17 05/08/17 19:00 07:00 Intake Total 900 ml 960 ml Output Total 400 ml 450 ml Balance 500 ml 510 ml Intake Oral 900 ml 960 ml Output Urine Total 400 ml 450 ml # Bowel Movements 2 Laboratory Tests Test 05/08/17 05:05 White Blood Count 4.9 K/UL (4.8-10.8) Red Blood Count 4.25 M/UL (4.70-6.10) L Hemoglobin 13.5 G/DL (14.2-18.0) L Hematocrit 40.5 % (42.0-52.0) L Mean Corpuscular Volume 95 FL (80-99) Mean Corpuscular Hemoglobin 31.8 PG (27.0-31.0) H Mean Corpuscular Hemoglobin Concent 33.3 G/DL (32.0-36.0) Red Cell Distribution Width 14.8 % (11.6-14.8) Platelet Count 98 K/UL (150-450) L Mean Platelet Volume 6.6 FL (6.5-10.1) Neutrophils (%) (Auto) % (45.0-75.0) Lymphocytes (%) (Auto) % (20.0-45.0) Monocytes (%) (Auto) % (1.0-10.0) Eosinophils (%) (Auto) % (0.0-3.0) Basophils (%) (Auto) % (0.0-2.0) Differential Total Cells Counted 100 Neutrophils % (Manual) 58 % (45-75) Lymphocytes % (Manual) 24 % (20-45) Monocytes % (Manual) 10 % (1-10) Eosinophils % (Manual) 8 % (0-3) H Basophils % (Manual) 0 % (0-2) Band Neutrophils 0 % (0-8) Platelet Estimate Decreased L Platelet Morphology Normal Anisocytosis Occasional Microcytosis Sodium Level 130 mEQ/L (135-145) L Potassium Level 4.7 mEQ/L (3.4-4.9) Chloride Level 97 mEQ/L (98-107) L Carbon Dioxide Level 23 mEQ/L (20-30) Anion Gap 10 (5-15) Blood Urea Nitrogen 24 mg/dL (7-23) H Creatinine 1.5 mg/dL (0.7-1.2) H Estimat Glomerular Filtration Rate 46.7 mL/min (>60) Glucose Level 72 mg/dL (74-106) L Uric Acid 4.6 mg/dL (3.0-7.5) Calcium Level 8.4 mg/dL (8.6-10.2) L Phosphorus Level 4.0 mg/dL (2.5-4.8) Magnesium Level 1.9 mg/dL (1.7-2.5) Total Bilirubin 0.4 mg/dL (0.0-1.2) Aspartate Amino Transf (AST/SGOT) 40 U/L (5-40) Alanine Aminotransferase (ALT/SGPT) 34 U/L (3-41) Alkaline Phosphatase 108 U/L (40-129) C-Reactive Protein, Quantitative 1.5 mg/dL (< 0.5) H Pro-B-Type Natriuretic Peptide 78 pg/mL (0-125) Total Protein 6.2 g/dL (6.6-8.7) L Albumin 2.8 g/dL (3.5-5.2) L Globulin 3.4 g/dL Albumin/Globulin Ratio 0.8 (1.0-2.7) L Random Vancomycin Level 11.9 ug/mL Objective HEAD AND NECK: Shows no JVD. LUNGS: Coarse rhonchi CARDIOVASCULAR: Regular S1 and S2 with no gallop. ABDOMEN: soft EXTREMITIES: 2+ pitting edema. ANUEL PEMBEROTN May 08, 2017 17:38
[2017-05-08 20:00] VITALS: BP 143/89
--- NOTE | 2017-05-08 20:28 | General Progress Note ---
Assessment/Plan Assessment/Plan 1. Large pituitary mass, with mass effect, have reviewed the [facility] medical EMR and reviewed neurosurgery records, have also discussed with niece on phone on 05/04/17. He has multiple co-morbidities and neurosurgery there recommended initially a transphneoidal surgery at [facility] at a [facility], however given that he did not improve during his stay they then recommended hospice given multiple co-morbids and no surgical intervention. he does not have stage IV disease. Requires likely snf placement as per Dr. Rivas. 2. Anemia secondary to chronic disease. Continue to closely monitor. --> transfuse as needed, currently counts are stable --> hgb goal above 8 3. Thrombocytopenia, mostly related to underlying cirrhosis as well as sepsis. 4. Transaminitis, potentially secondary to underlying liver disease. 5. Liver nodule --> being followed by GI 6. Dysuria in the setting of chronic [place] catheter. --> improved 7. Pleural effusion evaluation by Pulmonary team. --> s/p paracenteses 8. Coagulopathy, potentially secondary to underlying liver disease. 9. Health care associated pneumonia --> on abx per ID Subjective Constitutional: Reports: no symptoms HEENT: Reports: no symptoms Cardiovascular: Reports: no symptoms Respiratory: Reports: no symptoms Gastrointestinal/Abdominal: Reports: no symptoms Genitourinary: Reports: no symptoms Neurologic/Psychiatric: Reports: no symptoms Endocrine: Reports: no symptoms Hematologic/Lymphatic: Reports: anemia Allergies: Coded Allergies: No Known Allergies (Unverified , 04/30/17) Subjective NAD Objective Last 24 Hour Vital Signs Date Time Temp Pulse Resp B/P Pulse Ox O2 Delivery O2 Flow Rate FiO2 05/08/17 20:21 65 18 Nasal Cannula 3.0 05/08/17 20:21 Nasal Cannula 3.0 32 05/08/17 20:21 95 Nasal Cannula 3.0 05/08/17 09:28 66 128/80 05/08/17 08:12 Nasal Cannula 3.0 32 05/08/17 08:12 94 Nasal Cannula 3.0 05/08/17 08:11 66 18 Nasal Cannula 3.0 05/08/17 08:00 97.6 68 17 128/80 93 Room Air 05/08/17 04:00 97.9 65 17 134/72 96 Room Air 05/08/17 00:00 98.0 64 18 136/77 95 Room Air 05/07/17 20:47 54 128/66 Intake and Output 05/07/17 05/08/17 19:00 07:00 Intake Total 900 ml 960 ml Output Total 400 ml 450 ml Balance 500 ml 510 ml Intake Oral 900 ml 960 ml Output Urine Total 400 ml 450 ml # Bowel Movements 2 Laboratory Tests 05/08/17 05:05: White Blood Count 4.9, Red Blood Count 4.25L, Hemoglobin 13.5L, Hematocrit 40.5L , Mean Corpuscular Volume 95, Mean Corpuscular Hemoglobin 31.8H, Mean Corpuscular Hemoglobin Concent 33.3, Red Cell Distribution Width 14.8, Platelet Count 98L, Mean Platelet Volume 6.6, Neutrophils (%) (Auto) , Lymphocytes (%) ( Auto) , Monocytes (%) (Auto) , Eosinophils (%) (Auto) , Basophils (%) (Auto) , Differential Total Cells Counted 100, Neutrophils % (Manual) 58, Lymphocytes % ( Manual) 24, Monocytes % (Manual) 10, Eosinophils % (Manual) 8H, Basophils % ( Manual) 0, Band Neutrophils 0, Platelet Estimate DecreasedL, Platelet Morphology Normal, Anisocytosis Occasional, Microcytosis , Sodium Level 130L, Potassium Level 4.7, Chloride Level 97L, Carbon Dioxide Level 23, Anion Gap 10, Blood Urea Nitrogen 24H, Creatinine 1.5H, Estimat Glomerular Filtration Rate 46.7, Glucose Level 72L, Uric Acid 4.6, Calcium Level 8.4L, Phosphorus Level 4.0 , Magnesium Level 1.9, Total Bilirubin 0.4, Aspartate Amino Transf (AST/SGOT) 40 , Alanine Aminotransferase (ALT/SGPT) 34, Alkaline Phosphatase 108, C-Reactive Protein, Quantitative 1.5H, Pro-B-Type Natriuretic Peptide 78, Total Protein 6.2L, Albumin 2.8L, Globulin 3.4, Albumin/Globulin Ratio 0.8L, Random Vancomycin Level 11.9 Height (Feet): 5 Height (Inches): 9.00 Weight (Pounds): 170 General Appearance: no apparent distress EENT: TMs normal Cardiovascular: no gallop/murmur Abdomen: no mass 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
--- NOTE | 2017-05-08 20:46 | General Progress Note ---
Assessment/Plan Problem List: (1) Chest pain ICD Codes: R07.9 - Chest pain, unspecified SNOMED: 47582835 Qualifiers: Qualified Codes: R07.9 - Chest pain, unspecified (2) Pleural effusion on right ICD Codes: J90 - Pleural effusion, not elsewhere classified SNOMED: 35595823 (3) Cirrhosis ICD Codes: K74.60 - Unspecified cirrhosis of liver SNOMED: 97739864 (4) Hepatic encephalopathy ICD Codes: K72.90 - Hepatic failure, unspecified without coma SNOMED: 45059703 (5) HTN (hypertension) ICD Codes: I10 - Essential (primary) hypertension SNOMED: 18207814 Status: progressing Assessment/Plan afebrile vitals holdin thoracocentesis reivewed chart and labs massive pleural effusion no bleeding etoh abuse cirrhosis Subjective Constitutional: Reports: no symptoms Allergies: Coded Allergies: No Known Allergies (Unverified , 04/30/17) Objective Last 24 Hour Vital Signs Date Time Temp Pulse Resp B/P Pulse Ox O2 Delivery O2 Flow Rate FiO2 05/08/17 20:21 65 18 Nasal Cannula 3.0 05/08/17 20:21 Nasal Cannula 3.0 32 05/08/17 20:21 95 Nasal Cannula 3.0 05/08/17 09:28 66 128/80 05/08/17 08:12 Nasal Cannula 3.0 32 05/08/17 08:12 94 Nasal Cannula 3.0 05/08/17 08:11 66 18 Nasal Cannula 3.0 05/08/17 08:00 97.6 68 17 128/80 93 Room Air 05/08/17 04:00 97.9 65 17 134/72 96 Room Air 05/08/17 00:00 98.0 64 18 136/77 95 Room Air 05/07/17 20:47 54 128/66 Intake and Output 05/07/17 05/08/17 19:00 07:00 Intake Total 900 ml 960 ml Output Total 400 ml 450 ml Balance 500 ml 510 ml Intake Oral 900 ml 960 ml Output Urine Total 400 ml 450 ml # Bowel Movements 2 Laboratory Tests 05/08/17 05:05: White Blood Count 4.9, Red Blood Count 4.25L, Hemoglobin 13.5L, Hematocrit 40.5L , Mean Corpuscular Volume 95, Mean Corpuscular Hemoglobin 31.8H, Mean Corpuscular Hemoglobin Concent 33.3, Red Cell Distribution Width 14.8, Platelet Count 98L, Mean Platelet Volume 6.6, Neutrophils (%) (Auto) , Lymphocytes (%) ( Auto) , Monocytes (%) (Auto) , Eosinophils (%) (Auto) , Basophils (%) (Auto) , Differential Total Cells Counted 100, Neutrophils % (Manual) 58, Lymphocytes % ( Manual) 24, Monocytes % (Manual) 10, Eosinophils % (Manual) 8H, Basophils % ( Manual) 0, Band Neutrophils 0, Platelet Estimate DecreasedL, Platelet Morphology Normal, Anisocytosis Occasional, Microcytosis , Sodium Level 130L, Potassium Level 4.7, Chloride Level 97L, Carbon Dioxide Level 23, Anion Gap 10, Blood Urea Nitrogen 24H, Creatinine 1.5H, Estimat Glomerular Filtration Rate 46.7, Glucose Level 72L, Uric Acid 4.6, Calcium Level 8.4L, Phosphorus Level 4.0 , Magnesium Level 1.9, Total Bilirubin 0.4, Aspartate Amino Transf (AST/SGOT) 40 , Alanine Aminotransferase (ALT/SGPT) 34, Alkaline Phosphatase 108, C-Reactive Protein, Quantitative 1.5H, Pro-B-Type Natriuretic Peptide 78, Total Protein 6.2L, Albumin 2.8L, Globulin 3.4, Albumin/Globulin Ratio 0.8L, Random Vancomycin Level 11.9 Height (Feet): 5 Height (Inches): 9.00 Weight (Pounds): 170 Respiratory/Chest: lungs clear Edna Rivas MD May 08, 2017 20:46
[2017-05-08] MEDS: Haloperidol 1mg tab ORAL PRN (21:54)
[2017-05-09] VITALS: BP 132/81
[2017-05-09 04:00] VITALS: BP 147/92
[2017-05-09] MEDS: Haloperidol 1mg tab ORAL PRN ×2 (04:59→21:37)
[2017-05-09 06:25] LABS: BASOPHILS % (AUTO) 1.2 % (0.0-2.0); EOSINOPHILS % (AUTO) 6.9 % (0.0-3.0); LYMPHOCYTES % (AUTO) 30.5 % (20.0-45.0); MEAN CORPUSCULAR HEMOGLOBIN 31.7 PG (27.0-31.0); MEAN CORPUSCULAR HGB CONC 33.1 G/DL (32.0-36.0); MEAN CORPUSCULAR VOLUME 96 FL (80-99); MEAN PLATELET VOLUME 5.2 FL (6.5-10.1); NEUTROPHILS % (AUTO) 49.3 % (45.0-75.0); PLATELET COUNT 102 K/UL (150-450); RED BLOOD COUNT 4.18 M/UL (4.70-6.10); RED CELL DISTRIBUTION WIDTH 15.1 % (11.6-14.8); WHITE BLOOD COUNT 4.2 K/UL (4.8-10.8)
[2017-05-09 06:37] LABS: ANION GAP 11 (5-15); CALCIUM 8.3 mg/dL (8.6-10.2); CARBON DIOXIDE 25 mEQ/L (20-30); CHLORIDE 98 mEQ/L (98-107); CREATININE 1.1 mg/dL (0.7-1.2); GLOMERULAR FILTRATION RATE > 60 mL/min (>60); HEMOLYSIS 7; POTASSIUM 4.3 mEQ/L (3.4-4.9); SODIUM 134 mEQ/L (135-145)
[2017-05-09 07:46] VITALS: BP 139/83
[2017-05-09] MEDS: Docusate 100mg cap ORAL SCH ×2 (11:07→17:10)
[2017-05-09] MEDS: Metoprolol 25mg tab ORAL SCH ×2 (11:09→21:38)
[2017-05-09] MEDS: Lactulose 20gm/30ml UDC ORAL SCH (11:09)
--- NOTE | 2017-05-09 11:24 | General Progress Note ---
Assessment/Plan Status: stable Status Narrative K 134 Assessment/Plan Status: Acute Renal failure- High Vanco level, now WNL History of Brain tumor Was on Hospice at [facility] Admitted with chest pain Has pleural effusion right side Has shepard for urinary retention Has Pneumonia Has Transaminitis Cirrhosis / Splenomegaly / Liver mass 2+ Proteinuria HTN HypoThyroidism Plan: ? DC- stable from renal stand- Adjust BP meds- 2D echo results? Ejfx 70% Per consultants Subjective ROS Limited/Unobtainable: No Allergies: Coded Allergies: No Known Allergies (Unverified , 04/30/17) Objective Last 24 Hour Vital Signs Date Time Temp Pulse Resp B/P Pulse Ox O2 Delivery O2 Flow Rate FiO2 05/09/17 11:09 71 139/83 05/09/17 08:06 71 18 Nasal Cannula 3.0 05/09/17 08:06 Nasal Cannula 3.0 32 05/09/17 08:06 94 Nasal Cannula 3.0 05/09/17 07:46 97.2 63 20 139/83 93 Room Air 05/09/17 04:00 94.5 65 21 147/92 94 Room Air 05/09/17 00:00 97.1 58 18 132/81 94 Room Air 05/08/17 21:53 56 143/89 05/08/17 20:21 65 18 Nasal Cannula 3.0 05/08/17 20:21 Nasal Cannula 3.0 32 05/08/17 20:21 95 Nasal Cannula 3.0 05/08/17 20:00 97.2 56 18 143/89 92 Room Air Intake and Output 05/08/17 05/09/17 19:00 07:00 Intake Total 150 ml 400 ml Output Total 5 ml Balance 150 ml 395 ml Intake Oral 400 ml IV Total 150 ml Output Urine Total 5 ml # Bowel Movements 4 Laboratory Tests 05/09/17 05:10: White Blood Count 4.2L, Red Blood Count 4.18L, Hemoglobin 13.2L, Hematocrit 40.0L, Mean Corpuscular Volume 96, Mean Corpuscular Hemoglobin 31.7H, Mean Corpuscular Hemoglobin Concent 33.1, Red Cell Distribution Width 15.1H, Platelet Count 102L, Mean Platelet Volume 5.2L, Neutrophils (%) (Auto) 49.3, Lymphocytes (%) (Auto) 30.5, Monocytes (%) (Auto) 12.0H, Eosinophils (%) (Auto) 6.9H, Basophils (%) (Auto) 1.2, Sodium Level 134L, Potassium Level 4.3, Chloride Level 98, Carbon Dioxide Level 25, Anion Gap 11, Blood Urea Nitrogen 21 , Creatinine 1.1, Estimat Glomerular Filtration Rate > 60, Glucose Level 82, Calcium Level 8.3L Height (Feet): 5 Height (Inches): 9.00 Weight (Pounds): 170 General Appearance: no apparent distress Cardiovascular: normal rate Abdomen: soft Objective PE not changed KELLY MUÑIZ May 09, 2017 11:24
[2017-05-09 12:00] VITALS: BP 139/86
--- NOTE | 2017-05-09 12:38 | GI Progress Note ---
Assessment/Plan Problems: (1) Liver nodule ICD Codes: K76.89 - Other specified diseases of liver SNOMED: 267309214 (2) Cirrhosis ICD Codes: K74.60 - Unspecified cirrhosis of liver SNOMED: 50390922 Status: stable Status Narrative Discussed with Dr. Telles. Assessment/Plan abdominal U/S >> Suspicion of chronic liver disease/cirrhosis. Stigmata of portal hypertension including splenomegaly and trace ascites. ammonia WNL >> cont lactulose MRI reviewed > unremarkable hepatitis panel >> negative AFP elevation >> 11.3 s/p paracentesis with ~ 4L yield. ok for DC per GI standpoint >> outpatient GI procedures stable H&H, prn transfusions H2B monitor LFTs fu labs Subjective Subjective limited no symptoms Objective Last 24 Hour Vital Signs Date Time Temp Pulse Resp B/P Pulse Ox O2 Delivery O2 Flow Rate FiO2 05/09/17 11:09 71 139/83 05/09/17 08:06 71 18 Nasal Cannula 3.0 05/09/17 08:06 Nasal Cannula 3.0 32 05/09/17 08:06 94 Nasal Cannula 3.0 05/09/17 07:46 97.2 63 20 139/83 93 Room Air 05/09/17 04:00 94.5 65 21 147/92 94 Room Air 05/09/17 00:00 97.1 58 18 132/81 94 Room Air 05/08/17 21:53 56 143/89 05/08/17 20:21 65 18 Nasal Cannula 3.0 05/08/17 20:21 Nasal Cannula 3.0 32 05/08/17 20:21 95 Nasal Cannula 3.0 05/08/17 20:00 97.2 56 18 143/89 92 Room Air Intake and Output 05/08/17 05/09/17 19:00 07:00 Intake Total 150 ml 400 ml Output Total 5 ml Balance 150 ml 395 ml Intake Oral 400 ml IV Total 150 ml Output Urine Total 5 ml # Bowel Movements 4 Laboratory Tests Test 05/09/17 05:10 White Blood Count 4.2 K/UL (4.8-10.8) L Red Blood Count 4.18 M/UL (4.70-6.10) L Hemoglobin 13.2 G/DL (14.2-18.0) L Hematocrit 40.0 % (42.0-52.0) L Mean Corpuscular Volume 96 FL (80-99) Mean Corpuscular Hemoglobin 31.7 PG (27.0-31.0) H Mean Corpuscular Hemoglobin Concent 33.1 G/DL (32.0-36.0) Red Cell Distribution Width 15.1 % (11.6-14.8) H Platelet Count 102 K/UL (150-450) L Mean Platelet Volume 5.2 FL (6.5-10.1) L Neutrophils (%) (Auto) 49.3 % (45.0-75.0) Lymphocytes (%) (Auto) 30.5 % (20.0-45.0) Monocytes (%) (Auto) 12.0 % (1.0-10.0) H Eosinophils (%) (Auto) 6.9 % (0.0-3.0) H Basophils (%) (Auto) 1.2 % (0.0-2.0) Sodium Level 134 mEQ/L (135-145) L Potassium Level 4.3 mEQ/L (3.4-4.9) Chloride Level 98 mEQ/L (98-107) Carbon Dioxide Level 25 mEQ/L (20-30) Anion Gap 11 (5-15) Blood Urea Nitrogen 21 mg/dL (7-23) Creatinine 1.1 mg/dL (0.7-1.2) Estimat Glomerular Filtration Rate > 60 mL/min (>60) Glucose Level 82 mg/dL (74-106) Calcium Level 8.3 mg/dL (8.6-10.2) L Microbiology Date/Time Source Procedure Growth Status 05/09/17 00:30 Stool Clostridium difficile Toxin Assay - Final Complete Height (Feet): 5 Height (Inches): 9.00 Weight (Pounds): 170 General Appearance: no apparent distress, alert Cardiovascular: normal rate Respiratory/Chest: normal breath sounds Abdominal Exam: normal bowel sounds, non tender, soft Yesi Shell NWill May 09, 2017 12:38
--- NOTE | 2017-05-09 14:19 | Pulmonology Progress Note ---
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, with mass effect (5) HTN (hypertension) (6) Dysuria (7) Cirrhosis Assessment/Plan symptomatic treatmet titrate fio2 to sat of 92% inoperable brain tumor alpha feto protein increased dc planning Subjective ROS Limited/Unobtainable: Yes Allergies: Coded Allergies: No Known Allergies (Unverified , 04/30/17) Objective Last 24 Hour Vital Signs Date Time Temp Pulse Resp B/P Pulse Ox O2 Delivery O2 Flow Rate FiO2 05/09/17 12:00 97.2 62 18 139/86 93 Room Air 05/09/17 11:09 71 139/83 05/09/17 08:06 71 18 Nasal Cannula 3.0 05/09/17 08:06 Nasal Cannula 3.0 32 05/09/17 08:06 94 Nasal Cannula 3.0 05/09/17 07:46 97.2 63 20 139/83 93 Room Air 05/09/17 04:00 94.5 65 21 147/92 94 Room Air 05/09/17 00:00 97.1 58 18 132/81 94 Room Air 05/08/17 21:53 56 143/89 05/08/17 20:21 65 18 Nasal Cannula 3.0 05/08/17 20:21 Nasal Cannula 3.0 32 05/08/17 20:21 95 Nasal Cannula 3.0 05/08/17 20:00 97.2 56 18 143/89 92 Room Air Intake and Output 05/08/17 05/09/17 19:00 07:00 Intake Total 150 ml 400 ml Output Total 5 ml Balance 150 ml 395 ml Intake Oral 400 ml IV Total 150 ml Output Urine Total 5 ml # Bowel Movements 4 Objective General Appearance: WD/WN HEENT: normocephalic, atraumatic Respiratory/Chest: chest wall non-tender, lungs clear Breasts: no masses Cardiovascular: normal peripheral pulses, normal rate Abdomen: normal bowel sounds, soft, non tender Genitourinary: normal external genitalia Extremities: no cyanosis, +edema Skin: no rash Lymphatic: no groin adenopathy Microbiology Date/Time Source Procedure Growth Status 05/09/17 00:30 Stool Clostridium difficile Toxin Assay - Final Complete Laboratory Tests 05/09/17 05:10: White Blood Count 4.2L, Red Blood Count 4.18L, Hemoglobin 13.2L, Hematocrit 40.0L, Mean Corpuscular Volume 96, Mean Corpuscular Hemoglobin 31.7H, Mean Corpuscular Hemoglobin Concent 33.1, Red Cell Distribution Width 15.1H, Platelet Count 102L, Mean Platelet Volume 5.2L, Neutrophils (%) (Auto) 49.3, Lymphocytes (%) (Auto) 30.5, Monocytes (%) (Auto) 12.0H, Eosinophils (%) (Auto) 6.9H, Basophils (%) (Auto) 1.2, Sodium Level 134L, Potassium Level 4.3, Chloride Level 98, Carbon Dioxide Level 25, Anion Gap 11, Blood Urea Nitrogen 21 , Creatinine 1.1, Estimat Glomerular Filtration Rate > 60, Glucose Level 82, Calcium Level 8.3L Current Medications Medications (Trade) Dose Ordered Sig/Tj Route PRN Reason Start Time Stop Time Status Last Admin Dose Admin Albuterol Sulfate (Proventil MDI) 1 puff Q6H PRN INH Shortness of Breath 05/04/17 20:00 06/03/17 19:59 Albuterol/ Ipratropium (DuoNeb 0.5-3(2.5)mg/3ml) 3 ml Q4H PRN HHN Shortness of Breath 05/04/17 19:00 05/09/17 18:59 Docusate Sodium (Colace) 100 mg TWICE A DAY ORAL 05/04/17 18:00 06/03/17 17:59 05/09/17 11:07 Ergocalciferol (Drisdol) 50,000 intlu QWEEK ORAL 05/09/17 16:00 06/08/17 15:59 Haloperidol (Haldol) 1 mg Q6H PRN ORAL AGITATION 05/04/17 18:00 06/03/17 17:59 05/09/17 04:59 Lactulose (Cephulac) 40 gm DAILY ORAL 05/05/17 09:00 06/04/17 08:59 05/09/17 11:09 Levothyroxine Sodium (Synthroid) 50 mcg ACBREAKFAST ORAL 05/05/17 06:30 06/04/17 06:29 05/09/17 04:59 Metoprolol Tartrate (Lopressor) 12.5 mg EVERY 12 HOURS ORAL 05/05/17 21:00 06/04/17 20:59 05/09/17 11:09 Morphine Sulfate (Morphine Sulfate) 0.5 mg Q4H PRN IV For Pain 4-10 05/04/17 17:00 05/11/17 16:59 05/07/17 17:29 Phenazopyridine HCl (Pyridium) 100 mg BID ORAL 05/04/17 18:00 05/11/17 17:59 05/09/17 11:08 Ranitidine HCl (Zantac) 150 mg DAILY ORAL 05/09/17 09:00 06/03/17 17:59 05/09/17 11:08 PRAVEEN DAVIS May 09, 2017 14:19
[2017-05-09 15:57] VITALS: BP 145/78
[2017-05-09] MEDS ORDERED: Vitamin D 50,000 units cap ORAL SCH (16:00)
--- NOTE | 2017-05-09 16:01 | Infectious Diseases Prog Note ---
Assessment/Plan Problems: (1) HCAP (healthcare-associated pneumonia) Assessment & Plan: with productive cough improved, , S/P vancomycin and cefepime for 7 days, doing well off antibiotics. monitor CXR (2) Pleural effusion on right Assessment & Plan: with near complete right lung collapse on CT chest , S/P large fluids removal with thoracentesis. no fluids was sent for culture , fungal ,or AFB. 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 , but high risk for surgery , recommend palliative care (4) Diarrhea Assessment & Plan: due to lactulose, C diff toxin is negative . (5) s/p multiple lacunar strokes Assessment & Plan: , continue PT/OT , neurology is following (6) Cirrhosis Assessment & Plan: with liver mass and elevated alpha feto protein , suspect HCC, has poor prognosis , GI is following (7) Hepatic encephalopathy Assessment & Plan: on lactulose , monitor ammonia level Subjective Constitutional: Reports: no symptoms HEENT: Reports: no symptoms Respiratory: Reports: dry cough Breasts: Reports: no symptoms Cardiovascular: Reports: no symptoms Gastrointestinal/Abdominal: Reports: no symptoms Genitourinary: Reports: no symptoms Neurologic: Reports: confusion, weakness Psychiatric: Reports: depression Skin: Reports: no symptoms Endocrine: Reports: no symptoms Hematologic: Reports: no symptoms Allergies: Coded Allergies: No Known Allergies (Unverified , 04/30/17) Subjective he was lethargic and altered, sedated , dosen't follow commands Objective Vital Signs Last 24 Hour Vital Signs Date Time Temp Pulse Resp B/P Pulse Ox O2 Delivery O2 Flow Rate FiO2 05/09/17 12:00 97.2 62 18 139/86 93 Room Air 05/09/17 11:09 71 139/83 05/09/17 08:06 71 18 Nasal Cannula 3.0 05/09/17 08:06 Nasal Cannula 3.0 32 05/09/17 08:06 94 Nasal Cannula 3.0 05/09/17 07:46 97.2 63 20 139/83 93 Room Air 05/09/17 04:00 94.5 65 21 147/92 94 Room Air 05/09/17 00:00 97.1 58 18 132/81 94 Room Air 05/08/17 21:53 56 143/89 05/08/17 20:21 65 18 Nasal Cannula 3.0 05/08/17 20:21 Nasal Cannula 3.0 32 05/08/17 20:21 95 Nasal Cannula 3.0 05/08/17 20:00 97.2 56 18 143/89 92 Room Air Height (Feet): 5 Height (Inches): 9.00 Weight (Pounds): 170 General Appearance: WD/WN, no acute distress HEENT: normocephalic, atraumatic, anicteric, mucous membranes moist, supple Respiratory/Chest: no respiratory distress, no accessory muscle use, decreased breath sounds, crackles/rales Cardiovascular: normal peripheral pulses, normal rate, regular rhythm, no gallop/murmur, no JVD Abdomen: normal bowel sounds, soft, non tender, no organomegaly, non distended , no mass, no scars Extremities: no cyanosis, no clubbing Skin: no rash, no lesions Neurologic/Psychiatric: alert, responsive Lymphatic: no neck adenopathy, no groin adenopathy Microbiology Date/Time Source Procedure Growth Status 05/09/17 00:30 Stool Clostridium difficile Toxin Assay - Final Complete Laboratory Tests Test 05/09/17 05:10 White Blood Count 4.2 K/UL (4.8-10.8) L Red Blood Count 4.18 M/UL (4.70-6.10) L Hemoglobin 13.2 G/DL (14.2-18.0) L Hematocrit 40.0 % (42.0-52.0) L Mean Corpuscular Volume 96 FL (80-99) Mean Corpuscular Hemoglobin 31.7 PG (27.0-31.0) H Mean Corpuscular Hemoglobin Concent 33.1 G/DL (32.0-36.0) Red Cell Distribution Width 15.1 % (11.6-14.8) H Platelet Count 102 K/UL (150-450) L Mean Platelet Volume 5.2 FL (6.5-10.1) L Neutrophils (%) (Auto) 49.3 % (45.0-75.0) Lymphocytes (%) (Auto) 30.5 % (20.0-45.0) Monocytes (%) (Auto) 12.0 % (1.0-10.0) H Eosinophils (%) (Auto) 6.9 % (0.0-3.0) H Basophils (%) (Auto) 1.2 % (0.0-2.0) Sodium Level 134 mEQ/L (135-145) L Potassium Level 4.3 mEQ/L (3.4-4.9) Chloride Level 98 mEQ/L (98-107) Carbon Dioxide Level 25 mEQ/L (20-30) Anion Gap 11 (5-15) Blood Urea Nitrogen 21 mg/dL (7-23) Creatinine 1.1 mg/dL (0.7-1.2) Estimat Glomerular Filtration Rate > 60 mL/min (>60) Glucose Level 82 mg/dL (74-106) Calcium Level 8.3 mg/dL (8.6-10.2) L Current Medications Medications (Trade) Dose Ordered Sig/Tj Route PRN Reason Start Time Stop Time Status Last Admin Dose Admin Albuterol Sulfate (Proventil MDI) 1 puff Q6H PRN INH Shortness of Breath 05/04/17 20:00 06/03/17 19:59 Albuterol/ Ipratropium (DuoNeb 0.5-3(2.5)mg/3ml) 3 ml Q4H PRN HHN Shortness of Breath 05/04/17 19:00 05/09/17 18:59 Docusate Sodium (Colace) 100 mg TWICE A DAY ORAL 05/04/17 18:00 06/03/17 17:59 05/09/17 11:07 Ergocalciferol (Drisdol) 50,000 intlu QWEEK ORAL 05/09/17 16:00 06/08/17 15:59 Haloperidol (Haldol) 1 mg Q6H PRN ORAL AGITATION 05/04/17 18:00 06/03/17 17:59 05/09/17 04:59 Lactulose (Cephulac) 40 gm DAILY ORAL 05/05/17 09:00 06/04/17 08:59 05/09/17 11:09 Levothyroxine Sodium (Synthroid) 50 mcg ACBREAKFAST ORAL 05/05/17 06:30 06/04/17 06:29 05/09/17 04:59 Metoprolol Tartrate (Lopressor) 12.5 mg EVERY 12 HOURS ORAL 05/05/17 21:00 06/04/17 20:59 05/09/17 11:09 Morphine Sulfate (Morphine Sulfate) 0.5 mg Q4H PRN IV For Pain 4-10 05/04/17 17:00 05/11/17 16:59 05/07/17 17:29 Phenazopyridine HCl (Pyridium) 100 mg BID ORAL 05/04/17 18:00 05/11/17 17:59 05/09/17 11:08 Ranitidine HCl (Zantac) 150 mg DAILY ORAL 05/09/17 09:00 06/03/17 17:59 05/09/17 11:08 Edda Gil M.D. May 09, 2017 16:01
[2017-05-09] MEDS: Albuterol 90mcg Inhaler 8gm INH PRN (16:10)
--- NOTE | 2017-05-09 17:22 | Cardiac Electrophysiology PN ---
Assessment/Plan Status Narrative Technically difficult study due to poor acoustic windows. Study quality precludes accurate assessment of regional wall motion. Normal left ventricular chamber size, systolic function and wall motion. Left ventricular ejection fraction estimated to be 70-75%. Moderate left ventricular hypertrophy. Mild posterior pericardial fat or effusion. Mild right atrial enlargement by 2D. Moderate left atrial enlargement by 2D. Focal aortic valve sclerosis with adequate cusp excursion Thickened mitral valve leaflets with normal excursion. Mitral annulus and aortic root calcification. Pulmonic valve not well visualized. Normal tricuspid valve structure. IVC is normal in size with physiologic collapse. A color flow and spectral Doppler study was performe Assessment/Plan 1. Chest pain due to Right sided pleural effusion, s/p thoracentesis 05/03/17. EF 70%. Better 2. Right pleural effusion likely secondary to healthcare-associated pneumonia. S /P Thoracentesis. 3. HTN on Lopressor 25 bid. 4. Liver cirrhosis and possible hepatocellular carcinoma. EGD as out patient by Dr. Telles . 5. Large pituitary mass, with mass effect. He has multiple co-morbidities and neurosurgery at [facility] recommended [facility], however given that he did not improve during his stay they then recommended hospice given multiple co-morbids and no surgical intervention. Follow up Dr Mckeon. 6. Anemia of chronic disease. [place] RN Subjective Subjective No chest pain or SOB. Alert in NAD. RN at bedside. DC planning in progress. Objective Last 24 Hour Vital Signs Date Time Temp Pulse Resp B/P Pulse Ox O2 Delivery O2 Flow Rate FiO2 05/09/17 16:11 75 18 95 Nasal Cannula 2.0 28 05/09/17 16:10 71 18 94 Nasal Cannula 2.0 28 05/09/17 15:57 97.2 63 20 145/78 95 Room Air 05/09/17 12:00 97.2 62 18 139/86 93 Room Air 05/09/17 11:09 71 139/83 05/09/17 08:06 71 18 Nasal Cannula 3.0 05/09/17 08:06 Nasal Cannula 3.0 32 05/09/17 08:06 94 Nasal Cannula 3.0 05/09/17 07:46 97.2 63 20 139/83 93 Room Air 05/09/17 04:00 94.5 65 21 147/92 94 Room Air 05/09/17 00:00 97.1 58 18 132/81 94 Room Air 05/08/17 21:53 56 143/89 05/08/17 20:21 65 18 Nasal Cannula 3.0 05/08/17 20:21 Nasal Cannula 3.0 32 05/08/17 20:21 95 Nasal Cannula 3.0 05/08/17 20:00 97.2 56 18 143/89 92 Room Air Intake and Output 05/08/17 05/09/17 19:00 07:00 Intake Total 150 ml 400 ml Output Total 5 ml Balance 150 ml 395 ml Intake Oral 400 ml IV Total 150 ml Output Urine Total 5 ml # Bowel Movements 4 Laboratory Tests Test 05/09/17 05:10 White Blood Count 4.2 K/UL (4.8-10.8) L Red Blood Count 4.18 M/UL (4.70-6.10) L Hemoglobin 13.2 G/DL (14.2-18.0) L Hematocrit 40.0 % (42.0-52.0) L Mean Corpuscular Volume 96 FL (80-99) Mean Corpuscular Hemoglobin 31.7 PG (27.0-31.0) H Mean Corpuscular Hemoglobin Concent 33.1 G/DL (32.0-36.0) Red Cell Distribution Width 15.1 % (11.6-14.8) H Platelet Count 102 K/UL (150-450) L Mean Platelet Volume 5.2 FL (6.5-10.1) L Neutrophils (%) (Auto) 49.3 % (45.0-75.0) Lymphocytes (%) (Auto) 30.5 % (20.0-45.0) Monocytes (%) (Auto) 12.0 % (1.0-10.0) H Eosinophils (%) (Auto) 6.9 % (0.0-3.0) H Basophils (%) (Auto) 1.2 % (0.0-2.0) Sodium Level 134 mEQ/L (135-145) L Potassium Level 4.3 mEQ/L (3.4-4.9) Chloride Level 98 mEQ/L (98-107) Carbon Dioxide Level 25 mEQ/L (20-30) Anion Gap 11 (5-15) Blood Urea Nitrogen 21 mg/dL (7-23) Creatinine 1.1 mg/dL (0.7-1.2) Estimat Glomerular Filtration Rate > 60 mL/min (>60) Glucose Level 82 mg/dL (74-106) Calcium Level 8.3 mg/dL (8.6-10.2) L Microbiology Date/Time Source Procedure Growth Status 05/09/17 00:30 Stool Clostridium difficile Toxin Assay - Final Complete Objective HEAD AND NECK: Shows no JVD. LUNGS: Coarse rhonchi CARDIOVASCULAR: Regular S1 and S2 with no murmur. ABDOMEN: soft EXTREMITIES: 2+ pitting edema. ANUEL PEMBERTON May 09, 2017 17:22
--- NOTE | 2017-05-09 18:08 | General Progress Note ---
Assessment/Plan Assessment/Plan 1. Large pituitary mass, with mass effect, have reviewed the [facility] and reviewed neurosurgery records, have also discussed with niece on phone on 05/04/17. He has multiple co-morbidities and neurosurgery there recommended initially a transphneoidal surgery [facility], however given that he did not improve during his stay they then recommended hospice given multiple co-morbids and no surgical intervention. he does not have stage IV disease. Requires likely snf placement as per Dr. Rivas. 2. Anemia secondary to chronic disease. Continue to closely monitor. --> transfuse as needed, currently counts are stable --> hgb goal above 8 3. Thrombocytopenia, mostly related to underlying cirrhosis as well as sepsis. 4. Transaminitis, potentially secondary to underlying liver disease. 5. Liver nodule --> being followed by GI 6. Dysuria in the setting of chronic [place] catheter. --> improved 7. Pleural effusion evaluation by Pulmonary team. --> s/p paracenteses 8. Coagulopathy, potentially secondary to underlying liver disease. --> monitor 9. Health care associated pneumonia --> on abx per ID Subjective Constitutional: Reports: no symptoms HEENT: Reports: no symptoms Cardiovascular: Reports: no symptoms Respiratory: Reports: no symptoms Gastrointestinal/Abdominal: Reports: no symptoms Genitourinary: Reports: no symptoms Neurologic/Psychiatric: Reports: no symptoms Endocrine: Reports: no symptoms Hematologic/Lymphatic: Reports: anemia, no symptoms Allergies: Coded Allergies: No Known Allergies (Unverified , 04/30/17) Subjective dc planning in progress Objective Last 24 Hour Vital Signs Date Time Temp Pulse Resp B/P Pulse Ox O2 Delivery O2 Flow Rate FiO2 05/09/17 16:11 75 18 95 Nasal Cannula 2.0 28 05/09/17 16:10 71 18 94 Nasal Cannula 2.0 28 05/09/17 15:57 97.2 63 20 145/78 95 Room Air 05/09/17 12:00 97.2 62 18 139/86 93 Room Air 05/09/17 11:09 71 139/83 05/09/17 08:06 71 18 Nasal Cannula 3.0 05/09/17 08:06 Nasal Cannula 3.0 32 05/09/17 08:06 94 Nasal Cannula 3.0 05/09/17 07:46 97.2 63 20 139/83 93 Room Air 05/09/17 04:00 94.5 65 21 147/92 94 Room Air 05/09/17 00:00 97.1 58 18 132/81 94 Room Air 05/08/17 21:53 56 143/89 05/08/17 20:21 65 18 Nasal Cannula 3.0 05/08/17 20:21 Nasal Cannula 3.0 32 05/08/17 20:21 95 Nasal Cannula 3.0 05/08/17 20:00 97.2 56 18 143/89 92 Room Air Intake and Output 05/08/17 05/09/17 19:00 07:00 Intake Total 150 ml 400 ml Output Total 5 ml Balance 150 ml 395 ml Intake Oral 400 ml IV Total 150 ml Output Urine Total 5 ml # Bowel Movements 4 Laboratory Tests 05/09/17 05:10: White Blood Count 4.2L, Red Blood Count 4.18L, Hemoglobin 13.2L, Hematocrit 40.0L, Mean Corpuscular Volume 96, Mean Corpuscular Hemoglobin 31.7H, Mean Corpuscular Hemoglobin Concent 33.1, Red Cell Distribution Width 15.1H, Platelet Count 102L, Mean Platelet Volume 5.2L, Neutrophils (%) (Auto) 49.3, Lymphocytes (%) (Auto) 30.5, Monocytes (%) (Auto) 12.0H, Eosinophils (%) (Auto) 6.9H, Basophils (%) (Auto) 1.2, Sodium Level 134L, Potassium Level 4.3, Chloride Level 98, Carbon Dioxide Level 25, Anion Gap 11, Blood Urea Nitrogen 21 , Creatinine 1.1, Estimat Glomerular Filtration Rate > 60, Glucose Level 82, Calcium Level 8.3L Height (Feet): 5 Height (Inches): 9.00 Weight (Pounds): 170 General Appearance: lethargic EENT: TMs normal Neck: normal inspection Cardiovascular: no gallop/murmur Respiratory/Chest: respiratory distress Edema: no edema noted Pedal (L), no edema noted Pedal (R) Neurologic: budget engineer II-XII grossly normal Wes Johnston May 09, 2017 18:08
[2017-05-09 20:00] VITALS: BP 149/97
--- NOTE | 2017-05-09 20:33 | General Progress Note ---
Assessment/Plan Problem List: (1) Chest pain ICD Codes: R07.9 - Chest pain, unspecified SNOMED: 61560691 Qualifiers: Qualified Codes: R07.9 - Chest pain, unspecified (2) Pleural effusion on right ICD Codes: J90 - Pleural effusion, not elsewhere classified SNOMED: 96803591 (3) Cirrhosis ICD Codes: K74.60 - Unspecified cirrhosis of liver SNOMED: 65845502 (4) Hepatic encephalopathy ICD Codes: K72.90 - Hepatic failure, unspecified without coma SNOMED: 78278979 (5) HTN (hypertension) ICD Codes: I10 - Essential (primary) hypertension SNOMED: 39911473 Status: progressing Assessment/Plan no sob check lytes s/p thoracocentesis reivewed chart and labs massive pleural effusion etoh abuse cirrhosis Subjective ROS Limited/Unobtainable: Yes Allergies: Coded Allergies: No Known Allergies (Unverified , 04/30/17) Objective Last 24 Hour Vital Signs Date Time Temp Pulse Resp B/P Pulse Ox O2 Delivery O2 Flow Rate FiO2 05/09/17 20:00 97.2 63 20 149/97 96 Nasal Cannula 05/09/17 16:11 75 18 95 Nasal Cannula 2.0 28 05/09/17 16:10 71 18 94 Nasal Cannula 2.0 28 05/09/17 15:57 97.2 63 20 145/78 95 Room Air 05/09/17 12:00 97.2 62 18 139/86 93 Room Air 05/09/17 11:09 71 139/83 05/09/17 08:06 71 18 Nasal Cannula 3.0 05/09/17 08:06 Nasal Cannula 3.0 32 05/09/17 08:06 94 Nasal Cannula 3.0 05/09/17 07:46 97.2 63 20 139/83 93 Room Air 05/09/17 04:00 94.5 65 21 147/92 94 Room Air 05/09/17 00:00 97.1 58 18 132/81 94 Room Air 05/08/17 21:53 56 143/89 Intake and Output 05/08/17 05/09/17 19:00 07:00 Intake Total 150 ml 400 ml Output Total 5 ml Balance 150 ml 395 ml Intake Oral 400 ml IV Total 150 ml Output Urine Total 5 ml # Bowel Movements 4 Laboratory Tests 05/09/17 05:10: White Blood Count 4.2L, Red Blood Count 4.18L, Hemoglobin 13.2L, Hematocrit 40.0L, Mean Corpuscular Volume 96, Mean Corpuscular Hemoglobin 31.7H, Mean Corpuscular Hemoglobin Concent 33.1, Red Cell Distribution Width 15.1H, Platelet Count 102L, Mean Platelet Volume 5.2L, Neutrophils (%) (Auto) 49.3, Lymphocytes (%) (Auto) 30.5, Monocytes (%) (Auto) 12.0H, Eosinophils (%) (Auto) 6.9H, Basophils (%) (Auto) 1.2, Sodium Level 134L, Potassium Level 4.3, Chloride Level 98, Carbon Dioxide Level 25, Anion Gap 11, Blood Urea Nitrogen 21 , Creatinine 1.1, Estimat Glomerular Filtration Rate > 60, Glucose Level 82, Calcium Level 8.3L Height (Feet): 5 Height (Inches): 9.00 Weight (Pounds): 170 Neck: supple Respiratory/Chest: no respiratory distress Abdomen: soft Edna Rivas MD May 09, 2017 20:33
[2017-05-10] VITALS: BP 154/79
[2017-05-10 04:00] VITALS: BP 141/79
[2017-05-10 07:17] LABS: MEAN CORPUSCULAR HEMOGLOBIN 30.4 PG (27.0-31.0); MEAN CORPUSCULAR HGB CONC 31.8 G/DL (32.0-36.0); MEAN CORPUSCULAR VOLUME 96 FL (80-99); MEAN PLATELET VOLUME 5.2 FL (6.5-10.1); PLATELET COUNT 99 K/UL (150-450); RED BLOOD COUNT 4.19 M/UL (4.70-6.10); RED CELL DISTRIBUTION WIDTH 14.9 % (11.6-14.8); WHITE BLOOD COUNT 4.3 K/UL (4.8-10.8)
[2017-05-10 08:00] VITALS: BP 145/99
[2017-05-10] MEDS: Lactulose 20gm/30ml UDC ORAL SCH (08:17)
[2017-05-10] MEDS: Docusate 100mg cap ORAL SCH ×2 (08:18→17:35)
[2017-05-10] MEDS: Metoprolol 25mg tab ORAL SCH ×2 (08:19→20:54)
[2017-05-10 08:32] LABS: BAND NEUTROPHILS % (MANUAL) 2 % (0-8); EOSINOPHILS % (MANUAL) 6 % (0-3); LYMPHOCYTES % (MANUAL) 49 % (20-45); NEUTROPHILS % (MANUAL) 37 % (45-75); TOTAL CELLS COUNTED 100
[2017-05-10] MEDS: Haloperidol 1mg tab ORAL PRN ×2 (08:32→17:40)
[2017-05-10 08:33] LABS: ANISOCYTOSIS 1+; BASOPHILS % (MANUAL) 0 % (0-2); PLATELET ESTIMATE ADEQUATE; PLATELET MORPHOLOGY NORMAL
[2017-05-10 09:25] LABS: ANION GAP 8 (5-15); CALCIUM 9.8 mg/dL (8.6-10.2); CARBON DIOXIDE 28 mEQ/L (20-30); CHLORIDE 94 mEQ/L (98-107); CREATININE 1.2 mg/dL (0.7-1.2); GLOMERULAR FILTRATION RATE > 60 mL/min (>60); HEMOLYSIS 8; POTASSIUM 5.3 mEQ/L (3.4-4.9); SODIUM 130 mEQ/L (135-145)
--- NOTE | 2017-05-10 10:52 | GI Progress Note ---
Assessment/Plan Problems: (1) Liver nodule ICD Codes: K76.89 - Other specified diseases of liver SNOMED: 893357620 (2) Cirrhosis ICD Codes: K74.60 - Unspecified cirrhosis of liver SNOMED: 40146597 Status: stable Status Narrative Discussed with Dr. Telles. Assessment/Plan abdominal U/S >> Suspicion of chronic liver disease/cirrhosis. Stigmata of portal hypertension including splenomegaly and trace ascites. ammonia WNL >> cont lactulose MRI reviewed > unremarkable hepatitis panel >> negative AFP elevation >> 11.3 s/p paracentesis with ~ 4L yield. ok for DC per GI standpoint >> outpatient GI procedures stable H&H, prn transfusions H2B monitor LFTs fu labs Subjective Subjective limited no symptoms Objective Last 24 Hour Vital Signs Date Time Temp Pulse Resp B/P Pulse Ox O2 Delivery O2 Flow Rate FiO2 05/10/17 08:19 58 145/99 05/10/17 08:00 96.2 58 18 145/99 92 Nasal Cannula 3.0 05/10/17 07:43 52 18 Nasal Cannula 3.0 32 05/10/17 07:43 Nasal Cannula 3.0 32 05/10/17 07:43 95 Nasal Cannula 3.0 32 05/10/17 04:00 97.8 82 20 141/79 95 Nasal Cannula 2.0 28 05/10/17 00:00 97.8 57 20 154/79 96 Nasal Cannula 2.0 28 05/09/17 21:38 61 161/68 05/09/17 20:00 97.2 63 20 149/97 96 Nasal Cannula 05/09/17 19:00 Nasal Cannula 3.0 32 05/09/17 19:00 95 Nasal Cannula 3.0 05/09/17 19:00 75 18 Nasal Cannula 3.0 05/09/17 16:11 75 18 95 Nasal Cannula 2.0 28 05/09/17 16:10 71 18 94 Nasal Cannula 2.0 28 05/09/17 15:57 97.2 63 20 145/78 95 Room Air 05/09/17 12:00 97.2 62 18 139/86 93 Room Air 05/09/17 11:09 71 139/83 Intake and Output 05/09/17 05/10/17 19:00 07:00 Intake Total 600 ml Output Total 1200 ml 500 ml Balance -600 ml -500 ml Intake Oral 600 ml Output Urine Total 1200 ml 500 ml # Voids 1 # Bowel Movements 1 1 Laboratory Tests Test 05/10/17 06:15 05/10/17 08:50 White Blood Count 4.3 K/UL (4.8-10.8) L Red Blood Count 4.19 M/UL (4.70-6.10) L Hemoglobin 12.7 G/DL (14.2-18.0) L Hematocrit 40.0 % (42.0-52.0) L Mean Corpuscular Volume 96 FL (80-99) Mean Corpuscular Hemoglobin 30.4 PG (27.0-31.0) Mean Corpuscular Hemoglobin Concent 31.8 G/DL (32.0-36.0) L Red Cell Distribution Width 14.9 % (11.6-14.8) H Platelet Count 99 K/UL (150-450) L Mean Platelet Volume 5.2 FL (6.5-10.1) L Neutrophils (%) (Auto) % (45.0-75.0) Lymphocytes (%) (Auto) % (20.0-45.0) Monocytes (%) (Auto) % (1.0-10.0) Eosinophils (%) (Auto) % (0.0-3.0) Basophils (%) (Auto) % (0.0-2.0) Differential Total Cells Counted 100 Neutrophils % (Manual) 37 % (45-75) L Lymphocytes % (Manual) 49 % (20-45) H Monocytes % (Manual) 6 % (1-10) Eosinophils % (Manual) 6 % (0-3) H Basophils % (Manual) 0 % (0-2) Band Neutrophils 2 % (0-8) Platelet Estimate Adequate Platelet Morphology Normal Anisocytosis 1+ Sodium Level 130 mEQ/L (135-145) L Potassium Level 5.3 mEQ/L (3.4-4.9) H Chloride Level 94 mEQ/L (98-107) L Carbon Dioxide Level 28 mEQ/L (20-30) Anion Gap 8 (5-15) Blood Urea Nitrogen 19 mg/dL (7-23) Creatinine 1.2 mg/dL (0.7-1.2) Estimat Glomerular Filtration Rate > 60 mL/min (>60) Glucose Level 148 mg/dL (74-106) H Calcium Level 9.8 mg/dL (8.6-10.2) Height (Feet): 5 Height (Inches): 9.00 Weight (Pounds): 170 General Appearance: no apparent distress, alert, confused Cardiovascular: normal rate Respiratory/Chest: normal breath sounds, no respiratory distress Abdominal Exam: normal bowel sounds, non tender, soft Extremities: normal range of motion Yesi Shell N.P. May 10, 2017 10:52
[2017-05-10 11:29] VITALS: BP 133/87
--- NOTE | 2017-05-10 14:03 | General Progress Note ---
Assessment/Plan Problem List: (1) Chest pain ICD Codes: R07.9 - Chest pain, unspecified SNOMED: 00361814 Qualifiers: Qualified Codes: R07.9 - Chest pain, unspecified (2) Pleural effusion on right ICD Codes: J90 - Pleural effusion, not elsewhere classified SNOMED: 61815739 (3) Cirrhosis ICD Codes: K74.60 - Unspecified cirrhosis of liver SNOMED: 57378729 (4) Hepatic encephalopathy ICD Codes: K72.90 - Hepatic failure, unspecified without coma SNOMED: 50682042 (5) HTN (hypertension) ICD Codes: I10 - Essential (primary) hypertension SNOMED: 83261248 Status: progressing Assessment/Plan still c/o dyspnea on 3 l of oxygen reviewed chart and labs massive pleural effusion etoh abuse cirrhosis Subjective ROS Limited/Unobtainable: Yes Constitutional: Reports: no symptoms Allergies: Coded Allergies: No Known Allergies (Unverified , 04/30/17) Objective Last 24 Hour Vital Signs Date Time Temp Pulse Resp B/P Pulse Ox O2 Delivery O2 Flow Rate FiO2 05/10/17 11:29 96.6 58 24 133/87 97 Nasal Cannula 3.0 05/10/17 08:19 58 145/99 05/10/17 08:00 96.2 58 18 145/99 92 Nasal Cannula 3.0 05/10/17 07:43 52 18 Nasal Cannula 3.0 32 05/10/17 07:43 Nasal Cannula 3.0 32 05/10/17 07:43 95 Nasal Cannula 3.0 32 05/10/17 04:00 97.8 82 20 141/79 95 Nasal Cannula 2.0 28 05/10/17 00:00 97.8 57 20 154/79 96 Nasal Cannula 2.0 28 05/09/17 21:38 61 161/68 05/09/17 20:00 97.2 63 20 149/97 96 Nasal Cannula 05/09/17 19:00 Nasal Cannula 3.0 32 05/09/17 19:00 95 Nasal Cannula 3.0 05/09/17 19:00 75 18 Nasal Cannula 3.0 05/09/17 16:11 75 18 95 Nasal Cannula 2.0 28 05/09/17 16:10 71 18 94 Nasal Cannula 2.0 28 05/09/17 15:57 97.2 63 20 145/78 95 Room Air Intake and Output 05/09/17 05/10/17 19:00 07:00 Intake Total 600 ml Output Total 1200 ml 500 ml Balance -600 ml -500 ml Intake Oral 600 ml Output Urine Total 1200 ml 500 ml # Voids 1 # Bowel Movements 1 1 Laboratory Tests 05/10/17 06:15: White Blood Count 4.3L, Red Blood Count 4.19L, Hemoglobin 12.7L, Hematocrit 40.0L, Mean Corpuscular Volume 96, Mean Corpuscular Hemoglobin 30.4, Mean Corpuscular Hemoglobin Concent 31.8L, Red Cell Distribution Width 14.9H, Platelet Count 99L, Mean Platelet Volume 5.2L, Neutrophils (%) (Auto) , Lymphocytes (%) (Auto) , Monocytes (%) (Auto) , Eosinophils (%) (Auto) , Basophils (%) (Auto) , Differential Total Cells Counted 100, Neutrophils % ( Manual) 37L, Lymphocytes % (Manual) 49H, Monocytes % (Manual) 6, Eosinophils % ( Manual) 6H, Basophils % (Manual) 0, Band Neutrophils 2, Platelet Estimate Adequate, Platelet Morphology Normal, Anisocytosis 1+ 05/10/17 08:50: Sodium Level 130L, Potassium Level 5.3H, Chloride Level 94L, Carbon Dioxide Level 28, Anion Gap 8, Blood Urea Nitrogen 19, Creatinine 1.2, Estimat Glomerular Filtration Rate > 60, Glucose Level 148H, Calcium Level 9.8 Height (Feet): 5 Height (Inches): 9.00 Weight (Pounds): 170 Neck: supple Cardiovascular: normal rate Respiratory/Chest: lungs clear Abdomen: soft Edna Rivas MD May 10, 2017 14:03
--- NOTE | 2017-05-10 14:27 | General Progress Note ---
Assessment/Plan Assessment/Plan 1. Large pituitary mass, with mass effect, have reviewed the [facility] medical EMR and reviewed neurosurgery records, have also discussed with niece on phone on 05/04/17. He has multiple co-morbidities and neurosurgery there recommended initially a [facility]ph[facility]oidal [facility], however given that he did not improve during his stay they then recommended hospice given multiple co-morbids and no surgical intervention. he does not have stage IV disease. Requires likely snf placement as per Dr. Rivas. 2. Anemia secondary to chronic disease. Continue to closely monitor. --> transfuse as needed, currently counts are stable --> hgb goal above 8 3. Thrombocytopenia, mostly related to underlying cirrhosis as well as sepsis. 4. Transaminitis, potentially secondary to underlying liver disease. 5. Liver nodule --> being followed by GI 6. Dysuria in the setting of chronic [place] catheter. --> improved --> outpatient urology eval 7. Pleural effusion evaluation by Pulmonary team. --> s/p paracenteses 8. Coagulopathy, potentially secondary to underlying liver disease. --> monitor 9. Health care associated pneumonia --> on abx per ID Subjective Constitutional: Reports: no symptoms HEENT: Reports: no symptoms Cardiovascular: Reports: no symptoms Respiratory: Reports: no symptoms Gastrointestinal/Abdominal: Reports: no symptoms Genitourinary: Reports: no symptoms Neurologic/Psychiatric: Reports: no symptoms Endocrine: Reports: no symptoms Hematologic/Lymphatic: Reports: no symptoms Allergies: Coded Allergies: No Known Allergies (Unverified , 04/30/17) Subjective on 3L, complaining of dyspnea Objective Last 24 Hour Vital Signs Date Time Temp Pulse Resp B/P Pulse Ox O2 Delivery O2 Flow Rate FiO2 05/10/17 11:29 96.6 58 24 133/87 97 Nasal Cannula 3.0 05/10/17 08:19 58 145/99 05/10/17 08:00 96.2 58 18 145/99 92 Nasal Cannula 3.0 05/10/17 07:43 52 18 Nasal Cannula 3.0 32 05/10/17 07:43 Nasal Cannula 3.0 32 05/10/17 07:43 95 Nasal Cannula 3.0 32 05/10/17 04:00 97.8 82 20 141/79 95 Nasal Cannula 2.0 28 05/10/17 00:00 97.8 57 20 154/79 96 Nasal Cannula 2.0 28 05/09/17 21:38 61 161/68 05/09/17 20:00 97.2 63 20 149/97 96 Nasal Cannula 05/09/17 19:00 Nasal Cannula 3.0 32 05/09/17 19:00 95 Nasal Cannula 3.0 05/09/17 19:00 75 18 Nasal Cannula 3.0 05/09/17 16:11 75 18 95 Nasal Cannula 2.0 28 05/09/17 16:10 71 18 94 Nasal Cannula 2.0 28 05/09/17 15:57 97.2 63 20 145/78 95 Room Air Intake and Output 05/09/17 05/10/17 19:00 07:00 Intake Total 600 ml Output Total 1200 ml 500 ml Balance -600 ml -500 ml Intake Oral 600 ml Output Urine Total 1200 ml 500 ml # Voids 1 # Bowel Movements 1 1 Laboratory Tests 05/10/17 06:15: White Blood Count 4.3L, Red Blood Count 4.19L, Hemoglobin 12.7L, Hematocrit 40.0L, Mean Corpuscular Volume 96, Mean Corpuscular Hemoglobin 30.4, Mean Corpuscular Hemoglobin Concent 31.8L, Red Cell Distribution Width 14.9H, Platelet Count 99L, Mean Platelet Volume 5.2L, Neutrophils (%) (Auto) , Lymphocytes (%) (Auto) , Monocytes (%) (Auto) , Eosinophils (%) (Auto) , Basophils (%) (Auto) , Differential Total Cells Counted 100, Neutrophils % ( Manual) 37L, Lymphocytes % (Manual) 49H, Monocytes % (Manual) 6, Eosinophils % ( Manual) 6H, Basophils % (Manual) 0, Band Neutrophils 2, Platelet Estimate Adequate, Platelet Morphology Normal, Anisocytosis 1+ 05/10/17 08:50: Sodium Level 130L, Potassium Level 5.3H, Chloride Level 94L, Carbon Dioxide Level 28, Anion Gap 8, Blood Urea Nitrogen 19, Creatinine 1.2, Estimat Glomerular Filtration Rate > 60, Glucose Level 148H, Calcium Level 9.8 Height (Feet): 5 Height (Inches): 9.00 Weight (Pounds): 170 General Appearance: no apparent distress EENT: normal ENT inspection Neck: non-tender Cardiovascular: normal rate Edema: no edema noted Pedal (L), no edema noted Pedal (R) Neurologic: operations scheduler II-XII grossly normal Skin: warm/dry Wes Johnston May 10, 2017 14:27
--- NOTE | 2017-05-10 15:09 | General Progress Note ---
Assessment/Plan Status: stable Status Narrative Na 130- K 5.2 not concerned as ? mild hemolysis due to slow draw Assessment/Plan Status: Acute Renal failure- High Vanco level, now WNL History of Brain tumor Was on Hospice at [facility] Admitted with chest pain Has pleural effusion right side Has shepard for urinary retention Has Pneumonia Has Transaminitis Cirrhosis / Splenomegaly / Liver mass 2+ Proteinuria HTN HypoThyroidism Plan: ? DC- stable from renal stand- Adjust BP meds- 2D echo results? Ejfx 70% Per consultants Subjective ROS Limited/Unobtainable: No Constitutional: Reports: malaise Allergies: Coded Allergies: No Known Allergies (Unverified , 04/30/17) Objective Last 24 Hour Vital Signs Date Time Temp Pulse Resp B/P Pulse Ox O2 Delivery O2 Flow Rate FiO2 05/10/17 11:29 96.6 58 24 133/87 97 Nasal Cannula 3.0 05/10/17 08:19 58 145/99 05/10/17 08:00 96.2 58 18 145/99 92 Nasal Cannula 3.0 05/10/17 07:43 52 18 Nasal Cannula 3.0 32 05/10/17 07:43 Nasal Cannula 3.0 32 05/10/17 07:43 95 Nasal Cannula 3.0 32 05/10/17 04:00 97.8 82 20 141/79 95 Nasal Cannula 2.0 28 05/10/17 00:00 97.8 57 20 154/79 96 Nasal Cannula 2.0 28 05/09/17 21:38 61 161/68 05/09/17 20:00 97.2 63 20 149/97 96 Nasal Cannula 05/09/17 19:00 Nasal Cannula 3.0 32 05/09/17 19:00 95 Nasal Cannula 3.0 05/09/17 19:00 75 18 Nasal Cannula 3.0 05/09/17 16:11 75 18 95 Nasal Cannula 2.0 28 05/09/17 16:10 71 18 94 Nasal Cannula 2.0 28 05/09/17 15:57 97.2 63 20 145/78 95 Room Air Intake and Output 05/09/17 05/10/17 19:00 07:00 Intake Total 600 ml Output Total 1200 ml 500 ml Balance -600 ml -500 ml Intake Oral 600 ml Output Urine Total 1200 ml 500 ml # Voids 1 # Bowel Movements 1 1 Laboratory Tests 05/10/17 06:15: White Blood Count 4.3L, Red Blood Count 4.19L, Hemoglobin 12.7L, Hematocrit 40.0L, Mean Corpuscular Volume 96, Mean Corpuscular Hemoglobin 30.4, Mean Corpuscular Hemoglobin Concent 31.8L, Red Cell Distribution Width 14.9H, Platelet Count 99L, Mean Platelet Volume 5.2L, Neutrophils (%) (Auto) , Lymphocytes (%) (Auto) , Monocytes (%) (Auto) , Eosinophils (%) (Auto) , Basophils (%) (Auto) , Differential Total Cells Counted 100, Neutrophils % ( Manual) 37L, Lymphocytes % (Manual) 49H, Monocytes % (Manual) 6, Eosinophils % ( Manual) 6H, Basophils % (Manual) 0, Band Neutrophils 2, Platelet Estimate Adequate, Platelet Morphology Normal, Anisocytosis 1+ 05/10/17 08:50: Sodium Level 130L, Potassium Level 5.3H, Chloride Level 94L, Carbon Dioxide Level 28, Anion Gap 8, Blood Urea Nitrogen 19, Creatinine 1.2, Estimat Glomerular Filtration Rate > 60, Glucose Level 148H, Calcium Level 9.8 Height (Feet): 5 Height (Inches): 9.00 Weight (Pounds): 170 General Appearance: no apparent distress Objective PE not changed KELLY MUÑIZ May 10, 2017 15:09
--- NOTE | 2017-05-10 15:17 | Infectious Diseases Prog Note ---
Assessment/Plan Problems: (1) HCAP (healthcare-associated pneumonia) Assessment & Plan: improved, , S/P vancomycin and cefepime for 7 days, doing well off antibiotics. monitor CXR (2) Pleural effusion on right Assessment & Plan: with near complete right lung collapse on CT chest , S/P large fluids removal with thoracentesis. no fluids was sent for culture , fungal ,or AFB. 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 (5) s/p multiple lacunar strokes Assessment & Plan: continue PT/OT , neurology is following (6) Cirrhosis Assessment & Plan: with liver mass and elevated alpha feto protein , suspect HCC, has poor prognosis , GI is following (7) Hepatic encephalopathy Assessment & Plan: on lactulose , monitor ammonia level Subjective Constitutional: Reports: no symptoms HEENT: Reports: no symptoms Respiratory: Reports: no symptoms Breasts: Reports: no symptoms Cardiovascular: Reports: no symptoms Gastrointestinal/Abdominal: Reports: no symptoms Genitourinary: Reports: no symptoms Neurologic: Reports: no symptoms Psychiatric: Reports: no symptoms Skin: Reports: no symptoms Endocrine: Reports: no symptoms Hematologic: Reports: no symptoms Musculoskeletal: Reports: no symptoms Allergies: Coded Allergies: No Known Allergies (Unverified , 04/30/17) Subjective he was lethargic and altered, sedated , dosen't follow commands Objective Vital Signs Last 24 Hour Vital Signs Date Time Temp Pulse Resp B/P Pulse Ox O2 Delivery O2 Flow Rate FiO2 05/10/17 11:29 96.6 58 24 133/87 97 Nasal Cannula 3.0 05/10/17 08:19 58 145/99 05/10/17 08:00 96.2 58 18 145/99 92 Nasal Cannula 3.0 05/10/17 07:43 52 18 Nasal Cannula 3.0 32 05/10/17 07:43 Nasal Cannula 3.0 32 05/10/17 07:43 95 Nasal Cannula 3.0 32 05/10/17 04:00 97.8 82 20 141/79 95 Nasal Cannula 2.0 28 05/10/17 00:00 97.8 57 20 154/79 96 Nasal Cannula 2.0 28 05/09/17 21:38 61 161/68 05/09/17 20:00 97.2 63 20 149/97 96 Nasal Cannula 05/09/17 19:00 Nasal Cannula 3.0 32 05/09/17 19:00 95 Nasal Cannula 3.0 05/09/17 19:00 75 18 Nasal Cannula 3.0 05/09/17 16:11 75 18 95 Nasal Cannula 2.0 28 05/09/17 16:10 71 18 94 Nasal Cannula 2.0 28 05/09/17 15:57 97.2 63 20 145/78 95 Room Air Height (Feet): 5 Height (Inches): 9.00 Weight (Pounds): 170 General Appearance: WD/WN, no acute distress HEENT: normocephalic, atraumatic, anicteric, mucous membranes moist Respiratory/Chest: chest wall non-tender, no respiratory distress, no accessory muscle use, decreased breath sounds, crackles/rales Cardiovascular: normal peripheral pulses, normal rate, regular rhythm, no gallop/murmur, no JVD Abdomen: normal bowel sounds, soft, non tender, no organomegaly, non distended , no mass Extremities: no cyanosis, no clubbing Skin: no rash, no lesions Neurologic/Psychiatric: alert, responsive Microbiology Date/Time Source Procedure Growth Status 05/09/17 00:30 Stool Clostridium difficile Toxin Assay - Final Complete Laboratory Tests Test 05/10/17 06:15 05/10/17 08:50 White Blood Count 4.3 K/UL (4.8-10.8) L Red Blood Count 4.19 M/UL (4.70-6.10) L Hemoglobin 12.7 G/DL (14.2-18.0) L Hematocrit 40.0 % (42.0-52.0) L Mean Corpuscular Volume 96 FL (80-99) Mean Corpuscular Hemoglobin 30.4 PG (27.0-31.0) Mean Corpuscular Hemoglobin Concent 31.8 G/DL (32.0-36.0) L Red Cell Distribution Width 14.9 % (11.6-14.8) H Platelet Count 99 K/UL (150-450) L Mean Platelet Volume 5.2 FL (6.5-10.1) L Neutrophils (%) (Auto) % (45.0-75.0) Lymphocytes (%) (Auto) % (20.0-45.0) Monocytes (%) (Auto) % (1.0-10.0) Eosinophils (%) (Auto) % (0.0-3.0) Basophils (%) (Auto) % (0.0-2.0) Differential Total Cells Counted 100 Neutrophils % (Manual) 37 % (45-75) L Lymphocytes % (Manual) 49 % (20-45) H Monocytes % (Manual) 6 % (1-10) Eosinophils % (Manual) 6 % (0-3) H Basophils % (Manual) 0 % (0-2) Band Neutrophils 2 % (0-8) Platelet Estimate Adequate Platelet Morphology Normal Anisocytosis 1+ Sodium Level 130 mEQ/L (135-145) L Potassium Level 5.3 mEQ/L (3.4-4.9) H Chloride Level 94 mEQ/L (98-107) L Carbon Dioxide Level 28 mEQ/L (20-30) Anion Gap 8 (5-15) Blood Urea Nitrogen 19 mg/dL (7-23) Creatinine 1.2 mg/dL (0.7-1.2) Estimat Glomerular Filtration Rate > 60 mL/min (>60) Glucose Level 148 mg/dL (74-106) H Calcium Level 9.8 mg/dL (8.6-10.2) Current Medications Medications (Trade) Dose Ordered Sig/Tj Route PRN Reason Start Time Stop Time Status Last Admin Dose Admin Albuterol Sulfate (Proventil MDI) 1 puff Q6H PRN INH Shortness of Breath 05/04/17 20:00 06/03/17 19:59 05/09/17 16:10 Docusate Sodium (Colace) 100 mg TWICE A DAY ORAL 05/04/17 18:00 06/03/17 17:59 05/10/17 08:18 Ergocalciferol (Drisdol) 50,000 intlu QWEEK ORAL 05/09/17 16:00 06/08/17 15:59 05/09/17 17:11 Haloperidol (Haldol) 1 mg Q6H PRN ORAL AGITATION 05/04/17 18:00 06/03/17 17:59 05/10/17 08:32 Lactulose (Cephulac) 40 gm DAILY ORAL 05/05/17 09:00 06/04/17 08:59 05/09/17 11:09 Levothyroxine Sodium (Synthroid) 50 mcg ACBREAKFAST ORAL 05/05/17 06:30 06/04/17 06:29 05/10/17 06:20 Metoprolol Tartrate (Lopressor) 12.5 mg EVERY 12 HOURS ORAL 05/05/17 21:00 06/04/17 20:59 05/10/17 08:19 Morphine Sulfate (Morphine Sulfate) 0.5 mg Q4H PRN IV For Pain 4-10 05/04/17 17:00 05/11/17 16:59 05/07/17 17:29 Phenazopyridine HCl (Pyridium) 100 mg BID ORAL 05/04/17 18:00 05/11/17 17:59 05/10/17 08:19 Ranitidine HCl (Zantac) 150 mg DAILY ORAL 05/09/17 09:00 06/03/17 17:59 05/10/17 08:19 Edda Gil M.D. May 10, 2017 15:17
[2017-05-10 16:00] VITALS: BP 133/76
[2017-05-10] MEDS: Albuterol 90mcg Inhaler 8gm INH PRN (18:35)
--- NOTE | 2017-05-10 19:23 | Cardiology Progress Note ---
Assessment/Plan Assessment/Plan 1. Chest pain due to Right sided pleural effusion, s/p thoracentesis 05/03/17. EF 70%. Better 2. Right pleural effusion likely secondary to healthcare-associated pneumonia. S /P Thoracentesis. 3. HTN on Lopressor 25 bid. 4. Liver cirrhosis and possible hepatocellular carcinoma. EGD as out patient by Dr. Telles . 5. Large pituitary mass, with mass effect. He has multiple co-morbidities and neurosurgery at [facility] recommended initially a [facility] at a [facility], however given that he did not improve during his stay they then recommended hospice given multiple co-morbids and no surgical intervention. Follow up Dr Mckeon. 6. Anemia of chronic disease bnp norl ef normal reepat cxr may need thoracentesis if aggressive carer needded previoulsy in hospice Subjective Cardiovascular: Denies: chest pain, lightheadedness Respiratory: Reports: shortness of breath Gastrointestinal/Abdominal: Denies: abdominal pain Genitourinary: Denies: burning Objective Last 24 Hour Vital Signs Date Time Temp Pulse Resp B/P Pulse Ox O2 Delivery O2 Flow Rate FiO2 05/10/17 18:36 Nasal Cannula 3.0 32 05/10/17 18:35 65 20 Nasal Cannula 3.0 32 05/10/17 18:35 95 Nasal Cannula 3.0 32 05/10/17 16:00 97.0 56 22 133/76 95 Nasal Cannula 2.0 05/10/17 11:29 96.6 58 24 133/87 97 Nasal Cannula 3.0 05/10/17 08:19 58 145/99 05/10/17 08:00 96.2 58 18 145/99 92 Nasal Cannula 3.0 05/10/17 07:43 52 18 Nasal Cannula 3.0 32 05/10/17 07:43 Nasal Cannula 3.0 32 05/10/17 07:43 95 Nasal Cannula 3.0 32 05/10/17 04:00 97.8 82 20 141/79 95 Nasal Cannula 2.0 28 05/10/17 00:00 97.8 57 20 154/79 96 Nasal Cannula 2.0 28 05/09/17 21:38 61 161/68 05/09/17 20:00 97.2 63 20 149/97 96 Nasal Cannula General Appearance: no apparent distress Neck: no JVD Cardiovascular: normal rate Respiratory/Chest: decreased breath sounds - right side Abdomen: normal bowel sounds, non tender, soft Extremities: moderate edema Intake and Output 05/09/17 05/10/17 19:00 07:00 Intake Total 600 ml Output Total 1200 ml 500 ml Balance -600 ml -500 ml Intake Oral 600 ml Output Urine Total 1200 ml 500 ml # Voids 1 # Bowel Movements 1 1 Laboratory Tests Test 05/10/17 06:15 05/10/17 08:50 White Blood Count 4.3 K/UL (4.8-10.8) L Red Blood Count 4.19 M/UL (4.70-6.10) L Hemoglobin 12.7 G/DL (14.2-18.0) L Hematocrit 40.0 % (42.0-52.0) L Mean Corpuscular Volume 96 FL (80-99) Mean Corpuscular Hemoglobin 30.4 PG (27.0-31.0) Mean Corpuscular Hemoglobin Concent 31.8 G/DL (32.0-36.0) L Red Cell Distribution Width 14.9 % (11.6-14.8) H Platelet Count 99 K/UL (150-450) L Mean Platelet Volume 5.2 FL (6.5-10.1) L Neutrophils (%) (Auto) % (45.0-75.0) Lymphocytes (%) (Auto) % (20.0-45.0) Monocytes (%) (Auto) % (1.0-10.0) Eosinophils (%) (Auto) % (0.0-3.0) Basophils (%) (Auto) % (0.0-2.0) Differential Total Cells Counted 100 Neutrophils % (Manual) 37 % (45-75) L Lymphocytes % (Manual) 49 % (20-45) H Monocytes % (Manual) 6 % (1-10) Eosinophils % (Manual) 6 % (0-3) H Basophils % (Manual) 0 % (0-2) Band Neutrophils 2 % (0-8) Platelet Estimate Adequate Platelet Morphology Normal Anisocytosis 1+ Sodium Level 130 mEQ/L (135-145) L Potassium Level 5.3 mEQ/L (3.4-4.9) H Chloride Level 94 mEQ/L (98-107) L Carbon Dioxide Level 28 mEQ/L (20-30) Anion Gap 8 (5-15) Blood Urea Nitrogen 19 mg/dL (7-23) Creatinine 1.2 mg/dL (0.7-1.2) Estimat Glomerular Filtration Rate > 60 mL/min (>60) Glucose Level 148 mg/dL (74-106) H Calcium Level 9.8 mg/dL (8.6-10.2) Microbiology Date/Time Source Procedure Growth Status 05/09/17 00:30 Stool Clostridium difficile Toxin Assay - Final Complete WILLY DAVIS May 10, 2017 19:23
--- NOTE | 2017-05-10 19:50 | Pulmonology Progress Note ---
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, with mass effect (5) HTN (hypertension) (6) Dysuria (7) Cirrhosis Assessment/Plan symptomatic treatmet titrate fio2 to sat of 92% inoperable brain tumor alpha feto protein increased dc planning Subjective ROS Limited/Unobtainable: No Constitutional: Reports: no symptoms HEENT: Repors: no symptoms Allergies: Coded Allergies: No Known Allergies (Unverified , 04/30/17) Objective Last 24 Hour Vital Signs Date Time Temp Pulse Resp B/P Pulse Ox O2 Delivery O2 Flow Rate FiO2 05/10/17 18:36 Nasal Cannula 3.0 32 05/10/17 18:35 65 20 Nasal Cannula 3.0 32 05/10/17 18:35 95 Nasal Cannula 3.0 32 05/10/17 16:00 97.0 56 22 133/76 95 Nasal Cannula 2.0 05/10/17 11:29 96.6 58 24 133/87 97 Nasal Cannula 3.0 05/10/17 08:19 58 145/99 05/10/17 08:00 96.2 58 18 145/99 92 Nasal Cannula 3.0 05/10/17 07:43 52 18 Nasal Cannula 3.0 32 05/10/17 07:43 Nasal Cannula 3.0 32 05/10/17 07:43 95 Nasal Cannula 3.0 32 05/10/17 04:00 97.8 82 20 141/79 95 Nasal Cannula 2.0 28 05/10/17 00:00 97.8 57 20 154/79 96 Nasal Cannula 2.0 28 05/09/17 21:38 61 161/68 05/09/17 20:00 97.2 63 20 149/97 96 Nasal Cannula Intake and Output 05/09/17 05/10/17 19:00 07:00 Intake Total 600 ml Output Total 1200 ml 500 ml Balance -600 ml -500 ml Intake Oral 600 ml Output Urine Total 1200 ml 500 ml # Voids 1 # Bowel Movements 1 1 Objective General Appearance: WD/WN HEENT: normocephalic, atraumatic Respiratory/Chest: chest wall non-tender, lungs clear Breasts: no masses Cardiovascular: normal peripheral pulses, normal rate Abdomen: normal bowel sounds, soft, non tender Genitourinary: normal external genitalia Extremities: no cyanosis, +edema Skin: no rash Lymphatic: no groin adenopathy Microbiology Date/Time Source Procedure Growth Status 05/09/17 00:30 Stool Clostridium difficile Toxin Assay - Final Complete Laboratory Tests 05/10/17 06:15: White Blood Count 4.3L, Red Blood Count 4.19L, Hemoglobin 12.7L, Hematocrit 40.0L, Mean Corpuscular Volume 96, Mean Corpuscular Hemoglobin 30.4, Mean Corpuscular Hemoglobin Concent 31.8L, Red Cell Distribution Width 14.9H, Platelet Count 99L, Mean Platelet Volume 5.2L, Neutrophils (%) (Auto) , Lymphocytes (%) (Auto) , Monocytes (%) (Auto) , Eosinophils (%) (Auto) , Basophils (%) (Auto) , Differential Total Cells Counted 100, Neutrophils % ( Manual) 37L, Lymphocytes % (Manual) 49H, Monocytes % (Manual) 6, Eosinophils % ( Manual) 6H, Basophils % (Manual) 0, Band Neutrophils 2, Platelet Estimate Adequate, Platelet Morphology Normal, Anisocytosis 1+ 05/10/17 08:50: Sodium Level 130L, Potassium Level 5.3H, Chloride Level 94L, Carbon Dioxide Level 28, Anion Gap 8, Blood Urea Nitrogen 19, Creatinine 1.2, Estimat Glomerular Filtration Rate > 60, Glucose Level 148H, Calcium Level 9.8 Current Medications Medications (Trade) Dose Ordered Sig/Tj Route PRN Reason Start Time Stop Time Status Last Admin Dose Admin Albuterol Sulfate (Proventil MDI) 1 puff Q6H PRN INH Shortness of Breath 05/04/17 20:00 06/03/17 19:59 05/10/17 18:35 Docusate Sodium (Colace) 100 mg TWICE A DAY ORAL 05/04/17 18:00 06/03/17 17:59 05/10/17 08:18 Ergocalciferol (Drisdol) 50,000 intlu QWEEK ORAL 05/09/17 16:00 06/08/17 15:59 05/09/17 17:11 Haloperidol (Haldol) 1 mg Q6H PRN ORAL AGITATION 05/04/17 18:00 06/03/17 17:59 05/10/17 17:40 Lactulose (Cephulac) 40 gm DAILY ORAL 05/05/17 09:00 06/04/17 08:59 05/09/17 11:09 Levothyroxine Sodium (Synthroid) 50 mcg ACBREAKFAST ORAL 05/05/17 06:30 06/04/17 06:29 05/10/17 06:20 Metoprolol Tartrate (Lopressor) 12.5 mg EVERY 12 HOURS ORAL 05/05/17 21:00 06/04/17 20:59 05/10/17 08:19 Morphine Sulfate (Morphine Sulfate) 0.5 mg Q4H PRN IV For Pain 4-10 05/04/17 17:00 05/11/17 16:59 05/07/17 17:29 Phenazopyridine HCl (Pyridium) 100 mg BID ORAL 05/04/17 18:00 05/11/17 17:59 05/10/17 08:19 Ranitidine HCl (Zantac) 150 mg DAILY ORAL 05/09/17 09:00 06/03/17 17:59 05/10/17 08:19 PRAVEEN DAVIS May 10, 2017 19:50
[2017-05-10 20:00] VITALS: BP 138/93
[2017-05-11] VITALS (7 sets, daily range): BP systolic 121–159; BP diastolic 66–95
[2017-05-11 07:20] LABS: MEAN CORPUSCULAR HGB CONC 32.9 G/DL (32.0-36.0); MEAN CORPUSCULAR VOLUME 94 FL (80-99); MEAN PLATELET VOLUME 5.4 FL (6.5-10.1); PLATELET COUNT 94 K/UL (150-450); RED BLOOD COUNT 4.15 M/UL (4.70-6.10); RED CELL DISTRIBUTION WIDTH 14.6 % (11.6-14.8); WHITE BLOOD COUNT 3.6 K/UL (4.8-10.8)
[2017-05-11 07:24] LABS: ANION GAP 7 (5-15); CALCIUM 8.5 mg/dL (8.6-10.2); CARBON DIOXIDE 28 mEQ/L (20-30); CHLORIDE 95 mEQ/L (98-107); GLOMERULAR FILTRATION RATE > 60 mL/min (>60); HEMOLYSIS 43; SODIUM 130 mEQ/L (135-145)
[2017-05-11] MEDS: Lactulose 20gm/30ml UDC ORAL SCH (08:26)
[2017-05-11] MEDS: Docusate 100mg cap ORAL SCH ×2 (08:26→17:20)
[2017-05-11] MEDS: Metoprolol 25mg tab ORAL SCH ×2 (08:26→20:28)
--- NOTE | 2017-05-11 10:13 | GI Progress Note ---
Assessment/Plan Problems: (1) Liver nodule ICD Codes: K76.89 - Other specified diseases of liver SNOMED: 562126236 (2) Cirrhosis ICD Codes: K74.60 - Unspecified cirrhosis of liver SNOMED: 58877000 Status: stable Status Narrative Discussed with Dr. Telles. Assessment/Plan abdominal U/S >> Suspicion of chronic liver disease/cirrhosis. Stigmata of portal hypertension including splenomegaly and trace ascites. ammonia WNL >> cont lactulose MRI reviewed > unremarkable hepatitis panel >> negative AFP elevation >> 11.3 s/p paracentesis with ~ 4L yield. ok for DC per GI standpoint >> outpatient GI procedures stable H&H, prn transfusions H2B monitor LFTs fu labs Subjective Subjective limited no symptoms Objective Last 24 Hour Vital Signs Date Time Temp Pulse Resp B/P Pulse Ox O2 Delivery O2 Flow Rate FiO2 05/11/17 09:04 Nasal Cannula 3.0 05/11/17 09:03 94 Nasal Cannula 4.0 05/11/17 09:03 59 18 Nasal Cannula 3.0 32 05/11/17 08:26 59 121/84 05/11/17 08:00 97.0 59 18 121/84 94 Nasal Cannula 5.0 05/11/17 04:00 96.4 61 22 136/82 93 Nasal Cannula 5.0 05/11/17 01:09 96.6 60 23 144/95 Nasal Cannula 5.0 05/11/17 00:00 96.6 60 23 144/95 94 Nasal Cannula 5.0 05/10/17 20:54 64 138/93 05/10/17 20:00 96.2 64 19 138/93 95 Nasal Cannula 5.0 05/10/17 18:36 Nasal Cannula 3.0 32 05/10/17 18:35 65 20 Nasal Cannula 3.0 32 05/10/17 18:35 95 Nasal Cannula 3.0 32 05/10/17 16:00 97.0 56 22 133/76 95 Nasal Cannula 2.0 05/10/17 11:29 96.6 58 24 133/87 97 Nasal Cannula 3.0 Intake and Output 05/10/17 05/11/17 18:59 06:59 Intake Total 400 ml 480 ml Output Total 450 ml 750 ml Balance -50 ml -270 ml Intake Oral 400 ml 480 ml Output Urine Total 450 ml 750 ml # Voids 1 # Bowel Movements 4 3 Laboratory Tests Test 05/11/17 05:15 White Blood Count 3.6 K/UL (4.8-10.8) L Red Blood Count 4.15 M/UL (4.70-6.10) L Hemoglobin 12.8 G/DL (14.2-18.0) L Hematocrit 39.0 % (42.0-52.0) L Mean Corpuscular Volume 94 FL (80-99) Mean Corpuscular Hemoglobin 31.0 PG (27.0-31.0) Mean Corpuscular Hemoglobin Concent 32.9 G/DL (32.0-36.0) Red Cell Distribution Width 14.6 % (11.6-14.8) Platelet Count 94 K/UL (150-450) L Mean Platelet Volume 5.4 FL (6.5-10.1) L Neutrophils (%) (Auto) % (45.0-75.0) Lymphocytes (%) (Auto) % (20.0-45.0) Monocytes (%) (Auto) % (1.0-10.0) Eosinophils (%) (Auto) % (0.0-3.0) Basophils (%) (Auto) % (0.0-2.0) Neutrophils % (Manual) Pending Lymphocytes % (Manual) Pending Platelet Estimate Pending Platelet Morphology Pending Sodium Level 130 mEQ/L (135-145) L Potassium Level 5.0 mEQ/L (3.4-4.9) H Chloride Level 95 mEQ/L (98-107) L Carbon Dioxide Level 28 mEQ/L (20-30) Anion Gap 7 (5-15) Blood Urea Nitrogen 18 mg/dL (7-23) Creatinine 1.0 mg/dL (0.7-1.2) Estimat Glomerular Filtration Rate > 60 mL/min (>60) Glucose Level 80 mg/dL (74-106) Calcium Level 8.5 mg/dL (8.6-10.2) L Height (Feet): 5 Height (Inches): 9.00 Weight (Pounds): 170 General Appearance: no apparent distress, alert Cardiovascular: normal rate Respiratory/Chest: normal breath sounds Abdominal Exam: normal bowel sounds, non tender, soft Yesi Shell N.PShane May 11, 2017 10:13
[2017-05-11 10:26] LABS: ANISOCYTOSIS 1+; BAND NEUTROPHILS % (MANUAL) 2 % (0-8); BASOPHILS % (MANUAL) 1 % (0-2); EOSINOPHILS % (MANUAL) 8 % (0-3); LYMPHOCYTES % (MANUAL) 34 % (20-45); NEUTROPHILS % (MANUAL) 43 % (45-75); PLATELET ESTIMATE DECREASED; PLATELET MORPHOLOGY NORMAL; TOTAL CELLS COUNTED 100
--- NOTE | 2017-05-11 11:42 | General Progress Note ---
Assessment/Plan Status: unchanged Assessment/Plan Status: Acute Renal failure- High Vanco level, now WNL History of Brain tumor Was on Hospice at [facility] Admitted with chest pain Has pleural effusion right side Has shepard for urinary retention Has Pneumonia Has Transaminitis Cirrhosis / Splenomegaly / Liver mass 2+ Proteinuria HTN HypoThyroidism Plan: ? DC- stable from renal stand- Adjust BP meds- 2D echo results? Ejfx 70% Per consultants Subjective ROS Limited/Unobtainable: No Constitutional: Reports: malaise, weakness Allergies: Coded Allergies: No Known Allergies (Unverified , 04/30/17) Objective Last 24 Hour Vital Signs Date Time Temp Pulse Resp B/P Pulse Ox O2 Delivery O2 Flow Rate FiO2 05/11/17 09:04 Nasal Cannula 3.0 05/11/17 09:03 94 Nasal Cannula 4.0 05/11/17 09:03 59 18 Nasal Cannula 3.0 32 05/11/17 08:26 59 121/84 05/11/17 08:00 97.0 59 18 121/84 94 Nasal Cannula 5.0 05/11/17 04:00 96.4 61 22 136/82 93 Nasal Cannula 5.0 05/11/17 01:09 96.6 60 23 144/95 Nasal Cannula 5.0 05/11/17 00:00 96.6 60 23 144/95 94 Nasal Cannula 5.0 05/10/17 20:54 64 138/93 05/10/17 20:00 96.2 64 19 138/93 95 Nasal Cannula 5.0 05/10/17 18:36 Nasal Cannula 3.0 32 05/10/17 18:35 65 20 Nasal Cannula 3.0 32 05/10/17 18:35 95 Nasal Cannula 3.0 32 05/10/17 16:00 97.0 56 22 133/76 95 Nasal Cannula 2.0 Intake and Output 05/10/17 05/11/17 19:00 07:00 Intake Total 400 ml 480 ml Output Total 450 ml 750 ml Balance -50 ml -270 ml Intake Oral 400 ml 480 ml Output Urine Total 450 ml 750 ml # Voids 1 # Bowel Movements 4 3 Laboratory Tests 05/11/17 05:15: White Blood Count 3.6L, Red Blood Count 4.15L, Hemoglobin 12.8L, Hematocrit 39.0L, Mean Corpuscular Volume 94, Mean Corpuscular Hemoglobin 31.0, Mean Corpuscular Hemoglobin Concent 32.9, Red Cell Distribution Width 14.6, Platelet Count 94L, Mean Platelet Volume 5.4L, Neutrophils (%) (Auto) , Lymphocytes (%) ( Auto) , Monocytes (%) (Auto) , Eosinophils (%) (Auto) , Basophils (%) (Auto) , Differential Total Cells Counted 100, Neutrophils % (Manual) 43L, Lymphocytes % (Manual) 34, Monocytes % (Manual) 12H, Eosinophils % (Manual) 8H, Basophils % ( Manual) 1, Band Neutrophils 2, Platelet Estimate DecreasedL, Platelet Morphology Normal, Anisocytosis 1+, Sodium Level 130L, Potassium Level 5.0H, Chloride Level 95L, Carbon Dioxide Level 28, Anion Gap 7, Blood Urea Nitrogen 18 , Creatinine 1.0, Estimat Glomerular Filtration Rate > 60, Glucose Level 80, Calcium Level 8.5L Height (Feet): 5 Height (Inches): 9.00 Weight (Pounds): 170 General Appearance: lethargic Cardiovascular: bradycardia Respiratory/Chest: decreased breath sounds Abdomen: other - obese Objective PE not changed KELLY MUÑIZ May 11, 2017 11:42
--- NOTE | 2017-05-11 15:34 | Infectious Diseases Prog Note ---
Assessment/Plan Problems: (1) HCAP (healthcare-associated pneumonia) Assessment & Plan: improved, , S/P vancomycin and cefepime for 7 days, stable off antibiotics. monitor CXR , recommend aspiration precaution (2) Pleural effusion on right Assessment & Plan: with near complete right lung collapse on CT chest , S/P large fluids removal with thoracentesis. no fluids was sent for culture , fungal ,or AFB. 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 (5) s/p multiple lacunar strokes Assessment & Plan: continue PT/OT , neurology is following (6) Cirrhosis Assessment & Plan: with liver mass and elevated alpha feto protein , suspect HCC, has poor prognosis , GI is following (7) Hepatic encephalopathy Assessment & Plan: on lactulose , monitor ammonia level Subjective Constitutional: Reports: no symptoms HEENT: Reports: no symptoms Respiratory: Reports: dry cough Breasts: Reports: no symptoms Cardiovascular: Reports: no symptoms Gastrointestinal/Abdominal: Reports: bloating, diarrhea Genitourinary: Reports: no symptoms Neurologic: Reports: confusion, weakness Psychiatric: Reports: depression Skin: Reports: no symptoms Endocrine: Reports: no symptoms Hematologic: Reports: no symptoms Musculoskeletal: Reports: no symptoms Allergies: Coded Allergies: No Known Allergies (Unverified , 04/30/17) Subjective he was lethargic and altered, sedated , dosen't follow commands Objective Vital Signs Last 24 Hour Vital Signs Date Time Temp Pulse Resp B/P Pulse Ox O2 Delivery O2 Flow Rate FiO2 05/11/17 12:00 97.0 56 18 150/78 95 Nasal Cannula 5.0 05/11/17 09:04 Nasal Cannula 3.0 05/11/17 09:03 94 Nasal Cannula 4.0 05/11/17 09:03 59 18 Nasal Cannula 3.0 32 05/11/17 08:26 59 121/84 05/11/17 08:00 97.0 59 18 121/84 94 Nasal Cannula 5.0 05/11/17 04:00 96.4 61 22 136/82 93 Nasal Cannula 5.0 05/11/17 01:09 96.6 60 23 144/95 Nasal Cannula 5.0 05/11/17 00:00 96.6 60 23 144/95 94 Nasal Cannula 5.0 05/10/17 20:54 64 138/93 05/10/17 20:00 96.2 64 19 138/93 95 Nasal Cannula 5.0 05/10/17 18:36 Nasal Cannula 3.0 32 05/10/17 18:35 65 20 Nasal Cannula 3.0 32 05/10/17 18:35 95 Nasal Cannula 3.0 32 05/10/17 16:00 97.0 56 22 133/76 95 Nasal Cannula 2.0 Height (Feet): 5 Height (Inches): 9.00 Weight (Pounds): 170 General Appearance: WD/WN, no acute distress HEENT: normocephalic, atraumatic, anicteric Respiratory/Chest: chest wall non-tender, no respiratory distress, no accessory muscle use, decreased breath sounds, crackles/rales Cardiovascular: normal peripheral pulses, normal rate, regular rhythm, no gallop/murmur, no JVD Abdomen: normal bowel sounds, soft, non tender, no organomegaly, non distended , no mass, distended, hepatomegaly Extremities: no cyanosis, no clubbing, other - edema Skin: no rash, no lesions, no ulcers Neurologic/Psychiatric: alert, responsive Microbiology Date/Time Source Procedure Growth Status 05/09/17 00:30 Stool Clostridium difficile Toxin Assay - Final Complete Laboratory Tests Test 05/11/17 05:15 White Blood Count 3.6 K/UL (4.8-10.8) L Red Blood Count 4.15 M/UL (4.70-6.10) L Hemoglobin 12.8 G/DL (14.2-18.0) L Hematocrit 39.0 % (42.0-52.0) L Mean Corpuscular Volume 94 FL (80-99) Mean Corpuscular Hemoglobin 31.0 PG (27.0-31.0) Mean Corpuscular Hemoglobin Concent 32.9 G/DL (32.0-36.0) Red Cell Distribution Width 14.6 % (11.6-14.8) Platelet Count 94 K/UL (150-450) L Mean Platelet Volume 5.4 FL (6.5-10.1) L Neutrophils (%) (Auto) % (45.0-75.0) Lymphocytes (%) (Auto) % (20.0-45.0) Monocytes (%) (Auto) % (1.0-10.0) Eosinophils (%) (Auto) % (0.0-3.0) Basophils (%) (Auto) % (0.0-2.0) Differential Total Cells Counted 100 Neutrophils % (Manual) 43 % (45-75) L Lymphocytes % (Manual) 34 % (20-45) Monocytes % (Manual) 12 % (1-10) H Eosinophils % (Manual) 8 % (0-3) H Basophils % (Manual) 1 % (0-2) Band Neutrophils 2 % (0-8) Platelet Estimate Decreased L Platelet Morphology Normal Anisocytosis 1+ Sodium Level 130 mEQ/L (135-145) L Potassium Level 5.0 mEQ/L (3.4-4.9) H Chloride Level 95 mEQ/L (98-107) L Carbon Dioxide Level 28 mEQ/L (20-30) Anion Gap 7 (5-15) Blood Urea Nitrogen 18 mg/dL (7-23) Creatinine 1.0 mg/dL (0.7-1.2) Estimat Glomerular Filtration Rate > 60 mL/min (>60) Glucose Level 80 mg/dL (74-106) Calcium Level 8.5 mg/dL (8.6-10.2) L Current Medications Medications (Trade) Dose Ordered Sig/Tj Route PRN Reason Start Time Stop Time Status Last Admin Dose Admin Albuterol Sulfate (Proventil MDI) 1 puff Q6H PRN INH Shortness of Breath 05/04/17 20:00 06/03/17 19:59 05/10/17 18:35 Docusate Sodium (Colace) 100 mg TWICE A DAY ORAL 05/04/17 18:00 06/03/17 17:59 05/10/17 08:18 Ergocalciferol (Drisdol) 50,000 intlu QWEEK ORAL 05/09/17 16:00 06/08/17 15:59 05/09/17 17:11 Haloperidol (Haldol) 1 mg Q6H PRN ORAL AGITATION 05/04/17 18:00 06/03/17 17:59 05/10/17 17:40 Lactulose (Cephulac) 40 gm DAILY ORAL 05/05/17 09:00 06/04/17 08:59 05/11/17 08:26 Levothyroxine Sodium (Synthroid) 50 mcg ACBREAKFAST ORAL 05/05/17 06:30 06/04/17 06:29 05/11/17 05:55 Metoprolol Tartrate (Lopressor) 12.5 mg EVERY 12 HOURS ORAL 05/05/17 21:00 06/04/17 20:59 05/11/17 08:26 Morphine Sulfate (Morphine Sulfate) 0.5 mg Q4H PRN IV For Pain 4-10 05/04/17 17:00 05/11/17 16:59 05/07/17 17:29 Phenazopyridine HCl (Pyridium) 100 mg BID ORAL 05/04/17 18:00 05/11/17 17:59 05/11/17 08:25 Ranitidine HCl (Zantac) 150 mg DAILY ORAL 05/09/17 09:00 06/03/17 17:59 05/11/17 08:25 Edda Gil M.D. May 11, 2017 15:34
--- NOTE | 2017-05-11 15:50 | Pulmonology Progress Note ---
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, with mass effect (5) HTN (hypertension) (6) Dysuria (7) Cirrhosis Assessment/Plan symptomatic treatmet titrate fio2 to sat of 92% inoperable brain tumor alpha feto protein increased dc planning Subjective ROS Limited/Unobtainable: No Constitutional: Reports: no symptoms HEENT: Repors: no symptoms Respiratory: Reports: no symptoms Cardiovascular: Reports: no symptoms Allergies: Coded Allergies: No Known Allergies (Unverified , 04/30/17) Objective Last 24 Hour Vital Signs Date Time Temp Pulse Resp B/P Pulse Ox O2 Delivery O2 Flow Rate FiO2 05/11/17 12:00 97.0 56 18 150/78 95 Nasal Cannula 5.0 05/11/17 09:04 Nasal Cannula 3.0 05/11/17 09:03 94 Nasal Cannula 4.0 05/11/17 09:03 59 18 Nasal Cannula 3.0 32 05/11/17 08:26 59 121/84 05/11/17 08:00 97.0 59 18 121/84 94 Nasal Cannula 5.0 05/11/17 04:00 96.4 61 22 136/82 93 Nasal Cannula 5.0 05/11/17 01:09 96.6 60 23 144/95 Nasal Cannula 5.0 05/11/17 00:00 96.6 60 23 144/95 94 Nasal Cannula 5.0 05/10/17 20:54 64 138/93 05/10/17 20:00 96.2 64 19 138/93 95 Nasal Cannula 5.0 05/10/17 18:36 Nasal Cannula 3.0 32 05/10/17 18:35 65 20 Nasal Cannula 3.0 32 05/10/17 18:35 95 Nasal Cannula 3.0 32 05/10/17 16:00 97.0 56 22 133/76 95 Nasal Cannula 2.0 Intake and Output 05/10/17 05/11/17 19:00 07:00 Intake Total 400 ml 480 ml Output Total 450 ml 750 ml Balance -50 ml -270 ml Intake Oral 400 ml 480 ml Output Urine Total 450 ml 750 ml # Voids 1 # Bowel Movements 4 3 Objective General Appearance: WD/WN HEENT: normocephalic, atraumatic Respiratory/Chest: chest wall non-tender, lungs clear Breasts: no masses Cardiovascular: normal peripheral pulses, normal rate Abdomen: normal bowel sounds, soft, non tender Genitourinary: normal external genitalia Extremities: no cyanosis, +edema Skin: no rash Lymphatic: no groin adenopathy Microbiology Date/Time Source Procedure Growth Status 05/09/17 00:30 Stool Clostridium difficile Toxin Assay - Final Complete Laboratory Tests 05/11/17 05:15: White Blood Count 3.6L, Red Blood Count 4.15L, Hemoglobin 12.8L, Hematocrit 39.0L, Mean Corpuscular Volume 94, Mean Corpuscular Hemoglobin 31.0, Mean Corpuscular Hemoglobin Concent 32.9, Red Cell Distribution Width 14.6, Platelet Count 94L, Mean Platelet Volume 5.4L, Neutrophils (%) (Auto) , Lymphocytes (%) ( Auto) , Monocytes (%) (Auto) , Eosinophils (%) (Auto) , Basophils (%) (Auto) , Differential Total Cells Counted 100, Neutrophils % (Manual) 43L, Lymphocytes % (Manual) 34, Monocytes % (Manual) 12H, Eosinophils % (Manual) 8H, Basophils % ( Manual) 1, Band Neutrophils 2, Platelet Estimate DecreasedL, Platelet Morphology Normal, Anisocytosis 1+, Sodium Level 130L, Potassium Level 5.0H, Chloride Level 95L, Carbon Dioxide Level 28, Anion Gap 7, Blood Urea Nitrogen 18 , Creatinine 1.0, Estimat Glomerular Filtration Rate > 60, Glucose Level 80, Calcium Level 8.5L Current Medications Medications (Trade) Dose Ordered Sig/Tj Route PRN Reason Start Time Stop Time Status Last Admin Dose Admin Albuterol Sulfate (Proventil MDI) 1 puff Q6H PRN INH Shortness of Breath 05/04/17 20:00 06/03/17 19:59 05/10/17 18:35 Docusate Sodium (Colace) 100 mg TWICE A DAY ORAL 05/04/17 18:00 06/03/17 17:59 05/10/17 08:18 Ergocalciferol (Drisdol) 50,000 intlu QWEEK ORAL 05/09/17 16:00 06/08/17 15:59 05/09/17 17:11 Haloperidol (Haldol) 1 mg Q6H PRN ORAL AGITATION 05/04/17 18:00 06/03/17 17:59 05/10/17 17:40 Lactulose (Cephulac) 40 gm DAILY ORAL 05/05/17 09:00 06/04/17 08:59 05/11/17 08:26 Levothyroxine Sodium (Synthroid) 50 mcg ACBREAKFAST ORAL 05/05/17 06:30 06/04/17 06:29 05/11/17 05:55 Metoprolol Tartrate (Lopressor) 12.5 mg EVERY 12 HOURS ORAL 05/05/17 21:00 06/04/17 20:59 05/11/17 08:26 Morphine Sulfate (Morphine Sulfate) 0.5 mg Q4H PRN IV For Pain 4-10 05/04/17 17:00 05/11/17 16:59 05/07/17 17:29 Phenazopyridine HCl (Pyridium) 100 mg BID ORAL 05/04/17 18:00 05/11/17 17:59 05/11/17 08:25 Ranitidine HCl (Zantac) 150 mg DAILY ORAL 05/09/17 09:00 06/03/17 17:59 05/11/17 08:25 PRAVEEN DAVIS May 11, 2017 15:50
--- NOTE | 2017-05-11 16:13 | General Progress Note ---
Assessment/Plan Problem List: (1) Chest pain ICD Codes: R07.9 - Chest pain, unspecified SNOMED: 29159048 Qualifiers: Qualified Codes: R07.9 - Chest pain, unspecified (2) Pleural effusion on right ICD Codes: J90 - Pleural effusion, not elsewhere classified SNOMED: 61537949 (3) Cirrhosis ICD Codes: K74.60 - Unspecified cirrhosis of liver SNOMED: 57425126 (4) Hepatic encephalopathy ICD Codes: K72.90 - Hepatic failure, unspecified without coma SNOMED: 25025370 (5) HTN (hypertension) ICD Codes: I10 - Essential (primary) hypertension SNOMED: 96455006 Status: progressing Assessment/Plan afebrile resp insuff obesity massive pleural effusion etoh abuse cirrhosis Subjective ROS Limited/Unobtainable: Yes Constitutional: Reports: no symptoms Allergies: Coded Allergies: No Known Allergies (Unverified , 04/30/17) Objective Last 24 Hour Vital Signs Date Time Temp Pulse Resp B/P Pulse Ox O2 Delivery O2 Flow Rate FiO2 05/11/17 15:53 97.6 63 22 155/87 94 Nasal Cannula 5.0 05/11/17 12:00 97.0 56 18 150/78 95 Nasal Cannula 5.0 05/11/17 09:04 Nasal Cannula 3.0 05/11/17 09:03 94 Nasal Cannula 4.0 05/11/17 09:03 59 18 Nasal Cannula 3.0 32 05/11/17 08:26 59 121/84 05/11/17 08:00 97.0 59 18 121/84 94 Nasal Cannula 5.0 05/11/17 04:00 96.4 61 22 136/82 93 Nasal Cannula 5.0 05/11/17 01:09 96.6 60 23 144/95 Nasal Cannula 5.0 05/11/17 00:00 96.6 60 23 144/95 94 Nasal Cannula 5.0 05/10/17 20:54 64 138/93 05/10/17 20:00 96.2 64 19 138/93 95 Nasal Cannula 5.0 05/10/17 18:36 Nasal Cannula 3.0 32 05/10/17 18:35 65 20 Nasal Cannula 3.0 32 05/10/17 18:35 95 Nasal Cannula 3.0 32 Intake and Output 05/10/17 05/11/17 19:00 07:00 Intake Total 400 ml 480 ml Output Total 450 ml 750 ml Balance -50 ml -270 ml Intake Oral 400 ml 480 ml Output Urine Total 450 ml 750 ml # Voids 1 # Bowel Movements 4 3 Laboratory Tests 05/11/17 05:15: White Blood Count 3.6L, Red Blood Count 4.15L, Hemoglobin 12.8L, Hematocrit 39.0L, Mean Corpuscular Volume 94, Mean Corpuscular Hemoglobin 31.0, Mean Corpuscular Hemoglobin Concent 32.9, Red Cell Distribution Width 14.6, Platelet Count 94L, Mean Platelet Volume 5.4L, Neutrophils (%) (Auto) , Lymphocytes (%) ( Auto) , Monocytes (%) (Auto) , Eosinophils (%) (Auto) , Basophils (%) (Auto) , Differential Total Cells Counted 100, Neutrophils % (Manual) 43L, Lymphocytes % (Manual) 34, Monocytes % (Manual) 12H, Eosinophils % (Manual) 8H, Basophils % ( Manual) 1, Band Neutrophils 2, Platelet Estimate DecreasedL, Platelet Morphology Normal, Anisocytosis 1+, Sodium Level 130L, Potassium Level 5.0H, Chloride Level 95L, Carbon Dioxide Level 28, Anion Gap 7, Blood Urea Nitrogen 18 , Creatinine 1.0, Estimat Glomerular Filtration Rate > 60, Glucose Level 80, Calcium Level 8.5L Height (Feet): 5 Height (Inches): 9.00 Weight (Pounds): 170 Neck: supple Respiratory/Chest: lungs clear Abdomen: soft Edna Rivas MD May 11, 2017 16:13
--- NOTE | 2017-05-11 16:45 | General Progress Note ---
Assessment/Plan Assessment/Plan 1. Large pituitary mass, with mass effect, have reviewed the [facility] medical EMR and reviewed neurosurgery records, have also discussed with niece on phone on 05/04/17. He has multiple co-morbidities and neurosurgery there recommended initially a transphneoidal surgery at [facility], however given that he did not improve during his stay they then recommended hospice given multiple co-morbids and no surgical intervention. he does not have stage IV disease. Requires likely snf placement as per Dr. Rivas. --> placement currently in progress 2. Anemia secondary to chronic disease. Continue to closely monitor. --> transfuse as needed, currently counts are stable --> hgb goal above 8 3. Thrombocytopenia, mostly related to underlying cirrhosis as well as sepsis. 4. Transaminitis, potentially secondary to underlying liver disease. 5. Liver nodule --> being followed by GI 6. Hematuria in the setting of chronic [place] catheter. --> urology recs 7. Pleural effusion evaluation by Pulmonary team. --> s/p paracenteses 8. Coagulopathy, potentially secondary to underlying liver disease. --> monitor 9. Health care associated pneumonia --> now off abx Subjective Constitutional: Reports: no symptoms HEENT: Reports: no symptoms Cardiovascular: Reports: no symptoms Respiratory: Reports: no symptoms Gastrointestinal/Abdominal: Reports: no symptoms Genitourinary: Reports: hematuria Neurologic/Psychiatric: Reports: no symptoms Endocrine: Reports: no symptoms Hematologic/Lymphatic: Reports: no symptoms Allergies: Coded Allergies: No Known Allergies (Unverified , 04/30/17) Subjective lethargic Objective Last 24 Hour Vital Signs Date Time Temp Pulse Resp B/P Pulse Ox O2 Delivery O2 Flow Rate FiO2 05/11/17 15:53 97.6 63 22 155/87 94 Nasal Cannula 5.0 05/11/17 12:00 97.0 56 18 150/78 95 Nasal Cannula 5.0 05/11/17 09:04 Nasal Cannula 3.0 05/11/17 09:03 94 Nasal Cannula 4.0 05/11/17 09:03 59 18 Nasal Cannula 3.0 32 05/11/17 08:26 59 121/84 05/11/17 08:00 97.0 59 18 121/84 94 Nasal Cannula 5.0 05/11/17 04:00 96.4 61 22 136/82 93 Nasal Cannula 5.0 05/11/17 01:09 96.6 60 23 144/95 Nasal Cannula 5.0 05/11/17 00:00 96.6 60 23 144/95 94 Nasal Cannula 5.0 05/10/17 20:54 64 138/93 05/10/17 20:00 96.2 64 19 138/93 95 Nasal Cannula 5.0 05/10/17 18:36 Nasal Cannula 3.0 32 05/10/17 18:35 65 20 Nasal Cannula 3.0 32 05/10/17 18:35 95 Nasal Cannula 3.0 32 Intake and Output 05/10/17 05/11/17 19:00 07:00 Intake Total 400 ml 480 ml Output Total 450 ml 750 ml Balance -50 ml -270 ml Intake Oral 400 ml 480 ml Output Urine Total 450 ml 750 ml # Voids 1 # Bowel Movements 4 3 Laboratory Tests 05/11/17 05:15: White Blood Count 3.6L, Red Blood Count 4.15L, Hemoglobin 12.8L, Hematocrit 39.0L, Mean Corpuscular Volume 94, Mean Corpuscular Hemoglobin 31.0, Mean Corpuscular Hemoglobin Concent 32.9, Red Cell Distribution Width 14.6, Platelet Count 94L, Mean Platelet Volume 5.4L, Neutrophils (%) (Auto) , Lymphocytes (%) ( Auto) , Monocytes (%) (Auto) , Eosinophils (%) (Auto) , Basophils (%) (Auto) , Differential Total Cells Counted 100, Neutrophils % (Manual) 43L, Lymphocytes % (Manual) 34, Monocytes % (Manual) 12H, Eosinophils % (Manual) 8H, Basophils % ( Manual) 1, Band Neutrophils 2, Platelet Estimate DecreasedL, Platelet Morphology Normal, Anisocytosis 1+, Sodium Level 130L, Potassium Level 5.0H, Chloride Level 95L, Carbon Dioxide Level 28, Anion Gap 7, Blood Urea Nitrogen 18 , Creatinine 1.0, Estimat Glomerular Filtration Rate > 60, Glucose Level 80, Calcium Level 8.5L Height (Feet): 5 Height (Inches): 9.00 Weight (Pounds): 170 General Appearance: no apparent distress EENT: PERRL/EOMI Neck: supple Cardiovascular: normal peripheral pulses Edema: no edema noted Pedal (L), no edema noted Pedal (R) Neurologic: disoriented Skin: normal pigmentation Wes Johnston May 11, 2017 16:45
[2017-05-11] MEDS: Albuterol 90mcg Inhaler 8gm INH PRN (21:16)
[2017-05-12 03:53] VITALS: BP 121/66
[2017-05-12 08:00] VITALS: BP 154/95
[2017-05-12 08:21] LABS: MEAN CORPUSCULAR HEMOGLOBIN 30.7 PG (27.0-31.0); MEAN CORPUSCULAR HGB CONC 32.7 G/DL (32.0-36.0); MEAN CORPUSCULAR VOLUME 94 FL (80-99); MEAN PLATELET VOLUME 5.4 FL (6.5-10.1); PLATELET COUNT 99 K/UL (150-450); RED BLOOD COUNT 4.04 M/UL (4.70-6.10); RED CELL DISTRIBUTION WIDTH 14.5 % (11.6-14.8); WHITE BLOOD COUNT 4.2 K/UL (4.8-10.8)
[2017-05-12] MEDS: Docusate 100mg cap ORAL SCH (08:38)
[2017-05-12] MEDS: Metoprolol 25mg tab ORAL SCH (08:38)
[2017-05-12 08:43] LABS: ALANINE AMINOTRANSFERASE 31 U/L (3-41); ALBUMIN/GLOBULIN RATIO 0.8 (1.0-2.7); ANION GAP 5 (5-15); ASPARTATE AMINO TRANSFERASE 47 U/L (5-40); CALCIUM 8.5 mg/dL (8.6-10.2); CARBON DIOXIDE 29 mEQ/L (20-30); CHLORIDE 95 mEQ/L (98-107); GLOMERULAR FILTRATION RATE > 60 mL/min (>60); HEMOLYSIS 3; POTASSIUM 5.4 mEQ/L (3.4-4.9); SODIUM 129 mEQ/L (135-145); TOTAL PROTEIN 8.4 g/dL (6.6-8.7)
[2017-05-12] MEDS: Lactulose 20gm/30ml UDC ORAL SCH (08:43)
[2017-05-12 08:44] LABS: MAGNESIUM 1.6 mg/dL (1.7-2.5); PHOSPHORUS 4.5 mg/dL (2.5-4.8); URIC ACID 4.2 mg/dL (3.0-7.5)
[2017-05-12 09:55] LABS: EOSINOPHILS % (MANUAL) 6 % (0-3); LYMPHOCYTES % (MANUAL) 35 % (20-45); NEUTROPHILS % (MANUAL) 53 % (45-75); TOTAL CELLS COUNTED 100
[2017-05-12 09:56] LABS: BAND NEUTROPHILS % (MANUAL) 0 % (0-8); BASOPHILS % (MANUAL) 0 % (0-2); HYPOCHROMASIA 1+; PLATELET ESTIMATE DECREASED; PLATELET MORPHOLOGY NORMAL
[2017-05-12 09:57] LABS: ANISOCYTOSIS 1+; MICROCYTES 1+; OVALOCYTES 1+
[2017-05-12] MEDS ORDERED: Sodium Polystyrene Sulfonate 15gm Powder ORAL ONE (10:00)
--- NOTE | 2017-05-12 10:43 | GI Progress Note ---
Assessment/Plan Problems: (1) Liver nodule ICD Codes: K76.89 - Other specified diseases of liver SNOMED: 288532453 (2) Cirrhosis ICD Codes: K74.60 - Unspecified cirrhosis of liver SNOMED: 79177684 Status: stable, unchanged Status Narrative Discussed with Dr. Telles. Assessment/Plan abdominal U/S >> Suspicion of chronic liver disease/cirrhosis. Stigmata of portal hypertension including splenomegaly and trace ascites. ammonia WNL >> cont lactulose MRI reviewed > unremarkable hepatitis panel >> negative AFP elevation >> 11.3 s/p paracentesis with ~ 4L yield. ok for DC per GI standpoint >> outpatient GI procedures stable H&H, prn transfusions H2B monitor LFTs fu labs Subjective Subjective limited no symptoms Objective Last 24 Hour Vital Signs Date Time Temp Pulse Resp B/P Pulse Ox O2 Delivery O2 Flow Rate FiO2 05/12/17 08:38 60 154/95 05/12/17 08:00 97.3 60 20 154/95 94 Nasal Cannula 5.0 05/12/17 07:30 60 20 Nasal Cannula 2.0 28 05/12/17 07:30 97 Nasal Cannula 2.0 28 05/12/17 07:30 Nasal Cannula 2.0 28 05/12/17 03:53 97.7 135 22 121/66 97 Nasal Cannula 3.0 05/11/17 21:20 65 18 97 Nasal Cannula 2.0 28 05/11/17 21:19 Nasal Cannula 2.0 28 05/11/17 21:19 67 18 97 Nasal Cannula 2.0 28 05/11/17 21:18 97 Nasal Cannula 2.0 28 05/11/17 21:18 67 18 Nasal Cannula 2.0 28 05/11/17 20:28 69 159/66 05/11/17 20:03 97.0 69 26 159/66 93 Nasal Cannula 3.0 05/11/17 15:53 97.6 63 22 155/87 94 Nasal Cannula 5.0 05/11/17 12:00 97.0 56 18 150/78 95 Nasal Cannula 5.0 Intake and Output 05/11/17 05/12/17 19:00 07:00 Intake Total 960 ml Output Total 450 ml 550 ml Balance 510 ml -550 ml Intake Oral 960 ml Output Urine Total 450 ml 550 ml # Bowel Movements 4 2 Laboratory Tests Test 05/12/17 07:50 White Blood Count 4.2 K/UL (4.8-10.8) L Red Blood Count 4.04 M/UL (4.70-6.10) L Hemoglobin 12.4 G/DL (14.2-18.0) L Hematocrit 38.1 % (42.0-52.0) L Mean Corpuscular Volume 94 FL (80-99) Mean Corpuscular Hemoglobin 30.7 PG (27.0-31.0) Mean Corpuscular Hemoglobin Concent 32.7 G/DL (32.0-36.0) Red Cell Distribution Width 14.5 % (11.6-14.8) Platelet Count 99 K/UL (150-450) L Mean Platelet Volume 5.4 FL (6.5-10.1) L Neutrophils (%) (Auto) % (45.0-75.0) Lymphocytes (%) (Auto) % (20.0-45.0) Monocytes (%) (Auto) % (1.0-10.0) Eosinophils (%) (Auto) % (0.0-3.0) Basophils (%) (Auto) % (0.0-2.0) Differential Total Cells Counted 100 Neutrophils % (Manual) 53 % (45-75) Lymphocytes % (Manual) 35 % (20-45) Monocytes % (Manual) 6 % (1-10) Eosinophils % (Manual) 6 % (0-3) H Basophils % (Manual) 0 % (0-2) Band Neutrophils 0 % (0-8) Platelet Estimate Decreased L Platelet Morphology Normal Hypochromasia 1+ Anisocytosis 1+ Microcytosis 1+ Ovalocytes 1+ Sodium Level 129 mEQ/L (135-145) L Potassium Level 5.4 mEQ/L (3.4-4.9) H Chloride Level 95 mEQ/L (98-107) L Carbon Dioxide Level 29 mEQ/L (20-30) Anion Gap 5 (5-15) Blood Urea Nitrogen 18 mg/dL (7-23) Creatinine 1.0 mg/dL (0.7-1.2) Estimat Glomerular Filtration Rate > 60 mL/min (>60) Glucose Level 99 mg/dL (74-106) Uric Acid 4.2 mg/dL (3.0-7.5) Calcium Level 8.5 mg/dL (8.6-10.2) L Phosphorus Level 4.5 mg/dL (2.5-4.8) Magnesium Level 1.6 mg/dL (1.7-2.5) L Total Bilirubin 0.6 mg/dL (0.0-1.2) Aspartate Amino Transf (AST/SGOT) 47 U/L (5-40) H Alanine Aminotransferase (ALT/SGPT) 31 U/L (3-41) Alkaline Phosphatase 105 U/L (40-129) Total Protein 8.4 g/dL (6.6-8.7) Albumin 3.8 g/dL (3.5-5.2) Globulin 4.6 g/dL Albumin/Globulin Ratio 0.8 (1.0-2.7) L Height (Feet): 5 Height (Inches): 9.00 Weight (Pounds): 170 General Appearance: no apparent distress, alert Cardiovascular: normal rate Respiratory/Chest: normal breath sounds, no respiratory distress Abdominal Exam: normal bowel sounds, non tender, soft Yesi Shell NWill May 12, 2017 10:43
[2017-05-12 12:00] VITALS: BP 118/89
[2017-05-12] MEDS ORDERED: Magnesium Oxide 400mg tab ORAL SCH (13:00)
--- NOTE | 2017-05-12 14:45 | General Progress Note ---
Assessment/Plan Status: stable Status Narrative Na 129- K 5.4 ? Lysis Assessment/Plan Status: Acute Renal failure- High Vanco level, now WNL History of Brain tumor Was on Hospice at [facility] Admitted with chest pain Has pleural effusion right side Has shepard for urinary retention Has Pneumonia Has Transaminitis Cirrhosis / Splenomegaly / Liver mass 2+ Proteinuria HTN HypoThyroidism Plan: trial 3% saline again ? DC- stable from renal stand- Adjust BP meds- 2D echo results? Ejfx 70% Per consultants Subjective ROS Limited/Unobtainable: No Constitutional: Reports: malaise Allergies: Coded Allergies: No Known Allergies (Unverified , 04/30/17) Objective Last 24 Hour Vital Signs Date Time Temp Pulse Resp B/P Pulse Ox O2 Delivery O2 Flow Rate FiO2 05/12/17 12:00 97.3 65 20 118/89 99 Nasal Cannula 5.0 05/12/17 08:38 60 154/95 05/12/17 08:00 97.3 60 20 154/95 94 Nasal Cannula 5.0 05/12/17 07:30 60 20 Nasal Cannula 2.0 28 05/12/17 07:30 97 Nasal Cannula 2.0 28 05/12/17 07:30 Nasal Cannula 2.0 28 05/12/17 03:53 97.7 135 22 121/66 97 Nasal Cannula 3.0 05/11/17 21:20 65 18 97 Nasal Cannula 2.0 28 05/11/17 21:19 Nasal Cannula 2.0 28 05/11/17 21:19 67 18 97 Nasal Cannula 2.0 28 05/11/17 21:18 97 Nasal Cannula 2.0 28 05/11/17 21:18 67 18 Nasal Cannula 2.0 28 05/11/17 20:28 69 159/66 05/11/17 20:03 97.0 69 26 159/66 93 Nasal Cannula 3.0 05/11/17 15:53 97.6 63 22 155/87 94 Nasal Cannula 5.0 Intake and Output 05/11/17 05/12/17 19:00 07:00 Intake Total 960 ml Output Total 450 ml 550 ml Balance 510 ml -550 ml Intake Oral 960 ml Output Urine Total 450 ml 550 ml # Bowel Movements 4 2 Laboratory Tests 05/12/17 07:50: White Blood Count 4.2L, Red Blood Count 4.04L, Hemoglobin 12.4L, Hematocrit 38.1L, Mean Corpuscular Volume 94, Mean Corpuscular Hemoglobin 30.7, Mean Corpuscular Hemoglobin Concent 32.7, Red Cell Distribution Width 14.5, Platelet Count 99L, Mean Platelet Volume 5.4L, Neutrophils (%) (Auto) , Lymphocytes (%) ( Auto) , Monocytes (%) (Auto) , Eosinophils (%) (Auto) , Basophils (%) (Auto) , Differential Total Cells Counted 100, Neutrophils % (Manual) 53, Lymphocytes % ( Manual) 35, Monocytes % (Manual) 6, Eosinophils % (Manual) 6H, Basophils % ( Manual) 0, Band Neutrophils 0, Platelet Estimate DecreasedL, Platelet Morphology Normal, Hypochromasia 1+, Anisocytosis 1+, Microcytosis 1+, Ovalocytes 1+, Sodium Level 129L, Potassium Level 5.4H, Chloride Level 95L, Carbon Dioxide Level 29, Anion Gap 5, Blood Urea Nitrogen 18, Creatinine 1.0, Estimat Glomerular Filtration Rate > 60, Glucose Level 99, Uric Acid 4.2, Calcium Level 8.5L, Phosphorus Level 4.5, Magnesium Level 1.6L, Total Bilirubin 0.6, Aspartate Amino Transf (AST/SGOT) 47H, Alanine Aminotransferase (ALT/SGPT) 31, Alkaline Phosphatase 105, Total Protein 8.4, Albumin 3.8, Globulin 4.6, Albumin/Globulin Ratio 0.8L Height (Feet): 5 Height (Inches): 9.00 Weight (Pounds): 170 General Appearance: no apparent distress Objective PE not changed KELLY MUÑIZ May 12, 2017 14:45
[2017-05-12] MEDS ORDERED: NS 275ml ONE (15:18)
[2017-05-12] MEDS ORDERED: Tubing IV Secondary IV ONE (15:18)
[2017-05-12] MEDS ORDERED: NaCl 3% 500ml 250 ML IV ONE (15:30)
--- NOTE | 2017-05-12 17:57 | Infectious Diseases Prog Note ---
Assessment/Plan Problems: (1) HCAP (healthcare-associated pneumonia) Assessment & Plan: improved, , S/P vancomycin and cefepime for 7 days, stable off antibiotics. monitor CXR , recommend aspiration precaution (2) Pleural effusion on right Assessment & Plan: with near complete right lung collapse on CT chest , S/P large fluids removal with thoracentesis. no fluids was sent for culture , fungal ,or AFB. cytology is negative for malignancy (3) large pituitary mass, probably macroadenoma, with mass effect Assessment & Plan: poor candidate for surgucal resection, was evaluated by nerusurgery at [facility] , but high risk for surgery , recommend palliative care (4) Diarrhea Assessment & Plan: due to lactulose, C diff toxin is negative . (5) s/p multiple lacunar strokes Assessment & Plan: continue PT/OT , neurology is following (6) Cirrhosis Assessment & Plan: with liver mass and elevated alpha feto protein , suspect HCC, has poor prognosis , GI is following (7) Hepatic encephalopathy Assessment & Plan: on lactulose , monitor ammonia level Subjective Constitutional: Reports: no symptoms HEENT: Reports: no symptoms Respiratory: Reports: no symptoms Breasts: Reports: no symptoms Cardiovascular: Reports: no symptoms Gastrointestinal/Abdominal: Reports: no symptoms Genitourinary: Reports: no symptoms Neurologic: Reports: no symptoms Psychiatric: Reports: no symptoms Skin: Reports: no symptoms Endocrine: Reports: no symptoms Hematologic: Reports: no symptoms Musculoskeletal: Reports: no symptoms Allergies: Coded Allergies: No Known Allergies (Unverified , 04/30/17) Subjective he was lethargic and altered, sedated , dosen't follow commands Objective Vital Signs Last 24 Hour Vital Signs Date Time Temp Pulse Resp B/P Pulse Ox O2 Delivery O2 Flow Rate FiO2 05/12/17 12:00 97.3 65 20 118/89 99 Nasal Cannula 5.0 05/12/17 08:38 60 154/95 05/12/17 08:00 97.3 60 20 154/95 94 Nasal Cannula 5.0 05/12/17 07:30 60 20 Nasal Cannula 2.0 28 05/12/17 07:30 97 Nasal Cannula 2.0 28 05/12/17 07:30 Nasal Cannula 2.0 05/12/17 03:53 97.7 135 22 121/66 97 Nasal Cannula 3.0 05/11/17 21:20 65 18 97 Nasal Cannula 2.0 05/11/17 21:19 Nasal Cannula 2.0 28 05/11/17 21:19 67 18 97 Nasal Cannula 2.0 05/11/17 21:18 97 Nasal Cannula 2.0 05/11/17 21:18 67 18 Nasal Cannula 2.0 05/11/17 20:28 69 159/66 05/11/17 20:03 97.0 69 26 159/66 93 Nasal Cannula 3.0 Height (Feet): 5 Height (Inches): 9.00 Weight (Pounds): 170 General Appearance: WD/WN, no acute distress HEENT: normocephalic, atraumatic, anicteric, mucous membranes moist, PERRL Respiratory/Chest: chest wall non-tender, lungs clear, normal breath sounds, no respiratory distress, no accessory muscle use Cardiovascular: normal peripheral pulses, normal rate, regular rhythm, no gallop/murmur, no JVD Abdomen: normal bowel sounds, soft, non tender, no organomegaly, non distended , no mass, no scars Extremities: no cyanosis, no clubbing, other - edema, stasis dermatitis Skin: no rash, no lesions Laboratory Tests Test 05/12/17 07:50 White Blood Count 4.2 K/UL (4.8-10.8) L Red Blood Count 4.04 M/UL (4.70-6.10) L Hemoglobin 12.4 G/DL (14.2-18.0) L Hematocrit 38.1 % (42.0-52.0) L Mean Corpuscular Volume 94 FL (80-99) Mean Corpuscular Hemoglobin 30.7 PG (27.0-31.0) Mean Corpuscular Hemoglobin Concent 32.7 G/DL (32.0-36.0) Red Cell Distribution Width 14.5 % (11.6-14.8) Platelet Count 99 K/UL (150-450) L Mean Platelet Volume 5.4 FL (6.5-10.1) L Neutrophils (%) (Auto) % (45.0-75.0) Lymphocytes (%) (Auto) % (20.0-45.0) Monocytes (%) (Auto) % (1.0-10.0) Eosinophils (%) (Auto) % (0.0-3.0) Basophils (%) (Auto) % (0.0-2.0) Differential Total Cells Counted 100 Neutrophils % (Manual) 53 % (45-75) Lymphocytes % (Manual) 35 % (20-45) Monocytes % (Manual) 6 % (1-10) Eosinophils % (Manual) 6 % (0-3) H Basophils % (Manual) 0 % (0-2) Band Neutrophils 0 % (0-8) Platelet Estimate Decreased L Platelet Morphology Normal Hypochromasia 1+ Anisocytosis 1+ Microcytosis 1+ Ovalocytes 1+ Sodium Level 129 mEQ/L (135-145) L Potassium Level 5.4 mEQ/L (3.4-4.9) H Chloride Level 95 mEQ/L (98-107) L Carbon Dioxide Level 29 mEQ/L (20-30) Anion Gap 5 (5-15) Blood Urea Nitrogen 18 mg/dL (7-23) Creatinine 1.0 mg/dL (0.7-1.2) Estimat Glomerular Filtration Rate > 60 mL/min (>60) Glucose Level 99 mg/dL (74-106) Uric Acid 4.2 mg/dL (3.0-7.5) Calcium Level 8.5 mg/dL (8.6-10.2) L Phosphorus Level 4.5 mg/dL (2.5-4.8) Magnesium Level 1.6 mg/dL (1.7-2.5) L Total Bilirubin 0.6 mg/dL (0.0-1.2) Aspartate Amino Transf (AST/SGOT) 47 U/L (5-40) H Alanine Aminotransferase (ALT/SGPT) 31 U/L (3-41) Alkaline Phosphatase 105 U/L (40-129) Total Protein 8.4 g/dL (6.6-8.7) Albumin 3.8 g/dL (3.5-5.2) Globulin 4.6 g/dL Albumin/Globulin Ratio 0.8 (1.0-2.7) Edda Acosta M.D. May 12, 2017 17:57
--- NOTE | 2017-05-14 22:17 | General Progress Note ---
Assessment/Plan Assessment/Plan 1. Large pituitary mass, with mass effect, have reviewed the [facility]MR and reviewed neurosurgery records, have also discussed with niece on phone on 05/04/17. He has multiple co-morbidities and neurosurgery there recommended initially a transphneoidal surgery at the [facility], however given that he did not improve during his stay they then recommended hospice given multiple co-morbids and no surgical intervention. he does not have stage IV disease. Requires likely snf placement as per Dr. Rivas. --> placement currently in progress 2. Leukopenia 2/2 chronic liver disease 3. Anemia secondary to chronic disease. Continue to closely monitor. --> transfuse as needed, currently counts are stable --> hgb goal above 8 4. Thrombocytopenia, mostly related to underlying cirrhosis. 5. Transaminitis, potentially secondary to underlying liver disease. 6. Liver nodule --> being followed by GI 7. Hematuria in the setting of chronic Aiken catheter. --> urology recs 8. Pleural effusion evaluation by Pulmonary team. --> s/p paracenteses 9. Coagulopathy, potentially secondary to underlying liver disease. --> monitor 10. Health care associated pneumonia --> now off abx Subjective Date patient seen: May 12, 2017 Constitutional: Reports: no symptoms HEENT: Reports: no symptoms Cardiovascular: Reports: no symptoms Respiratory: Reports: no symptoms Gastrointestinal/Abdominal: Reports: no symptoms Genitourinary: Reports: no symptoms Neurologic/Psychiatric: Reports: no symptoms Endocrine: Reports: no symptoms Hematologic/Lymphatic: Reports: no symptoms Allergies: Coded Allergies: No Known Allergies (Unverified , 04/30/17) Subjective asleep, lethargic Objective Height (Feet): 5 Height (Inches): 9.00 Weight (Pounds): 170 General Appearance: no apparent distress EENT: normal ENT inspection Neck: normal inspection Cardiovascular: no gallop/murmur Extremities: normal inspection Neurologic: disoriented Skin: warm/dry Wes Johnston May 14, 2017 22:17
--- NOTE | 2017-05-15 16:07 | Discharge Summary ---
Discharge Summary Hospital Course Date of Admission Apr 30, 2017 at 03:44 Date of Discharge May 12, 2017 at 15:19 Admitting Diagnosis Chest Pain HPI Neel Gonzalez is a 67 year old male who was admitted on Apr 30, 2017 at 03:44 for Chest Pain Hospital Course dc summary #[id number] Discharge Medications Continued Medications: Albuterol Sulfate (Ventolin Hfa) 18 Gm Hfa.aer.ad 2 PUFFS INH EVERY 6 HOURS, #18 GM 0 Refills Clonidine Hcl (Clonidine Hcl) 0.1 Mg Tablet 0.1 MG PO, TAB Famotidine (Famotidine) 20 Mg Tablet 20 MG ORAL TWICE A DAY, #60 TAB 0 Refills Furosemide* (Lasix*) 40 Mg Tablet 40 MG ORAL TWICE A DAY, TAB 0 Refills Haloperidol* (Haldol*) 1 Mg Tablet 1 MG ORAL EVERY 6 HOURS, #20 TAB 0 Refills Lactulose (Lactulose*) 20 Gm/30 Ml Solution 60 ML ORAL, ML 0 Refills Lactulose (Lactulose*) 20 Gm/30 Ml Solution 60 ML ORAL, ML 0 Refills Levothyroxine Sodium* (Levothyroxine Sodium*) 50 Mcg Tablet 50 MCG ORAL DAILY, TAB Take in the morning on an empty stomach, at least 30 minutes before food. Losartan Potassium (Losartan Potassium) 100 Mg Tablet 50 MG ORAL DAILY, TAB Metoprolol Tartrate (Metoprolol Tartrate) 25 Mg Tablet 25 MG ORAL EVERY 12 HOURS, TAB Discharge Discharge Disposition Patient was discharged to SNF/Subacute Facility(03) Discharge Diagnoses: Miki (Destiniein)Marii NP May 15, 2017 16:07
--- NOTE | 2017-05-16 05:30 | Discharge Summary 2 SIG ---
DATE OF ADMISSION: 04/30/2017 DATE OF DISCHARGE: 05/12/2017 REASON FOR ADMISSION: This is a 67 years old male with multiple medical problems including cirrhosis, pituitary adenoma, hepatic encephalopathy, anemia, dementia, hypertension, and CHF, presented to the emergency room with chest pain and short of breath. The patient received aspirin and nitroglycerin by boat wrapper, was pain free upon arrival to the emergency room, but was short of breath. Pulse oximetry was 92% on the room air. The patient was afebrile. Blood pressure was stable. Chest x-ray revealed right pleural effusion. EKG revealed normal sinus rhythm. Troponin was negative. The patient was admitted for further management to telemetry floor. ADMITTING DIAGNOSES: 1. Chest pain. 2. Right pleural effusion. 3. Large pituitary adenoma. 4. Cirrhosis. 5. Crohn disease. 6. Elevated liver function tests. In ED, noted elevated liver enzyme, AST 138, ALT 101, and alkaline phosphatase 159 with stable total bilirubin 0.4. CONSULTANTS: 1. Agustín Mohr M.D. Cardiology. 2. Keenan Fuentes M.D., Neurology. 3. Kevin Flores M.D., Finish Cleaner. 4. Bina Devine M.D., Pulmonary. 5. Ihsan Stearns M.D., Urologist. 6. Bro Rockwell M.D., Civil Structural Engineer. 7. Wes Johnston M.D., Paper Cup Handle Machine Operator. 8. Edda Gil M.D, Infectious Disease. 9. Azael Telles M.D., GI. HOSPITAL STAY: The patient admitted to telemetry floor. CT chest done after chest x-ray revealed right pleural effusion, revealed massive right pleural effusion occupying more than 70% of the space causing complete atelectasis of the right lower lobe. The patient reported shortness of breath. The patient subsequently undergone thoracentesis on 05/03/2017, which will be 3.9 liters of fluid. Cytology is negative for malignancy. Chest x-ray, post thoracentesis revealed no evidence of pneumothorax. Venous Duplex bilateral lower extremity was negative. Supplemental oxygen provided as needed. Pulmonary toilet provided as needed. Prior to discharge, the patient was on nasal cannula five liters, saturation of 99%. The patient has evidence of healthcare- associated pneumonia. ID closely followed. Status post treatment with antibiotics. No leukocytosis. No fever. Per ID, observe the patient off antibiotics. The patient received vancomycin and cefepime for seven days. The patient had a history of large pituitary adenoma with mass effect, diagnosed at [facility]. Neurologist seen and evaluated the patient. Ammonia was stable. The patient is on lactulose chronically. The patient exhibited obtundation due to underlying metabolic derangement combined with as per Neurology conclusion. The patient does has a pituitary adenoma, but no radiological evidence of malignancy per music educator. Prolactin level SSH and growth hormone were checked. The patient is not a good surgical candidate, per Neurology due to multiple comorbidity. Prolactin level was elevated at 21.4. [facility] initially recommended transsphenoidal approach for removal of pituitary adenoma, however, the patient not improved with his medical condition and due to the multiple comorbidities, he was recommended hospice. GI followed the patient through the hospital stay. The patient with chronic liver cirrhosis. Abdominal ultrasound revealed chronic liver disease/cirrhosis. Stigmata of portal hypertension including splenomegaly and trace ascites. Subsequently, a CT chest was done for evaluation of right pleural effusion, however accidentally noted 2.6 cm low attenuation lesion within segment of the liver. Neoplasm is a possibility, recommended further workup with MRI or contrast CT. Subsequently, the patient undergone abdominal MRI, which shows intrahepatic course of hepatic segment of the inferior vena cava accounting for the apparent liver lesion described in the recent chest CT. No further workup is necessary for this. Findings were compatible with hepatic cirrhosis as previously described. Trace ascites. Right lung consolidation. Splenomegaly most likely related to portal hypertension. GI closely followed. Continue lactulose despite normal ammonia. Hepatitis panel checked, was negative. Alpha- fetoprotein elevated at 11.3. Hemoglobin and hematocrit stable and transfused with goal to keep hemoglobin above 7. The patient was on H2 germain. LFT closely monitored and down to normal prior to discharge. GI cleared the patient for discharge. Outpatient GI procedure, family decided. Family is still not sure positive care versus further care. The patient has constant coagulopathy noted, INR 1.4 and then 1.3. Platelets were closely monitored and platelets on the baseline. Prior to discharge, platelets 99,000. Per second steward, anemia secondary to chronic disease, leukopenia secondary to chronic liver disease, thrombocytopenia most probably related to underlying cirrhosis, and transaminitis likely secondary to underlying liver disease, resolved. Liver nodule, no further workup necessary. Noted hematuria in the setting of chronic Aiken catheter. Urology seen the patient. Aiken catheter was changed and irrigated as needed. Continued irrigation with normal saline as needed. The patient status post Pyridium for three days. Hematuria, resolved. Coagulopathy was secondary to underlying liver disease. Monitor counts at the alf facility. All consultants agreed and recommended symptomatic treatment and discharge planning and craft manager followed as well. The patient at some point demonstrated acute renal failure due to the high vancomycin level, now within normal limits. The patient also evidence of hyponatremia, another trial of 3% normal saline given x2. The patient was cleared by all consultants for transfer to alf facility. Final diagnosis include go to Cardiology. According to room service attendant, chest pain was secondary to right-sided pleural effusion. Blood pressure was managed with beta-germain and was stable. ProBNP was within normal limits. Echo revealed ejection fraction of 70% to 75%. Right pleural effusion was likely secondary to healthcare-associated pneumonia. DISCHARGE DIAGNOSES: 1. Chest pain, secondary to right pleural effusion, resolved. 2. Right pleural effusion secondary to pneumonia. 3. Status post thoracentesis on 05/03/2017 with 3.9 liters removal. 4. Healthcare-associated pneumonia, status post treatment with antibiotics. 5. Large pituitary adenoma with mass effect. 6. History of multiple lacunar stroke. 7. Vascular dementia. 8. Liver cirrhosis. 9. Elevated alpha-fetoprotein, possible hepatocellular carcinoma. 10. Anemia of chronic disease. 11. Thrombocytopenia. 12. Hepatic encephalopathy. 13. Coagulopathy. 14. Acute renal failure due to the elevated vancomycin level, resolved. 15. Transaminitis due to the cirrhosis, resolved. 16. Hyponatremia. DISCHARGE MEDICATIONS: See medication reconciliation list. DISCHARGE INSTRUCTIONS: The patient discharged to alf facility. Follow up with medical doctor at the facility. Recommended palliative care. Edna Rivas M.D. I have been assigned to dictate discharge summary on this account and I was not involved in the patient's management. Marii Livingston N.P. (vanchtein) DR: Marichuy JOB#: [id number] CC:
== END 2017-05-12 15:19 | DRG 139 ==
LOC: EDBD 02:33 → EMR 02:40 → 2E 03:44 → EDBEDREQ 04:29 → 2E 20:59 → 4E 05-04 16:32 → 3E 05-06 16:49 → 4E 05-09 08:10
PROC: 0W993ZZ Drainage of Right Pleural Cavity, Percutaneous Approach (ICD-10-PCS; principal; 2017-05-03)
DX: J18.9 Pneumonia, unspecified organism (principal); N17.9 Acute kidney failure, unspecified; D68.9 Coagulation defect, unspecified; R18.8 Other ascites; J90 Pleural effusion, not elsewhere classified; K76.6 Portal hypertension; E87.1 Hypo-osmolality and hyponatremia; K74.60 Unspecified cirrhosis of liver; I10 Essential (primary) hypertension; K72.90 Hepatic failure, unspecified without coma; D35.2 Benign neoplasm of pituitary gland; I69.919 Unspecified symptoms and signs involving cognitive functions following unspecified cerebrovascular disease; F01.50 Vascular dementia, unspecified severity, without behavioral disturbance, psychotic disturbance, mood disturbance, and anxiety; D69.6 Thrombocytopenia, unspecified; K21.9 Gastro-esophageal reflux disease without esophagitis; D63.8 Anemia in other chronic diseases classified elsewhere; R30.0 Dysuria; E03.9 Hypothyroidism, unspecified; N14.1 Nephropathy induced by other drugs, medicaments and biological substances; T36.8X5A Adverse effect of other systemic antibiotics, initial encounter; Y92.9 Unspecified place or not applicable
CPT/HCPCS: 36415; 70470; 71010; 71250; 74183; 76700; 76942; 80048; 80053; 80061; 80202; 81003; 82105; 82140; 82550; 82553; 82607; 82746; 82962; 82977; 83036; 83615; 83735; 83880; 83930; 83935; 83986; 84100; 84146; 84300; 84443; 84484; 84550; 85007; 85025; 85610; 85730; 86140; 86705; 86709; 86803; 87040; 87081; 87324; 87340; 88104; 89051; 93005; 93306; 93970; 94640; 94664; 94760; A9585; J7620